=== PATIENT | female | born 1935 | race Caucasian/White ===

== ENCOUNTER 2018-08-10 09:35 | Emergency (ER) | payer MEDICARE, OTHER ==
[~2018-08-10] VITALS: Ht 167.6 cm; Wt 76.7 kg
--- NOTE | 2018-08-10 11:32 | PHYS DOC ---
Past Medical History Past Medical History: Other Additional Past Medical Histor: RAYNAUD'S, Past Surgical History: Appendectomy, Hysterectomy, Other Additional Past Surgical Histo: DBS & BATTERY REPLACEMENT Alcohol Use: None Drug Use: None Adult General Chief Complaint Chief Complaint: WRIST PAIN [facility] HPI Patient is an 82-year-old female who presents for splint placement for ulnar fracture to left wrist. Patient reportedly had been wiping her bottom when she felt a pop in her wrist and an x-ray had been ordered at her nursing facility and patient was found to have a distal ulna fracture. Patient was sent to the emergency room for splint placement. Review of Systems Review of Systems Constitutional: Denies fever or chills [] Respiratory: Denies cough or shortness of breath [] Cardiovascular: No additional information not addressed in HPI [] Musculoskeletal: Positive left wrist pain [] Integument: Denies rash or skin lesions [] Allergies Allergies Allergies Coded Allergies Type Severity Reaction Last Updated Verified tramadol Allergy Intermediate Rash 08/10/18 Yes Sulfa (Sulfonamide Antibiotics) Allergy Unknown 08/10/18 Yes Physical Exam Physical Exam Constitutional: Well developed, well nourished, no acute distress, non-toxic appearance. [] Cardiovascular: Regular rate and rhythm [] Lungs & Thorax: Bilateral breath sounds clear to auscultation [] Extremities: Left wrist demonstrates soft tissue swelling primarily in the dorsal aspect of the wrist. There is tenderness to palpation along the ulnar aspect of the wrist. [] Current Patient Data Vital Signs Vital Signs Date Time Temp Pulse Resp B/P (MAP) Pulse Ox O2 Delivery O2 Flow Rate FiO2 08/10/18 10:15 97.4 78 16 144/63 (90) 96 Room Air 97.4 EKG EKG [] Radiology/Procedures Radiology/Procedures [] Course & Med Decision Making Course & Med Decision Making Pertinent Labs and Imaging studies reviewed. (See chart for details) X-ray report that was sent with the patient was reviewed and patient noted to have a distal ulna fracture with no significant displacement. A volar OCL splint was placed by ER nurse. Examination post splint placement demonstrates good capillary refill. Dragon Disclaimer Dragon Disclaimer This electronic medical record was generated, in whole or in part, using a voice recognition dictation system. Departure Departure Impression: Primary Impression: Left ulnar fracture Disposition: 01 HOME, SELF-CARE Condition: STABLE Patient Instructions: Wrist Fracture Problem Qualifiers Primary Impression: Left ulnar fracture Encounter type: initial encounter Ulna location: distal Fracture type: closed Fracture morphology: unspecified fracture morphology Qualified Codes: S52.602A - Unspecified fracture of lower end of left ulna, initial encounter for closed fracture GRACIE FELIZ Jr., DO Aug 10, 2018 11:32
[2018-08-10] MEDS ORDERED: HYDROcodone/APAP 5/325MG 1 TAB TABLET ONE (12:27)
[2018-08-10] MEDS: HYDROcodone/APAP 5/325MG 1 TAB TABLET PO ONE ×2 (12:34→12:44)
[2018-08-10] MEDS ORDERED: ACETAMINOPHEN 500 MG TABLET PO ONE (12:45)
[2018-08-10 12:53] VITALS: BP 117/63
== END 2018-08-10 12:56 | disposition home or self-care (01) ==
LOC: ER 09:35 → EDBD 09:35 → ER 12:56
DX: S52.692A Other fracture of lower end of left ulna, initial encounter for closed fracture (principal); I73.00 Raynaud's syndrome without gangrene; Z90.710 Acquired absence of both cervix and uterus; Z90.89 Acquired absence of other organs; Z88.5 Allergy status to narcotic agent; Z88.2 Allergy status to sulfonamides
CPT/HCPCS: 29125; 99284

== ENCOUNTER 2018-10-06 16:02 | Inpatient (IN) | payer MEDICARE, OTHER ==
[~2018-10-06] VITALS: Ht 167.6 cm; Wt 86.3 kg
[2018-10-06 17:17] LABS: BASO % 0 % (0-3); EOS % 0 % (0-3); HEMATOCRIT 38.3 % (36.0-47.0); HEMOGLOBIN 12.4 g/dL (12.0-15.5); LYMPH # 0.7 x10^3/uL (1.0-4.8); LYMPH % 7 % (24-48); MEAN CORPUSCULAR HEMOGLOBIN 28 pg (25-35); MEAN CORPUSCULAR HGB CONC 33 g/dL (31-37); MEAN CORPUSCULAR VOLUME 87 fL (79-100); MONO # 0.9 x10^3/uL (0.0-1.1); MONO % 10 % (0-9); NEUT # 7.4 x10^3uL (1.8-7.7); NEUT % 82 % (31-73); PLATELET COUNT 211 x10^3/uL (140-400); RED BLOOD COUNT 4.39 x10^6/uL (3.50-5.40)
[2018-10-06 17:26] LABS: CALCIUM 8.7 mg/dL (8.5-10.1); CREATININE 0.9 mg/dL (0.6-1.0); GFR 59.9; POTASSIUM 4.2 mmol/L (3.5-5.1)
[2018-10-06 17:32] LABS: ALBUMIN 3.2 g/dL (3.4-5.0); ALBUMIN/GLOBULIN RATIO 0.9 (1.0-1.7); TOTAL BILIRUBIN 0.5 mg/dL (0.2-1.0); TOTAL PROTEIN 6.9 g/dL (6.4-8.2)
--- NOTE | 2018-10-06 18:05 | PHYS DOC ---
Past Medical History Past Medical History: A-Fib, CHF, Other Additional Past Medical Histor: RAYNAUD'S, scleraderma systemic, essential tremors, Past Surgical History: Appendectomy, Hysterectomy, Other Additional Past Surgical Histo: DBS & BATTERY REPLACEMENTx2 , lumpectomy on her back, left knee Alcohol Use: None Drug Use: None Adult General Chief Complaint Chief Complaint: COUGH HPI HPI Patient is a 82 year old female who presents with comes from assisted living with a fever, productive cough with yellow mucus, chest, shortness of air that all started today. Patient does have a right toe infection is being cared for by wound care and she is on doxycycline of which she will be done with doxycycline on the . Patient has a history of Raynaud , right toe wound, left chest deep brain stimulator for essential tremors, A. fib, CHF, scleroderma. Patient is rating her chest pressure at a 5 out of 10. Review of Systems Review of Systems Constitutional: Denies fever or chills [] Eyes: Denies change in visual acuity, redness, or eye pain [] HENT: Denies nasal congestion or sore throat [] Respiratory: cough or shortness of breath [] Cardiovascular: Chest pressure GI: Denies abdominal pain, nausea, vomiting, bloody stools or diarrhea [] : Denies dysuria or hematuria [] Musculoskeletal: Right 2nd toe infection. Denies back pain or joint pain [] Integument: Denies rash or skin lesions [] Neurologic: Denies headache, focal weakness or sensory changes [] All other systems were reviewed and found to be within normal limits, except as documented in this note. Allergies Allergies Allergies Coded Allergies Type Severity Reaction Last Updated Verified carbamazepine Allergy Intermediate itchy 10/06/18 Yes prochlorperazine Allergy Intermediate unknown 10/06/18 Yes tramadol Allergy Intermediate Rash 08/10/18 Yes Sulfa (Sulfonamide Antibiotics) Allergy Unknown 08/10/18 Yes Physical Exam Physical Exam Constitutional: Well developed, well nourished, no acute distress, non-toxic appearance. [] HENT: Normocephalic, atraumatic, bilateral external ears normal, oropharynx moist, no oral exudates, nose normal. [] Eyes: PERRLA, EOMI, conjunctiva normal, no discharge. [] Neck: Normal range of motion, no tenderness, supple, no stridor. [] Cardiovascular:Heart rate irregular rhythm, no murmur [] Lungs & Thorax: Bilateral breath sounds diminished to auscultation [] Abdomen: Bowel sounds normal, soft, no tenderness, no masses, no pulsatile masses. [] Skin: Warm, dry, no erythema, no rash. [] Back: No tenderness, no CVA tenderness. [] Extremities: No tenderness, no cyanosis, no clubbing, ROM intact, no edema. [] Neurologic: Alert and oriented X 3, normal motor function, normal sensory function, no focal deficits noted. [] Psychologic: Affect normal, judgement normal, mood normal. [] Current Patient Data Vital Signs Vital Signs Date Time Temp Pulse Resp B/P (MAP) Pulse Ox O2 Delivery O2 Flow Rate FiO2 10/06/18 16:10 99.2 92 20 141/68 (92) 98 Room Air 99.2 Lab Values Laboratory Tests Test 10/06/18 17:05 White Blood Count 9.0 x10^3/uL (4.0-11.0) Red Blood Count 4.39 x10^6/uL (3.50-5.40) Hemoglobin 12.4 g/dL (12.0-15.5) Hematocrit 38.3 % (36.0-47.0) Mean Corpuscular Volume 87 fL (79-100) Mean Corpuscular Hemoglobin 28 pg (25-35) Mean Corpuscular Hemoglobin Concent 33 g/dL (31-37) Red Cell Distribution Width 15.0 % (11.5-14.5) H Platelet Count 211 x10^3/uL (140-400) Neutrophils (%) (Auto) 82 % (31-73) H Lymphocytes (%) (Auto) 7 % (24-48) L Monocytes (%) (Auto) 10 % (0-9) H Eosinophils (%) (Auto) 0 % (0-3) Basophils (%) (Auto) 0 % (0-3) Neutrophils # (Auto) 7.4 x10^3uL (1.8-7.7) Lymphocytes # (Auto) 0.7 x10^3/uL (1.0-4.8) L Monocytes # (Auto) 0.9 x10^3/uL (0.0-1.1) Eosinophils # (Auto) 0.0 x10^3/uL (0.0-0.7) Basophils # (Auto) 0.0 x10^3/uL (0.0-0.2) Sodium Level 132 mmol/L (136-145) L Potassium Level 4.2 mmol/L (3.5-5.1) Chloride Level 94 mmol/L (98-107) L Carbon Dioxide Level 31 mmol/L (21-32) Anion Gap 7 (6-14) Blood Urea Nitrogen 17 mg/dL (7-20) Creatinine 0.9 mg/dL (0.6-1.0) Estimated GFR (Cockcroft-Gault) 59.9 BUN/Creatinine Ratio 19 (6-20) Glucose Level 145 mg/dL (70-99) H Lactic Acid Level 1.2 mmol/L (0.4-2.0) Calcium Level 8.7 mg/dL (8.5-10.1) Total Bilirubin 0.5 mg/dL (0.2-1.0) Aspartate Amino Transferase (AST) 34 U/L (15-37) Alanine Aminotransferase (ALT) 27 U/L (14-59) Alkaline Phosphatase 114 U/L (46-116) Troponin I Quantitative 0.044 ng/mL (0.000-0.055) Total Protein 6.9 g/dL (6.4-8.2) Albumin 3.2 g/dL (3.4-5.0) L Albumin/Globulin Ratio 0.9 (1.0-1.7) L Laboratory Tests 10/06/18 17:05 Laboratory Tests 10/06/18 17:05 EKG EKG Irregular rhythm and no STEMI Interpretation Time: [address] Vega Radiology/Procedures Radiology/Procedures [] Impressions: [facility] [address] [place], [place] [id number] IMAGING REPORT Signed PATIENT: MEAGAN COLÓN ACCOUNT: [id number] : 1935 LOCATION: ER AGE: 82 SEX: F EXAM STATUS: REG ER ORD. PHYSICIAN: MARVA GARVIN APRN REASON: cough, soa PROCEDURE: PORTABLE CHEST 1V PORTABLE CHEST 1V Clinical History: SOA, COUGH Technique: AP view of the chest was obtained at 10/06/2018 5:03 PM. Comparison: None. Findings: The heart is markedly enlarged. The pulmonary vessels appear normal. There is a left-sided neurostimulator. There is hazy opacity in the left costophrenic angle. Impression: Marked cardiomegaly. Possible tiny effusion on the left. Electronically signed by: Ian Dorsey III, MD (10/06/2018 6:42 PM) [facility] [place] DICTATED and SIGNED BY: IAN DORSEY III, MD DATE: 10/06/181841 Course & Med Decision Making Course & Med Decision Making Patient is a 82 year old female who presents with comes from assisted living with a fever, productive cough with yellow mucus, chest, shortness of air that all started today. Patient does have a right toe infection is being cared for by wound care and she is on doxycycline of which she will be done with doxycycline on the . Patient has a history of Raynaud , right toe wound, left chest deep brain stimulator for essential tremors, A. fib, CHF, scleroderma. Patient is rating her chest pressure at a 5 out of 10. Alert and oriented. Skin is pink warm and dry. Mucus Membranes are moist. Patient denies dysuria, headache, dizziness, visual changes, weaknesses, numbness or tingling. Lungs are diminished to auscultation in all lobes. While is in the room patient did cough up clear Mucus. Patient's temperature the ER is 99.2 and she is satting at 97% on room air. EKG shows an irregular rhythm with no STEMI. Rate of 92. Patient has a wound to the dorsal second toe on the right foot that is dressed by wound care. There is 1+ swelling compared to the left leg and the right leg that the patient and daughter states has been that way since she began having the wound. There is no calf tenderness and negative Homans sign. Abdomen is soft and nontender. Bilateral lateral pedal pulses are present. Cap refill is less than 3 seconds. Chest pain not reproducible with palpation. Heart score 5. Troponin .044. Rest of lab work stable. Chest xray shows Marked cardiomegaly. Possible tiny effusion on the left. Since patient is still on doxycycline for 2 more days I will put her on Zosyn. I did consult with pharmacy on what would be the best antibiotic for the patient. I have spoken to Dr Clark for admission of this patient as well as consulted pulmonary and cardiology. Dragon Disclaimer Dragon Disclaimer This electronic medical record was generated, in whole or in part, using a voice recognition dictation system. Departure Departure Impression: Primary Impression: Chest pain Additional Impression: Pneumonia Disposition: ADMITTED INPATIENT Admitting Physician: Lucian Ovalle Condition: STABLE Referrals: IVAN DIAZ MD (PCP) Problem Qualifiers Primary Impression: Chest pain Chest pain type: unspecified Qualified Codes: R07.9 - Chest pain, unspecified Additional Impression: Pneumonia Pneumonia type: due to unspecified organism Laterality: unspecified laterality Lung location: unspecified part of lung Qualified Codes: J18.9 - Pneumonia, unspecified organism MARVA GARVIN CLINICAL SUPPORT ASSOCIATE Oct 06, 2018 18:05
--- NOTE | 2018-10-06 18:45 | RAD ---
PORTABLE CHEST 1V Clinical History: SOA, COUGH Technique: AP view of the chest was obtained at 10/06/2018 5:03 PM. Comparison: None. Findings: The heart is markedly enlarged. The pulmonary vessels appear normal. There is a left-sided neurostimulator. There is hazy opacity in the left costophrenic angle. Impression: Marked cardiomegaly. Possible tiny effusion on the left. Electronically signed by: Jovan Gaona III, MD (10/06/2018 6:42 PM) [facility]
[2018-10-06] MEDS ORDERED: ACETAMINOPHEN 325 MG TABLET. PO PRN (19:00)
[2018-10-06] MEDS ORDERED: ONDANSETRON PF 4 MG/2 ML VIAL. IV PRN (19:00)
[2018-10-06] MEDS ORDERED: PIP/TAZO PER PHARMACY MC PRN (19:00)
[2018-10-06] MEDS ORDERED: PIPERACILLIN/TAZOBACTAM 3.375 GM in IV NORMAL SALINE 50ML 50 ML IV ONE (19:30)
[2018-10-06] MEDS: IPRATRPIUM/ALBUTEROL 0.5/2.5MG 3 ML NEBU. NEB SCH (19:36)
[2018-10-06] MEDS ORDERED: ONDANSETRON PF 4 MG/2 ML VIAL. IV ONE (20:30)
[2018-10-06 20:54] VITALS: BP 90/45
--- NOTE | 2018-10-06 22:00 | NUR ---
Pt was admitted to the unit from ER with c/o chest pain and SOB. Pt is a resident of [facility] and states she was having chest tightness and progressive weakness. Pt is A/Ox4, on RA, with no current c/o pain. Pt did experience nausea with emesis at time of emesis, educated pt and daughters at bedside about ice chips for PO intake and will be NPO at midnight for elevated troponin and possible workup. Pt is normally seen at where all her specialists are located. Pt suffers from severe tremors and has a left chest, deep brain stimulator, to help dampen her full upper body tremors. Daughter Shilpa (DPOA) states pt is total feed r/t to the tremors, and suffers from scleroderma and Raynaud's which makes it also difficult for pt to feed herself. Pt is AFIB telemetry, VSS, b/p of the lower end and daughter states thats normal. Pt does not take any HTN medications. Pt also has right second toe wound that is being treated with doxycycline at [facility]. Pt suffered left wrist fx 8 weeks ago from fall and has brace on it. H&P completed, med rec completed, bed in low locked position, call light within reach. Bed alarm activated and will continue to monitor for status changes.
[2018-10-06 23:30] VITALS: BP 95/46
[2018-10-07] MEDS: PIPERACILLIN/TAZOBACTAM 3.375 GM in IV NORMAL SALINE 50ML 50 ML IV SCH ×4 (00:42→18:10)
[2018-10-07] MEDS ORDERED: LEVO50TA5 PO (02:11)
[2018-10-07] MEDS ORDERED: CALC400T5 PO (02:11)
[2018-10-07] MEDS ORDERED: CYAN10005 PO (02:11)
[2018-10-07] MEDS ORDERED: BISA10SU55 RC (02:11)
[2018-10-07] MEDS ORDERED: DOCU100C28 PO (02:11)
[2018-10-07] MEDS ORDERED: FURO40TA4 PO (02:11)
[2018-10-07] MEDS ORDERED: ATOR10TA60 PO (02:11)
[2018-10-07] MEDS ORDERED: OMEG-161 PO (02:11)
[2018-10-07] MEDS ORDERED: ASPI-612 PO (02:11)
[2018-10-07] MEDS ORDERED: BACL10TA PO (02:11)
[2018-10-07] MEDS ORDERED: L. R1CAP6 PO (02:11)
[2018-10-07] MEDS ORDERED: SIME80TA14 PO (02:12)
[2018-10-07] MEDS ORDERED: SENN-80 PO (02:12)
[2018-10-07] MEDS ORDERED: ACET500T55 PO (02:12)
[2018-10-07] MEDS ORDERED: MULT-480 PO (02:12)
[2018-10-07] MEDS ORDERED: GUAI600T47 PO (02:12)
[2018-10-07] MEDS ORDERED: MAGN400T3 PO (02:12)
[2018-10-07] MEDS ORDERED: RANI150T2 PO (02:12)
[2018-10-07] MEDS ORDERED: POTA20TA82 PO (02:12)
[2018-10-07] MEDS ORDERED: NYST15PO9 TP (02:12)
[2018-10-07] MEDS ORDERED: PREG100C PO (02:12)
[2018-10-07] MEDS ORDERED: LOPE2CAP PO (02:12)
[2018-10-07 02:34] VITALS: BP 85/44
[2018-10-07 07:00] VITALS: BP 91/51
[2018-10-07 07:50] LABS: CHOLESTEROL/HDL RATIO 1.5
--- NOTE | 2018-10-07 08:04 | EKG ---
[facility] [address] [place] [address] Test Date: 2018-10-07 Test Time: 02:26:38 Pat Name: MEAGAN COLÓN Department: [facility] Gender: F Shipping/Receiving Clerk: RAJ : 1935 Requested By: MARVA GARVIN Order Number: [id number] Reading MD: Primitivo Womack MD Measurements Intervals [place] Rate: 71 P: [place]: QRS: -45 QRSD: 118 T: 6 QT: 412 QTc: 448 Interpretive Statements ATRIAL FIBRILLATION WITH CONTROLLED VENTRICULAR RESPONSE PROBABLE LVH LATERAL ST CHANGES Electronically Signed On 10-07-2018 11:10:49 CDT by Primitivo Womack MD
[2018-10-07] MEDS: IPRATRPIUM/ALBUTEROL 0.5/2.5MG 3 ML NEBU. NEB SCH ×4 (08:18→19:59)
--- NOTE | 2018-10-07 09:03 | EKG ---
[facility] [address] [place] [address] Test Date: 2018-10-06 Test Time: 16:21:40 Pat Name: MEAGAN COLÓN Department: Room: 244 1 Gender: F Impression Printer: : 1935 Requested By: MARVA GARVIN Order Number: [id number] Reading MD: Primitivo Womack MD Measurements Intervals [place] Rate: 92 P: [place]: QRS: -46 QRSD: 116 T: 54 QT: 344 QTc: 430 Interpretive Statements ATRIAL FIBRILLATION WITH CONTROLLED VENTRICULAR RESPONSE NON-SPECIFIC ST/T CHANGES LAD Electronically Signed On 10-07-2018 10:57:16 CDT by Primitivo Womack MD
--- NOTE | 2018-10-07 09:16 | PDOC2 ---
ALEXCINDY HENAO BLANCA 10/07/18 0916: CARDIAC CONSULT DATE OF CONSULT Date of Consult DATE: 10/07/18 TIME: 09:07 REASON FOR CONSULT Reason for Consult: Chest pain REFERRING PHYSICIAN Referring Physician: Emmy Lubin APRN SOURCE Source: Chart review, Patient HISTORY OF PRESENT ILLNESS HISTORY OF PRESENT ILLNESS This is an 82 yo female who presented from nursing facility secondary to fevers congestion, cough, and shortness of breath for the last couple of days. Developed some chest pain yesterday evening. Located in her central chest. Describes as aching. Worsened with deep breathing. No associated dizziness, diaphoresis, palpitations, or nausea/vomiting. No recent MARTINEZ, orthopnea, or PND. Has a history of chronic afib. Follows with Dr. Wright with [facility]. Had stress test in May of last year that daughter reports as normal. Has had right foot, second toe for over a month. Is followed by wound care without any significant improvement. Now has swelling and reddness of the right lower extremity. Has been on doxycycline and will finish course 10/08/18. Has had no significant improvement in symptoms. PAST MEDICAL HISTORY Cardiovascular: AFIB, CHF, Other (Raynauds) Pulmonary: No pertinent hx CENTRAL NERVOUS SYSTEM: Other (essential tremors) GI: No pertinent hx Heme/Onc: No pertinent hx Hepatobiliary: No pertinent hx Psych: No pertinent hx Musculoskeletal: Osteoarthritis Rheumatologic: No pertinent hx, Other (scleroderma, Raynauds) Infectious disease: No pertinent hx ENT: No pertinent hx Renal/: No pertinent hx Endocrine: Hypothyroidism Dermatology: No pertinent hx PAST SURGICAL HISTORY Past Surgical History: Appendectomy, Hysterectomy FAMILY HISTORY Family History: Hypertension SOCIAL HISTORY Smoke: No ALCOHOL: none Drugs: None Lives: Care Home (Assisted Living) CURRENT MEDICATIONS CURRENT MEDICATIONS Current Medications Medications (Trade) Dose Ordered Sig/Rowan Route PRN Reason Start Time Stop Time Status Last Admin Dose Admin Piperacillin Sod/ Tazobactam Sod 3.375 gm/Sodium Chloride 50 ml @ 100 mls/hr 1X ONCE IV 10/06/18 19:30 10/06/18 19:59 DC 10/06/18 19:09 Acetaminophen (Tylenol) 650 mg PRN Q4HRS PRN PO FEVER 10/06/18 19:00 10/07/18 18:59 10/06/18 20:29 Albuterol/ Ipratropium (Duoneb) 3 ml RTQID NEB 10/06/18 20:00 10/07/18 19:59 10/07/18 08:18 Ondansetron HCl (Zofran) 4 mg 1X ONCE IV 10/06/18 20:30 10/06/18 20:34 DC 10/06/18 20:25 Piperacillin Sod/ Tazobactam Sod 3.375 gm/Sodium Chloride 50 ml @ 100 mls/hr Q6HRS IV 10/07/18 00:00 10/07/18 06:00 ALLERGIES ALLERGIES: Coded Allergies: carbamazepine (Verified Allergy, Intermediate, itchy, 10/06/18) prochlorperazine (Verified Allergy, Intermediate, unknown, 10/06/18) tramadol (Verified Allergy, Intermediate, Rash, 08/10/18) Sulfa (Sulfonamide Antibiotics) (Verified Allergy, Unknown, 08/10/18) 'I WAS JUST TOLD NOT TO TAKE IT' ROS Review of System 14 point ROS conducted with pertinent positives noted above in HPI. PHYSICAL EXAM General: Alert, Oriented X3, Cooperative, No acute distress HEENT: Atraumatic, Mucous membr. moist/pink Lungs: Clear to auscultation Heart: Normal S1, Normal S2, Other (IRR; AFIB, 2/6 systolic murmur ) Abdomen: Soft, No tenderness Extremities: Other (2+ RLE pitting edema ) Skin: Other (right foot second toe wound. RLE erythema) Neuro: Normal speech, Sensation intact, Other (tremor) Psych/Mental Status: Mental status NL, Mood NL MUSCULOSKELETAL: Osteoarthritic changes both hands VITALS VITALS Vital Signs Date Time Temp Pulse Resp B/P (MAP) Pulse Ox O2 Delivery O2 Flow Rate FiO2 10/07/18 08:18 98 Room Air 10/07/18 07:00 98.0 70 19 91/51 (64) 98.0 LABS Lab: Laboratory Tests Test 10/06/18 17:05 10/06/18 21:40 10/07/18 06:44 White Blood Count 9.0 x10^3/uL (4.0-11.0) Red Blood Count 4.39 x10^6/uL (3.50-5.40) Hemoglobin 12.4 g/dL (12.0-15.5) Hematocrit 38.3 % (36.0-47.0) Mean Corpuscular Volume 87 fL (79-100) Mean Corpuscular Hemoglobin 28 pg (25-35) Mean Corpuscular Hemoglobin Concent 33 g/dL (31-37) Red Cell Distribution Width 15.0 % (11.5-14.5) Platelet Count 211 x10^3/uL (140-400) Neutrophils (%) (Auto) 82 % (31-73) Lymphocytes (%) (Auto) 7 % (24-48) Monocytes (%) (Auto) 10 % (0-9) Eosinophils (%) (Auto) 0 % (0-3) Basophils (%) (Auto) 0 % (0-3) Neutrophils # (Auto) 7.4 x10^3uL (1.8-7.7) Lymphocytes # (Auto) 0.7 x10^3/uL (1.0-4.8) Monocytes # (Auto) 0.9 x10^3/uL (0.0-1.1) Eosinophils # (Auto) 0.0 x10^3/uL (0.0-0.7) Basophils # (Auto) 0.0 x10^3/uL (0.0-0.2) Sodium Level 132 mmol/L (136-145) Potassium Level 4.2 mmol/L (3.5-5.1) Chloride Level 94 mmol/L (98-107) Carbon Dioxide Level 31 mmol/L (21-32) Anion Gap 7 (6-14) Blood Urea Nitrogen 17 mg/dL (7-20) Creatinine 0.9 mg/dL (0.6-1.0) Estimated GFR (Cockcroft-Gault) 59.9 BUN/Creatinine Ratio 19 (6-20) Glucose Level 145 mg/dL (70-99) Lactic Acid Level 1.2 mmol/L (0.4-2.0) Calcium Level 8.7 mg/dL (8.5-10.1) Total Bilirubin 0.5 mg/dL (0.2-1.0) Aspartate Amino Transf (AST/SGOT) 34 U/L (15-37) Alanine Aminotransferase (ALT/SGPT) 27 U/L (14-59) Alkaline Phosphatase 114 U/L (46-116) Troponin I Quantitative 0.044 ng/mL (0.000-0.055) 0.048 ng/mL (0.000-0.055) < 0.017 ng/mL (0.000-0.055) Total Protein 6.9 g/dL (6.4-8.2) Albumin 3.2 g/dL (3.4-5.0) Albumin/Globulin Ratio 0.9 (1.0-1.7) Magnesium Level 2.1 mg/dL (1.8-2.4) JG-Aaq-Z-Type Natriuretic Peptide 4153 pg/mL (0-449) Triglycerides Level 27 mg/dL (0-150) Cholesterol Level 90 mg/dL (0-200) LDL Cholesterol, Calculated 25 mg/dL (0-100) VLDL Cholesterol, Calculated 5 mg/dL (0-40) Non-HDL Cholesterol Calculated 30 mg/dL (0-129) HDL Cholesterol 60 mg/dL (40-60) Cholesterol/HDL Ratio 1.5 Thyroid Stimulating Hormone (TSH) 0.771 uIU/mL (0.358-3.74) ASSESSMENT/PLAN ASSESSMENT/PLAN 1. Chest pain, atypical. AMI ruled out. Most probably pleuritic in nature. 2. Dyspnea, likely URI. Low-grade fevers prior to arrival 3. Chronic diastolic HF 4. Chronic AFIB; rate controlled. On ASA for stroke prophylaxis. Follows with Dr. Wright at 5. Scleroderma 6. Raynaud's 7. RLE cellulitis, wound Recommendations Echo to assess LV systolic function RLE arterial duplex to r/o obstructive PAD Obtain cardiac records from . Supportive care Treatment of cellulitis as per PCP Further recommendations pending review of records. JORJE MONTENEGRO MD 10/07/182120: CARDIAC CONSULT ASSESSMENT/PLAN ASSESSMENT/PLAN Pt. seen and examined. Agree with above. RLE arterial duplex is unremarkable. OSH records reviewed. Continue low dose diuretics. Echo reviewed. Low normal EF. No significant pulm HTN. Supportivev care. Thanks. CINDY JOHNSON APRN Oct 07, 2018 09:16 JORJE MONTENEGRO MD Oct 07, 2018 21:21
[2018-10-07 11:00] VITALS: BP 97/50
[2018-10-07] MEDS ORDERED: SIMETHICONE 80 MG TAB.CHEW PO PRN (11:45)
[2018-10-07] MEDS ORDERED: BISACODYL 10 MG SUPP.RECT. PR PRN (11:45)
[2018-10-07] MEDS ORDERED: ACETAMINOPHEN 500 MG TABLET PO PRN (11:45)
[2018-10-07] MEDS ORDERED: CALCIUM CARBONATE 500 MG TAB.CHEW PO PRN (11:45)
[2018-10-07] MEDS ORDERED: LEVOTHYROXINE PO PRN (11:45)
--- NOTE | 2018-10-07 11:50 | NUR ---
SS following for discharge planning. SS reviewed pt chart and met with pt and daughter in room. Pt's daughter reported that pt was from [facility] and they would like to discharge her back to [facility] at discharge. Pt address in system is current incorrect. SS notified case management. Pt is currently on room air. PT/OT recommended custodial unit. Pt's daughter reported that she wanted pt to return to [facility]. SS will continue to follow for discharge planning.
[2018-10-07] MEDS ORDERED: LOPERAMIDE 2 MG CAPSULE PO PRN (12:00)
[2018-10-07] MEDS: LACTOBACILLUS RHAMNOSUS GG 1 CAPSULE. PO SCH ×2 (12:18→22:13)
[2018-10-07] MEDS: MULTIVITAMIN with MINERAL TABLET. PO SCH (12:18)
[2018-10-07] MEDS: LEVOTHYROXINE 25 MCG TABLET. PO SCH (12:18)
[2018-10-07] MEDS: SENNOSIDES 8.6 MG TABLET PO SCH (12:18)
[2018-10-07] MEDS: MAGNESIUM OXIDE 400 MG TABLET PO SCH ×2 (12:18→22:13)
[2018-10-07] MEDS: OMEGA-3 FATTY ACIDS/FISH OIL 1,000 MG CAPSULE. PO SCH (12:18)
[2018-10-07] MEDS: DOCUSATE SODIUM 100 MG CAPSULE. PO SCH ×2 (12:18→22:13)
[2018-10-07] MEDS: ASPIRIN ENTERIC COATED 81 MG TABLET.DR. PO SCH (12:18)
[2018-10-07] MEDS: CYANOCOBALAMIN (VITAMIN B-12) 1,000 MCG TABLET. PO SCH (12:18)
--- NOTE | 2018-10-07 12:26 | EKG ---
[facility] [address] [place] [address] Test Date: 2018-10-07 Test Time: 12:09:48 Pat Name: MEAGAN COLÓN Department: Room: [facility] Gender: F Transition Mgr Rn: MEHDI : 1935 Requested By: MARVA GARVIN Order Number: [id number] Reading MD: Primitivo Womack MD Measurements Intervals [place] Rate: 66 P: [place]: QRS: -42 QRSD: 120 T: 9 QT: 406 QTc: 427 Interpretive Statements ATRIAL FIBRILLATION WITH CONTROLLED VENTRICULAR RESPONSE NON-SPECIFIC ST/T CHANGES PRIOR ANTEROSEPTAL INFARCT Electronically Signed On 10-08-2018 9:09:00 CDT by Primitivo Womack MD
[2018-10-07] MEDS: PREGABALIN 50 MG CAPSULE PO SCH ×2 (13:56→22:13)
[2018-10-07] MEDS: FUROSEMIDE 40 MG TABLET. PO SCH (13:56)
[2018-10-07] MEDS: POTASSIUM CHLORIDE 20 MEQ TABLET.ER. PO SCH (13:57)
[2018-10-07] MEDS: NYSTATIN TOPICAL POWDER 15GM BOTTLE. TP SCH ×2 (13:57→22:15)
--- NOTE | 2018-10-07 14:04 | PDOC1 ---
History and Physical Date of Admission Date of Admission DATE: 10/07/18 TIME: 14:04 Identification/Chief Complaint Chief Complaint SEEN IN ER ,productive cough with yellow mucus, chest, shortness of air that all started today. Patient does have a right toe infection is being cared for by wound care and she is on doxycycline of which she will be done with doxycycline on the . Patient has a history of Raynaud , right toe wound, left chest deep brain stimulator for essential tremors, A. fib, CHF, scleroderma. She states she smoked yrs ago, none recently, also smoked Past Medical History Past Medical History Past Medical History Past Medical History: A-Fib, CHF, Other Additional Past Medical Histor: RAYNAUD'S, scleraderma systemic, essential tremors, Past Surgical History: Appendectomy, Hysterectomy, Other Additional Past Surgical Histo: DBS & BATTERY REPLACEMENTx2 , lumpectomy on her back, left knee Alcohol Use: None Drug Use: None FAMILY HX ASHD Cardiovascular: AFIB, CHF, Other (Raynauds) Pulmonary: Bronchitis, COPD GI: No pertinent hx Musculoskeletal: Osteoarthritis Rheumatologic: Other (scleroderma, Raynauds) Endocrine: Hypothyroidism Past Surgical History Past Surgical History: Appendectomy, Hysterectomy Family History Family History: Coronary Artery Disease, Hypertension Social History Smoke: Quit ALCOHOL: none Drugs: None Current Problem List Problem List Problems Medical Problems: (1) Chest pain Status: Acute (2) Pneumonia Status: Acute Current Medications Current Medications Current Medications Piperacillin Sod/ Tazobactam Sod (Zosyn Per Pharmacy) 1 each PRN DAILY PRN MC SEE COMMENTS; Start 10/06/18 at 19:00 Piperacillin Sod/ Tazobactam Sod 3.375 gm/Sodium Chloride 50 ml @ 100 mls/hr 1X ONCE IV Last administered on 10/06/18at 19:09; Start 10/06/18 at 19:30; Stop 10/06/18 at 19:59; Status DC Ondansetron HCl (Zofran) 4 mg PRN Q8HRS PRN IV NAUSEA/VOMITING; Start 10/06/18 at 19:00; Stop 10/07/18 at 18:59 Acetaminophen (Tylenol) 650 mg PRN Q4HRS PRN PO FEVER Last administered on 10/06at 20:29; Start 10/06/18 at 19:00; Stop 10/07/18 at 11:43; Status DC Albuterol/ Ipratropium (Duoneb) 3 ml RTQID NEB Last administered on 10/07/18at 12:19; Start 10/06/18 at 20:00; Stop 10/07/18 at 19:59 Ondansetron HCl (Zofran) 4 mg 1X ONCE IV Last administered on 10/06/18 20:25 ; Start 10/06/18 at 20:30; Stop 10/06/18 at 20:34; Status DC Piperacillin Sod/ Tazobactam Sod 3.375 gm/Sodium Chloride 50 ml @ 100 mls/hr Q6HRS IV Last administered on 10/07/18 12:19; Start 10/07/18 at 00:00 Aspirin (Ecotrin) 81 mg DAILY PO Last administered on 10/07/18 12:18; Start at 12:00 Atorvastatin Calcium (Lipitor) 10 mg HS PO ; Start 10/07/18 at 21:00 Baclofen (Lioresal) 10 mg HS PO ; Start 10/07/18 at 21:00 Cyanocobalamin (Vitamin B-12) 1,000 mcg DAILY PO Last administered on at 12:18; Start 10/07/18 at 12:00 Docusate Sodium (Colace) 100 mg BID PO Last administered on 10/07/18 12:18; Start 10/07/18 at 12:00 Furosemide (Lasix) 40 mg DAILY PO Last administered on 10/07/18at 13:56; Start 10/07/18 at 12:00 Guaifenesin (Mucinex) 600 mg BID PO Last administered on 10/07/18 12:18; Start 10/07/18 at 12:00 Nystatin (Nystop) 1 gabriela TID TP Last administered on 10/07/18at 13:57; Start at 14:00 Simethicone (Gas-X) 80 mg PRN Q6HRS PRN PO flatulence ; Start 10/07/18 at 11:45 Acetaminophen (Tylenol) 1,000 mg PRN BID PRN PO MILD PAIN; Start 10/07/18 at 11 :45 Bisacodyl (Dulcolax Supp) 10 mg PRN DAILY PRN GA CONSTIPATION; Start 10/07/18 at 11:45 Calcium Carbonate/ Glycine (Tums) 500 mg PRN Q12HR PRN PO INDIGESTION; Start at 11:45 Lactobacillus Rhamnosus (Culturelle) 1 cap BID PO Last administered on 12:18; Start 10/07/18 at 12:00 Non-Formulary Medication (Levothyroxine Sodium ) 40 mcg DAILYAC PRN PO hypothyroid ; Start 10/07/18 at 11:45; Stop 10/07/18 at 12:11; Status DC Loperamide HCl (Imodium) 2 mg PRN Q1HR PRN PO DIARRHEA; Start 10/07/18 at 12:00 Magnesium Oxide (Magnesium Oxide) 400 mg BID PO Last administered on 10/07/18 12:18; Start 10/07/18 at 12:00 Multivitamins (Thera M Plus) 1 tab DAILY PO Last administered on 10/07/18 12: 18; Start 10/07/18 at 12:00 Fish Oil (Fish Oil) 1,000 mg DAILY PO Last administered on 10/07/18 12:18; Start 10/07/18 at 12:00 Potassium Chloride (Klor-Con) 20 meq DAILYWBKFT PO Last administered on 13:57; Start 10/07/18 at 12:00 Pregabalin (Lyrica) 100 mg TID PO Last administered on 10/07/18 13:56; Start 10/07/18 at 14:00 Famotidine (Pepcid) 20 mg QHS PO ; Start 10/07/18 at 21:00 Sennosides (Senna) 8.6 mg DAILY PO Last administered on 10/07/18 12:18; Start 10/07/18 at 12:00 Levothyroxine Sodium (Synthroid) 25 mcg DAILY06 PO Last administered on 12:18; Start 10/07/18 at 12:30 Active Scripts Active Reported Thera-Tabs M Caplet (Multivits,Ca,Minerals/Iron/Fa) 1 Each Tablet 1 Each PO DAILY Senna (Sennosides) 8.6 Mg Tablet 8.6 Mg PO DAILY Ranitidine Hcl 150 Mg Tablet 150 Mg PO HS Lyrica (Pregabalin) 100 Mg Capsule 1 Cap PO TID Potassium Chloride 20 Meq Tablet.er 20 Meq PO DAILY Nystatin 15 Gm Powder 1 Gabriela TP TID Simethicone 80 Mg Tab.chew 80 Mg PO PRN Q6HRS PRN Mucinex (Guaifenesin) 600 Mg Tablet.er 1 Tab PO BID Mapap (Acetaminophen) 500 Mg Tablet 1,000 Mg PO PRN BID PRN Magnesium Oxide 400 Mg Tablet 400 Mg PO BID Loperamide (Loperamide Hcl) 2 Mg Capsule 2 Mg PO PRN Q1HR PRN Levothyroxine Sodium 50 Mcg Tablet 40 Mcg PO DAILYAC PRN Furosemide 40 Mg Tablet 1 Tab PO DAILY Fish Oil-Vit D3 Softgel (Omega3/Dha/Epa/Fish Oil/Vit D3) 1 Each Capsule 1 Each PO DAILY Docusate Sodium 100 Mg Capsule 100 Mg PO BID Vitamin B-12 (Cyanocobalamin (Vitamin B-12)) 1,000 Mcg Tablet 1 Tab PO DAILY Culturelle Probiotics Capsule (L. Rhamnosus GG/Inulin) 1 Each Capsule 1 Each PO BID Tums Ultra (Calcium Carbonate) 400 Mg Tab.chew 400 Mg PO PRN Q12HR PRN Dulcolax (Bisacodyl) 10 Mg Supp.rect 10 Mg RC PRN DAILY PRN Baclofen 10 Mg Tablet 10 Mg PO HS Atorvastatin Calcium 10 Mg Tablet 10 Mg PO HS Aspirin Ec (Aspirin) 81 Mg Tablet. 1 Tab PO DAILY Allergies Allergies: Coded Allergies: carbamazepine (Verified Allergy, Intermediate, itchy, 10/06/18) prochlorperazine (Verified Allergy, Intermediate, unknown, 10/06/18) tramadol (Verified Allergy, Intermediate, Rash, 08/10/18) Sulfa (Sulfonamide Antibiotics) (Verified Allergy, Unknown, 08/10/18) 'I WAS JUST TOLD NOT TO TAKE IT' ROS Review of System Review of Systems Review of Systems Constitutional: pos chills POA[] Eyes: Denies change in visual acuity, redness, or eye pain [] HENT: Denies nasal congestion or sore throat [] Respiratory: POS cough //shortness of breath [] Cardiovascular: Chest pressure GI: Denies abdominal pain, nausea, vomiting, bloody stools or diarrhea [] : Denies dysuria or hematuria [] Musculoskeletal: Right 2nd toe infection. Denies back pain or joint pain [] Integument: Denies rash or skin lesions [] Neurologic: Denies headache, focal weakness or sensory changes [] 14 pt systems were reviewed and found to be within normal limits, except as documented General: YES: Chills ALLERGY AND IMMUNOLOGY: No: Hives, Insect Bite Sensitivity, Itchy/Watery Eyes, Nasal Congestion, Post Nasal Drip, Seasonal Allergies, Other Respiratory: YES: Cough, Shortness of breath, Sputum Changes Musculoskeletal: Yes Joint Stiffness Skin: Yes Dry Skin Physical Exam Physical Exam Physical Exam Physical Exam Constitutional: Well developed, well nourished, no acute distress, non-toxic appearance. [] HENT: Normocephalic, atraumatic, bilateral external ears normal, oropharynx moist, no oral exudates, nose normal. [] Eyes: PERRLA, EOMI, conjunctiva normal, no discharge. [] Neck: Normal range of motion, no tenderness, supple, no stridor. [] Cardiovascular:Heart rate irregular rhythm, no murmur [] Lungs & Thorax: Bilateral breath sounds diminished to auscultation [] Abdomen: Bowel sounds normal, soft, no tenderness, no masses, no pulsatile masses. [] Skin: Warm, dry, no erythema, no rash. [] Back: No tenderness, no CVA tenderness. [] Extremities: No tenderness, no cyanosis, no clubbing, ROM intact, no edema. [] Neurologic: Alert and oriented X 3, normal motor function, normal sensory function, no focal deficits noted. [] Psychologic: Affect normal, judgement normal, mood normal. [] General: Alert, Oriented X3, Cooperative HEENT: Atraumatic Heart: no gallops Breasts: Not examined Abdomen: Normal bowel sounds, Soft PELVIC: Examination not indicated Extremities: No cyanosis Neuro: Normal speech, Cranial nerves 3-12 NL Vitals Vitals Vital Signs Date Time Temp Pulse Resp B/P (MAP) Pulse Ox O2 Delivery O2 Flow Rate FiO2 10/07/18 12:19 92 Room Air 10/07/18 11:00 97.3 88 18 97/50 (66) 97.3 Labs Labs Laboratory Tests Test 10/06/18 17:05 10/06/18 21:40 10/07/18 05:30 10/07/18 06:44 White Blood Count 9.0 x10^3/uL (4.0-11.0) Red Blood Count 4.39 x10^6/uL (3.50-5.40) Hemoglobin 12.4 g/dL (12.0-15.5) Hematocrit 38.3 % (36.0-47.0) Mean Corpuscular Volume 87 fL (79-100) Mean Corpuscular Hemoglobin 28 pg (25-35) Mean Corpuscular Hemoglobin Concent 33 g/dL (31-37) Red Cell Distribution Width 15.0 % (11.5-14.5) Platelet Count 211 x10^3/uL (140-400) Neutrophils (%) (Auto) 82 % (31-73) Lymphocytes (%) (Auto) 7 % (24-48) Monocytes (%) (Auto) 10 % (0-9) Eosinophils (%) (Auto) 0 % (0-3) Basophils (%) (Auto) 0 % (0-3) Neutrophils # (Auto) 7.4 x10^3uL (1.8-7.7) Lymphocytes # (Auto) 0.7 x10^3/uL (1.0-4.8) Monocytes # (Auto) 0.9 x10^3/uL (0.0-1.1) Eosinophils # (Auto) 0.0 x10^3/uL (0.0-0.7) Basophils # (Auto) 0.0 x10^3/uL (0.0-0.2) Sodium Level 132 mmol/L (136-145) Potassium Level 4.2 mmol/L (3.5-5.1) Chloride Level 94 mmol/L (98-107) Carbon Dioxide Level 31 mmol/L (21-32) Anion Gap 7 (6-14) Blood Urea Nitrogen 17 mg/dL (7-20) Creatinine 0.9 mg/dL (0.6-1.0) Estimated GFR (Cockcroft-Gault) 59.9 BUN/Creatinine Ratio 19 (6-20) Glucose Level 145 mg/dL (70-99) Lactic Acid Level 1.2 mmol/L (0.4-2.0) Calcium Level 8.7 mg/dL (8.5-10.1) Total Bilirubin 0.5 mg/dL (0.2-1.0) Aspartate Amino Transf (AST/SGOT) 34 U/L (15-37) Alanine Aminotransferase (ALT/SGPT) 27 U/L (14-59) Alkaline Phosphatase 114 U/L (46-116) Troponin I Quantitative 0.044 ng/mL (0.000-0.055) 0.048 ng/mL (0.000-0.055) < 0.017 ng/mL (0.000-0.055) Total Protein 6.9 g/dL (6.4-8.2) Albumin 3.2 g/dL (3.4-5.0) Albumin/Globulin Ratio 0.9 (1.0-1.7) Nasal Screen MRSA (PCR) Negative (Negative) Magnesium Level 2.1 mg/dL (1.8-2.4) GG-Hln-R-Type Natriuretic Peptide 4153 pg/mL (0-449) Triglycerides Level 27 mg/dL (0-150) Cholesterol Level 90 mg/dL (0-200) LDL Cholesterol, Calculated 25 mg/dL (0-100) VLDL Cholesterol, Calculated 5 mg/dL (0-40) Non-HDL Cholesterol Calculated 30 mg/dL (0-129) HDL Cholesterol 60 mg/dL (40-60) Cholesterol/HDL Ratio 1.5 Thyroid Stimulating Hormone (TSH) 0.771 uIU/mL (0.358-3.74) Laboratory Tests Test 10/06/18 17:05 10/06/18 21:40 10/07/18 05:30 10/07/18 06:44 White Blood Count 9.0 x10^3/uL (4.0-11.0) Red Blood Count 4.39 x10^6/uL (3.50-5.40) Hemoglobin 12.4 g/dL (12.0-15.5) Hematocrit 38.3 % (36.0-47.0) Mean Corpuscular Volume 87 fL (79-100) Mean Corpuscular Hemoglobin 28 pg (25-35) Mean Corpuscular Hemoglobin Concent 33 g/dL (31-37) Red Cell Distribution Width 15.0 % (11.5-14.5) Platelet Count 211 x10^3/uL (140-400) Neutrophils (%) (Auto) 82 % (31-73) Lymphocytes (%) (Auto) 7 % (24-48) Monocytes (%) (Auto) 10 % (0-9) Eosinophils (%) (Auto) 0 % (0-3) Basophils (%) (Auto) 0 % (0-3) Neutrophils # (Auto) 7.4 x10^3uL (1.8-7.7) Lymphocytes # (Auto) 0.7 x10^3/uL (1.0-4.8) Monocytes # (Auto) 0.9 x10^3/uL (0.0-1.1) Eosinophils # (Auto) 0.0 x10^3/uL (0.0-0.7) Basophils # (Auto) 0.0 x10^3/uL (0.0-0.2) Sodium Level 132 mmol/L (136-145) Potassium Level 4.2 mmol/L (3.5-5.1) Chloride Level 94 mmol/L (98-107) Carbon Dioxide Level 31 mmol/L (21-32) Anion Gap 7 (6-14) Blood Urea Nitrogen 17 mg/dL (7-20) Creatinine 0.9 mg/dL (0.6-1.0) Estimated GFR (Cockcroft-Gault) 59.9 BUN/Creatinine Ratio 19 (6-20) Glucose Level 145 mg/dL (70-99) Lactic Acid Level 1.2 mmol/L (0.4-2.0) Calcium Level 8.7 mg/dL (8.5-10.1) Total Bilirubin 0.5 mg/dL (0.2-1.0) Aspartate Amino Transf (AST/SGOT) 34 U/L (15-37) Alanine Aminotransferase (ALT/SGPT) 27 U/L (14-59) Alkaline Phosphatase 114 U/L (46-116) Troponin I Quantitative 0.044 ng/mL (0.000-0.055) 0.048 ng/mL (0.000-0.055) < 0.017 ng/mL (0.000-0.055) Total Protein 6.9 g/dL (6.4-8.2) Albumin 3.2 g/dL (3.4-5.0) Albumin/Globulin Ratio 0.9 (1.0-1.7) Nasal Screen MRSA (PCR) Negative (Negative) Magnesium Level 2.1 mg/dL (1.8-2.4) LQ-Sto-C-Type Natriuretic Peptide 4153 pg/mL (0-449) Triglycerides Level 27 mg/dL (0-150) Cholesterol Level 90 mg/dL (0-200) LDL Cholesterol, Calculated 25 mg/dL (0-100) VLDL Cholesterol, Calculated 5 mg/dL (0-40) Non-HDL Cholesterol Calculated 30 mg/dL (0-129) HDL Cholesterol 60 mg/dL (40-60) Cholesterol/HDL Ratio 1.5 Thyroid Stimulating Hormone (TSH) 0.771 uIU/mL (0.358-3.74) Images Images Pulmonary Vein S1 Velocity 30.0cm/s S2 Velocity 40.47cm/s D2 Velocity 40.5cm/s LEFT VENTRICLE The left ventricle is normal size. There is mild concentric left ventricular hypertrophy. The Ejection Fraction is 50%. Abnormal septal motion consistent with conduction abnormality. RIGHT VENTRICLE The right ventricle is normal size. The right ventricular systolic function is normal. ATRIA The left atrium size is normal. The right atrium size is normal. The interatrial septum is intact with no evidence for an atrial septal defect or patent foramen ovale as noted on 2-D or Doppler imaging. AORTIC VALVE The aortic valve is calcified but opens well. Doppler and Color Flow revealed trace aortic regurgitation. There is no significant aortic valvular stenosis. MITRAL VALVE The mitral valve is calcified but opens well. Posterior mitral annular calcification is mild. There is no evidence of mitral valve prolapse. There is no mitral valve stenosis. Doppler and Color-flow revealed trace to mild mitral regurgitation. TRICUSPID VALVE The tricuspid valve is normal in structure and function. Doppler and Color Flow revealed mild tricuspid regurgitation. The PA pressure was estimated at 33 mmHg. There is no tricuspid valve stenosis. PULMONIC VALVE The pulmonic valve is not well visualized. Doppler and Color Flow revealed mild pulmonic valvular regurgitation. There is no pulmonic valvular stenosis. GREAT VESSELS The aortic root is normal in size. The ascending aorta is mildly dilated at 3.3 cm. The IVC is normal in size and collapses >50% with inspiration. PERICARDIAL EFFUSION There is no evidence of significant pericardial effusion. Critical Notification Critical Value: No <Conclusion> Abnormal septal motion consistent with conduction abnormality. The Ejection Fraction is 50%. Trace aortic regurgitation. Trace to mild mitral regurgitation. Mild tricuspid regurgitation. The PA pressure was estimated at 33 mmHg. There is no evidence of significant pericardial effusion. Signed by : Robin Jimenez, Electronically Approved : 10/07/2018 14:30:13 PORTABLE CHEST 1V Clinical History: SOA, COUGH Technique: AP view of the chest was obtained at 10/06/2018 5:03 PM. Comparison: None. Findings: The heart is markedly enlarged. The pulmonary vessels appear normal. There is a left-sided neurostimulator. There is hazy opacity in the left costophrenic angle. Impression: Marked cardiomegaly. Possible tiny effusion on the left. Electronically signed by: Ian Gaona III, MD (10/06/2018 6:42 PM) [facility] DICTATED and SIGNED BY: IAN GAONA III, MD DATE: 10/06/181841 VTE Prophylaxis Ordered VTE Prophylaxis Devices: Yes VTE Pharmacological Prophylaxi: Yes Assessment/Plan Assessment/Plan IMPRESSION 1. ACUTE COPD EXAC 2. Chest pain, atypical. 2. Dyspnea, //URI. 3. Chronic diastolic CHF Abnormal septal motion consistent with conduction abnormality. The Ejection Fraction is 50%. ECHO 10/07 4. Chronic AFIB; 5. Scleroderma 6. Raynaud's 7. RLE cellulitis, wound 8. left chest deep brain stimulator for essential tremors 9. GERD 10. Hypothyroid state on replacement 11. Right 2nd toe infection. PLAN PULM CONSULT Cardiology consult Echo RLE arterial duplex US Obtain med records from [facility] dvt prophylaxis iv zosyn 57 min pt exam, record review, > 50% of time with exam, chart review, pt care coordination. ARIANNA JOLLY MD Oct 07, 2018 14:04
--- NOTE | 2018-10-07 14:18 | PDOC ---
PULMONARY PROGRESS NOTES Vitals Vital Signs Date Time Temp Pulse Resp B/P (MAP) Pulse Ox O2 Delivery O2 Flow Rate FiO2 10/07/18 12:19 92 Room Air 10/07/18 11:00 97.3 88 18 97/50 (66) 97.3 Labs Laboratory Tests Test 10/06/18 17:05 10/06/18 21:40 10/07/18 05:30 10/07/18 06:44 White Blood Count 9.0 x10^3/uL (4.0-11.0) Red Blood Count 4.39 x10^6/uL (3.50-5.40) Hemoglobin 12.4 g/dL (12.0-15.5) Hematocrit 38.3 % (36.0-47.0) Mean Corpuscular Volume 87 fL (79-100) Mean Corpuscular Hemoglobin 28 pg (25-35) Mean Corpuscular Hemoglobin Concent 33 g/dL (31-37) Red Cell Distribution Width 15.0 % (11.5-14.5) Platelet Count 211 x10^3/uL (140-400) Neutrophils (%) (Auto) 82 % (31-73) Lymphocytes (%) (Auto) 7 % (24-48) Monocytes (%) (Auto) 10 % (0-9) Eosinophils (%) (Auto) 0 % (0-3) Basophils (%) (Auto) 0 % (0-3) Neutrophils # (Auto) 7.4 x10^3uL (1.8-7.7) Lymphocytes # (Auto) 0.7 x10^3/uL (1.0-4.8) Monocytes # (Auto) 0.9 x10^3/uL (0.0-1.1) Eosinophils # (Auto) 0.0 x10^3/uL (0.0-0.7) Basophils # (Auto) 0.0 x10^3/uL (0.0-0.2) Sodium Level 132 mmol/L (136-145) Potassium Level 4.2 mmol/L (3.5-5.1) Chloride Level 94 mmol/L (98-107) Carbon Dioxide Level 31 mmol/L (21-32) Anion Gap 7 (6-14) Blood Urea Nitrogen 17 mg/dL (7-20) Creatinine 0.9 mg/dL (0.6-1.0) Estimated GFR (Cockcroft-Gault) 59.9 BUN/Creatinine Ratio 19 (6-20) Glucose Level 145 mg/dL (70-99) Lactic Acid Level 1.2 mmol/L (0.4-2.0) Calcium Level 8.7 mg/dL (8.5-10.1) Total Bilirubin 0.5 mg/dL (0.2-1.0) Aspartate Amino Transf (AST/SGOT) 34 U/L (15-37) Alanine Aminotransferase (ALT/SGPT) 27 U/L (14-59) Alkaline Phosphatase 114 U/L (46-116) Troponin I Quantitative 0.044 ng/mL (0.000-0.055) 0.048 ng/mL (0.000-0.055) < 0.017 ng/mL (0.000-0.055) Total Protein 6.9 g/dL (6.4-8.2) Albumin 3.2 g/dL (3.4-5.0) Albumin/Globulin Ratio 0.9 (1.0-1.7) Nasal Screen MRSA (PCR) Negative (Negative) Magnesium Level 2.1 mg/dL (1.8-2.4) ZR-Iyj-J-Type Natriuretic Peptide 4153 pg/mL (0-449) Triglycerides Level 27 mg/dL (0-150) Cholesterol Level 90 mg/dL (0-200) LDL Cholesterol, Calculated 25 mg/dL (0-100) VLDL Cholesterol, Calculated 5 mg/dL (0-40) Non-HDL Cholesterol Calculated 30 mg/dL (0-129) HDL Cholesterol 60 mg/dL (40-60) Cholesterol/HDL Ratio 1.5 Thyroid Stimulating Hormone (TSH) 0.771 uIU/mL (0.358-3.74) Laboratory Tests Test 10/06/18 17:05 10/06/18 21:40 10/07/18 05:30 10/07/18 06:44 White Blood Count 9.0 x10^3/uL (4.0-11.0) Red Blood Count 4.39 x10^6/uL (3.50-5.40) Hemoglobin 12.4 g/dL (12.0-15.5) Hematocrit 38.3 % (36.0-47.0) Mean Corpuscular Volume 87 fL (79-100) Mean Corpuscular Hemoglobin 28 pg (25-35) Mean Corpuscular Hemoglobin Concent 33 g/dL (31-37) Red Cell Distribution Width 15.0 % (11.5-14.5) Platelet Count 211 x10^3/uL (140-400) Neutrophils (%) (Auto) 82 % (31-73) Lymphocytes (%) (Auto) 7 % (24-48) Monocytes (%) (Auto) 10 % (0-9) Eosinophils (%) (Auto) 0 % (0-3) Basophils (%) (Auto) 0 % (0-3) Neutrophils # (Auto) 7.4 x10^3uL (1.8-7.7) Lymphocytes # (Auto) 0.7 x10^3/uL (1.0-4.8) Monocytes # (Auto) 0.9 x10^3/uL (0.0-1.1) Eosinophils # (Auto) 0.0 x10^3/uL (0.0-0.7) Basophils # (Auto) 0.0 x10^3/uL (0.0-0.2) Sodium Level 132 mmol/L (136-145) Potassium Level 4.2 mmol/L (3.5-5.1) Chloride Level 94 mmol/L (98-107) Carbon Dioxide Level 31 mmol/L (21-32) Anion Gap 7 (6-14) Blood Urea Nitrogen 17 mg/dL (7-20) Creatinine 0.9 mg/dL (0.6-1.0) Estimated GFR (Cockcroft-Gault) 59.9 BUN/Creatinine Ratio 19 (6-20) Glucose Level 145 mg/dL (70-99) Lactic Acid Level 1.2 mmol/L (0.4-2.0) Calcium Level 8.7 mg/dL (8.5-10.1) Total Bilirubin 0.5 mg/dL (0.2-1.0) Aspartate Amino Transf (AST/SGOT) 34 U/L (15-37) Alanine Aminotransferase (ALT/SGPT) 27 U/L (14-59) Alkaline Phosphatase 114 U/L (46-116) Troponin I Quantitative 0.044 ng/mL (0.000-0.055) 0.048 ng/mL (0.000-0.055) < 0.017 ng/mL (0.000-0.055) Total Protein 6.9 g/dL (6.4-8.2) Albumin 3.2 g/dL (3.4-5.0) Albumin/Globulin Ratio 0.9 (1.0-1.7) Nasal Screen MRSA (PCR) Negative (Negative) Magnesium Level 2.1 mg/dL (1.8-2.4) QA-Zao-I-Type Natriuretic Peptide 4153 pg/mL (0-449) Triglycerides Level 27 mg/dL (0-150) Cholesterol Level 90 mg/dL (0-200) LDL Cholesterol, Calculated 25 mg/dL (0-100) VLDL Cholesterol, Calculated 5 mg/dL (0-40) Non-HDL Cholesterol Calculated 30 mg/dL (0-129) HDL Cholesterol 60 mg/dL (40-60) Cholesterol/HDL Ratio 1.5 Thyroid Stimulating Hormone (TSH) 0.771 uIU/mL (0.358-3.74) Medications Active Scripts Medications Dose Route/Sig Max Daily Dose Days Date Category Thera-Tabs M Caplet (Multivits,Ca,Minerals/Iron/Fa) 1 Each Tablet 1 Each PO DAILY 10/07/18 Reported Senna (Sennosides) 8.6 Mg Tablet 8.6 Mg PO DAILY 10/07/18 Reported Ranitidine Hcl 150 Mg Tablet 150 Mg PO HS 10/07/18 Reported Lyrica (Pregabalin) 100 Mg Capsule 1 Cap PO TID 10/07/18 Reported Potassium Chloride 20 Meq Tablet.er 20 Meq PO DAILY 10/07/18 Reported Nystatin 15 Gm Powder 1 Gabriela TP TID 10/07/18 Reported Simethicone 80 Mg Tab.chew 80 Mg PO PRN Q6HRS PRN 10/07/18 Reported Mucinex (Guaifenesin) 600 Mg Tablet.er 1 Tab PO BID 10/07/18 Reported Mapap (Acetaminophen) 500 Mg Tablet 1,000 Mg PO PRN BID PRN 10/07/18 Reported Magnesium Oxide 400 Mg Tablet 400 Mg PO BID 10/07/18 Reported Loperamide (Loperamide Hcl) 2 Mg Capsule 2 Mg PO PRN Q1HR PRN 10/07/18 Reported Levothyroxine Sodium 50 Mcg Tablet 40 Mcg PO DAILYAC PRN 10/07/18 Reported Furosemide 40 Mg Tablet 1 Tab PO DAILY 10/07/18 Reported Fish Oil-Vit D3 Softgel (Omega3/Dha/Epa/Fish Oil/Vit D3) 1 Each Capsule 1 Each PO DAILY 10/07/18 Reported Docusate Sodium 100 Mg Capsule 100 Mg PO BID 10/07/18 Reported Vitamin B-12 (Cyanocobalamin (Vitamin B-12)) 1,000 Mcg Tablet 1 Tab PO DAILY 10/07/18 Reported Culturelle Probiotics Capsule (L. Rhamnosus GG/Inulin) 1 Each Capsule 1 Each PO BID 10/07/18 Reported Tums Ultra (Calcium Carbonate) 400 Mg Tab.chew 400 Mg PO PRN Q12HR PRN 10/07/18 Reported Dulcolax (Bisacodyl) 10 Mg Supp.rect 10 Mg RC PRN DAILY PRN 10/07/18 Reported Baclofen 10 Mg Tablet 10 Mg PO HS 10/07/18 Reported Atorvastatin Calcium 10 Mg Tablet 10 Mg PO HS 10/07/18 Reported Aspirin Ec (Aspirin) 81 Mg Tablet.dr 1 Tab PO DAILY 10/07/18 Reported Impression . NOTE DICTATED AECOPD SEC PULM HTN PT FOLLOW [facility] DOCTOR CONTINUE THE SAME HOME SOON THANKS NATALIE ALCANTARA MD Oct 07, 2018 14:18
--- NOTE | 2018-10-07 14:30 | CARD ---
MR#: [id number] Date of Study: 10/07/2018 Ordering Physician: CINDY JOHNSON, Referring Physician: ARIANNA JOLLY Tech: Mary Garvin RDCS APPROVED REPORT EXAM: Two-dimensional and M-mode echocardiogram with Doppler and color Doppler. Other Information Quality : Good INDICATION Congestive Heart Failure 2D DIMENSIONS RVDd2.4 (2.9-3.5cm)Left Atrium(2D)3.2 (1.6-4.0cm) IVSd1.0 (0.7-1.1cm)Aortic Root(2D)2.9 (2.0-3.7cm) LVDd4.3 (3.9-5.9cm)LVOT Diameter2.0 (1.8-2.4cm) PWd1.2 (0.7-1.1cm)LVDs3.3 (2.5-4.0cm) FS (%) 22.6 %SV37.9 ml LVEF(%)45.8 (>50%) Aortic Valve AoV Peak Ruel.148.3cm/sAoV VTI20.7cm AO Peak GR.8.8mmHgLVOT VTI 11.55cm AO Mean GR.5mmHg TDI Medial E' P. V4.76cm/s Tricuspid Valve TR P. [id number]/sRAP [id number] TR Peak Gr.81fjWnKSPZ24woXh Pulmonary Vein S1 Egvbzuts92.0cm/sS2 Olzffsnz02.47cm/s D2 Mwstrjjd42.5cm/s LEFT VENTRICLE The left ventricle is normal size. There is mild concentric left ventricular hypertrophy. The Ejectio n Fraction is 50%. Abnormal septal motion consistent with conduction abnormality. RIGHT VENTRICLE The right ventricle is normal size. The right ventricular systolic function is normal. ATRIA The left atrium size is normal. The right atrium size is normal. The interatrial septum is intact wit h no evidence for an atrial septal defect or patent foramen ovale as noted on 2-D or Doppler imaging. AORTIC VALVE The aortic valve is calcified but opens well. Doppler and Color Flow revealed trace aortic regurgitat ion. There is no significant aortic valvular stenosis. MITRAL VALVE The mitral valve is calcified but opens well. Posterior mitral annular calcification is mild. There i s no evidence of mitral valve prolapse. There is no mitral valve stenosis. Doppler and Color-flow rev ealed trace to mild mitral regurgitation. TRICUSPID VALVE The tricuspid valve is normal in structure and function. Doppler and Color Flow revealed mild tricusp id regurgitation. The PA pressure was estimated at 33 mmHg. There is no tricuspid valve stenosis. PULMONIC VALVE The pulmonic valve is not well visualized. Doppler and Color Flow revealed mild pulmonic valvular reg urgitation. There is no pulmonic valvular stenosis. GREAT VESSELS The aortic root is normal in size. The ascending aorta is mildly dilated at 3.3 cm. The IVC is normal in size and collapses >50% with inspiration. PERICARDIAL EFFUSION There is no evidence of significant pericardial effusion. Critical Notification Critical Value: No <Conclusion> Abnormal septal motion consistent with conduction abnormality. The Ejection Fraction is 50%. Trace aortic regurgitation. Trace to mild mitral regurgitation. Mild tricuspid regurgitation. The PA pressure was estimated at 33 mmHg. There is no evidence of significant pericardial effusion. Signed by : Robin Jimenez, Electronically Approved : 10/07/2018 14:30:13
[2018-10-07 14:55] VITALS: BP 104/38
--- NOTE | 2018-10-07 18:19 | NUR ---
Wound Care Pt seen for wound care screening. Upon assessment, noticed a R dorsal 2nd toe wound, dusky red and desicated. Per report, WAYNE SINGH RN has been treating the wound at the pt's facility for the last 2 weeks, pt has not been seen by [facility] wound care. Toe is swollen and red, no drainage noted, pt stated that her facility took an xray 2 weeks ago, but no imaging has been completed since, palpable dorsalis pedis pulse 2+, foot warm. R foot xray ordered by Dr. Mckenzie, who will see patient tomorrow to evaluate wound. Area painted with betadine, and pt requested that a padded dressing be applied, as the area is tender when the sheets lay on it. Foot wrapped with dry gauze and kerlix. No other wounds noted on full skin inspection, pt and her daughter were educated on Q2 hour turns to prevent skin breakdown, but pt declined L or R turn at this time, heels floated. Will f/u with pt tomorrow with Dr. Mckenzie for further evaluation.
[2018-10-07 19:00] VITALS: BP 108/62
[2018-10-07] MEDS ORDERED: ENOXAPARIN 40 MG/0.4 ML SYRINGE. SQ SCH (19:00)
--- NOTE | 2018-10-07 20:22 | CONS ---
DATE OF CONSULTATION: 10/07/2018 ATTENDING PHYSICIAN: Lucian Clark MD. CONSULTING PHYSICIAN: Natalie Alcantara MD. REASON FOR CONSULTATION: The patient seen in pulmonary consultation at the request of Dr. Clark for dyspnea, history of scleroderma. HISTORY OF PRESENT ILLNESS: The patient is an 82-year-old that presented with increasing shortness of breath. She resides at a senior living. She was congested, coughing up some white sputum. No fever, chills or night sweats. The patient has a prior history of scleroderma and pulmonary hypertension. She was recently seen at [facility] for her pulmonary hypertension. She was given some Lasix. This was felt to be secondary to possibility of diastolic dysfunction versus her underlying systemic scleroderma. PAST MEDICAL HISTORY: Pulmonary hypertension, scleroderma, essential tremors, muscle spasm, parkinsonism, vitamin D deficiency, previous urinary tract infection. She has had lipoma in the past, hypothyroidism, bronchitis, tobacco dependence, in remission. She smoked for a short period of time. She has Raynaud's disease without gangrene, NEVA positive serology in the past. She has also had some recent lower extremity cellulitis, receiving doxycycline. PAST SURGICAL HISTORY: As above. ALLERGIES: TO SULFA, CARBAMAZEPINE, PROCHLORPERAZINE AND TRAMADOL. CURRENT MEDICATIONS: List was reviewed. REVIEW OF SYSTEMS: As indicated above, otherwise, a 10-point system was reviewed and negative. SOCIAL HISTORY: She resides at an assisted living facility. Denies any current tobacco or alcohol intake. PHYSICAL EXAMINATION: GENERAL: The patient was in no respiratory distress. VITAL SIGNS: Stable. O2 saturation was greater than 92%, currently on room air. HEENT: Eyes, the sclerae were nonicteric. NECK: Jugular venous distention was not elevated. No lymphadenopathy. CHEST: Full expansion. LUNGS: Adequate airway flow, no wheezes. CARDIOVASCULAR: Regular rate and rhythm with S1, S2, no S3. ABDOMEN: Soft, nontender, nondistended. EXTREMITIES: No clubbing, cyanosis, some edema. NEUROLOGIC: The patient was awake, alert, following commands. A detailed neuro exam was not performed. LABORATORY DATA: Reviewed. White count was normal. Hemoglobin and hematocrit were noted. Electrolytes were noted. Troponin was not elevated. BNP was elevated. IMPRESSION: 1. Progressive dyspnea secondary to secondary pulmonary hypertension, acute exacerbation of chronic obstructive pulmonary disease. 2. Acute exacerbation of chronic obstructive pulmonary disease. 3. Pulmonary hypertension. The patient recently evaluated at [facility], declined right heart catheterization. 4. Chest pain per Cardiology. 5. Chronic atrial fibrillation. 6. Scleroderma. 7. Right lower extremity cellulitis. PLAN: 1. Pulmonary status appears to be compensated. We will treat acute exacerbation of COPD. 2. Possible discharge home in the next day or two. 3. Lasix. 4. Follow Cardiology input. 5. Follow up with Clinic for her pulmonary hypertension. I do appreciate the privilege in sharing in the patient's care. NATALIE ALCANTARA MD DR: DANYEL/camilo JOB#: [id number] / [id number]
[2018-10-07] MEDS ORDERED: FAMOTIDINE 20 MG TABLET. PO SCH (21:00)
[2018-10-07] MEDS: ENOXAPARIN 40 MG/0.4 ML SYRINGE. SQ SCH (22:11)
[2018-10-07] MEDS: BACLOFEN 10 MG TABLET. PO SCH (22:12)
[2018-10-07] MEDS: ATORVASTATIN CALCIUM 10 MG TABLET. PO SCH (22:13)
[2018-10-07 23:00] VITALS: BP 121/72
[2018-10-08] VITALS (12 sets, daily range): BP systolic 98–138; BP diastolic 56–78
[2018-10-08] MEDS: PIPERACILLIN/TAZOBACTAM 3.375 GM in IV NORMAL SALINE 50ML 50 ML IV SCH ×4 (01:02→17:24)
[2018-10-08] MEDS ORDERED: BENZONATATE 100 MG CAPSULE. PO ONE (03:15)
[2018-10-08] MEDS ORDERED: CODEINE SULFATE 30 MG TABLET. PO PRN (03:15)
--- NOTE | 2018-10-08 04:12 | NUR ---
PT HAS BEEN COUGHNG SINCE SHIFT CHANGE CLEAN THIN PHLEGM, AROUNG 0001 IT BECAME RED TINGED. BY O1OO IT WAS MORE RED TINGED PHLEGM. CALLED DR ALCANTARA REPORTED BLOOD IN PHLEGM. SEE ORDERS. LCRN
[2018-10-08] MEDS: LEVOTHYROXINE 25 MCG TABLET. PO SCH ×2 (05:17→19:58)
--- NOTE | 2018-10-08 07:25 | NUR ---
Wound Care Pt seen for wound care follow up with Dr. Mckenzie re: her R second toe wound. HLIDA obtained through [employer] with a normal HILDA value of 1.08 and strong pedal pulse. Wound bed appears more moist, with red granulation tissue present. Wound redressed with Medihoney alginate and a Telfa dressing, change every 3 days. Will await XRay results for further workup.
[2018-10-08] MEDS ORDERED: PANTOPRAZOLE 40 MG TABLET.DR. PO SCH (07:30)
[2018-10-08] MEDS ORDERED: ONDANSETRON PF 4 MG/2 ML VIAL. IV PRN (07:30)
--- NOTE | 2018-10-08 07:41 | PDOC2 ---
CONSULT Date of Consult Date of Consult DATE: 10/08/18 TIME: 07:19 Reason for Consult Reason for Consult: Right toe wound Referring Physician Referring Physician: Dr. Clark Identification/Chief Complaint Chief Complaint This is an 82 yo female recently admitted from a nurse sitting facility for congestion, cough and shortness of breath. In the course of the respiratory workup, awareness of her right second toe wound became evident. Patient reports several week duration and recent treatment with collagen dressings. Patient does not report any significant worsening recently. She is aware of hammertoe deformity to the toe preceding the wound. Patient reports recent doxycycline therapy. Source Source: Chart review, Patient History of Present Illness Reason for Visit: As above. Past Medical History Cardiovascular: AFIB, CHF, Other (Raynauds) Pulmonary: Bronchitis, COPD CENTRAL NERVOUS SYSTEM: Other (essential tremors) GI: No pertinent hx Heme/Onc: No pertinent hx Hepatobiliary: No pertinent hx Psych: No pertinent hx Musculoskeletal: Osteoarthritis Rheumatologic: No pertinent hx, Other (scleroderma, Raynauds) Infectious disease: No pertinent hx ENT: No pertinent hx Renal/: No pertinent hx Endocrine: Hypothyroidism Dermatology: No pertinent hx Past Surgical History Past Surgical History: Appendectomy, Hysterectomy Family History Family History: Coronary Artery Disease, Hypertension Social History Quit ALCOHOL: none Drugs: None Lives: [facility] (Assisted Living) Current Problem List Problem List Problems Medical Problems: (1) Chest pain Status: Acute (2) Pneumonia Status: Acute Current Medications Current Medications Current Medications Piperacillin Sod/ Tazobactam Sod (Zosyn Per Pharmacy) 1 each PRN DAILY PRN MC SEE COMMENTS; Start 10/06/18 at 19:00 Piperacillin Sod/ Tazobactam Sod 3.375 gm/Sodium Chloride 50 ml @ 100 mls/hr 1X ONCE IV Last administered on 10/06/18at 19:09; Start 10/06/18 at 19:30; Stop 10/06/18 at 19:59; Status DC Ondansetron HCl (Zofran) 4 mg PRN Q8HRS PRN IV NAUSEA/VOMITING; Start 10/06/18 at 19:00; Stop 10/07/18 at 18:59; Status DC Acetaminophen (Tylenol) 650 mg PRN Q4HRS PRN PO FEVER Last administered on 10/06at 20:29; Start 10/06/18 at 19:00; Stop 10/07/18 at 11:43; Status DC Albuterol/ Ipratropium (Duoneb) 3 ml RTQID NEB Last administered on 10/07/18 19:59; Start 10/06/18 at 20:00; Stop 10/07/18 at 19:59; Status DC Ondansetron HCl (Zofran) 4 mg 1X ONCE IV Last administered on 10/06/18 20:25 ; Start 10/06/18 at 20:30; Stop 10/06/18 at 20:34; Status DC Piperacillin Sod/ Tazobactam Sod 3.375 gm/Sodium Chloride 50 ml @ 100 mls/hr Q6HRS IV Last administered on 10/08/18 05:35; Start 10/07/18 at 00:00 Aspirin (Ecotrin) 81 mg DAILY PO Last administered on 10/07/18 12:18; Start at 12:00 Atorvastatin Calcium (Lipitor) 10 mg HS PO Last administered on 10/07/18 22:13 ; Start 10/07/18 at 21:00 Baclofen (Lioresal) 10 mg HS PO Last administered on 10/07/18 22:12; Start at 21:00 Cyanocobalamin (Vitamin B-12) 1,000 mcg DAILY PO Last administered on 12:18; Start 10/07/18 at 12:00 Docusate Sodium (Colace) 100 mg BID PO Last administered on 10/07/18 22:13; Start 10/07/18 at 12:00 Furosemide (Lasix) 40 mg DAILY PO Last administered on 10/07/18at 13:56; Start 10/07/18 at 12:00 Guaifenesin (Mucinex) 600 mg BID PO Last administered on 10/07/18 22:12; Start 10/07/18 at 12:00 Nystatin (Nystop) 1 gabriela TID TP Last administered on 10/07/18 22:15; Start at 14:00 Simethicone (Gas-X) 80 mg PRN Q6HRS PRN PO flatulence ; Start 10/07/18 at 11:45 Acetaminophen (Tylenol) 1,000 mg PRN BID PRN PO MILD PAIN Last administered on 10/07/18 16:47; Start 10/07/18 at 11:45 Bisacodyl (Dulcolax Supp) 10 mg PRN DAILY PRN MA CONSTIPATION; Start 10/07/18 at 11:45 Calcium Carbonate/ Glycine (Tums) 500 mg PRN Q12HR PRN PO INDIGESTION Last administered on 10/08/18 02:32; Start 10/07/18 at 11:45 Lactobacillus Rhamnosus (Culturelle) 1 cap BID PO Last administered on 22:13; Start 10/07/18 at 12:00 Non-Formulary Medication (Levothyroxine Sodium ) 40 mcg DAILYAC PRN PO hypothyroid ; Start 10/07/18 at 11:45; Stop 10/07/18 at 12:11; Status DC Loperamide HCl (Imodium) 2 mg PRN Q1HR PRN PO DIARRHEA; Start 10/07/18 at 12:00 Magnesium Oxide (Magnesium Oxide) 400 mg BID PO Last administered on 10/07/18 22:13; Start 10/07/18 at 12:00 Multivitamins (Thera M Plus) 1 tab DAILY PO Last administered on 10/07/18 12: 18; Start 10/07/18 at 12:00 Fish Oil (Fish Oil) 1,000 mg DAILY PO Last administered on 10/07/18 12:18; Start 10/07/18 at 12:00 Potassium Chloride (Klor-Con) 20 meq DAILYWBKFT PO Last administered on 13:57; Start 10/07/18 at 12:00 Pregabalin (Lyrica) 100 mg TID PO Last administered on 10/07/18 22:13; Start 10/07/18 at 14:00 Famotidine (Pepcid) 20 mg QHS PO Last administered on 10/07/18 22:12; Start at 21:00 Sennosides (Senna) 8.6 mg DAILY PO Last administered on 10/07/18 12:18; Start 10/07/18 at 12:00 Levothyroxine Sodium (Synthroid) 25 mcg DAILY06 PO Last administered on 12:18; Start 10/07/18 at 12:30 Enoxaparin Sodium (Lovenox 40mg Syringe) 40 mg Q24H SQ Last administered on at 22:11; Start 10/07/18 at 21:00 Enoxaparin Sodium (Lovenox 40mg Syringe) 40 mg Q24H SQ ; Start 10/07/18 at 19:00 Pantoprazole Sodium (Protonix) 40 mg DAILYAC PO ; Start 10/08/18 at 07:30 Codeine Sulfate (Codeine) 30 mg PRN Q6HRS PRN PO cough Last administered on at 03:26; Start 10/08/18 at 03:15 Benzonatate (Tessalon Perle) 100 mg [id number] PO ; Start 10/08/18 at 09:00 Benzonatate (Tessalon Perle) 100 mg 1X ONCE PO Last administered on 10/08/18at 03:26; Start 10/08/18 at 03:15; Stop 10/08/18 at 03:16; Status DC Active Scripts Active Reported Thera-Tabs M Caplet (Multivits,Ca,Minerals/Iron/Fa) 1 Each Tablet 1 Each PO DAILY Senna (Sennosides) 8.6 Mg Tablet 8.6 Mg PO DAILY Ranitidine Hcl 150 Mg Tablet 150 Mg PO HS Lyrica (Pregabalin) 100 Mg Capsule 1 Cap PO TID Potassium Chloride 20 Meq Tablet.er 20 Meq PO DAILY Nystatin 15 Gm Powder 1 Gabriela TP TID Simethicone 80 Mg Tab.chew 80 Mg PO PRN Q6HRS PRN Mucinex (Guaifenesin) 600 Mg Tablet.er 1 Tab PO BID Mapap (Acetaminophen) 500 Mg Tablet 1,000 Mg PO PRN BID PRN Magnesium Oxide 400 Mg Tablet 400 Mg PO BID Loperamide (Loperamide Hcl) 2 Mg Capsule 2 Mg PO PRN Q1HR PRN Levothyroxine Sodium 50 Mcg Tablet 40 Mcg PO DAILYAC PRN Furosemide 40 Mg Tablet 1 Tab PO DAILY Fish Oil-Vit D3 Softgel (Omega3/Dha/Epa/Fish Oil/Vit D3) 1 Each Capsule 1 Each PO DAILY Docusate Sodium 100 Mg Capsule 100 Mg PO BID Vitamin B-12 (Cyanocobalamin (Vitamin B-12)) 1,000 Mcg Tablet 1 Tab PO DAILY Culturelle Probiotics Capsule (L. Rhamnosus GG/Inulin) 1 Each Capsule 1 Each PO BID Tums Ultra (Calcium Carbonate) 400 Mg Tab.chew 400 Mg PO PRN Q12HR PRN Dulcolax (Bisacodyl) 10 Mg Supp.rect 10 Mg RC PRN DAILY PRN Baclofen 10 Mg Tablet 10 Mg PO HS Atorvastatin Calcium 10 Mg Tablet 10 Mg PO HS Aspirin Ec (Aspirin) 81 Mg Tablet. 1 Tab PO DAILY Allergies Allergies: Coded Allergies: carbamazepine (Verified Allergy, Intermediate, itchy, 10/06/18) prochlorperazine (Verified Allergy, Intermediate, unknown, 10/06/18) tramadol (Verified Allergy, Intermediate, Rash, 08/10/18) Sulfa (Sulfonamide Antibiotics) (Verified Allergy, Unknown, 08/10/18) 'I WAS JUST TOLD NOT TO TAKE IT' ROS Review of System Review of systems negative except as reported below. General: YES: Fatigue Respiratory: YES: Cough, Hemoptysis, Sputum Changes Cardiovascular: yes Chest Pain Gastrointestinal: Yes Nausea Musculoskeletal: Yes Gait Disturbance, Yes Joint Stiffness, Yes Muscular Weakness Neurological: Yes Tremors, Yes Weakness Skin: Yes Dry Skin (past medical history reported of sclera derma) Physical Exam General: Alert, Oriented X3, Cooperative HEENT: Atraumatic, PERRLA, EOMI Lungs: Clear to auscultation (anteriorly) Heart: Other (irregular rhythm with 2/6 systolic murmur) Abdomen: Soft, No tenderness Extremities: No clubbing, No cyanosis, No edema, Other (strong dorsalis pedis pulse on the right with a Quant of flow of 1.08) Skin: Other (1.3 cm ulceration to the dorsal aspect right second toe with no evidence of exposed tendon or bone at this time. The toe itself is modestly edematous with mild erythema) Neuro: Other (speech hesitant but appropriate. Patient does not appear ambulatory at this time.) Psych/Mental Status: Mental status NL, Mood NL MUSCULOSKELETAL: Osteoarthritic changes both hands, Abnormal exam of both ( lower extremities) Vitals VITALS Vital Signs Date Time Temp Pulse Resp B/P (MAP) Pulse Ox O2 Delivery O2 Flow Rate FiO2 10/08/18 03:00 97.6 133 20 118/66 (83) 90 Room Air 97.6 Labs Labs Laboratory Tests Test 10/06/18 17:05 10/06/18 21:40 10/07/18 05:30 10/07/18 06:44 White Blood Count 9.0 x10^3/uL (4.0-11.0) Red Blood Count 4.39 x10^6/uL (3.50-5.40) Hemoglobin 12.4 g/dL (12.0-15.5) Hematocrit 38.3 % (36.0-47.0) Mean Corpuscular Volume 87 fL (79-100) Mean Corpuscular Hemoglobin 28 pg (25-35) Mean Corpuscular Hemoglobin Concent 33 g/dL (31-37) Red Cell Distribution Width 15.0 % (11.5-14.5) Platelet Count 211 x10^3/uL (140-400) Neutrophils (%) (Auto) 82 % (31-73) Lymphocytes (%) (Auto) 7 % (24-48) Monocytes (%) (Auto) 10 % (0-9) Eosinophils (%) (Auto) 0 % (0-3) Basophils (%) (Auto) 0 % (0-3) Neutrophils # (Auto) 7.4 x10^3uL (1.8-7.7) Lymphocytes # (Auto) 0.7 x10^3/uL (1.0-4.8) Monocytes # (Auto) 0.9 x10^3/uL (0.0-1.1) Eosinophils # (Auto) 0.0 x10^3/uL (0.0-0.7) Basophils # (Auto) 0.0 x10^3/uL (0.0-0.2) Sodium Level 132 mmol/L (136-145) Potassium Level 4.2 mmol/L (3.5-5.1) Chloride Level 94 mmol/L (98-107) Carbon Dioxide Level 31 mmol/L (21-32) Anion Gap 7 (6-14) Blood Urea Nitrogen 17 mg/dL (7-20) Creatinine 0.9 mg/dL (0.6-1.0) Estimated GFR (Cockcroft-Gault) 59.9 BUN/Creatinine Ratio 19 (6-20) Glucose Level 145 mg/dL (70-99) Lactic Acid Level 1.2 mmol/L (0.4-2.0) Calcium Level 8.7 mg/dL (8.5-10.1) Total Bilirubin 0.5 mg/dL (0.2-1.0) Aspartate Amino Transf (AST/SGOT) 34 U/L (15-37) Alanine Aminotransferase (ALT/SGPT) 27 U/L (14-59) Alkaline Phosphatase 114 U/L (46-116) Troponin I Quantitative 0.044 ng/mL (0.000-0.055) 0.048 ng/mL (0.000-0.055) < 0.017 ng/mL (0.000-0.055) Total Protein 6.9 g/dL (6.4-8.2) Albumin 3.2 g/dL (3.4-5.0) Albumin/Globulin Ratio 0.9 (1.0-1.7) Nasal Screen MRSA (PCR) Negative (Negative) Magnesium Level 2.1 mg/dL (1.8-2.4) XR-Xxq-P-Type Natriuretic Peptide 4153 pg/mL (0-449) Triglycerides Level 27 mg/dL (0-150) Cholesterol Level 90 mg/dL (0-200) LDL Cholesterol, Calculated 25 mg/dL (0-100) VLDL Cholesterol, Calculated 5 mg/dL (0-40) Non-HDL Cholesterol Calculated 30 mg/dL (0-129) HDL Cholesterol 60 mg/dL (40-60) Cholesterol/HDL Ratio 1.5 Thyroid Stimulating Hormone (TSH) 0.771 uIU/mL (0.358-3.74) Test 10/07/18 22:39 Glucose (Fingerstick) 92 mg/dL (70-99) Laboratory Tests Test 10/07/18 22:39 Glucose (Fingerstick) 92 mg/dL (70-99) Images Images X-ray of the toe and arterial Doppler pending at this time Assessment/Plan Assessment/Plan Pressure ulcer right second toe. Offloading and dressing orders provided. Await findings of x-ray. We will pursue vascular status with TCOM We'll follow along with you. MOISES GEORGE DO Oct 08, 2018 07:41
--- NOTE | 2018-10-08 07:53 | RAD ---
Right foot, 3 views, 10/07/2018: HISTORY: Second toe wound There is severe bony demineralization. The toes are all held in plantar flexion and therefore suboptimally delineated on the AP and oblique projections. There is a mild hallux valgus deformity. There are mild scattered degenerative changes. No acute fracture or destructive bony lesion is seen. There is diffuse soft tissue swelling. IMPRESSION: 1. Demineralization. 2. Degenerative change. 3. No acute bony abnormality is detected. Electronically signed by: Selvin Bo MD (10/08/2018 7:50 AM) [facility]
[2018-10-08] MEDS: POTASSIUM CHLORIDE 20 MEQ TABLET.ER. PO SCH (08:00)
[2018-10-08] MEDS: IPRATRPIUM/ALBUTEROL 0.5/2.5MG 3 ML NEBU. NEB SCH ×4 (09:00→19:50)
[2018-10-08] MEDS: MULTIVITAMIN with MINERAL TABLET. PO SCH (09:00)
[2018-10-08] MEDS: PREGABALIN 50 MG CAPSULE PO SCH ×3 (09:00→19:56)
[2018-10-08] MEDS: MAGNESIUM OXIDE 400 MG TABLET PO SCH ×2 (09:00→19:56)
[2018-10-08] MEDS: CYANOCOBALAMIN (VITAMIN B-12) 1,000 MCG TABLET. PO SCH (09:00)
[2018-10-08] MEDS: ASPIRIN ENTERIC COATED 81 MG TABLET.DR. PO SCH (09:00)
[2018-10-08] MEDS: SENNOSIDES 8.6 MG TABLET PO SCH (09:00)
[2018-10-08] MEDS: OMEGA-3 FATTY ACIDS/FISH OIL 1,000 MG CAPSULE. PO SCH (09:00)
[2018-10-08] MEDS: LACTOBACILLUS RHAMNOSUS GG 1 CAPSULE. PO SCH ×2 (09:00→19:55)
[2018-10-08] MEDS: FUROSEMIDE 40 MG TABLET. PO SCH (09:00)
[2018-10-08] MEDS: BENZONATATE 100 MG CAPSULE. PO SCH ×3 (09:00→19:56)
[2018-10-08] MEDS: DOCUSATE SODIUM 100 MG CAPSULE. PO SCH ×2 (09:00→19:55)
--- NOTE | 2018-10-08 09:00 | RAD ---
MR#: [id number] Date of Study: 10/07/2018 Ordering Physician: CINDY JOHNSON, Referring Physician: ARIANNA JOLLY, Tech: Lily Gillette RDMS, RVT, RTR APPROVED REPORT Patient Location: IN-PATIENT Indications Non-healing Ulcer: Right Right Anterior 2nd toe non healing ulcer VELOCITY AND DOPPLER WAVEFORM ANALYSIS RIGHT cm/secWaveformSeverity LEFT cm/secWaveform Severity pCFA 86.0TriphasicNormalpCFA Prof Fem Art. 59.4TriphasicNormalProf Fem Art. Fem Art Prox. 107.3TriphasicNormalFem Art Prox. Fem Art Mid. 116.7TriphasicNormalFem Art Mid. Fem Art Dist. 95.9TriphasicNormalFem Art Dist. Pop Art(Fossa) 114.9TriphasicNormalPop Art(AK) QUILL STRIPPER Dist. 124.9TriphasicNormalPTA Dist. Per Art Prox. 109.1TriphasicNormalPer Art Prox. IRMA Prox. 71.0TriphasicNormalATA Prox. DPA 87.8TriphasicNormalDPA Findings Vences scale images of the RLE arterial vessels reveal mild diffuse non-obstructive plaque. Spectral waveforms and color doppler is wnl. Velocities as noted above and no significant obstruction noted. Critical Notification Critical Value: No <Conclusion> 1. No significant RLE disease with three vessel robust run-off below the knee. Signed by : Primitivo Womack, Electronically Approved : 10/08/2018 08:59:28
--- NOTE | 2018-10-08 09:22 | PDOC ---
PULMONARY PROGRESS NOTES Subjective PT WITH SOME HEMOPTYSIS LAST JACE AND THIS AM Vitals Vital Signs Date Time Temp Pulse Resp B/P (MAP) Pulse Ox O2 Delivery O2 Flow Rate FiO2 10/08/18 07:00 97.7 98 20 138/64 (88) 92 Room Air 97.7 ROS: No Nausea, No Chest Pain, No Abdominal Pain, No Increase Cough General: Alert Lungs: Crackles Cardiovascular: S1, S2 Abdomen: Soft Neuro Exam: Alert Extremities: No Edema Skin: Warm Labs Laboratory Tests Test 10/06/18 17:05 10/06/18 21:40 10/07/18 05:30 10/07/18 06:44 White Blood Count 9.0 x10^3/uL (4.0-11.0) Red Blood Count 4.39 x10^6/uL (3.50-5.40) Hemoglobin 12.4 g/dL (12.0-15.5) Hematocrit 38.3 % (36.0-47.0) Mean Corpuscular Volume 87 fL (79-100) Mean Corpuscular Hemoglobin 28 pg (25-35) Mean Corpuscular Hemoglobin Concent 33 g/dL (31-37) Red Cell Distribution Width 15.0 % (11.5-14.5) Platelet Count 211 x10^3/uL (140-400) Neutrophils (%) (Auto) 82 % (31-73) Lymphocytes (%) (Auto) 7 % (24-48) Monocytes (%) (Auto) 10 % (0-9) Eosinophils (%) (Auto) 0 % (0-3) Basophils (%) (Auto) 0 % (0-3) Neutrophils # (Auto) 7.4 x10^3uL (1.8-7.7) Lymphocytes # (Auto) 0.7 x10^3/uL (1.0-4.8) Monocytes # (Auto) 0.9 x10^3/uL (0.0-1.1) Eosinophils # (Auto) 0.0 x10^3/uL (0.0-0.7) Basophils # (Auto) 0.0 x10^3/uL (0.0-0.2) Sodium Level 132 mmol/L (136-145) Potassium Level 4.2 mmol/L (3.5-5.1) Chloride Level 94 mmol/L (98-107) Carbon Dioxide Level 31 mmol/L (21-32) Anion Gap 7 (6-14) Blood Urea Nitrogen 17 mg/dL (7-20) Creatinine 0.9 mg/dL (0.6-1.0) Estimated GFR (Cockcroft-Gault) 59.9 BUN/Creatinine Ratio 19 (6-20) Glucose Level 145 mg/dL (70-99) Lactic Acid Level 1.2 mmol/L (0.4-2.0) Calcium Level 8.7 mg/dL (8.5-10.1) Total Bilirubin 0.5 mg/dL (0.2-1.0) Aspartate Amino Transf (AST/SGOT) 34 U/L (15-37) Alanine Aminotransferase (ALT/SGPT) 27 U/L (14-59) Alkaline Phosphatase 114 U/L (46-116) Troponin I Quantitative 0.044 ng/mL (0.000-0.055) 0.048 ng/mL (0.000-0.055) < 0.017 ng/mL (0.000-0.055) Total Protein 6.9 g/dL (6.4-8.2) Albumin 3.2 g/dL (3.4-5.0) Albumin/Globulin Ratio 0.9 (1.0-1.7) Nasal Screen MRSA (PCR) Negative (Negative) Magnesium Level 2.1 mg/dL (1.8-2.4) [id number]-Type Natriuretic Peptide 4153 pg/mL (0-449) Triglycerides Level 27 mg/dL (0-150) Cholesterol Level 90 mg/dL (0-200) LDL Cholesterol, Calculated 25 mg/dL (0-100) VLDL Cholesterol, Calculated 5 mg/dL (0-40) Non-HDL Cholesterol Calculated 30 mg/dL (0-129) HDL Cholesterol 60 mg/dL (40-60) Cholesterol/HDL Ratio 1.5 Thyroid Stimulating Hormone (TSH) 0.771 uIU/mL (0.358-3.74) Test 10/07/18 22:39 Glucose (Fingerstick) 92 mg/dL (70-99) Laboratory Tests Test 10/07/18 22:39 Glucose (Fingerstick) 92 mg/dL (70-99) Medications Active Scripts Medications Dose Route/Sig Max Daily Dose Days Date Category Thera-Tabs M Caplet (Multivits,Ca,Minerals/Iron/Fa) 1 Each Tablet 1 Each PO DAILY 10/07/18 Reported Senna (Sennosides) 8.6 Mg Tablet 8.6 Mg PO DAILY 10/07/18 Reported Ranitidine Hcl 150 Mg Tablet 150 Mg PO HS 10/07/18 Reported Lyrica (Pregabalin) 100 Mg Capsule 1 Cap PO TID 10/07/18 Reported Potassium Chloride 20 Meq Tablet.er 20 Meq PO DAILY 10/07/18 Reported Nystatin 15 Gm Powder 1 Gabriela TP TID 10/07/18 Reported Simethicone 80 Mg Tab.chew 80 Mg PO PRN Q6HRS PRN 10/07/18 Reported Mucinex (Guaifenesin) 600 Mg Tablet.er 1 Tab PO BID 10/07/18 Reported Mapap (Acetaminophen) 500 Mg Tablet 1,000 Mg PO PRN BID PRN 10/07/18 Reported Magnesium Oxide 400 Mg Tablet 400 Mg PO BID 10/07/18 Reported Loperamide (Loperamide Hcl) 2 Mg Capsule 2 Mg PO PRN Q1HR PRN 10/07/18 Reported Levothyroxine Sodium 50 Mcg Tablet 40 Mcg PO DAILYAC PRN 10/07/18 Reported Furosemide 40 Mg Tablet 1 Tab PO DAILY 10/07/18 Reported Fish Oil-Vit D3 Softgel (Omega3/Dha/Epa/Fish Oil/Vit D3) 1 Each Capsule 1 Each PO DAILY 10/07/18 Reported Docusate Sodium 100 Mg Capsule 100 Mg PO BID 10/07/18 Reported Vitamin B-12 (Cyanocobalamin (Vitamin B-12)) 1,000 Mcg Tablet 1 Tab PO DAILY 10/07/18 Reported Culturelle Probiotics Capsule (L. Rhamnosus GG/Inulin) 1 Each Capsule 1 Each PO BID 10/07/18 Reported Tums Ultra (Calcium Carbonate) 400 Mg Tab.chew 400 Mg PO PRN Q12HR PRN 10/07/18 Reported Dulcolax (Bisacodyl) 10 Mg Supp.rect 10 Mg RC PRN DAILY PRN 10/07/18 Reported Baclofen 10 Mg Tablet 10 Mg PO HS 10/07/18 Reported Atorvastatin Calcium 10 Mg Tablet 10 Mg PO HS 10/07/18 Reported Aspirin Ec (Aspirin) 81 Mg Tablet.dr 1 Tab PO DAILY 10/07/18 Reported Impression . IMPRESSION: 1. Progressive dyspnea secondary to secondary pulmonary hypertension, acute exacerbation of chronic obstructive pulmonary disease. 2. Acute exacerbation of chronic obstructive pulmonary disease. 3. Pulmonary hypertension. The patient recently evaluated at [facility], declined right heart catheterization. 4. Chest pain per Cardiology. 5. Chronic atrial fibrillation. 6. Scleroderma. 7. Right lower extremity cellulitis. 8. HEMOPTYSIS VS HEMATEMESIS ECHO <Conclusion> Abnormal septal motion consistent with conduction abnormality. The Ejection Fraction is 50%. Trace aortic regurgitation. Trace to mild mitral regurgitation. Mild tricuspid regurgitation. The PA pressure was estimated at 33 mmHg. There is no evidence of significant pericardial effusion. Plan . WILL PROCEED WITH BRONCH IF NEGATIVE GI CONSULTED REVIEW R/B/A TO PROCEDURE PT ACCEPTED WILL CONTINUE THE SAME FOR NOW NATALIE ALCANTARA MD Oct 08, 2018 09:22
[2018-10-08] MEDS: NYSTATIN TOPICAL POWDER 15GM BOTTLE. TP SCH ×3 (09:37→21:00)
--- NOTE | 2018-10-08 09:47 | NUR ---
Held pt. meds this AM. Pt coughing up enma blood. Provider paged; awaiting ordering.
[2018-10-08] MEDS: IV NORMAL SALINE 1000ML BAG 1,000 ML IV SCH (10:35)
--- NOTE | 2018-10-08 11:01 | PDOC ---
TCOM NOTE TCOm Note Transcutaneous oximetry was carried out to assess level of tissue oxygenation and capability of healing a right forefoot ulceration. Vital signs demonstrated pulse oximetry of 90%, blood pressure 118/83, respiratory rate of 20, the patient was afebrile and heart rate 98. Lozano electrodes were placed at a TMA location dorsally and supramalleolar locations. On room air the readings in leads 1 through 5 were as follows: 44 mmHg, 46 mmHg , 56 mmHg, 69 mmHg and 51 mmHg. Breathing 100% oxygen the following readings were obtained in leads 1 through 5: 201 mmHg, 220-1 mmHg, 250 mmHg, 279 mmHg and 254 mmHg. Impression: There appears to be adequate tissue oxygenation for collagen formation and wound healing with all levels in excess of 40 mmHg on room air. MOISES GEORGE DO Oct 08, 2018 11:01
--- NOTE | 2018-10-08 11:03 | PDOC ---
PROGRESS NOTES History of Present Illness History of Present Illness Assessment/Plan Assessment/Plan IMPRESSION 1. ACUTE COPD EXAC 2. Chest pain, atypical. 2. Dyspnea, //URI. 3. Chronic diastolic CHF Abnormal septal motion consistent with conduction abnormality. The Ejection Fraction is 50%. ECHO 10/07 4. Chronic AFIB; 5. Scleroderma 6. Raynaud's 7. RLE cellulitis, wound 8. left chest deep brain stimulator for essential tremors 9. GERD 10. Hypothyroid state on replacement 11. Right 2nd toe infection. 12. MARKED Hemoptysis 100cc this AM 10/[address] CHEST INR GI CONSULT PULM CONSULT Cardiology consult Echo RLE arterial duplex US Obtain med records from [facility] dvt prophylaxis iv zosyn 43 min pt exam, record review, > 50% of time with exam, chart review, pt care coordination. Vitals Vitals Vital Signs Date Time Temp Pulse Resp B/P (MAP) Pulse Ox O2 Delivery O2 Flow Rate FiO2 10/08/18 08:00 Room Air 10/08/18 07:00 97.7 98 20 138/64 (88) 92 97.7 Physical Exam General: Alert, Oriented X3, Cooperative, mild distress Heart: Regular rate, Normal S1, Other (irregular rhythm with 2/6 systolic murmur) Lungs: Clear Abdomen: Normal bowel sounds, Soft, No tenderness Extremities: No clubbing, No cyanosis, No edema, Normal pulses, Other (strong dorsalis pedis pulse on the right with a Quant of flow of 1.08) Skin: No significant lesion, Other (1.3 cm ulceration to the dorsal aspect right second toe with no evidence of exposed tendon or bone at this time. The toe itself is modestly edematous with mild erythema) Labs LABS Patient Location: IN-PATIENT Indications Non-healing Ulcer: Right Right Anterior 2nd toe non healing ulcer VELOCITY AND DOPPLER WAVEFORM ANALYSIS RIGHT cm/sec Waveform Severity LEFT cm/sec Waveform Severity pCFA 86.0 Triphasic Normal pCFA Prof Fem Art. 59.4 Triphasic Normal Prof Fem Art. Fem Art Prox. 107.3 Triphasic Normal Fem Art Prox. Fem Art Mid. 116.7 Triphasic Normal Fem Art Mid. Fem Art Dist. 95.9 Triphasic Normal Fem Art Dist. Pop Art(Fossa) 114.9 Triphasic Normal Pop Art(AK) PEDIATRIC REGISTERED NURSE Dist. 124.9 Triphasic Normal PEDIATRIC REGISTERED NURSE Dist. Per Art Prox. 109.1 Triphasic Normal Per Art Prox. IRMA Prox. 71.0 Triphasic Normal IRMA Prox. DPA 87.8 Triphasic Normal DPA Findings Vences scale images of the RLE arterial vessels reveal mild diffuse non- obstructive plaque. Spectral waveforms and color doppler is wnl. Velocities as noted above and no significant obstruction noted. Critical Notification Critical Value: No <Conclusion> 1. No significant RLE disease with three vessel robust run-off below the knee. Signed by : Primitivo Womack, Electronically Approved : 10/08/2018 08:59:28 REASON: right dorsal second toe wound of 2+ weeks duration, redness and swelling PROCEDURE: FOOT RIGHT 3V Right foot, 3 views, 10/07/2018: HISTORY: Second toe wound There is severe bony demineralization. The toes are all held in plantar flexion and therefore suboptimally delineated on the AP and oblique projections. There is a mild hallux valgus deformity. There are mild scattered degenerative changes. No acute fracture or destructive bony lesion is seen. There is diffuse soft tissue swelling. IMPRESSION: 1. Demineralization. 2. Degenerative change. 3. No acute bony abnormality is detected. Electronically signed by: Selvin Bo MD (10/08/2018 7:50 AM) [facility] Laboratory Tests Test 10/07/18 22:39 Glucose (Fingerstick) 92 mg/dL (70-99) Assessment and Plan Assessmemt and Plan Problems Medical Problems: (1) Chest pain Status: Acute (2) Pneumonia Status: Acute Comment Review of Relevant I have reviewed the following items tara (where applicable) has been applied. Labs Laboratory Tests Test 10/06/18 17:05 10/06/18 21:40 10/07/18 05:30 10/07/18 06:44 White Blood Count 9.0 x10^3/uL (4.0-11.0) Red Blood Count 4.39 x10^6/uL (3.50-5.40) Hemoglobin 12.4 g/dL (12.0-15.5) Hematocrit 38.3 % (36.0-47.0) Mean Corpuscular Volume 87 fL (79-100) Mean Corpuscular Hemoglobin 28 pg (25-35) Mean Corpuscular Hemoglobin Concent 33 g/dL (31-37) Red Cell Distribution Width 15.0 % (11.5-14.5) Platelet Count 211 x10^3/uL (140-400) Neutrophils (%) (Auto) 82 % (31-73) Lymphocytes (%) (Auto) 7 % (24-48) Monocytes (%) (Auto) 10 % (0-9) Eosinophils (%) (Auto) 0 % (0-3) Basophils (%) (Auto) 0 % (0-3) Neutrophils # (Auto) 7.4 x10^3uL (1.8-7.7) Lymphocytes # (Auto) 0.7 x10^3/uL (1.0-4.8) Monocytes # (Auto) 0.9 x10^3/uL (0.0-1.1) Eosinophils # (Auto) 0.0 x10^3/uL (0.0-0.7) Basophils # (Auto) 0.0 x10^3/uL (0.0-0.2) Sodium Level 132 mmol/L (136-145) Potassium Level 4.2 mmol/L (3.5-5.1) Chloride Level 94 mmol/L (98-107) Carbon Dioxide Level 31 mmol/L (21-32) Anion Gap 7 (6-14) Blood Urea Nitrogen 17 mg/dL (7-20) Creatinine 0.9 mg/dL (0.6-1.0) Estimated GFR (Cockcroft-Gault) 59.9 BUN/Creatinine Ratio 19 (6-20) Glucose Level 145 mg/dL (70-99) Lactic Acid Level 1.2 mmol/L (0.4-2.0) Calcium Level 8.7 mg/dL (8.5-10.1) Total Bilirubin 0.5 mg/dL (0.2-1.0) Aspartate Amino Transf (AST/SGOT) 34 U/L (15-37) Alanine Aminotransferase (ALT/SGPT) 27 U/L (14-59) Alkaline Phosphatase 114 U/L (46-116) Troponin I Quantitative 0.044 ng/mL (0.000-0.055) 0.048 ng/mL (0.000-0.055) < 0.017 ng/mL (0.000-0.055) Total Protein 6.9 g/dL (6.4-8.2) Albumin 3.2 g/dL (3.4-5.0) Albumin/Globulin Ratio 0.9 (1.0-1.7) Nasal Screen MRSA (PCR) Negative (Negative) Magnesium Level 2.1 mg/dL (1.8-2.4) [id number]-Type Natriuretic Peptide 4153 pg/mL (0-449) Triglycerides Level 27 mg/dL (0-150) Cholesterol Level 90 mg/dL (0-200) LDL Cholesterol, Calculated 25 mg/dL (0-100) VLDL Cholesterol, Calculated 5 mg/dL (0-40) Non-HDL Cholesterol Calculated 30 mg/dL (0-129) HDL Cholesterol 60 mg/dL (40-60) Cholesterol/HDL Ratio 1.5 Thyroid Stimulating Hormone (TSH) 0.771 uIU/mL (0.358-3.74) Test 10/07/18 22:39 Glucose (Fingerstick) 92 mg/dL (70-99) Laboratory Tests Test 10/07/18 22:39 Glucose (Fingerstick) 92 mg/dL (70-99) Microbiology 10/06/18 Blood Culture - Preliminary, Resulted NO GROWTH AFTER 1 DAY Medications Current Medications Piperacillin Sod/ Tazobactam Sod (Zosyn Per Pharmacy) 1 each PRN DAILY PRN MC SEE COMMENTS; Start 10/06/18 at 19:00 Piperacillin Sod/ Tazobactam Sod 3.375 gm/Sodium Chloride 50 ml @ 100 mls/hr 1X ONCE IV Last administered on 10/06/18at 19:09; Start 10/06/18 at 19:30; Stop 10/06/18 at 19:59; Status DC Ondansetron HCl (Zofran) 4 mg PRN Q8HRS PRN IV NAUSEA/VOMITING; Start 10/06/18 at 19:00; Stop 10/07/18 at 18:59; Status DC Acetaminophen (Tylenol) 650 mg PRN Q4HRS PRN PO FEVER Last administered on 10/06at 20:29; Start 10/06/18 at 19:00; Stop 10/07/18 at 11:43; Status DC Albuterol/ Ipratropium (Duoneb) 3 ml RTQID NEB Last administered on 10/07/18at 19:59; Start 10/06/18 at 20:00; Stop 10/07/18 at 19:59; Status DC Ondansetron HCl (Zofran) 4 mg 1X ONCE IV Last administered on 10/06/18 20:25 ; Start 10/06/18 at 20:30; Stop 10/06/18 at 20:34; Status DC Piperacillin Sod/ Tazobactam Sod 3.375 gm/Sodium Chloride 50 ml @ 100 mls/hr Q6HRS IV Last administered on 10/08/18 05:35; Start 10/07/18 at 00:00 Aspirin (Ecotrin) 81 mg DAILY PO Last administered on 10/07/18 12:18; Start at 12:00 Atorvastatin Calcium (Lipitor) 10 mg HS PO Last administered on 10/07/18 22:13 ; Start 10/07/18 at 21:00 Baclofen (Lioresal) 10 mg HS PO Last administered on 10/07/18 22:12; Start at 21:00 Cyanocobalamin (Vitamin B-12) 1,000 mcg DAILY PO Last administered on 12:18; Start 10/07/18 at 12:00 Docusate Sodium (Colace) 100 mg BID PO Last administered on 10/07/18 22:13; Start 10/07/18 at 12:00 Furosemide (Lasix) 40 mg DAILY PO Last administered on 10/07/18 13:56; Start 10/07/18 at 12:00 Guaifenesin (Mucinex) 600 mg BID PO Last administered on 10/07/18 22:12; Start 10/07/18 at 12:00 Nystatin (Nystop) 1 gabriela TID TP Last administered on 10/08/18at 09:37; Start at 14:00 Simethicone (Gas-X) 80 mg PRN Q6HRS PRN PO flatulence ; Start 10/07/18 at 11:45 Acetaminophen (Tylenol) 1,000 mg PRN BID PRN PO MILD PAIN Last administered on 10/07/18at 16:47; Start 10/07/18 at 11:45 Bisacodyl (Dulcolax Supp) 10 mg PRN DAILY PRN VT CONSTIPATION; Start 10/07/18 at 11:45 Calcium Carbonate/ Glycine (Tums) 500 mg PRN Q12HR PRN PO INDIGESTION Last administered on 10/08/18 02:32; Start 10/07/18 at 11:45 Lactobacillus Rhamnosus (Culturelle) 1 cap BID PO Last administered on 22:13; Start 10/07/18 at 12:00 Non-Formulary Medication (Levothyroxine Sodium ) 40 mcg DAILYAC PRN PO hypothyroid ; Start 10/07/18 at 11:45; Stop 10/07/18 at 12:11; Status DC Loperamide HCl (Imodium) 2 mg PRN Q1HR PRN PO DIARRHEA; Start 10/07/18 at 12:00 Magnesium Oxide (Magnesium Oxide) 400 mg BID PO Last administered on 10/07/18 22:13; Start 10/07/18 at 12:00 Multivitamins (Thera M Plus) 1 tab DAILY PO Last administered on 10/07/18 12: 18; Start 10/07/18 at 12:00 Fish Oil (Fish Oil) 1,000 mg DAILY PO Last administered on 10/07/18 12:18; Start 10/07/18 at 12:00 Potassium Chloride (Klor-Con) 20 meq [id number] PO Last administered on 13:57; Start 10/07/18 at 12:00 Pregabalin (Lyrica) 100 mg TID PO Last administered on 10/07/18 22:13; Start 10/07/18 at 14:00 Famotidine (Pepcid) 20 mg QHS PO Last administered on 10/07/18 22:12; Start at 21:00 Sennosides (Senna) 8.6 mg DAILY PO Last administered on 10/07/18 12:18; Start 10/07/18 at 12:00 Levothyroxine Sodium (Synthroid) 25 mcg DAILY06 PO Last administered on 12:18; Start 10/07/18 at 12:30 Enoxaparin Sodium (Lovenox 40mg Syringe) 40 mg Q24H SQ Last administered on 22:11; Start 10/07/18 at 21:00 Enoxaparin Sodium (Lovenox 40mg Syringe) 40 mg Q24H SQ ; Start 10/07/18 at 19:00 ; Stop 10/08/18 at 09:23; Status DC Pantoprazole Sodium (Protonix) 40 mg DAILYAC PO ; Start 10/08/18 at 07:30 Codeine Sulfate (Codeine) 30 mg PRN Q6HRS PRN PO cough Last administered on at 03:26; Start 10/08/18 at 03:15 Benzonatate (Tessalon Perle) 100 mg QTQ585 PO ; Start 10/08/18 at 09:00 Benzonatate (Tessalon Perle) 100 mg 1X ONCE PO Last administered on 10/08/18at 03:26; Start 10/08/18 at 03:15; Stop 10/08/18 at 03:16; Status DC Guaifenesin (Robitussin Dm) 10 ml PRN Q4HRS PRN PO COUGH; Start 10/08/18 at 07: 30 Ondansetron HCl (Zofran) 4 mg PRN Q4HRS PRN IV NAUSEA/VOMITING Last administered on 10/08/18at 09:32; Start 10/08/18 at 07:30 Albuterol/ Ipratropium (Duoneb) 3 ml RTQID NEB ; Start 10/08/18 at 08:00 Sodium Chloride 1,000 ml @ 75 mls/hr [id number] IV Last administered on at 10:35; Start 10/08/18 at 10:30 Active Scripts Active Reported Thera-Tabs M Caplet (Multivits,Ca,Minerals/Iron/Fa) 1 Each Tablet 1 Each PO DAILY Senna (Sennosides) 8.6 Mg Tablet 8.6 Mg PO DAILY Ranitidine Hcl 150 Mg Tablet 150 Mg PO HS Lyrica (Pregabalin) 100 Mg Capsule 1 Cap PO TID Potassium Chloride 20 Meq Tablet.er 20 Meq PO DAILY Nystatin 15 Gm Powder 1 Gabriela TP TID Simethicone 80 Mg Tab.chew 80 Mg PO PRN Q6HRS PRN Mucinex (Guaifenesin) 600 Mg Tablet.er 1 Tab PO BID Mapap (Acetaminophen) 500 Mg Tablet 1,000 Mg PO PRN BID PRN Magnesium Oxide 400 Mg Tablet 400 Mg PO BID Loperamide (Loperamide Hcl) 2 Mg Capsule 2 Mg PO PRN Q1HR PRN Levothyroxine Sodium 50 Mcg Tablet 40 Mcg PO DAILYAC PRN Furosemide 40 Mg Tablet 1 Tab PO DAILY Fish Oil-Vit D3 Softgel (Omega3/Dha/Epa/Fish Oil/Vit D3) 1 Each Capsule 1 Each PO DAILY Docusate Sodium 100 Mg Capsule 100 Mg PO BID Vitamin B-12 (Cyanocobalamin (Vitamin B-12)) 1,000 Mcg Tablet 1 Tab PO DAILY Culturelle Probiotics Capsule (L. Rhamnosus GG/Inulin) 1 Each Capsule 1 Each PO BID Tums Ultra (Calcium Carbonate) 400 Mg Tab.chew 400 Mg PO PRN Q12HR PRN Dulcolax (Bisacodyl) 10 Mg Supp.rect 10 Mg RC PRN DAILY PRN Baclofen 10 Mg Tablet 10 Mg PO HS Atorvastatin Calcium 10 Mg Tablet 10 Mg PO HS Aspirin Ec (Aspirin) 81 Mg Tablet. 1 Tab PO DAILY Vitals/I & O Vital Sign - Last 24 Hours 10/07/18 10/07/18 10/07/18 10/07/18 12:19 14:55 16:21 19:00 Temp 97.4 97.7 97.4 97.7 Pulse 94 91 Resp 18 20 B/P (MAP) 104/38 (60) 108/62 (77) Pulse Ox 92 93 98 O2 Delivery Room Air Room Air Room Air Room Air 10/07/18 10/07/18 10/07/18 10/08/18 19:59 20:00 23:00 01:00 Temp 97.4 97.4 Pulse 87 Resp 18 B/P (MAP) 121/72 (88) Pulse Ox 96 98 O2 Delivery Room Air Room Air Room Air Room Air 10/08/18 10/08/18 10/08/18 03:00 07:00 08:00 Temp 97.6 97.7 97.6 97.7 Pulse 133 98 Resp 20 20 B/P (MAP) 118/66 (83) 138/64 (88) Pulse Ox 90 92 O2 Delivery Room Air Room Air Room Air Intake and Output 10/07/18 10/07/18 10/08/18 15:00 23:00 07:00 Intake Total 100 ml 1600 ml 550 ml Output Total 200 ml 200 ml Balance 100 ml 1400 ml 350 ml ARIANNA JOLLY MD Oct 08, 2018 11:03
[2018-10-08] MEDS ORDERED: IOHEXOL 300 MG/ML 100ML VIAL. IV ONE (11:30)
[2018-10-08] MEDS ORDERED: CONTRAST GIVEN. MC PRN (11:30)
[2018-10-08 12:31] LABS: BASO % 0 % (0-3); EOS % 1 % (0-3); HEMATOCRIT 32.7 % (36.0-47.0); HEMOGLOBIN 11.1 g/dL (12.0-15.5); LYMPH # 0.9 x10^3/uL (1.0-4.8); LYMPH % 12 % (24-48); MEAN CORPUSCULAR HEMOGLOBIN 29 pg (25-35); MEAN CORPUSCULAR HGB CONC 34 g/dL (31-37); MEAN CORPUSCULAR VOLUME 87 fL (79-100); MONO # 0.7 x10^3/uL (0.0-1.1); MONO % 8 % (0-9); NEUT # 6.2 x10^3uL (1.8-7.7); NEUT % 79 % (31-73); PLATELET COUNT 185 x10^3/uL (140-400); RED BLOOD COUNT 3.78 x10^6/uL (3.50-5.40); RED CELL DISTRIBUTION WIDTH 15.2 % (11.5-14.5); WHITE BLOOD COUNT 7.9 x10^3/uL (4.0-11.0)
[2018-10-08 12:47] LABS: ALBUMIN 2.4 g/dL (3.4-5.0); ALBUMIN/GLOBULIN RATIO 0.6 (1.0-1.7); CALCIUM 8.5 mg/dL (8.5-10.1); CREATININE 0.9 mg/dL (0.6-1.0); GFR 59.9; POTASSIUM 4.2 mmol/L (3.5-5.1); TOTAL BILIRUBIN 0.6 mg/dL (0.2-1.0); TOTAL PROTEIN 6.2 g/dL (6.4-8.2)
[2018-10-08 12:53] LABS: PROTHROMBIN TIME PATIENT 15.3 SEC (11.7-14.0)
--- NOTE | 2018-10-08 12:55 | PDOC2 ---
GI CONSULT Reason For Consult: Coughing up enma blood HPI: HPI: Pleasant 82 y/o female who came to the ER from assisted living on 10/06 w/ cough , admitted w/ atypical chest pain (that has resolved) and COPD exacerbation. Reports of blood-tinged sputum overnight and then this morning coughed up bright red blood after a couple bites of applesauce. Reviewed w/ RNs - not vomiting/hematemesis, but hemoptysis. She reports the same. Denies n/v, abd pain, diarrhea, constipation, hematochezia, and melena. No dysphagia or weight loss. She has rare heartburn - she is on PPI and H2 summer here but she says she is only aware of taking Tums PRN at home. She does not recall previous EGD but reports having a normal colonoscopy at some point. Denies GB, liver, pancreas, and PUD history. Also on ASA and B12 here. Hgb 12.4 to 11.1, BUN 17 to 33 w/ stable Cr (0.9), INR 1.2. No previous for comparison. PMH: PMH: per chart - A Fib, CHF, Raynaud's scleroderma, tremors, COPD, pulm HTN, scleroderma hysterectomy, appendectomy FH: Family History: No pertinent hx Social History: Smoke: Quit ALCOHOL: none Drugs: None ROS: GEN: Denies fevers, chills, sweats HEENT: Denies blurred vision, sore throat CV: Denies chest pain RESP: +cough GI: Per HPI : Denies hematuria, dysuria ENDO: Denies weight changes NEURO: Denies confusion, dizziness MSK: Denies weakness, joint pain/swelling SKIN: Denies jaundice, pruritus Vitals: Vitals: Vital Signs Date Time Temp Pulse Resp B/P (MAP) Pulse Ox O2 Delivery O2 Flow Rate FiO2 10/08/18 12:28 Room Air 10/08/18 11:00 98.3 93 18 101/74 (83) 94 98.3 Labs: Labs: Laboratory Tests Test 10/07/18 22:39 10/08/18 12:10 Glucose (Fingerstick) 92 mg/dL (70-99) White Blood Count 7.9 x10^3/uL (4.0-11.0) Red Blood Count 3.78 x10^6/uL (3.50-5.40) Hemoglobin 11.1 g/dL (12.0-15.5) Hematocrit 32.7 % (36.0-47.0) Mean Corpuscular Volume 87 fL (79-100) Mean Corpuscular Hemoglobin 29 pg (25-35) Mean Corpuscular Hemoglobin Concent 34 g/dL (31-37) Red Cell Distribution Width 15.2 % (11.5-14.5) Platelet Count 185 x10^3/uL (140-400) Neutrophils (%) (Auto) 79 % (31-73) Lymphocytes (%) (Auto) 12 % (24-48) Monocytes (%) (Auto) 8 % (0-9) Eosinophils (%) (Auto) 1 % (0-3) Basophils (%) (Auto) 0 % (0-3) Neutrophils # (Auto) 6.2 x10^3uL (1.8-7.7) Lymphocytes # (Auto) 0.9 x10^3/uL (1.0-4.8) Monocytes # (Auto) 0.7 x10^3/uL (0.0-1.1) Eosinophils # (Auto) 0.0 x10^3/uL (0.0-0.7) Basophils # (Auto) 0.0 x10^3/uL (0.0-0.2) Sodium Level 134 mmol/L (136-145) Potassium Level 4.2 mmol/L (3.5-5.1) Chloride Level 98 mmol/L (98-107) Carbon Dioxide Level 29 mmol/L (21-32) Anion Gap 7 (6-14) Blood Urea Nitrogen 33 mg/dL (7-20) Creatinine 0.9 mg/dL (0.6-1.0) Estimated GFR (Cockcroft-Gault) 59.9 BUN/Creatinine Ratio 37 (6-20) Glucose Level 117 mg/dL (70-99) Calcium Level 8.5 mg/dL (8.5-10.1) Total Bilirubin 0.6 mg/dL (0.2-1.0) Aspartate Amino Transf (AST/SGOT) 33 U/L (15-37) Alanine Aminotransferase (ALT/SGPT) 44 U/L (14-59) Alkaline Phosphatase 106 U/L (46-116) Total Protein 6.2 g/dL (6.4-8.2) Albumin 2.4 g/dL (3.4-5.0) Albumin/Globulin Ratio 0.6 (1.0-1.7) Allergies: Coded Allergies: carbamazepine (Verified Allergy, Intermediate, itchy, 10/06/18) prochlorperazine (Verified Allergy, Intermediate, unknown, 10/06/18) tramadol (Verified Allergy, Intermediate, Rash, 08/10/18) Sulfa (Sulfonamide Antibiotics) (Verified Allergy, Unknown, 08/10/18) 'I WAS JUST TOLD NOT TO TAKE IT' Medications: Current Medications Medications (Trade) Dose Ordered Sig/Rowan Route PRN Reason Start Time Stop Time Status Last Admin Dose Admin Atorvastatin Calcium (Lipitor) 10 mg HS PO 10/07/18 21:00 10/07/18 22:13 Baclofen (Lioresal) 10 mg HS PO 10/07/18 21:00 10/07/18 22:12 Nystatin (Nystop) 1 stephanie TID TP 10/07/18 14:00 10/08/18 09:37 Pregabalin (Lyrica) 100 mg TID PO 10/07/18 14:00 10/07/18 22:13 Famotidine (Pepcid) 20 mg QHS PO 10/07/18 21:00 10/07/18 22:12 Enoxaparin Sodium (Lovenox 40mg Syringe) 40 mg Q24H SQ 10/07/18 21:00 10/07/18 22:11 Codeine Sulfate (Codeine) 30 mg PRN Q6HRS PRN PO cough 10/08/18 03:15 10/08/18 03:26 Benzonatate (Tessalon Perle) 100 mg 1X ONCE PO 10/08/18 03:15 10/08/18 03:16 DC 10/08/18 03:26 Ondansetron HCl (Zofran) 4 mg PRN Q4HRS PRN IV NAUSEA/VOMITING 10/08/18 07:30 10/08/18 09:32 Albuterol/ Ipratropium (Duoneb) 3 ml RTQID NEB 10/08/18 08:00 10/08/18 12:28 Sodium Chloride 1,000 ml @ 75 mls/hr [id number] IV 10/08/18 10:30 10/08/18 10:35 Iohexol (Omnipaque 300 Mg/ml) 75 ml 1X ONCE IV 10/08/18 11:30 10/08/18 11:31 DC 10/08/18 11:30 Imaging: Imaging: CXR Impression: Marked cardiomegaly. Possible tiny effusion on the left. LE Duplex <Conclusion> 1. No significant RLE disease with three vessel robust run-off below the knee. Right Foot X-Ray IMPRESSION: 1. Demineralization. 2. Degenerative change. 3. No acute bony abnormality is detected. Echocardiogram <Conclusion> Abnormal septal motion consistent with conduction abnormality. The Ejection Fraction is 50%. Trace aortic regurgitation. Trace to mild mitral regurgitation. Mild tricuspid regurgitation. The PA pressure was estimated at 33 mmHg. There is no evidence of significant pericardial effusion. Chest CT pending PE: GEN: NAD, up to chair HEENT: Atraumatic, PERRL LUNGS: CTAB HEART: irregularly irregular ABD: NABS, S/ND/NT EXTREMITY: BLE pitting edema NEURO/PSYCH: A & O 3, essential tremor A/P: A/P: Atypical chest pain (resolved), COPD exacerbation, right second toe pressure ulcer Hemoptysis vs hematemesis Anemia - Hgb drifted to 11.1 w/ BUN 33 H/o A Fib, CHF, scleroderma CRC screen - reports normal colonoscopy in the past -- D/w Dr. Blanco - plans for bronchoscopy today. Will review any need for EGD w / Dr. Jean. Agree w/ PPI. RNs indicate might need CIRCULATION TENDER eval? If so, can change to IV. Monitor Hgb, check anemia parameters. Update - BROCH NO ENDO LESION NO ACTIVE BLEEDING CT chest IMPRESSION: 1. Large hiatal hernia with retained fluid and debris in a distended thoracic esophagus. Postsurgical changes related to a previous esophageal resection could also give this appearance. Correlation with the patient's surgical history and possibly endoscopic findings is suggested. 2. Cardiomegaly with mild coronary artery calcifications. 3. Small bilateral pleural effusions. MARIANNE SANCHEZ Oct 08, 2018 12:55
--- NOTE | 2018-10-08 13:07 | PDOC ---
CARDIO Progress Notes Date and Time Date of Service 10/08/2018 Time of Evaluation 1200 Subjective Subjective: No Chest Pain, No shortness of breath, No Palpitations Vitals Vitals Vital Signs Date Time Temp Pulse Resp B/P (MAP) Pulse Ox O2 Delivery O2 Flow Rate FiO2 10/08/18 12:28 Room Air 10/08/18 11:00 98.3 93 18 101/74 (83) 94 98.3 Weight Weight [ ] Input and Output Intake and Output Intake and Output 10/08/18 07:00 Intake Total 2250 ml Output Total 400 ml Balance 1850 ml Intake Oral 2250 ml Output Urine Total 200 ml Emesis 200 ml # Voids 4 Laboratory Labs Laboratory Tests Test 10/07/18 22:39 10/08/18 12:10 Glucose (Fingerstick) 92 mg/dL (70-99) White Blood Count 7.9 x10^3/uL (4.0-11.0) Red Blood Count 3.78 x10^6/uL (3.50-5.40) Hemoglobin 11.1 g/dL (12.0-15.5) Hematocrit 32.7 % (36.0-47.0) Mean Corpuscular Volume 87 fL (79-100) Mean Corpuscular Hemoglobin 29 pg (25-35) Mean Corpuscular Hemoglobin Concent 34 g/dL (31-37) Red Cell Distribution Width 15.2 % (11.5-14.5) Platelet Count 185 x10^3/uL (140-400) Neutrophils (%) (Auto) 79 % (31-73) Lymphocytes (%) (Auto) 12 % (24-48) Monocytes (%) (Auto) 8 % (0-9) Eosinophils (%) (Auto) 1 % (0-3) Basophils (%) (Auto) 0 % (0-3) Neutrophils # (Auto) 6.2 x10^3uL (1.8-7.7) Lymphocytes # (Auto) 0.9 x10^3/uL (1.0-4.8) Monocytes # (Auto) 0.7 x10^3/uL (0.0-1.1) Eosinophils # (Auto) 0.0 x10^3/uL (0.0-0.7) Basophils # (Auto) 0.0 x10^3/uL (0.0-0.2) Sodium Level 134 mmol/L (136-145) Potassium Level 4.2 mmol/L (3.5-5.1) Chloride Level 98 mmol/L (98-107) Carbon Dioxide Level 29 mmol/L (21-32) Anion Gap 7 (6-14) Blood Urea Nitrogen 33 mg/dL (7-20) Creatinine 0.9 mg/dL (0.6-1.0) Estimated GFR (Cockcroft-Gault) 59.9 BUN/Creatinine Ratio 37 (6-20) Glucose Level 117 mg/dL (70-99) Calcium Level 8.5 mg/dL (8.5-10.1) Total Bilirubin 0.6 mg/dL (0.2-1.0) Aspartate Amino Transf (AST/SGOT) 33 U/L (15-37) Alanine Aminotransferase (ALT/SGPT) 44 U/L (14-59) Alkaline Phosphatase 106 U/L (46-116) Total Protein 6.2 g/dL (6.4-8.2) Albumin 2.4 g/dL (3.4-5.0) Albumin/Globulin Ratio 0.6 (1.0-1.7) Microbiology Micro Microbiology 10/06/18 Blood Culture - Preliminary, Resulted NO GROWTH AFTER 1 DAY Physical Exam HEENT: Neck Supple W Full Motion Chest: Symmetric LUNGS: Other (basilar crackles) Heart: no gallops, irregularly irregular (AFIB) Abdomen: Soft N/T Extremities: Other (2-3+ bilateral LE pitting edema) Neurology: alert, oriented, follow commands Assessment Assessment 1. Atypical CP: pleuritic 2. AECOPD/URI: Pulmonary following 3. Chronic diastolic CHF: appears compensated. EF 50% 4. Chronic AFIB; rate controlled 5. Scleroderma/Raynaud's 6. RLE cellulitis, wound. neg duplex for any significant PAD. wound care following Recommendations 1. Bronchoscopy due today 2. Continue with secondary prevention measures 3. ASA for stroke prevention, not an candidate for superintendent [employer] OAC/NOAC with deep brain stimulator in place and high risk for falls 4. Continue statin and lasix PO. No rate controlling agent per home med. Could consider BB if no signs of bradycardia or low BP otherwise consider dig for rate control. 5. Follow up with Dr. Wright in [place] after SHANITA DEL VALLE APRN Oct 08, 2018 13:07
[2018-10-08] MEDS ORDERED: IV RINGERS,LACTATED 1000ML 1,000 ML IV SCH ×2 (13:30→14:00)
[2018-10-08] MEDS ORDERED: PROPOFOL 20 ML IV ONE (13:48)
--- NOTE | 2018-10-08 13:55 | RAD ---
CT of the chest with contrast, 10/08/2018: HISTORY: Hemoptysis Multidetector CT imaging was performed following an IV bolus injection of iodinated contrast material. There is an electronic device in the left anterior chest wall with a lead extending into the left neck, incompletely visualized on this study. There is moderate calcific plaquing of the thoracic aorta without evidence of aneurysm or dissection. There are mild scattered coronary artery calcifications. The heart is mildly enlarged. There is a trace amount pericardial fluid. No mediastinal or hilar adenopathy is seen. The esophagus is distended throughout the chest. It contains retained gas, fluid and food debris. There is a moderate-sized hiatal hernia. It is possible that previous esophageal surgery with elevation of the stomach in the lower chest could be producing this appearance. There are small bilateral pleural effusions. There were mild underlying streaky basilar opacities compatible with atelectasis. No pulmonary mass is identified. There are mild scattered degenerative changes in the spine. There is mild deformity of the sternum compatible with an old healed fracture. IMPRESSION: 1. Large hiatal hernia with retained fluid and debris in a distended thoracic esophagus. Postsurgical changes related to a previous esophageal resection could also give this appearance. Correlation with the patient's surgical history and possibly endoscopic findings is suggested. 2. Cardiomegaly with mild coronary artery calcifications. 3. Small bilateral pleural effusions. PQRS Compliance Statement: One or more of the following individualized dose reduction techniques were utilized for this examination: 1. Automated exposure control 2. Adjustment of the mA and/or kV according to patient size 3. Use of iterative reconstruction technique Electronically signed by: Selvin Bo MD (10/08/2018 1:52 PM) [facility]
[2018-10-08] MEDS ORDERED: LIDOCAINE 2% VISCOUS 100 ML BOTTLE. ONE (14:13)
[2018-10-08] MEDS ORDERED: EPINEPHrine 1 MG/ML VIAL ONE (14:13)
[2018-10-08] MEDS ORDERED: LIDOCAINE 1% Multi-Dose 20 ML VIAL. ONE (14:13)
[2018-10-08] MEDS ORDERED: LIDOCAINE 4% TOPICAL 50 ML SOLUTION. ONE (14:14)
[2018-10-08] MEDS ORDERED: LIDOCAINE 4% TOPICAL 50 ML SOLUTION. MM PRN (14:15)
[2018-10-08] MEDS ORDERED: LIDOCAINE 2% VISCOUS 100 ML BOTTLE. MM PRN (14:15)
[2018-10-08] MEDS ORDERED: LIDOCAINE 1% Multi-Dose 20 ML VIAL. INJ PRN (14:15)
[2018-10-08] MEDS ORDERED: EPINEPHrine 1 MG/ML VIAL INJ PRN (14:15)
[2018-10-08] MEDS ORDERED: ALBUTEROL SULFATE 2.5 MG/3 ML NEBU. NEB PRN (14:15)
--- NOTE | 2018-10-08 15:14 | PDOC4 ---
PROCEDURE Procedure BROCH DICTATED NO ENDO LESION NO ACTIVE BLEEDING NATALIE ALCANTARA MD Oct 08, 2018 15:14
--- NOTE | 2018-10-08 16:01 | OP ---
DATE OF SURGERY: 10/08/2018 PROCEDURE: Bronchoscopy. INDICATIONS: The patient with hemoptysis versus hematemesis, undergoing diagnostic bronchoscopy. Risks, benefits, and alternatives reviewed with the patient and she consented. SEDATION: Please see anesthesia's notes. DESCRIPTION OF PROCEDURE: Timeout was performed prior to sedation. Vital signs and O2 saturation were maintained within normal limits throughout the procedure. The bronchoscope was passed orally. The vocal cords were identified moving bilaterally without any dysfunction. The bronchoscope was then passed through the vocal cords into the proximal trachea, which was normal. The distal trachea was likewise normal. The right and left segments and subsegments were visualized, there was no endobronchial lesion, there was no evidence of active bleeding and there was no evidence of old blood. FINDINGS: 1. Normal vocal cords. 2. No endobronchial lesion. 3. No active bleeding. PLAN: We will defer to GI for possible EGD, suspect the patient is having periods of hematemesis. NATALIE ALCANTARA MD DR: DANYEL/camilo JOB#: [id number] / [id number]
[2018-10-08] MEDS: PANTOPRAZOLE IV PUSH 40 MG VIAL. IVP SCH (17:24)
[2018-10-08] MEDS: ATORVASTATIN CALCIUM 10 MG TABLET. PO SCH (19:55)
[2018-10-08] MEDS: BACLOFEN 10 MG TABLET. PO SCH (19:55)
[2018-10-08] MEDS: ENOXAPARIN 40 MG/0.4 ML SYRINGE. SQ SCH (19:57)
[2018-10-09] MEDS: PIPERACILLIN/TAZOBACTAM 3.375 GM in IV NORMAL SALINE 50ML 50 ML IV SCH ×4 (00:38→17:17)
[2018-10-09 03:20] VITALS: BP 122/70
[2018-10-09 03:31] LABS: HEMATOCRIT 29.3 % (36.0-47.0); HEMOGLOBIN 9.6 g/dL (12.0-15.5); RED BLOOD COUNT 3.37 x10^6/uL (3.50-5.40); RED CELL DISTRIBUTION WIDTH 15.4 % (11.5-14.5); WHITE BLOOD COUNT 5.8 x10^3/uL (4.0-11.0)
[2018-10-09] MEDS: IV NORMAL SALINE 1000ML BAG 1,000 ML IV SCH ×2 (05:59→13:10)
[2018-10-09] MEDS: IPRATRPIUM/ALBUTEROL 0.5/2.5MG 3 ML NEBU. NEB SCH ×4 (06:00→19:38)
[2018-10-09 07:00] VITALS: BP 120/59
[2018-10-09] MEDS: POTASSIUM CHLORIDE 20 MEQ TABLET.ER. PO SCH (08:00)
[2018-10-09] MEDS: OMEGA-3 FATTY ACIDS/FISH OIL 1,000 MG CAPSULE. PO SCH (08:17)
[2018-10-09] MEDS: LACTOBACILLUS RHAMNOSUS GG 1 CAPSULE. PO SCH ×2 (08:17→21:00)
[2018-10-09] MEDS: DOCUSATE SODIUM 100 MG CAPSULE. PO SCH ×2 (08:17→21:00)
[2018-10-09] MEDS: ASPIRIN ENTERIC COATED 81 MG TABLET.DR. PO SCH (08:17)
[2018-10-09] MEDS: CYANOCOBALAMIN (VITAMIN B-12) 1,000 MCG TABLET. PO SCH (08:18)
[2018-10-09] MEDS: MULTIVITAMIN with MINERAL TABLET. PO SCH (08:18)
[2018-10-09] MEDS: FUROSEMIDE 40 MG TABLET. PO SCH (08:18)
[2018-10-09] MEDS: PREGABALIN 50 MG CAPSULE PO SCH ×3 (08:18→21:00)
[2018-10-09] MEDS: SENNOSIDES 8.6 MG TABLET PO SCH (08:18)
[2018-10-09] MEDS: BENZONATATE 100 MG CAPSULE. PO SCH ×3 (08:18→21:00)
[2018-10-09] MEDS: MAGNESIUM OXIDE 400 MG TABLET PO SCH ×2 (08:18→21:00)
[2018-10-09] MEDS: PANTOPRAZOLE IV PUSH 40 MG VIAL. IVP SCH ×2 (08:35→17:17)
[2018-10-09] MEDS: NYSTATIN TOPICAL POWDER 15GM BOTTLE. TP SCH ×3 (08:35→21:50)
--- NOTE | 2018-10-09 09:21 | PDOC ---
PULMONARY PROGRESS NOTES Subjective PT NOT SOA Vitals Vital Signs Date Time Temp Pulse Resp B/P (MAP) Pulse Ox O2 Delivery O2 Flow Rate FiO2 10/09/18 07:00 98.3 91 16 120/59 (79) 92 Room Air 98.3 10/09/18 06:00 1.5 ROS: No Nausea, No Chest Pain, No Abdominal Pain, No Increase Cough General: Alert Lungs: Crackles Cardiovascular: S1, S2 Abdomen: Soft Neuro Exam: Alert Extremities: No Edema Skin: Warm Labs Laboratory Tests Test 10/07/18 22:39 10/08/18 12:10 10/09/18 02:55 Glucose (Fingerstick) 92 mg/dL (70-99) White Blood Count 7.9 x10^3/uL (4.0-11.0) 5.8 x10^3/uL (4.0-11.0) Red Blood Count 3.78 x10^6/uL (3.50-5.40) 3.37 x10^6/uL (3.50-5.40) Hemoglobin 11.1 g/dL (12.0-15.5) 9.6 g/dL (12.0-15.5) Hematocrit 32.7 % (36.0-47.0) 29.3 % (36.0-47.0) Mean Corpuscular Volume 87 fL (79-100) 87 fL (79-100) Mean Corpuscular Hemoglobin 29 pg (25-35) 29 pg (25-35) Mean Corpuscular Hemoglobin Concent 34 g/dL (31-37) 33 g/dL (31-37) Red Cell Distribution Width 15.2 % (11.5-14.5) 15.4 % (11.5-14.5) Platelet Count 185 x10^3/uL (140-400) 177 x10^3/uL (140-400) Neutrophils (%) (Auto) 79 % (31-73) Lymphocytes (%) (Auto) 12 % (24-48) Monocytes (%) (Auto) 8 % (0-9) Eosinophils (%) (Auto) 1 % (0-3) Basophils (%) (Auto) 0 % (0-3) Neutrophils # (Auto) 6.2 x10^3uL (1.8-7.7) Lymphocytes # (Auto) 0.9 x10^3/uL (1.0-4.8) Monocytes # (Auto) 0.7 x10^3/uL (0.0-1.1) Eosinophils # (Auto) 0.0 x10^3/uL (0.0-0.7) Basophils # (Auto) 0.0 x10^3/uL (0.0-0.2) Prothrombin Time 15.3 SEC (11.7-14.0) Prothromb Time International Ratio 1.2 (0.8-1.1) Sodium Level 134 mmol/L (136-145) Potassium Level 4.2 mmol/L (3.5-5.1) Chloride Level 98 mmol/L (98-107) Carbon Dioxide Level 29 mmol/L (21-32) Anion Gap 7 (6-14) Blood Urea Nitrogen 33 mg/dL (7-20) Creatinine 0.9 mg/dL (0.6-1.0) Estimated GFR (Cockcroft-Gault) 59.9 BUN/Creatinine Ratio 37 (6-20) Glucose Level 117 mg/dL (70-99) Calcium Level 8.5 mg/dL (8.5-10.1) Iron Level 11 ug/dL (50-170) Total Iron Binding Capacity 196 ug/dL (250-450) Iron Saturation 6 % (15-34) Total Bilirubin 0.6 mg/dL (0.2-1.0) Aspartate Amino Transf (AST/SGOT) 33 U/L (15-37) Alanine Aminotransferase (ALT/SGPT) 44 U/L (14-59) Alkaline Phosphatase 106 U/L (46-116) Total Protein 6.2 g/dL (6.4-8.2) Albumin 2.4 g/dL (3.4-5.0) Albumin/Globulin Ratio 0.6 (1.0-1.7) Vitamin B12 Level 670 pg/mL (247-911) Laboratory Tests Test 10/08/18 12:10 10/09/18 02:55 White Blood Count 7.9 x10^3/uL (4.0-11.0) 5.8 x10^3/uL (4.0-11.0) Red Blood Count 3.78 x10^6/uL (3.50-5.40) 3.37 x10^6/uL (3.50-5.40) Hemoglobin 11.1 g/dL (12.0-15.5) 9.6 g/dL (12.0-15.5) Hematocrit 32.7 % (36.0-47.0) 29.3 % (36.0-47.0) Mean Corpuscular Volume 87 fL (79-100) 87 fL (79-100) Mean Corpuscular Hemoglobin 29 pg (25-35) 29 pg (25-35) Mean Corpuscular Hemoglobin Concent 34 g/dL (31-37) 33 g/dL (31-37) Red Cell Distribution Width 15.2 % (11.5-14.5) 15.4 % (11.5-14.5) Platelet Count 185 x10^3/uL (140-400) 177 x10^3/uL (140-400) Neutrophils (%) (Auto) 79 % (31-73) Lymphocytes (%) (Auto) 12 % (24-48) Monocytes (%) (Auto) 8 % (0-9) Eosinophils (%) (Auto) 1 % (0-3) Basophils (%) (Auto) 0 % (0-3) Neutrophils # (Auto) 6.2 x10^3uL (1.8-7.7) Lymphocytes # (Auto) 0.9 x10^3/uL (1.0-4.8) Monocytes # (Auto) 0.7 x10^3/uL (0.0-1.1) Eosinophils # (Auto) 0.0 x10^3/uL (0.0-0.7) Basophils # (Auto) 0.0 x10^3/uL (0.0-0.2) Prothrombin Time 15.3 SEC (11.7-14.0) Prothromb Time International Ratio 1.2 (0.8-1.1) Sodium Level 134 mmol/L (136-145) Potassium Level 4.2 mmol/L (3.5-5.1) Chloride Level 98 mmol/L (98-107) Carbon Dioxide Level 29 mmol/L (21-32) Anion Gap 7 (6-14) Blood Urea Nitrogen 33 mg/dL (7-20) Creatinine 0.9 mg/dL (0.6-1.0) Estimated GFR (Cockcroft-Gault) 59.9 BUN/Creatinine Ratio 37 (6-20) Glucose Level 117 mg/dL (70-99) Calcium Level 8.5 mg/dL (8.5-10.1) Iron Level 11 ug/dL (50-170) Total Iron Binding Capacity 196 ug/dL (250-450) Iron Saturation 6 % (15-34) Total Bilirubin 0.6 mg/dL (0.2-1.0) Aspartate Amino Transf (AST/SGOT) 33 U/L (15-37) Alanine Aminotransferase (ALT/SGPT) 44 U/L (14-59) Alkaline Phosphatase 106 U/L (46-116) Total Protein 6.2 g/dL (6.4-8.2) Albumin 2.4 g/dL (3.4-5.0) Albumin/Globulin Ratio 0.6 (1.0-1.7) Vitamin B12 Level 670 pg/mL (247-911) Medications Active Scripts Medications Dose Route/Sig Max Daily Dose Days Date Category Thera-Tabs M Caplet (Multivits,Ca,Minerals/Iron/Fa) 1 Each Tablet 1 Each PO DAILY 10/07/18 Reported Senna (Sennosides) 8.6 Mg Tablet 8.6 Mg PO DAILY 10/07/18 Reported Ranitidine Hcl 150 Mg Tablet 150 Mg PO HS 10/07/18 Reported Lyrica (Pregabalin) 100 Mg Capsule 1 Cap PO TID 10/07/18 Reported Potassium Chloride 20 Meq Tablet.er 20 Meq PO DAILY 10/07/18 Reported Nystatin 15 Gm Powder 1 Gabriela TP TID 10/07/18 Reported Simethicone 80 Mg Tab.chew 80 Mg PO PRN Q6HRS PRN 10/07/18 Reported Mucinex (Guaifenesin) 600 Mg Tablet.er 1 Tab PO BID 10/07/18 Reported Mapap (Acetaminophen) 500 Mg Tablet 1,000 Mg PO PRN BID PRN 10/07/18 Reported Magnesium Oxide 400 Mg Tablet 400 Mg PO BID 10/07/18 Reported Loperamide (Loperamide Hcl) 2 Mg Capsule 2 Mg PO PRN Q1HR PRN 10/07/18 Reported Levothyroxine Sodium 50 Mcg Tablet 40 Mcg PO DAILYAC PRN 10/07/18 Reported Furosemide 40 Mg Tablet 1 Tab PO DAILY 10/07/18 Reported Fish Oil-Vit D3 Softgel (Omega3/Dha/Epa/Fish Oil/Vit D3) 1 Each Capsule 1 Each PO DAILY 10/07/18 Reported Docusate Sodium 100 Mg Capsule 100 Mg PO BID 10/07/18 Reported Vitamin B-12 (Cyanocobalamin (Vitamin B-12)) 1,000 Mcg Tablet 1 Tab PO DAILY 10/07/18 Reported Culturelle Probiotics Capsule (L. Rhamnosus GG/Inulin) 1 Each Capsule 1 Each PO BID 10/07/18 Reported Tums Ultra (Calcium Carbonate) 400 Mg Tab.chew 400 Mg PO PRN Q12HR PRN 10/07/18 Reported Dulcolax (Bisacodyl) 10 Mg Supp.rect 10 Mg RC PRN DAILY PRN 10/07/18 Reported Baclofen 10 Mg Tablet 10 Mg PO HS 10/07/18 Reported Atorvastatin Calcium 10 Mg Tablet 10 Mg PO HS 10/07/18 Reported Aspirin Ec (Aspirin) 81 Mg Tablet.dr 1 Tab PO DAILY 10/07/18 Reported Impression . IMPRESSION: 1. Progressive dyspnea secondary to secondary pulmonary hypertension, acute exacerbation of chronic obstructive pulmonary disease. 2. Acute exacerbation of chronic obstructive pulmonary disease. 3. Pulmonary hypertension. The patient recently evaluated at [facility], declined right heart catheterization. 4. Chest pain per Cardiology. 5. Chronic atrial fibrillation. 6. Scleroderma. 7. Right lower extremity cellulitis. 8. HEMOPTYSIS VS HEMATEMESIS ECHO <Conclusion> Abnormal septal motion consistent with conduction abnormality. The Ejection Fraction is 50%. Trace aortic regurgitation. Trace to mild mitral regurgitation. Mild tricuspid regurgitation. The PA pressure was estimated at 33 mmHg. There is no evidence of significant pericardial effusion. Plan . BRONCH NO ENDO LESION NO BLEEDING EGD TODAY NATALIE ALCANTARA MD Oct 09, 2018 09:21
[2018-10-09 11:10] VITALS: BP 114/64
--- NOTE | 2018-10-09 11:14 | PDOC ---
PROGRESS NOTES History of Present Illness History of Present Illness Assessment/Plan Assessment/Plan IMPRESSION 1. ACUTE COPD EXAC 2. Chest pain, atypical. 2. Dyspnea, //URI. 3. Chronic diastolic CHF Abnormal septal motion consistent with conduction abnormality. The Ejection Fraction is 50%. ECHO 10/07 4. Chronic AFIB; 5. Scleroderma 6. Raynaud's 7. RLE cellulitis, wound 8. left chest deep brain stimulator for essential tremors 9. GERD 10. Hypothyroid state on replacement 11. Right 2nd toe infection. 12. MARKED Hemoptysis 100cc this AM 10/08 13 shortened with diffuse ulceration in distal 1/3, with active bleeding and adherent clot ? MW tear - carmen removed, treated with 3 cc of epinephrine 1:10, 000 and bipolar cautery- 14. Large hiatal hernia with retained fluid and debris in a distended thoracic esophagus. Postsurgical changes related to a previous esophageal resection could also give this appearance. 10/09 HEMOPTYSIS VS HEMATEMESIS REMAINS NPO/// BRONCH NO LESION SEEN, GI FOLLOWING PROCEDURE NOTE PROCEDURE 09/11 Procedure EGD with control of bleeding recent hematemesis, vomiting anesthesia with propofol Findings Esophagus- shortened with diffuse ulceration in distal 1/3, with active bleeding and adherent clot ? MW tear as well- carmen removed, treated with 3 cc of epinephrine 1:10,000 and bipolar cautery- with control- 6 cm HH, stomach with clots - no active bleeding seen but exam limited due to clots- duodenum appeared normal Plan- NPO then CLD PPI BID carafate slurry QID repeat EGD in 1 week if stable or earlier if bleeding continues PLAN STAT CT CHEST INR GI CONSULT PULM CONSULT Cardiology consult Echo RLE arterial duplex US Obtain med records from [facility] dvt prophylaxis iv zosyn 42 min pt exam, record review, > 50% of time with exam, chart review, pt care coordination. Vitals Vitals Vital Signs Date Time Temp Pulse Resp B/P (MAP) Pulse Ox O2 Delivery O2 Flow Rate FiO2 10/09/18 11:10 97.9 97 17 114/64 (81) 95 Room Air 97.9 10/09/18 06:00 1.5 Physical Exam General: Alert, Oriented X3, Cooperative, mild distress Heart: Regular rate, Normal S1, Other (irregular rhythm with 2/6 systolic murmur) Lungs: Crackles Abdomen: Normal bowel sounds, Soft, No tenderness Extremities: No clubbing, No cyanosis, No edema, Normal pulses, Other (strong dorsalis pedis pulse on the right with a Quant of flow of 1.08) Skin: No breakdown, No significant lesion, Other (1.3 cm ulceration to the dorsal aspect right second toe with no evidence of exposed tendon or bone at this time. The toe itself is modestly edematous with mild erythema) Labs LABS CT of the chest with contrast, 10/08/2018: HISTORY: Hemoptysis Multidetector CT imaging was performed following an IV bolus injection of iodinated contrast material. There is an electronic device in the left anterior chest wall with a lead extending into the left neck, incompletely visualized on this study. There is moderate calcific plaquing of the thoracic aorta without evidence of aneurysm or dissection. There are mild scattered coronary artery calcifications. The heart is mildly enlarged. There is a trace amount pericardial fluid. No mediastinal or hilar adenopathy is seen. The esophagus is distended throughout the chest. It contains retained gas, fluid and food debris. There is a moderate-sized hiatal hernia. It is possible that previous esophageal surgery with elevation of the stomach in the lower chest could be producing this appearance. There are small bilateral pleural effusions. There were mild underlying streaky basilar opacities compatible with atelectasis. No pulmonary mass is identified. There are mild scattered degenerative changes in the spine. There is mild deformity of the sternum compatible with an old healed fracture. IMPRESSION: 1. Large hiatal hernia with retained fluid and debris in a distended thoracic esophagus. Postsurgical changes related to a previous esophageal resection could also give this appearance. Correlation with the patient's surgical history and possibly endoscopic findings is suggested. 2. Cardiomegaly with mild coronary artery calcifications. 3. Small bilateral pleural effusions. Laboratory Tests Test 10/08/18 12:10 10/09/18 02:55 White Blood Count 7.9 x10^3/uL (4.0-11.0) 5.8 x10^3/uL (4.0-11.0) Red Blood Count 3.78 x10^6/uL (3.50-5.40) 3.37 x10^6/uL (3.50-5.40) Hemoglobin 11.1 g/dL (12.0-15.5) 9.6 g/dL (12.0-15.5) Hematocrit 32.7 % (36.0-47.0) 29.3 % (36.0-47.0) Mean Corpuscular Volume 87 fL (79-100) 87 fL (79-100) Mean Corpuscular Hemoglobin 29 pg (25-35) 29 pg (25-35) Mean Corpuscular Hemoglobin Concent 34 g/dL (31-37) 33 g/dL (31-37) Red Cell Distribution Width 15.2 % (11.5-14.5) 15.4 % (11.5-14.5) Platelet Count 185 x10^3/uL (140-400) 177 x10^3/uL (140-400) Neutrophils (%) (Auto) 79 % (31-73) Lymphocytes (%) (Auto) 12 % (24-48) Monocytes (%) (Auto) 8 % (0-9) Eosinophils (%) (Auto) 1 % (0-3) Basophils (%) (Auto) 0 % (0-3) Neutrophils # (Auto) 6.2 x10^3uL (1.8-7.7) Lymphocytes # (Auto) 0.9 x10^3/uL (1.0-4.8) Monocytes # (Auto) 0.7 x10^3/uL (0.0-1.1) Eosinophils # (Auto) 0.0 x10^3/uL (0.0-0.7) Basophils # (Auto) 0.0 x10^3/uL (0.0-0.2) Prothrombin Time 15.3 SEC (11.7-14.0) Prothromb Time International Ratio 1.2 (0.8-1.1) Sodium Level 134 mmol/L (136-145) Potassium Level 4.2 mmol/L (3.5-5.1) Chloride Level 98 mmol/L (98-107) Carbon Dioxide Level 29 mmol/L (21-32) Anion Gap 7 (6-14) Blood Urea Nitrogen 33 mg/dL (7-20) Creatinine 0.9 mg/dL (0.6-1.0) Estimated GFR (Cockcroft-Gault) 59.9 BUN/Creatinine Ratio 37 (6-20) Glucose Level 117 mg/dL (70-99) Calcium Level 8.5 mg/dL (8.5-10.1) Iron Level 11 ug/dL (50-170) Total Iron Binding Capacity 196 ug/dL (250-450) Iron Saturation 6 % (15-34) Total Bilirubin 0.6 mg/dL (0.2-1.0) Aspartate Amino Transf (AST/SGOT) 33 U/L (15-37) Alanine Aminotransferase (ALT/SGPT) 44 U/L (14-59) Alkaline Phosphatase 106 U/L (46-116) Total Protein 6.2 g/dL (6.4-8.2) Albumin 2.4 g/dL (3.4-5.0) Albumin/Globulin Ratio 0.6 (1.0-1.7) Vitamin B12 Level 670 pg/mL (247-911) Assessment and Plan Assessmemt and Plan Problems Medical Problems: (1) Chest pain Status: Acute (2) Pneumonia Status: Acute Comment Review of Relevant I have reviewed the following items tara (where applicable) has been applied. Labs Laboratory Tests Test 10/07/18 22:39 10/08/18 12:10 10/09/18 02:55 Glucose (Fingerstick) 92 mg/dL (70-99) White Blood Count 7.9 x10^3/uL (4.0-11.0) 5.8 x10^3/uL (4.0-11.0) Red Blood Count 3.78 x10^6/uL (3.50-5.40) 3.37 x10^6/uL (3.50-5.40) Hemoglobin 11.1 g/dL (12.0-15.5) 9.6 g/dL (12.0-15.5) Hematocrit 32.7 % (36.0-47.0) 29.3 % (36.0-47.0) Mean Corpuscular Volume 87 fL (79-100) 87 fL (79-100) Mean Corpuscular Hemoglobin 29 pg (25-35) 29 pg (25-35) Mean Corpuscular Hemoglobin Concent 34 g/dL (31-37) 33 g/dL (31-37) Red Cell Distribution Width 15.2 % (11.5-14.5) 15.4 % (11.5-14.5) Platelet Count 185 x10^3/uL (140-400) 177 x10^3/uL (140-400) Neutrophils (%) (Auto) 79 % (31-73) Lymphocytes (%) (Auto) 12 % (24-48) Monocytes (%) (Auto) 8 % (0-9) Eosinophils (%) (Auto) 1 % (0-3) Basophils (%) (Auto) 0 % (0-3) Neutrophils # (Auto) 6.2 x10^3uL (1.8-7.7) Lymphocytes # (Auto) 0.9 x10^3/uL (1.0-4.8) Monocytes # (Auto) 0.7 x10^3/uL (0.0-1.1) Eosinophils # (Auto) 0.0 x10^3/uL (0.0-0.7) Basophils # (Auto) 0.0 x10^3/uL (0.0-0.2) Prothrombin Time 15.3 SEC (11.7-14.0) Prothromb Time International Ratio 1.2 (0.8-1.1) Sodium Level 134 mmol/L (136-145) Potassium Level 4.2 mmol/L (3.5-5.1) Chloride Level 98 mmol/L (98-107) Carbon Dioxide Level 29 mmol/L (21-32) Anion Gap 7 (6-14) Blood Urea Nitrogen 33 mg/dL (7-20) Creatinine 0.9 mg/dL (0.6-1.0) Estimated GFR (Cockcroft-Gault) 59.9 BUN/Creatinine Ratio 37 (6-20) Glucose Level 117 mg/dL (70-99) Calcium Level 8.5 mg/dL (8.5-10.1) Iron Level 11 ug/dL (50-170) Total Iron Binding Capacity 196 ug/dL (250-450) Iron Saturation 6 % (15-34) Total Bilirubin 0.6 mg/dL (0.2-1.0) Aspartate Amino Transf (AST/SGOT) 33 U/L (15-37) Alanine Aminotransferase (ALT/SGPT) 44 U/L (14-59) Alkaline Phosphatase 106 U/L (46-116) Total Protein 6.2 g/dL (6.4-8.2) Albumin 2.4 g/dL (3.4-5.0) Albumin/Globulin Ratio 0.6 (1.0-1.7) Vitamin B12 Level 670 pg/mL (247-911) Laboratory Tests Test 10/08/18 12:10 10/09/18 02:55 White Blood Count 7.9 x10^3/uL (4.0-11.0) 5.8 x10^3/uL (4.0-11.0) Red Blood Count 3.78 x10^6/uL (3.50-5.40) 3.37 x10^6/uL (3.50-5.40) Hemoglobin 11.1 g/dL (12.0-15.5) 9.6 g/dL (12.0-15.5) Hematocrit 32.7 % (36.0-47.0) 29.3 % (36.0-47.0) Mean Corpuscular Volume 87 fL (79-100) 87 fL (79-100) Mean Corpuscular Hemoglobin 29 pg (25-35) 29 pg (25-35) Mean Corpuscular Hemoglobin Concent 34 g/dL (31-37) 33 g/dL (31-37) Red Cell Distribution Width 15.2 % (11.5-14.5) 15.4 % (11.5-14.5) Platelet Count 185 x10^3/uL (140-400) 177 x10^3/uL (140-400) Neutrophils (%) (Auto) 79 % (31-73) Lymphocytes (%) (Auto) 12 % (24-48) Monocytes (%) (Auto) 8 % (0-9) Eosinophils (%) (Auto) 1 % (0-3) Basophils (%) (Auto) 0 % (0-3) Neutrophils # (Auto) 6.2 x10^3uL (1.8-7.7) Lymphocytes # (Auto) 0.9 x10^3/uL (1.0-4.8) Monocytes # (Auto) 0.7 x10^3/uL (0.0-1.1) Eosinophils # (Auto) 0.0 x10^3/uL (0.0-0.7) Basophils # (Auto) 0.0 x10^3/uL (0.0-0.2) Prothrombin Time 15.3 SEC (11.7-14.0) Prothromb Time International Ratio 1.2 (0.8-1.1) Sodium Level 134 mmol/L (136-145) Potassium Level 4.2 mmol/L (3.5-5.1) Chloride Level 98 mmol/L (98-107) Carbon Dioxide Level 29 mmol/L (21-32) Anion Gap 7 (6-14) Blood Urea Nitrogen 33 mg/dL (7-20) Creatinine 0.9 mg/dL (0.6-1.0) Estimated GFR (Cockcroft-Gault) 59.9 BUN/Creatinine Ratio 37 (6-20) Glucose Level 117 mg/dL (70-99) Calcium Level 8.5 mg/dL (8.5-10.1) Iron Level 11 ug/dL (50-170) Total Iron Binding Capacity 196 ug/dL (250-450) Iron Saturation 6 % (15-34) Total Bilirubin 0.6 mg/dL (0.2-1.0) Aspartate Amino Transf (AST/SGOT) 33 U/L (15-37) Alanine Aminotransferase (ALT/SGPT) 44 U/L (14-59) Alkaline Phosphatase 106 U/L (46-116) Total Protein 6.2 g/dL (6.4-8.2) Albumin 2.4 g/dL (3.4-5.0) Albumin/Globulin Ratio 0.6 (1.0-1.7) Vitamin B12 Level 670 pg/mL (247-911) Microbiology 10/06/18 Blood Culture - Preliminary, Resulted NO GROWTH AFTER 2 DAYS Medications Current Medications Piperacillin Sod/ Tazobactam Sod (Zosyn Per Pharmacy) 1 each PRN DAILY PRN MC SEE COMMENTS; Start 10/06/18 at 19:00 Piperacillin Sod/ Tazobactam Sod 3.375 gm/Sodium Chloride 50 ml @ 100 mls/hr 1X ONCE IV Last administered on 10/06/18at 19:09; Start 10/06/18 at 19:30; Stop 10/06/18 at 19:59; Status DC Ondansetron HCl (Zofran) 4 mg PRN Q8HRS PRN IV NAUSEA/VOMITING; Start 10/06/18 at 19:00; Stop 10/07/18 at 18:59; Status DC Acetaminophen (Tylenol) 650 mg PRN Q4HRS PRN PO FEVER Last administered on 10/06 20:29; Start 10/06/18 at 19:00; Stop 10/07/18 at 11:43; Status DC Albuterol/ Ipratropium (Duoneb) 3 ml RTQID NEB Last administered on 10/07/18 19:59; Start 10/06/18 at 20:00; Stop 10/07/18 at 19:59; Status DC Ondansetron HCl (Zofran) 4 mg 1X ONCE IV Last administered on 10/06/18 20:25 ; Start 10/06/18 at 20:30; Stop 10/06/18 at 20:34; Status DC Piperacillin Sod/ Tazobactam Sod 3.375 gm/Sodium Chloride 50 ml @ 100 mls/hr Q6HRS IV Last administered on 10/09/18 05:59; Start 10/07/18 at 00:00 Aspirin (Ecotrin) 81 mg DAILY PO Last administered on 10/07/18 12:18; Start at 12:00 Atorvastatin Calcium (Lipitor) 10 mg HS PO Last administered on 10/07/18 22:13 ; Start 10/07/18 at 21:00 Baclofen (Lioresal) 10 mg HS PO Last administered on 10/07/18 22:12; Start at 21:00 Cyanocobalamin (Vitamin B-12) 1,000 mcg DAILY PO Last administered on 12:18; Start 10/07/18 at 12:00 Docusate Sodium (Colace) 100 mg BID PO Last administered on 10/07/18 22:13; Start 10/07/18 at 12:00 Furosemide (Lasix) 40 mg DAILY PO Last administered on 10/07/18 13:56; Start 10/07/18 at 12:00 Guaifenesin (Mucinex) 600 mg BID PO Last administered on 10/07/18 22:12; Start 10/07/18 at 12:00 Nystatin (Nystop) 1 gabriela TID TP Last administered on 10/09/18 08:35; Start at 14:00 Simethicone (Gas-X) 80 mg PRN Q6HRS PRN PO flatulence ; Start 10/07/18 at 11:45 Acetaminophen (Tylenol) 1,000 mg PRN BID PRN PO MILD PAIN Last administered on 10/07/18 16:47; Start 10/07/18 at 11:45 Bisacodyl (Dulcolax Supp) 10 mg PRN DAILY PRN RI CONSTIPATION; Start 10/07/18 at 11:45 Calcium Carbonate/ Glycine (Tums) 500 mg PRN Q12HR PRN PO INDIGESTION Last administered on 10/08/18 02:32; Start 10/07/18 at 11:45 Lactobacillus Rhamnosus (Culturelle) 1 cap BID PO Last administered on 22:13; Start 10/07/18 at 12:00 Non-Formulary Medication (Levothyroxine Sodium ) 40 mcg DAILYAC PRN PO hypothyroid ; Start 10/07/18 at 11:45; Stop 10/07/18 at 12:11; Status DC Loperamide HCl (Imodium) 2 mg PRN Q1HR PRN PO DIARRHEA; Start 10/07/18 at 12:00 Magnesium Oxide (Magnesium Oxide) 400 mg BID PO Last administered on 10/07/18 22:13; Start 10/07/18 at 12:00 Multivitamins (Thera M Plus) 1 tab DAILY PO Last administered on 10/07/18 12: 18; Start 10/07/18 at 12:00 Fish Oil (Fish Oil) 1,000 mg DAILY PO Last administered on 10/07/18 12:18; Start 10/07/18 at 12:00 Potassium Chloride (Klor-Con) 20 meq [id number] PO Last administered on 13:57; Start 10/07/18 at 12:00 Pregabalin (Lyrica) 100 mg TID PO Last administered on 10/07/18 22:13; Start 10/07/18 at 14:00 Famotidine (Pepcid) 20 mg QHS PO Last administered on 10/07/18 22:12; Start at 21:00; Stop 10/08/18 at 17:01; Status DC Sennosides (Senna) 8.6 mg DAILY PO Last administered on 3/25/19at 12:18; Start 10/07/18 at 12:00 Levothyroxine Sodium (Synthroid) 25 mcg DAILY06 PO Last administered on at 12:18; Start 10/07/18 at 12:30 Enoxaparin Sodium (Lovenox 40mg Syringe) 40 mg Q24H SQ Last administered on at 22:11; Start 10/07/18 at 21:00 Enoxaparin Sodium (Lovenox 40mg Syringe) 40 mg Q24H SQ ; Start 10/07/18 at 19:00 ; Stop 10/08/18 at 09:23; Status DC Pantoprazole Sodium (Protonix) 40 mg DAILYAC PO ; Start 10/08/18 at 07:30; Stop 10/08/18 at 16:07; Status DC Codeine Sulfate (Codeine) 30 mg PRN Q6HRS PRN PO COUGH, 2nd CHOICE Last administered on 10/08/18at 03:26; Start 10/08/18 at 03:15 Benzonatate (Tessalon Perle) 100 mg [id number] PO ; Start 10/08/18 at 09:00 Benzonatate (Tessalon Perle) 100 mg 1X ONCE PO Last administered on 10/08/18at 03:26; Start 10/08/18 at 03:15; Stop 10/08/18 at 03:16; Status DC Guaifenesin (Robitussin Dm) 10 ml PRN Q4HRS PRN PO COUGH, 1st CHOICE; Start at 07:30 Ondansetron HCl (Zofran) 4 mg PRN Q4HRS PRN IV NAUSEA/VOMITING Last administered on 10/08/18at 09:32; Start 10/08/18 at 07:30 Albuterol/ Ipratropium (Duoneb) 3 ml RTQID NEB Last administered on 10/09/18at 06:00; Start 10/08/18 at 08:00 Sodium Chloride 1,000 ml @ 75 mls/hr [id number] IV Last administered on at 05:59; Start 10/08/18 at 10:30 Iohexol (Omnipaque 300 Mg/ml) 75 ml 1X ONCE IV Last administered on 10/08/18at 11:30; Start 10/08/18 at 11:30; Stop 10/08/18 at 11:31; Status DC Info (CONTRAST GIVEN -- Rx MONITORING) 1 each PRN DAILY PRN MC SEE COMMENTS; Start 10/08/18 at 11:30; Stop 10/10/18 at 11:29 Ringer's Solution 1,000 ml @ 0 mls/hr Q0M IV Last administered on 10/08/18at 13 :31; Start 10/08/18 at 13:30; Stop 10/08/18 at 16:55; Status DC Ringer's Solution 1,000 ml @ 50 mls/hr Q20H IV ; Start 10/08/18 at 14:00; Stop 10/08/18 at 18:00; Status DC Propofol 20 ml @ As Directed STK-MED ONCE IV ; Start 10/08/18 at 13:48; Stop at 13:49; Status DC Albuterol Sulfate (Ventolin Neb Soln) 2.5 mg PRN 1X PRN NEB SHORTNESS OF BREATH Last administered on 10/08/18at 14:22; Start 10/08/18 at 14:15; Stop 10/08 at 18:00; Status DC Lidocaine HCl (Lidocaine 2% Viscous) 100 ml PRN 1X PRN MM MOUTH PAIN Last administered on 10/08/18at 14:21; Start 10/08/18 at 14:15; Stop 10/08/18 at 18:00 ; Status DC Lidocaine HCl (Lidocaine 1% 20ml Vial) 20 ml PRN 1X PRN INJ SEE COMMENTS Last administered on 10/08/18at 14:22; Start 10/08/18 at 14:15; Stop 10/08/18 at 18:00 ; Status DC Epinephrine HCl (Adrenalin) 1 mg PRN 1X PRN INJ SEE COMMENTS; Start 10/08/18 at 14:15; Stop 10/08/18 at 18:00; Status DC Lidocaine HCl 50 ml PRN 1X PRN MM SEE COMMENTS Last administered on 10/08/18at 14:21; Start 10/08/18 at 14:15; Stop 10/08/18 at 18:00; Status DC Epinephrine HCl (Adrenalin) 1 mg STK-MED ONCE .ROUTE ; Start 10/08/18 at 14:13; Stop 10/08/18 at 14:14; Status DC Lidocaine HCl (Lidocaine 1% 20ml Vial) 20 ml STK-MED ONCE .ROUTE ; Start at 14:13; Stop 10/08/18 at 14:14; Status DC Lidocaine HCl (Lidocaine 2% Viscous) 100 ml STK-MED ONCE .ROUTE ; Start at 14:13; Stop 10/08/18 at 14:14; Status DC Lidocaine HCl 50 ml STK-MED ONCE .ROUTE ; Start 10/08/18 at 14:14; Stop at 14:15; Status DC Pantoprazole Sodium (PROTONIX VIAL for IV PUSH) 40 mg BIDAC IVP Last administered on 10/09/18at 08:35; Start 10/08/18 at 16:30 Active Scripts Active Reported Thera-Tabs M Caplet (Multivits,Ca,Minerals/Iron/Fa) 1 Each Tablet 1 Each PO DAILY Senna (Sennosides) 8.6 Mg Tablet 8.6 Mg PO DAILY Ranitidine Hcl 150 Mg Tablet 150 Mg PO HS Lyrica (Pregabalin) 100 Mg Capsule 1 Cap PO TID Potassium Chloride 20 Meq Tablet.er 20 Meq PO DAILY Nystatin 15 Gm Powder 1 Gabriela TP TID Simethicone 80 Mg Tab.chew 80 Mg PO PRN Q6HRS PRN Mucinex (Guaifenesin) 600 Mg Tablet.er 1 Tab PO BID Mapap (Acetaminophen) 500 Mg Tablet 1,000 Mg PO PRN BID PRN Magnesium Oxide 400 Mg Tablet 400 Mg PO BID Loperamide (Loperamide Hcl) 2 Mg Capsule 2 Mg PO PRN Q1HR PRN Levothyroxine Sodium 50 Mcg Tablet 40 Mcg PO DAILYAC PRN Furosemide 40 Mg Tablet 1 Tab PO DAILY Fish Oil-Vit D3 Softgel (Omega3/Dha/Epa/Fish Oil/Vit D3) 1 Each Capsule 1 Each PO DAILY Docusate Sodium 100 Mg Capsule 100 Mg PO BID Vitamin B-12 (Cyanocobalamin (Vitamin B-12)) 1,000 Mcg Tablet 1 Tab PO DAILY Culturelle Probiotics Capsule (L. Rhamnosus GG/Inulin) 1 Each Capsule 1 Each PO BID Tums Ultra (Calcium Carbonate) 400 Mg Tab.chew 400 Mg PO PRN Q12HR PRN Dulcolax (Bisacodyl) 10 Mg Supp.rect 10 Mg RC PRN DAILY PRN Baclofen 10 Mg Tablet 10 Mg PO HS Atorvastatin Calcium 10 Mg Tablet 10 Mg PO HS Aspirin Ec (Aspirin) 81 Mg Tablet.dr 1 Tab PO DAILY Vitals/I & O Vital Sign - Last 24 Hours 10/08/18 10/08/18 10/08/18 10/08/18 12:28 13:18 13:18 15:01 Temp 97 97.4 97.0 97.4 Pulse 69 107 Resp 20 20 B/P (MAP) 131/59 Pulse Ox 94 96 O2 Delivery Room Air Nasal Cannula Nasal Cannula O2 Flow Rate 2 6 10/08/18 10/08/18 10/08/18 10/08/18 15:16 15:31 15:45 16:30 Pulse 98 96 111 94 Resp 20 20 B/P (MAP) 110/55 113/58 111/63 (79) 111/68 (82) Pulse Ox 98 98 O2 Delivery Nasal Cannula Nasal Cannula O2 Flow Rate 2 2 10/08/18 10/08/18 10/08/18 10/08/18 16:45 17:00 17:15 17:45 Pulse 94 90 96 88 B/P (MAP) 98/68 (78) 137/62 (87) 115/58 (77) 114/56 (75) 10/08/18 10/08/18 10/08/18 10/08/18 18:15 19:05 20:00 20:06 Temp 98.0 98.0 Pulse 94 95 Resp 20 B/P (MAP) 116/57 (76) 124/73 (90) Pulse Ox 93 90 O2 Delivery Nasal Cannula Nasal Cannula Nasal Cannula O2 Flow Rate 2.0 2.0 2.0 10/08/18 10/09/18 10/09/18 10/09/18 23:00 03:20 06:00 07:00 Temp 98.5 98.2 98.3 98.5 98.2 98.3 Pulse 95 94 91 Resp 21 20 16 B/P (MAP) 135/78 (97) 122/70 (87) 120/59 (79) Pulse Ox 97 96 96 92 O2 Delivery Nasal Cannula Nasal Cannula Nasal Cannula Room Air O2 Flow Rate 2.0 2.0 1.5 10/09/18 10/09/18 08:30 11:10 Temp 97.9 97.9 Pulse 97 Resp 17 B/P (MAP) 114/64 (81) Pulse Ox 95 O2 Delivery Room Air Room Air Intake and Output 10/08/18 10/08/18 10/09/18 15:00 23:00 07:00 Intake Total 450 ml 100 ml Output Total 1 ml 100 ml Balance 449 ml 0 ml ARIANNA JOLLY MD Oct 09, 2018 11:14
[2018-10-09] MEDS: IV RINGERS,LACTATED 1000ML 1,000 ML IV SCH ×2 (11:24→21:30)
[2018-10-09] MEDS ORDERED: PROPOFOL 20 ML IV ONE (12:02)
[2018-10-09] MEDS ORDERED: LIDOCAINE 2% PF 5 ML VIAL. ONE (12:02)
--- NOTE | 2018-10-09 12:48 | NUR ---
SS following up with discharge planning. Pt currently declining PT. SS received notification that pt was previously on services with [facility], ; fax [phone]. SS will continue to follow for discharge planning.
--- NOTE | 2018-10-09 13:07 | PDOC4 ---
PROCEDURE Procedure EGD with control of bleeding recent hematemesis, vomiting anesthesia with propofol Findings Esophagus- shortened with diffuse ulceration in distal 1/3, with active bleeding and adherent clot ? MW tear as well- carmen removed, treated with 3 cc of epinephrine 1:10,000 and bipolar cautery- with control- 6 cm HH, stomach with clots - no active bleeding seen but exam limited due to clots- duodenum appeared normal Plan- NPO then CLD PPI BID carafate slurry QID repeat EGD in 1 week if stable or earlier if bleeding continues OFELIA KELLEY MD Oct 09, 2018 13:07
[2018-10-09] MEDS ORDERED: EPINEPHrine SYRINGE 1 MG/10 ML SYRINGE ONE (13:18)
[2018-10-09 15:07] VITALS: BP 112/57
[2018-10-09 19:00] VITALS: BP 138/75
[2018-10-09] MEDS: BACLOFEN 10 MG TABLET. PO SCH (21:00)
[2018-10-09] MEDS: ATORVASTATIN CALCIUM 10 MG TABLET. PO SCH (21:00)
[2018-10-09] MEDS: ENOXAPARIN 40 MG/0.4 ML SYRINGE. SQ SCH (21:48)
[2018-10-09 23:00] VITALS: BP 134/69
[2018-10-10] MEDS: PIPERACILLIN/TAZOBACTAM 3.375 GM in IV NORMAL SALINE 50ML 50 ML IV SCH ×4 (00:46→17:47)
[2018-10-10] MEDS: IV NORMAL SALINE 1000ML BAG 1,000 ML IV SCH ×2 (00:46→15:33)
[2018-10-10 03:48] VITALS: BP 145/66
[2018-10-10 04:11] LABS: BASO % 1 % (0-3); EOS # 0.1 x10^3/uL (0.0-0.7); EOS % 3 % (0-3); HEMATOCRIT 30.3 % (36.0-47.0); HEMOGLOBIN 9.8 g/dL (12.0-15.5); LYMPH # 1.3 x10^3/uL (1.0-4.8); LYMPH % 32 % (24-48); MEAN CORPUSCULAR HEMOGLOBIN 28 pg (25-35); MEAN CORPUSCULAR HGB CONC 32 g/dL (31-37); MEAN CORPUSCULAR VOLUME 88 fL (79-100); MONO # 0.4 x10^3/uL (0.0-1.1); MONO % 10 % (0-9); NEUT # 2.2 x10^3uL (1.8-7.7); NEUT % 54 % (31-73); PLATELET COUNT 172 x10^3/uL (140-400); RED BLOOD COUNT 3.47 x10^6/uL (3.50-5.40); RED CELL DISTRIBUTION WIDTH 15.3 % (11.5-14.5); WHITE BLOOD COUNT 4.1 x10^3/uL (4.0-11.0)
[2018-10-10 04:31] LABS: CALCIUM 8.6 mg/dL (8.5-10.1); CREATININE 0.9 mg/dL (0.6-1.0); GFR 59.9; POTASSIUM 4.1 mmol/L (3.5-5.1)
[2018-10-10] MEDS: LEVOTHYROXINE 25 MCG TABLET. PO SCH ×2 (05:47→20:26)
[2018-10-10 07:00] VITALS: BP 168/80
[2018-10-10] MEDS: PANTOPRAZOLE IV PUSH 40 MG VIAL. IVP SCH (07:28)
[2018-10-10] MEDS: IV RINGERS,LACTATED 1000ML 1,000 ML IV SCH (07:30)
[2018-10-10] MEDS: POTASSIUM CHLORIDE 20 MEQ TABLET.ER. PO SCH (08:00)
[2018-10-10] MEDS: IPRATRPIUM/ALBUTEROL 0.5/2.5MG 3 ML NEBU. NEB SCH ×4 (08:51→20:29)
[2018-10-10] MEDS: BENZONATATE 100 MG CAPSULE. PO SCH ×3 (09:00→20:26)
[2018-10-10] MEDS: SENNOSIDES 8.6 MG TABLET PO SCH (09:00)
[2018-10-10] MEDS: MAGNESIUM OXIDE 400 MG TABLET PO SCH ×2 (09:00→20:25)
[2018-10-10] MEDS: OMEGA-3 FATTY ACIDS/FISH OIL 1,000 MG CAPSULE. PO SCH (09:00)
[2018-10-10] MEDS: ASPIRIN ENTERIC COATED 81 MG TABLET.DR. PO SCH (09:00)
[2018-10-10] MEDS: DOCUSATE SODIUM 100 MG CAPSULE. PO SCH ×2 (09:00→20:24)
[2018-10-10] MEDS: PREGABALIN 50 MG CAPSULE PO SCH ×3 (09:00→20:25)
[2018-10-10] MEDS: FUROSEMIDE 40 MG TABLET. PO SCH (09:00)
[2018-10-10] MEDS: MULTIVITAMIN with MINERAL TABLET. PO SCH (09:00)
[2018-10-10] MEDS: LACTOBACILLUS RHAMNOSUS GG 1 CAPSULE. PO SCH ×2 (09:00→20:25)
[2018-10-10] MEDS: CYANOCOBALAMIN (VITAMIN B-12) 1,000 MCG TABLET. PO SCH (09:00)
--- NOTE | 2018-10-10 09:24 | PDOC ---
PROGRESS NOTES History of Present Illness History of Present Illness Assessment/Plan Assessment/Plan IMPRESSION 1. ACUTE COPD EXAC 2. Chest pain, atypical. 2. Dyspnea, //URI. 3. Chronic diastolic CHF Abnormal septal motion consistent with conduction abnormality. The Ejection Fraction is 50%. ECHO 10/07 4. Chronic AFIB; 5. Scleroderma 6. Raynaud's 7. RLE cellulitis, wound 8. left chest deep brain stimulator for essential tremors 9. GERD 10. Hypothyroid state on replacement 11. Right 2nd toe infection. 12. MARKED Hemoptysis 100cc this AM 10/08 13 shortened with diffuse ulceration in distal 1/3, with active bleeding and adherent clot ? MW tear - carmen removed, treated with 3 cc of epinephrine 1:10, 000 and bipolar cautery- 14. Large hiatal hernia with retained fluid and debris in a distended thoracic esophagus. Postsurgical changes related to a previous esophageal resection could also give this appearance. 10/09 HEMOPTYSIS VS HEMATEMESIS REMAINS NPO/// BRONCH NO LESION SEEN, GI FOLLOWING 10/10 failed bedside swallow and is still NPO - PPN ordered PROCEDURE NOTE PROCEDURE 09/11 Procedure EGD with control of bleeding recent hematemesis, vomiting anesthesia with propofol Findings Esophagus- shortened with diffuse ulceration in distal 1/3, with active bleeding and adherent clot ? MW tear as well- carmen removed, treated with 3 cc of epinephrine 1:10,000 and bipolar cautery- with control- 6 cm HH, stomach with clots - no active bleeding seen but exam limited due to clots- duodenum appeared normal Plan- NPO then CLD PPI BID carafate slurry QID repeat EGD in 1 week if stable or earlier if bleeding continues PLAN CT CHEST reviewed INR ok GI CONSULT PULM following Cardiology consult Echo RLE arterial duplex US Obtain med records from [facility] dvt prophylaxis iv zosyn 46 min pt exam, record review, > 50% of time with exam, chart review, pt care coordination. Vitals Vitals Vital Signs Date Time Temp Pulse Resp B/P (MAP) Pulse Ox O2 Delivery O2 Flow Rate FiO2 10/10/18 08:51 96 Room Air 10/10/18 07:00 98.1 94 18 168/80 (109) 98.1 10/09/18 11:18 1.5 Physical Exam General: Alert, Oriented X3, Cooperative, mild distress Heart: Regular rate, Normal S1, Other (irregular rhythm with 2/6 systolic murmur) Lungs: Crackles Abdomen: Normal bowel sounds, Soft, No tenderness Extremities: No clubbing, No cyanosis, No edema, Normal pulses, Other (strong dorsalis pedis pulse on the right with a Quant of flow of 1.08) Skin: No breakdown, No significant lesion, Other (1.3 cm ulceration to the dorsal aspect right second toe with no evidence of exposed tendon or bone at this time. The toe itself is modestly edematous with mild erythema) Labs LABS Laboratory Tests Test 10/10/18 03:15 White Blood Count 4.1 x10^3/uL (4.0-11.0) Red Blood Count 3.47 x10^6/uL (3.50-5.40) Hemoglobin 9.8 g/dL (12.0-15.5) Hematocrit 30.3 % (36.0-47.0) Mean Corpuscular Volume 88 fL (79-100) Mean Corpuscular Hemoglobin 28 pg (25-35) Mean Corpuscular Hemoglobin Concent 32 g/dL (31-37) Red Cell Distribution Width 15.3 % (11.5-14.5) Platelet Count 172 x10^3/uL (140-400) Neutrophils (%) (Auto) 54 % (31-73) Lymphocytes (%) (Auto) 32 % (24-48) Monocytes (%) (Auto) 10 % (0-9) Eosinophils (%) (Auto) 3 % (0-3) Basophils (%) (Auto) 1 % (0-3) Neutrophils # (Auto) 2.2 x10^3uL (1.8-7.7) Lymphocytes # (Auto) 1.3 x10^3/uL (1.0-4.8) Monocytes # (Auto) 0.4 x10^3/uL (0.0-1.1) Eosinophils # (Auto) 0.1 x10^3/uL (0.0-0.7) Basophils # (Auto) 0.0 x10^3/uL (0.0-0.2) Sodium Level 147 mmol/L (136-145) Potassium Level 4.1 mmol/L (3.5-5.1) Chloride Level 109 mmol/L (98-107) Carbon Dioxide Level 29 mmol/L (21-32) Anion Gap 9 (6-14) Blood Urea Nitrogen 21 mg/dL (7-20) Creatinine 0.9 mg/dL (0.6-1.0) Estimated GFR (Cockcroft-Gault) 59.9 Glucose Level 72 mg/dL (70-99) Calcium Level 8.6 mg/dL (8.5-10.1) Assessment and Plan Assessmemt and Plan Problems Medical Problems: (1) Chest pain Status: Acute (2) Pneumonia Status: Acute Comment Review of Relevant I have reviewed the following items tara (where applicable) has been applied. Labs Laboratory Tests Test 10/08/18 12:10 10/09/18 02:55 10/10/18 03:15 White Blood Count 7.9 x10^3/uL (4.0-11.0) 5.8 x10^3/uL (4.0-11.0) 4.1 x10^3/uL (4.0-11.0) Red Blood Count 3.78 x10^6/uL (3.50-5.40) 3.37 x10^6/uL (3.50-5.40) 3.47 x10^6/uL (3.50-5.40) Hemoglobin 11.1 g/dL (12.0-15.5) 9.6 g/dL (12.0-15.5) 9.8 g/dL (12.0-15.5) Hematocrit 32.7 % (36.0-47.0) 29.3 % (36.0-47.0) 30.3 % (36.0-47.0) Mean Corpuscular Volume 87 fL (79-100) 87 fL (79-100) 88 fL (79-100) Mean Corpuscular Hemoglobin 29 pg (25-35) 29 pg (25-35) 28 pg (25-35) Mean Corpuscular Hemoglobin Concent 34 g/dL (31-37) 33 g/dL (31-37) 32 g/dL (31-37) Red Cell Distribution Width 15.2 % (11.5-14.5) 15.4 % (11.5-14.5) 15.3 % (11.5-14.5) Platelet Count 185 x10^3/uL (140-400) 177 x10^3/uL (140-400) 172 x10^3/uL (140-400) Neutrophils (%) (Auto) 79 % (31-73) 54 % (31-73) Lymphocytes (%) (Auto) 12 % (24-48) 32 % (24-48) Monocytes (%) (Auto) 8 % (0-9) 10 % (0-9) Eosinophils (%) (Auto) 1 % (0-3) 3 % (0-3) Basophils (%) (Auto) 0 % (0-3) 1 % (0-3) Neutrophils # (Auto) 6.2 x10^3uL (1.8-7.7) 2.2 x10^3uL (1.8-7.7) Lymphocytes # (Auto) 0.9 x10^3/uL (1.0-4.8) 1.3 x10^3/uL (1.0-4.8) Monocytes # (Auto) 0.7 x10^3/uL (0.0-1.1) 0.4 x10^3/uL (0.0-1.1) Eosinophils # (Auto) 0.0 x10^3/uL (0.0-0.7) 0.1 x10^3/uL (0.0-0.7) Basophils # (Auto) 0.0 x10^3/uL (0.0-0.2) 0.0 x10^3/uL (0.0-0.2) Prothrombin Time 15.3 SEC (11.7-14.0) Prothromb Time International Ratio 1.2 (0.8-1.1) Sodium Level 134 mmol/L (136-145) 147 mmol/L (136-145) Potassium Level 4.2 mmol/L (3.5-5.1) 4.1 mmol/L (3.5-5.1) Chloride Level 98 mmol/L (98-107) 109 mmol/L (98-107) Carbon Dioxide Level 29 mmol/L (21-32) 29 mmol/L (21-32) Anion Gap 7 (6-14) 9 (6-14) Blood Urea Nitrogen 33 mg/dL (7-20) 21 mg/dL (7-20) Creatinine 0.9 mg/dL (0.6-1.0) 0.9 mg/dL (0.6-1.0) Estimated GFR (Cockcroft-Gault) 59.9 59.9 BUN/Creatinine Ratio 37 (6-20) Glucose Level 117 mg/dL (70-99) 72 mg/dL (70-99) Calcium Level 8.5 mg/dL (8.5-10.1) 8.6 mg/dL (8.5-10.1) Iron Level 11 ug/dL (50-170) Total Iron Binding Capacity 196 ug/dL (250-450) Iron Saturation 6 % (15-34) Total Bilirubin 0.6 mg/dL (0.2-1.0) Aspartate Amino Transf (AST/SGOT) 33 U/L (15-37) Alanine Aminotransferase (ALT/SGPT) 44 U/L (14-59) Alkaline Phosphatase 106 U/L (46-116) Total Protein 6.2 g/dL (6.4-8.2) Albumin 2.4 g/dL (3.4-5.0) Albumin/Globulin Ratio 0.6 (1.0-1.7) Vitamin B12 Level 670 pg/mL (247-911) Laboratory Tests Test 10/10/18 03:15 White Blood Count 4.1 x10^3/uL (4.0-11.0) Red Blood Count 3.47 x10^6/uL (3.50-5.40) Hemoglobin 9.8 g/dL (12.0-15.5) Hematocrit 30.3 % (36.0-47.0) Mean Corpuscular Volume 88 fL (79-100) Mean Corpuscular Hemoglobin 28 pg (25-35) Mean Corpuscular Hemoglobin Concent 32 g/dL (31-37) Red Cell Distribution Width 15.3 % (11.5-14.5) Platelet Count 172 x10^3/uL (140-400) Neutrophils (%) (Auto) 54 % (31-73) Lymphocytes (%) (Auto) 32 % (24-48) Monocytes (%) (Auto) 10 % (0-9) Eosinophils (%) (Auto) 3 % (0-3) Basophils (%) (Auto) 1 % (0-3) Neutrophils # (Auto) 2.2 x10^3uL (1.8-7.7) Lymphocytes # (Auto) 1.3 x10^3/uL (1.0-4.8) Monocytes # (Auto) 0.4 x10^3/uL (0.0-1.1) Eosinophils # (Auto) 0.1 x10^3/uL (0.0-0.7) Basophils # (Auto) 0.0 x10^3/uL (0.0-0.2) Sodium Level 147 mmol/L (136-145) Potassium Level 4.1 mmol/L (3.5-5.1) Chloride Level 109 mmol/L (98-107) Carbon Dioxide Level 29 mmol/L (21-32) Anion Gap 9 (6-14) Blood Urea Nitrogen 21 mg/dL (7-20) Creatinine 0.9 mg/dL (0.6-1.0) Estimated GFR (Cockcroft-Gault) 59.9 Glucose Level 72 mg/dL (70-99) Calcium Level 8.6 mg/dL (8.5-10.1) Microbiology 10/06/18 Blood Culture - Preliminary, Resulted NO GROWTH AFTER 3 DAYS Medications Current Medications Piperacillin Sod/ Tazobactam Sod (Zosyn Per Pharmacy) 1 each PRN DAILY PRN MC SEE COMMENTS; Start 10/06/18 at 19:00 Piperacillin Sod/ Tazobactam Sod 3.375 gm/Sodium Chloride 50 ml @ 100 mls/hr 1X ONCE IV Last administered on 10/06/18at 19:09; Start 10/06/18 at 19:30; Stop 10/06/18 at 19:59; Status DC Ondansetron HCl (Zofran) 4 mg PRN Q8HRS PRN IV NAUSEA/VOMITING; Start 10/06/18 at 19:00; Stop 10/07/18 at 18:59; Status DC Acetaminophen (Tylenol) 650 mg PRN Q4HRS PRN PO FEVER Last administered on 10/06at 20:29; Start 10/06/18 at 19:00; Stop 10/07/18 at 11:43; Status DC Albuterol/ Ipratropium (Duoneb) 3 ml RTQID NEB Last administered on 10/07/18at 19:59; Start 10/06/18 at 20:00; Stop 10/07/18 at 19:59; Status DC Ondansetron HCl (Zofran) 4 mg 1X ONCE IV Last administered on 10/06/18 20:25 ; Start 10/06/18 at 20:30; Stop 10/06/18 at 20:34; Status DC Piperacillin Sod/ Tazobactam Sod 3.375 gm/Sodium Chloride 50 ml @ 100 mls/hr Q6HRS IV Last administered on 10/10/18 05:47; Start 10/07/18 at 00:00 Aspirin (Ecotrin) 81 mg DAILY PO Last administered on 10/07/18 12:18; Start at 12:00 Atorvastatin Calcium (Lipitor) 10 mg HS PO Last administered on 10/07/18 22:13 ; Start 10/07/18 at 21:00 Baclofen (Lioresal) 10 mg HS PO Last administered on 10/07/18 22:12; Start at 21:00 Cyanocobalamin (Vitamin B-12) 1,000 mcg DAILY PO Last administered on 12:18; Start 10/07/18 at 12:00 Docusate Sodium (Colace) 100 mg BID PO Last administered on 10/07/18 22:13; Start 10/07/18 at 12:00 Furosemide (Lasix) 40 mg DAILY PO Last administered on 10/07/18 13:56; Start 10/07/18 at 12:00 Guaifenesin (Mucinex) 600 mg BID PO Last administered on 10/07/18 22:12; Start 10/07/18 at 12:00 Nystatin (Nystop) 1 gabriela TID TP Last administered on 10/09/18 21:50; Start at 14:00 Simethicone (Gas-X) 80 mg PRN Q6HRS PRN PO flatulence ; Start 10/07/18 at 11:45 Acetaminophen (Tylenol) 1,000 mg PRN BID PRN PO MILD PAIN Last administered on 10/07/18 16:47; Start 10/07/18 at 11:45 Bisacodyl (Dulcolax Supp) 10 mg PRN DAILY PRN WI CONSTIPATION; Start 10/07/18 at 11:45 Calcium Carbonate/ Glycine (Tums) 500 mg PRN Q12HR PRN PO INDIGESTION Last administered on 10/08/18 02:32; Start 10/07/18 at 11:45 Lactobacillus Rhamnosus (Culturelle) 1 cap BID PO Last administered on 22:13; Start 10/07/18 at 12:00 Non-Formulary Medication (Levothyroxine Sodium ) 40 mcg DAILYAC PRN PO hypothyroid ; Start 10/07/18 at 11:45; Stop 10/07/18 at 12:11; Status DC Loperamide HCl (Imodium) 2 mg PRN Q1HR PRN PO DIARRHEA; Start 10/07/18 at 12:00 Magnesium Oxide (Magnesium Oxide) 400 mg BID PO Last administered on 10/07/18 22:13; Start 10/07/18 at 12:00 Multivitamins (Thera M Plus) 1 tab DAILY PO Last administered on 10/07/18 12: 18; Start 10/07/18 at 12:00 Fish Oil (Fish Oil) 1,000 mg DAILY PO Last administered on 10/07/18 12:18; Start 10/07/18 at 12:00 Potassium Chloride (Klor-Con) 20 meq [id number] PO Last administered on 13:57; Start 10/07/18 at 12:00 Pregabalin (Lyrica) 100 mg TID PO Last administered on 10/07/18 22:13; Start 10/07/18 at 14:00 Famotidine (Pepcid) 20 mg QHS PO Last administered on 10/07/18 22:12; Start at 21:00; Stop 10/08/18 at 17:01; Status DC Sennosides (Senna) 8.6 mg DAILY PO Last administered on 10/07/18 12:18; Start 10/07/18 at 12:00 Levothyroxine Sodium (Synthroid) 25 mcg DAILY06 PO Last administered on 12:18; Start 10/07/18 at 12:30 Enoxaparin Sodium (Lovenox 40mg Syringe) 40 mg Q24H SQ Last administered on at 21:48; Start 10/07/18 at 21:00 Enoxaparin Sodium (Lovenox 40mg Syringe) 40 mg Q24H SQ ; Start 10/07/18 at 19:00 ; Stop 10/08/18 at 09:23; Status DC Pantoprazole Sodium (Protonix) 40 mg DAILYAC PO ; Start 10/08/18 at 07:30; Stop 10/08/18 at 16:07; Status DC Codeine Sulfate (Codeine) 30 mg PRN Q6HRS PRN PO COUGH, 2nd CHOICE Last administered on 10/08/18at 03:26; Start 10/08/18 at 03:15 Benzonatate (Tessalon Perle) 100 mg [id number] PO ; Start 10/08/18 at 09:00 Benzonatate (Tessalon Perle) 100 mg 1X ONCE PO Last administered on 10/08/18at 03:26; Start 10/08/18 at 03:15; Stop 10/08/18 at 03:16; Status DC Guaifenesin (Robitussin Dm) 10 ml PRN Q4HRS PRN PO COUGH, 1st CHOICE; Start at 07:30 Ondansetron HCl (Zofran) 4 mg PRN Q4HRS PRN IV NAUSEA/VOMITING Last administered on 10/08/18at 09:32; Start 10/08/18 at 07:30 Albuterol/ Ipratropium (Duoneb) 3 ml RTQID NEB Last administered on 10/10/18at 08:51; Start 10/08/18 at 08:00 Sodium Chloride 1,000 ml @ 75 mls/hr [id number] IV Last administered on at 00:46; Start 10/08/18 at 10:30 Iohexol (Omnipaque 300 Mg/ml) 75 ml 1X ONCE IV Last administered on 10/08/18at 11:30; Start 10/08/18 at 11:30; Stop 10/08/18 at 11:31; Status DC Info (CONTRAST GIVEN -- Rx MONITORING) 1 each PRN DAILY PRN MC SEE COMMENTS; Start 10/08/18 at 11:30; Stop 10/10/18 at 11:29 Ringer's Solution 1,000 ml @ 0 mls/hr Q0M IV Last administered on 10/08/18at 13 :31; Start 10/08/18 at 13:30; Stop 10/08/18 at 16:55; Status DC Ringer's Solution 1,000 ml @ 50 mls/hr Q20H IV ; Start 10/08/18 at 14:00; Stop 10/08/18 at 18:00; Status DC Propofol 20 ml @ As Directed STK-MED ONCE IV ; Start 10/08/18 at 13:48; Stop at 13:49; Status DC Albuterol Sulfate (Ventolin Neb Soln) 2.5 mg PRN 1X PRN NEB SHORTNESS OF BREATH Last administered on 10/08/18at 14:22; Start 10/08/18 at 14:15; Stop 10/08 at 18:00; Status DC Lidocaine HCl (Lidocaine 2% Viscous) 100 ml PRN 1X PRN MM MOUTH PAIN Last administered on 10/08/18at 14:21; Start 10/08/18 at 14:15; Stop 10/08/18 at 18:00 ; Status DC Lidocaine HCl (Lidocaine 1% 20ml Vial) 20 ml PRN 1X PRN INJ SEE COMMENTS Last administered on 10/08/18at 14:22; Start 10/08/18 at 14:15; Stop 10/08/18 at 18:00 ; Status DC Epinephrine HCl (Adrenalin) 1 mg PRN 1X PRN INJ SEE COMMENTS; Start 10/08/18 at 14:15; Stop 10/08/18 at 18:00; Status DC Lidocaine HCl 50 ml PRN 1X PRN MM SEE COMMENTS Last administered on 10/08/18at 14:21; Start 10/08/18 at 14:15; Stop 10/08/18 at 18:00; Status DC Epinephrine HCl (Adrenalin) 1 mg STK-MED ONCE .ROUTE ; Start 10/08/18 at 14:13; Stop 10/08/18 at 14:14; Status DC Lidocaine HCl (Lidocaine 1% 20ml Vial) 20 ml STK-MED ONCE .ROUTE ; Start at 14:13; Stop 10/08/18 at 14:14; Status DC Lidocaine HCl (Lidocaine 2% Viscous) 100 ml STK-MED ONCE .ROUTE ; Start at 14:13; Stop 10/08/18 at 14:14; Status DC Lidocaine HCl 50 ml STK-MED ONCE .ROUTE ; Start 10/08/18 at 14:14; Stop at 14:15; Status DC Pantoprazole Sodium (PROTONIX VIAL for IV PUSH) 40 mg BIDAC IVP Last administered on 10/10/18at 07:28; Start 10/08/18 at 16:30 Ringer's Solution 1,000 ml @ 100 mls/hr Q10H IV Last administered on at 11:24; Start 10/09/18 at 11:30; Stop 10/10/18 at 07:46; Status DC Propofol 20 ml @ As Directed STK-MED ONCE IV ; Start 10/09/18 at 12:02; Stop at 12:03; Status DC Lidocaine HCl (Lidocaine Pf 2% Vial) 5 ml STK-MED ONCE .ROUTE ; Start 10/09/18 at 12:02; Stop 10/09/18 at 12:03; Status DC Epinephrine HCl (EPINEPHrine SYRINGE) 1 mg STK-MED ONCE .ROUTE ; Start 10/09/18 at 13:18; Stop 10/09/18 at 13:19; Status DC Fentanyl Citrate (Fentanyl 2ml Vial) 50 mcg PRN Q4HRS PRN IV PAIN; Start at 09:00 Fentanyl Citrate (Fentanyl 2ml Vial) 25 mcg PRN Q4HRS PRN IV PAIN; Start at 09:00 Lidocaine (Lidoderm) 1 patch DAILY TD ; Start 10/10/18 at 10:00 Miscellaneous (Lidoderm Patch Removal) 1 ea QHS MC ; Start 10/10/18 at 21:00 Active Scripts Active Reported Thera-Tabs M Caplet (Multivits,Ca,Minerals/Iron/Fa) 1 Each Tablet 1 Each PO DAILY Senna (Sennosides) 8.6 Mg Tablet 8.6 Mg PO DAILY Ranitidine Hcl 150 Mg Tablet 150 Mg PO HS Lyrica (Pregabalin) 100 Mg Capsule 1 Cap PO TID Potassium Chloride 20 Meq Tablet.er 20 Meq PO DAILY Nystatin 15 Gm Powder 1 Gabriela TP TID Simethicone 80 Mg Tab.chew 80 Mg PO PRN Q6HRS PRN Mucinex (Guaifenesin) 600 Mg Tablet.er 1 Tab PO BID Mapap (Acetaminophen) 500 Mg Tablet 1,000 Mg PO PRN BID PRN Magnesium Oxide 400 Mg Tablet 400 Mg PO BID Loperamide (Loperamide Hcl) 2 Mg Capsule 2 Mg PO PRN Q1HR PRN Levothyroxine Sodium 50 Mcg Tablet 40 Mcg PO DAILYAC PRN Furosemide 40 Mg Tablet 1 Tab PO DAILY Fish Oil-Vit D3 Softgel (Omega3/Dha/Epa/Fish Oil/Vit D3) 1 Each Capsule 1 Each PO DAILY Docusate Sodium 100 Mg Capsule 100 Mg PO BID Vitamin B-12 (Cyanocobalamin (Vitamin B-12)) 1,000 Mcg Tablet 1 Tab PO DAILY Culturelle Probiotics Capsule (L. Rhamnosus GG/Inulin) 1 Each Capsule 1 Each PO BID Tums Ultra (Calcium Carbonate) 400 Mg Tab.chew 400 Mg PO PRN Q12HR PRN Dulcolax (Bisacodyl) 10 Mg Supp.rect 10 Mg RC PRN DAILY PRN Baclofen 10 Mg Tablet 10 Mg PO HS Atorvastatin Calcium 10 Mg Tablet 10 Mg PO HS Aspirin Ec (Aspirin) 81 Mg Tablet. 1 Tab PO DAILY Vitals/I & O Vital Sign - Last 24 Hours 10/09/18 10/09/18 10/09/18 10/09/18 11:10 11:17 11:18 13:10 Temp 97.9 98.0 97.0 97.9 98.0 97.0 Pulse 97 86 123 Resp 17 20 18 B/P (MAP) 114/64 (81) 180/71 Pulse Ox 95 93 99 O2 Delivery Room Air Room Air Nasal Cannula O2 Flow Rate 1.5 10/09/18 10/09/18 10/09/18 10/09/18 13:25 13:40 15:07 15:28 Temp 98.5 98.5 Pulse 103 109 91 Resp 22 20 16 B/P (MAP) 104/53 110/52 112/57 (75) Pulse Ox 95 94 92 O2 Delivery Room Air Room Air Room Air Room Air 10/09/18 10/09/18 10/09/18 10/09/18 19:00 19:20 19:39 23:00 Temp 97.6 98.1 97.6 98.1 Pulse 79 101 Resp 18 18 B/P (MAP) 138/75 (96) 134/69 (90) Pulse Ox 92 94 O2 Delivery Room Air Room Air Room Air Room Air 3/28/10/10/18 10/10/18 10/10/18 03:48 07:00 07:55 08:51 Temp 97.9 98.1 97.9 98.1 Pulse 85 94 Resp 17 18 B/P (MAP) 145/66 (92) 168/80 (109) Pulse Ox 93 94 96 O2 Delivery Room Air Room Air Room Air Room Air Intake and Output 10/09/18 10/09/18 10/10/18 15:00 23:00 07:00 Intake Total 250 ml 150 ml 0 ml Output Total 225 ml Balance 250 ml -75 ml 0 ml Nutrition Consultation Dietary Evaluation: Recommendations by RD: Increase Calorie Intake, Protein supplementation Comments: REC diet advancement per [employer], goal diet cardiac REC dbl meat portions for increased protein needs REC Vit C (500 mg BID) and MVI q day - wound healing Expected Outcomes/Goals: diet advancement Malnutrition Findings: Body Fat Depletion (Non Severe: Mild Depletion Weight Status: Appropriate ARIANNA JOLLY MD Oct 10, 2018 09:24
[2018-10-10] MEDS: NYSTATIN TOPICAL POWDER 15GM BOTTLE. TP SCH ×3 (09:35→21:00)
[2018-10-10] MEDS: LIDOCAINE (700MG/PATCH) PATCH. TD SCH (09:35)
[2018-10-10] MEDS: fentaNYL PF VIAL 100 MCG/2 ML VIAL IV PRN (09:36)
[2018-10-10 11:00] VITALS: BP 140/76
--- NOTE | 2018-10-10 11:04 | PDOC ---
PULMONARY PROGRESS NOTES Subjective NO MORE BLEEDING Vitals Vital Signs Date Time Temp Pulse Resp B/P (MAP) Pulse Ox O2 Delivery O2 Flow Rate FiO2 10/10/18 09:36 Room Air 10/10/18 08:51 96 10/10/18 07:00 98.1 94 18 168/80 (109) 98.1 10/09/18 11:18 1.5 ROS: No Nausea, No Chest Pain, No Abdominal Pain, No Increase Cough General: Alert Lungs: Crackles Cardiovascular: S1, S2 Abdomen: Soft Neuro Exam: Alert Extremities: No Edema Skin: Warm Labs Laboratory Tests Test 10/08/18 12:10 10/09/18 02:55 10/10/18 03:15 White Blood Count 7.9 x10^3/uL (4.0-11.0) 5.8 x10^3/uL (4.0-11.0) 4.1 x10^3/uL (4.0-11.0) Red Blood Count 3.78 x10^6/uL (3.50-5.40) 3.37 x10^6/uL (3.50-5.40) 3.47 x10^6/uL (3.50-5.40) Hemoglobin 11.1 g/dL (12.0-15.5) 9.6 g/dL (12.0-15.5) 9.8 g/dL (12.0-15.5) Hematocrit 32.7 % (36.0-47.0) 29.3 % (36.0-47.0) 30.3 % (36.0-47.0) Mean Corpuscular Volume 87 fL (79-100) 87 fL (79-100) 88 fL (79-100) Mean Corpuscular Hemoglobin 29 pg (25-35) 29 pg (25-35) 28 pg (25-35) Mean Corpuscular Hemoglobin Concent 34 g/dL (31-37) 33 g/dL (31-37) 32 g/dL (31-37) Red Cell Distribution Width 15.2 % (11.5-14.5) 15.4 % (11.5-14.5) 15.3 % (11.5-14.5) Platelet Count 185 x10^3/uL (140-400) 177 x10^3/uL (140-400) 172 x10^3/uL (140-400) Neutrophils (%) (Auto) 79 % (31-73) 54 % (31-73) Lymphocytes (%) (Auto) 12 % (24-48) 32 % (24-48) Monocytes (%) (Auto) 8 % (0-9) 10 % (0-9) Eosinophils (%) (Auto) 1 % (0-3) 3 % (0-3) Basophils (%) (Auto) 0 % (0-3) 1 % (0-3) Neutrophils # (Auto) 6.2 x10^3uL (1.8-7.7) 2.2 x10^3uL (1.8-7.7) Lymphocytes # (Auto) 0.9 x10^3/uL (1.0-4.8) 1.3 x10^3/uL (1.0-4.8) Monocytes # (Auto) 0.7 x10^3/uL (0.0-1.1) 0.4 x10^3/uL (0.0-1.1) Eosinophils # (Auto) 0.0 x10^3/uL (0.0-0.7) 0.1 x10^3/uL (0.0-0.7) Basophils # (Auto) 0.0 x10^3/uL (0.0-0.2) 0.0 x10^3/uL (0.0-0.2) Prothrombin Time 15.3 SEC (11.7-14.0) Prothromb Time International Ratio 1.2 (0.8-1.1) Sodium Level 134 mmol/L (136-145) 147 mmol/L (136-145) Potassium Level 4.2 mmol/L (3.5-5.1) 4.1 mmol/L (3.5-5.1) Chloride Level 98 mmol/L (98-107) 109 mmol/L (98-107) Carbon Dioxide Level 29 mmol/L (21-32) 29 mmol/L (21-32) Anion Gap 7 (6-14) 9 (6-14) Blood Urea Nitrogen 33 mg/dL (7-20) 21 mg/dL (7-20) Creatinine 0.9 mg/dL (0.6-1.0) 0.9 mg/dL (0.6-1.0) Estimated GFR (Cockcroft-Gault) 59.9 59.9 BUN/Creatinine Ratio 37 (6-20) Glucose Level 117 mg/dL (70-99) 72 mg/dL (70-99) Calcium Level 8.5 mg/dL (8.5-10.1) 8.6 mg/dL (8.5-10.1) Iron Level 11 ug/dL (50-170) Total Iron Binding Capacity 196 ug/dL (250-450) Iron Saturation 6 % (15-34) Total Bilirubin 0.6 mg/dL (0.2-1.0) Aspartate Amino Transf (AST/SGOT) 33 U/L (15-37) Alanine Aminotransferase (ALT/SGPT) 44 U/L (14-59) Alkaline Phosphatase 106 U/L (46-116) Total Protein 6.2 g/dL (6.4-8.2) Albumin 2.4 g/dL (3.4-5.0) Albumin/Globulin Ratio 0.6 (1.0-1.7) Vitamin B12 Level 670 pg/mL (247-911) Laboratory Tests Test 10/10/18 03:15 White Blood Count 4.1 x10^3/uL (4.0-11.0) Red Blood Count 3.47 x10^6/uL (3.50-5.40) Hemoglobin 9.8 g/dL (12.0-15.5) Hematocrit 30.3 % (36.0-47.0) Mean Corpuscular Volume 88 fL (79-100) Mean Corpuscular Hemoglobin 28 pg (25-35) Mean Corpuscular Hemoglobin Concent 32 g/dL (31-37) Red Cell Distribution Width 15.3 % (11.5-14.5) Platelet Count 172 x10^3/uL (140-400) Neutrophils (%) (Auto) 54 % (31-73) Lymphocytes (%) (Auto) 32 % (24-48) Monocytes (%) (Auto) 10 % (0-9) Eosinophils (%) (Auto) 3 % (0-3) Basophils (%) (Auto) 1 % (0-3) Neutrophils # (Auto) 2.2 x10^3uL (1.8-7.7) Lymphocytes # (Auto) 1.3 x10^3/uL (1.0-4.8) Monocytes # (Auto) 0.4 x10^3/uL (0.0-1.1) Eosinophils # (Auto) 0.1 x10^3/uL (0.0-0.7) Basophils # (Auto) 0.0 x10^3/uL (0.0-0.2) Sodium Level 147 mmol/L (136-145) Potassium Level 4.1 mmol/L (3.5-5.1) Chloride Level 109 mmol/L (98-107) Carbon Dioxide Level 29 mmol/L (21-32) Anion Gap 9 (6-14) Blood Urea Nitrogen 21 mg/dL (7-20) Creatinine 0.9 mg/dL (0.6-1.0) Estimated GFR (Cockcroft-Gault) 59.9 Glucose Level 72 mg/dL (70-99) Calcium Level 8.6 mg/dL (8.5-10.1) Medications Active Scripts Medications Dose Route/Sig Max Daily Dose Days Date Category Thera-Tabs M Caplet (Multivits,Ca,Minerals/Iron/Fa) 1 Each Tablet 1 Each PO DAILY 10/07/18 Reported Senna (Sennosides) 8.6 Mg Tablet 8.6 Mg PO DAILY 10/07/18 Reported Ranitidine Hcl 150 Mg Tablet 150 Mg PO HS 10/07/18 Reported Lyrica (Pregabalin) 100 Mg Capsule 1 Cap PO TID 10/07/18 Reported Potassium Chloride 20 Meq Tablet.er 20 Meq PO DAILY 10/07/18 Reported Nystatin 15 Gm Powder 1 Gabriela TP TID 10/07/18 Reported Simethicone 80 Mg Tab.chew 80 Mg PO PRN Q6HRS PRN 10/07/18 Reported Mucinex (Guaifenesin) 600 Mg Tablet.er 1 Tab PO BID 10/07/18 Reported Mapap (Acetaminophen) 500 Mg Tablet 1,000 Mg PO PRN BID PRN 10/07/18 Reported Magnesium Oxide 400 Mg Tablet 400 Mg PO BID 10/07/18 Reported Loperamide (Loperamide Hcl) 2 Mg Capsule 2 Mg PO PRN Q1HR PRN 10/07/18 Reported Levothyroxine Sodium 50 Mcg Tablet 40 Mcg PO DAILYAC PRN 10/07/18 Reported Furosemide 40 Mg Tablet 1 Tab PO DAILY 10/07/18 Reported Fish Oil-Vit D3 Softgel (Omega3/Dha/Epa/Fish Oil/Vit D3) 1 Each Capsule 1 Each PO DAILY 10/07/18 Reported Docusate Sodium 100 Mg Capsule 100 Mg PO BID 10/07/18 Reported Vitamin B-12 (Cyanocobalamin (Vitamin B-12)) 1,000 Mcg Tablet 1 Tab PO DAILY 10/07/18 Reported Culturelle Probiotics Capsule (L. Rhamnosus GG/Inulin) 1 Each Capsule 1 Each PO BID 10/07/18 Reported Tums Ultra (Calcium Carbonate) 400 Mg Tab.chew 400 Mg PO PRN Q12HR PRN 10/07/18 Reported Dulcolax (Bisacodyl) 10 Mg Supp.rect 10 Mg RC PRN DAILY PRN 10/07/18 Reported Baclofen 10 Mg Tablet 10 Mg PO HS 10/07/18 Reported Atorvastatin Calcium 10 Mg Tablet 10 Mg PO HS 10/07/18 Reported Aspirin Ec (Aspirin) 81 Mg Tablet.dr 1 Tab PO DAILY 10/07/18 Reported Impression . IMPRESSION: 1. Progressive dyspnea secondary to secondary pulmonary hypertension, acute exacerbation of chronic obstructive pulmonary disease. 2. Acute exacerbation of chronic obstructive pulmonary disease. 3. Pulmonary hypertension. The patient recently evaluated at [facility], declined right heart catheterization. 4. Chest pain per Cardiology. 5. Chronic atrial fibrillation. 6. Scleroderma. 7. Right lower extremity cellulitis. 8. HEMOPTYSIS VS HEMATEMESIS ECHO <Conclusion> Abnormal septal motion consistent with conduction abnormality. The Ejection Fraction is 50%. Trace aortic regurgitation. Trace to mild mitral regurgitation. Mild tricuspid regurgitation. The PA pressure was estimated at 33 mmHg. There is no evidence of significant pericardial effusion. Plan . FOLLOW GI INPUT RESP STATUS IS COMPENSATED NATALIE ALCANTARA MD Oct 10, 2018 11:04
--- NOTE | 2018-10-10 11:18 | PDOC ---
Subjective: Subjective: No bleeding, denies abd or chest pain, no n/v, thinks ice chips sound good. Objective: Vital Signs: Vital Signs Date Time Temp Pulse Resp B/P (MAP) Pulse Ox O2 Delivery O2 Flow Rate FiO2 10/10/18 09:36 Room Air 10/10/18 08:51 96 10/10/18 07:00 98.1 94 18 168/80 (109) 98.1 10/09/18 11:18 1.5 Labs: Laboratory Tests Test 10/10/18 03:15 White Blood Count 4.1 x10^3/uL Red Blood Count 3.47 x10^6/uL Hemoglobin 9.8 g/dL Hematocrit 30.3 % Mean Corpuscular Volume 88 fL Mean Corpuscular Hemoglobin 28 pg Mean Corpuscular Hemoglobin Concent 32 g/dL Red Cell Distribution Width 15.3 % Platelet Count 172 x10^3/uL Neutrophils (%) (Auto) 54 % Lymphocytes (%) (Auto) 32 % Monocytes (%) (Auto) 10 % Eosinophils (%) (Auto) 3 % Basophils (%) (Auto) 1 % Neutrophils # (Auto) 2.2 x10^3uL Lymphocytes # (Auto) 1.3 x10^3/uL Monocytes # (Auto) 0.4 x10^3/uL Eosinophils # (Auto) 0.1 x10^3/uL Basophils # (Auto) 0.0 x10^3/uL Sodium Level 147 mmol/L Potassium Level 4.1 mmol/L Chloride Level 109 mmol/L Carbon Dioxide Level 29 mmol/L Anion Gap 9 Blood Urea Nitrogen 21 mg/dL Creatinine 0.9 mg/dL Estimated GFR (Cockcroft-Gault) 59.9 Glucose Level 72 mg/dL Calcium Level 8.6 mg/dL Imaging: EGD 10/09 Esophagus- shortened with diffuse ulceration in distal 1, with active bleeding and adherent clot ? MW tear as well- carmen removed, treated with 3 cc of epinephrine 1:10,000 and bipolar cautery- with control- 6 cm HH, stomach with clots - no active bleeding seen but exam limited due to clots- duodenum appeared normal PE: GEN: weak - struggles to transfer from bed to chair w/ therapy/gait belt LUNGS: room air HEART: RRR ABD: S/ND/NT NEURO/PSYCH: A & O 3, tremor A/P: Atypical chest pain and hematemesis - resolved -EGD as above w/ ulcerative esophagitis w/ active bleeding and clots, possible M -W tear s/p epi and cautery, hiatal hernia, and clot in stomach [place] - Hgb stable in 9s -- Reviewed w/ Dr. Jean - try clears, consider full liquids if tolerates. PPI BID + Carafate susp QID. MARIANNE SANCHEZ Oct 10, 2018 11:18
[2018-10-10] MEDS: SUCRALFATE 1 GM/10 ML ORAL.SUSP. PEG SCH ×3 (11:30→20:24)
[2018-10-10 15:00] VITALS: BP 149/78
--- NOTE | 2018-10-10 15:24 | NUR ---
SS following up with discharge planning. SS contacted pt's daughter and further discussed correction unit and discharge planning. Pt's daughter agreeable to correction unit and requested that referral be sent to [facility], ; fax [phone]. SS phoned and faxed referral to [facility]. SS will await acceptance decision and insurance determination and will proceed accordingly. Pt's RN notified.
[2018-10-10] MEDS: AMINO AC 3%/ELECTROLYTE/GLYCER 1,000 ML IV SCH (15:33)
[2018-10-10] MEDS: PANTOPRAZOLE 40 MG TABLET.DR. PO SCH (16:30)
[2018-10-10 19:19] VITALS: BP 148/70
[2018-10-10] MEDS: BACLOFEN 10 MG TABLET. PO SCH (20:25)
[2018-10-10] MEDS: ATORVASTATIN CALCIUM 10 MG TABLET. PO SCH (20:25)
[2018-10-10] MEDS: ENOXAPARIN 40 MG/0.4 ML SYRINGE. SQ SCH (20:55)
[2018-10-10] MEDS: PATCH REMOVAL. MC SCH (21:00)
[2018-10-10 22:58] VITALS: BP 119/74
[2018-10-11] MEDS: PIPERACILLIN/TAZOBACTAM 3.375 GM in IV NORMAL SALINE 50ML 50 ML IV SCH ×4 (00:30→17:51)
[2018-10-11 02:59] VITALS: BP 158/89
[2018-10-11] MEDS: AMINO AC 3%/ELECTROLYTE/GLYCER 1,000 ML IV SCH ×2 (04:44→20:51)
[2018-10-11] MEDS: IV NORMAL SALINE 1000ML BAG 1,000 ML IV SCH ×2 (05:10→18:30)
[2018-10-11 07:20] VITALS: BP 169/94
[2018-10-11] MEDS: SUCRALFATE 1 GM/10 ML ORAL.SUSP. PEG SCH ×4 (07:30→21:00)
[2018-10-11] MEDS: PANTOPRAZOLE 40 MG TABLET.DR. PO SCH (07:30)
[2018-10-11] MEDS: IPRATRPIUM/ALBUTEROL 0.5/2.5MG 3 ML NEBU. NEB SCH ×4 (07:54→20:22)
[2018-10-11] MEDS: POTASSIUM CHLORIDE 20 MEQ TABLET.ER. PO SCH (08:00)
--- NOTE | 2018-10-11 08:32 | NUR ---
SS following up with discharge planning. Pt clinically accepted at [facility] pending insurance authorization from [facility]. SS will await insurance determination and will proceed accordingly. Pt's RN notified.
[2018-10-11] MEDS: FUROSEMIDE 40 MG TABLET. PO SCH (09:00)
[2018-10-11] MEDS: SENNOSIDES 8.6 MG TABLET PO SCH (09:00)
[2018-10-11] MEDS: CYANOCOBALAMIN (VITAMIN B-12) 1,000 MCG TABLET. PO SCH (09:00)
[2018-10-11] MEDS: LACTOBACILLUS RHAMNOSUS GG 1 CAPSULE. PO SCH ×2 (09:00→21:00)
[2018-10-11] MEDS: BENZONATATE 100 MG CAPSULE. PO SCH ×3 (09:00→21:00)
[2018-10-11] MEDS: PREGABALIN 50 MG CAPSULE PO SCH ×3 (09:00→21:00)
[2018-10-11] MEDS: DOCUSATE SODIUM 100 MG CAPSULE. PO SCH ×2 (09:00→21:00)
[2018-10-11] MEDS: MULTIVITAMIN with MINERAL TABLET. PO SCH (09:00)
[2018-10-11] MEDS: LIDOCAINE (700MG/PATCH) PATCH. TD SCH ×2 (09:00→18:15)
[2018-10-11] MEDS: MAGNESIUM OXIDE 400 MG TABLET PO SCH ×2 (09:00→21:00)
[2018-10-11] MEDS: NYSTATIN TOPICAL POWDER 15GM BOTTLE. TP SCH ×3 (09:00→21:28)
[2018-10-11] MEDS: OMEGA-3 FATTY ACIDS/FISH OIL 1,000 MG CAPSULE. PO SCH (09:00)
[2018-10-11] MEDS: ASPIRIN ENTERIC COATED 81 MG TABLET.DR. PO SCH (09:00)
--- NOTE | 2018-10-11 09:31 | PDOC ---
PULMONARY PROGRESS NOTES Subjective NO MORE BLEEDING Vitals Vital Signs Date Time Temp Pulse Resp B/P (MAP) Pulse Ox O2 Delivery O2 Flow Rate FiO2 10/11/18 07:55 95 Room Air 10/11/18 07:20 97.0 97 16 169/94 (119) 97.0 ROS: No Nausea, No Chest Pain, No Abdominal Pain, No Increase Cough General: Alert Lungs: Crackles Cardiovascular: S1, S2 Abdomen: Soft Neuro Exam: Alert Extremities: No Edema Skin: Warm Labs Laboratory Tests Test 10/10/18 03:15 White Blood Count 4.1 x10^3/uL (4.0-11.0) Red Blood Count 3.47 x10^6/uL (3.50-5.40) Hemoglobin 9.8 g/dL (12.0-15.5) Hematocrit 30.3 % (36.0-47.0) Mean Corpuscular Volume 88 fL (79-100) Mean Corpuscular Hemoglobin 28 pg (25-35) Mean Corpuscular Hemoglobin Concent 32 g/dL (31-37) Red Cell Distribution Width 15.3 % (11.5-14.5) Platelet Count 172 x10^3/uL (140-400) Neutrophils (%) (Auto) 54 % (31-73) Lymphocytes (%) (Auto) 32 % (24-48) Monocytes (%) (Auto) 10 % (0-9) Eosinophils (%) (Auto) 3 % (0-3) Basophils (%) (Auto) 1 % (0-3) Neutrophils # (Auto) 2.2 x10^3uL (1.8-7.7) Lymphocytes # (Auto) 1.3 x10^3/uL (1.0-4.8) Monocytes # (Auto) 0.4 x10^3/uL (0.0-1.1) Eosinophils # (Auto) 0.1 x10^3/uL (0.0-0.7) Basophils # (Auto) 0.0 x10^3/uL (0.0-0.2) Sodium Level 147 mmol/L (136-145) Potassium Level 4.1 mmol/L (3.5-5.1) Chloride Level 109 mmol/L (98-107) Carbon Dioxide Level 29 mmol/L (21-32) Anion Gap 9 (6-14) Blood Urea Nitrogen 21 mg/dL (7-20) Creatinine 0.9 mg/dL (0.6-1.0) Estimated GFR (Cockcroft-Gault) 59.9 Glucose Level 72 mg/dL (70-99) Calcium Level 8.6 mg/dL (8.5-10.1) Medications Active Scripts Medications Dose Route/Sig Max Daily Dose Days Date Category Thera-Tabs M Caplet (Multivits,Ca,Minerals/Iron/Fa) 1 Each Tablet 1 Each PO DAILY 10/07/18 Reported Senna (Sennosides) 8.6 Mg Tablet 8.6 Mg PO DAILY 10/07/18 Reported Ranitidine Hcl 150 Mg Tablet 150 Mg PO HS 10/07/18 Reported Lyrica (Pregabalin) 100 Mg Capsule 1 Cap PO TID 10/07/18 Reported Potassium Chloride 20 Meq Tablet.er 20 Meq PO DAILY 10/07/18 Reported Nystatin 15 Gm Powder 1 Gabriela TP TID 10/07/18 Reported Simethicone 80 Mg Tab.chew 80 Mg PO PRN Q6HRS PRN 10/07/18 Reported Mucinex (Guaifenesin) 600 Mg Tablet.er 1 Tab PO BID 10/07/18 Reported Mapap (Acetaminophen) 500 Mg Tablet 1,000 Mg PO PRN BID PRN 10/07/18 Reported Magnesium Oxide 400 Mg Tablet 400 Mg PO BID 10/07/18 Reported Loperamide (Loperamide Hcl) 2 Mg Capsule 2 Mg PO PRN Q1HR PRN 10/07/18 Reported Levothyroxine Sodium 50 Mcg Tablet 40 Mcg PO DAILYAC PRN 10/07/18 Reported Furosemide 40 Mg Tablet 1 Tab PO DAILY 10/07/18 Reported Fish Oil-Vit D3 Softgel (Omega3/Dha/Epa/Fish Oil/Vit D3) 1 Each Capsule 1 Each PO DAILY 10/07/18 Reported Docusate Sodium 100 Mg Capsule 100 Mg PO BID 10/07/18 Reported Vitamin B-12 (Cyanocobalamin (Vitamin B-12)) 1,000 Mcg Tablet 1 Tab PO DAILY 10/07/18 Reported Culturelle Probiotics Capsule (L. Rhamnosus GG/Inulin) 1 Each Capsule 1 Each PO BID 10/07/18 Reported Tums Ultra (Calcium Carbonate) 400 Mg Tab.chew 400 Mg PO PRN Q12HR PRN 10/07/18 Reported Dulcolax (Bisacodyl) 10 Mg Supp.rect 10 Mg RC PRN DAILY PRN 10/07/18 Reported Baclofen 10 Mg Tablet 10 Mg PO HS 10/07/18 Reported Atorvastatin Calcium 10 Mg Tablet 10 Mg PO HS 10/07/18 Reported Aspirin Ec (Aspirin) 81 Mg Tablet.dr 1 Tab PO DAILY 10/07/18 Reported Impression . IMPRESSION: 1. Progressive dyspnea secondary to secondary pulmonary hypertension, acute exacerbation of chronic obstructive pulmonary disease. 2. Acute exacerbation of chronic obstructive pulmonary disease. 3. Pulmonary hypertension. The patient recently evaluated at [facility], declined right heart catheterization. 4. Chest pain per Cardiology. 5. Chronic atrial fibrillation. 6. Scleroderma. 7. Right lower extremity cellulitis. 8. HEMOPTYSIS VS HEMATEMESIS ECHO <Conclusion> Abnormal septal motion consistent with conduction abnormality. The Ejection Fraction is 50%. Trace aortic regurgitation. Trace to mild mitral regurgitation. Mild tricuspid regurgitation. The PA pressure was estimated at 33 mmHg. There is no evidence of significant pericardial effusion. Plan . RESP STATUS IS COMPENSATED NPO FOLLOW GI INPUT NATALIE ALCANTARA MD Oct 11, 2018 09:31
[2018-10-11] MEDS ORDERED: BARIUM SULFATE 40% (APPLE) 148 GM PWD. PO ONE (10:15)
--- NOTE | 2018-10-11 10:54 | PDOC ---
PROGRESS NOTES History of Present Illness History of Present Illness Assessment/Plan Assessment/Plan IMPRESSION 1. ACUTE COPD EXAC 2. Chest pain, atypical. 2. Dyspnea, //URI. 3. Chronic diastolic CHF Abnormal septal motion consistent with conduction abnormality. The Ejection Fraction is 50%. ECHO 10/07 4. Chronic AFIB; 5. Scleroderma 6. Raynaud's 7. RLE cellulitis, wound 8. left chest deep brain stimulator for essential tremors 9. GERD 10. Hypothyroid state on replacement 11. Right 2nd toe infection. 12. MARKED Hemoptysis 100cc this AM 10/08 13 shortened with diffuse ulceration in distal 1/3, with active bleeding and adherent clot ? MW tear - carmen removed, treated with 3 cc of epinephrine 1:10, 000 and bipolar cautery- 14. Large hiatal hernia with retained fluid and debris in a distended thoracic esophagus. Postsurgical changes related to a previous esophageal resection could also give this appearance. 10/09 HEMOPTYSIS VS HEMATEMESIS REMAINS NPO/// BRONCH NO LESION SEEN, GI FOLLOWING 10/10 failed bedside swallow and is still NPO - PPN ordered 10/11 FAILED SWALLOW STUDY, WILL D/W GI Disordered swallowing mechanism with moderate residue and mild intermittent laryngeal penetration with minimal aspiration PROCEDURE NOTE PROCEDURE 09/11 Procedure EGD with control of bleeding recent hematemesis, vomiting anesthesia with propofol Findings Esophagus- shortened with diffuse ulceration in distal 1/3, with active bleeding and adherent clot ? MW tear as well- carmen removed, treated with 3 cc of epinephrine 1:10,000 and bipolar cautery- with control- 6 cm HH, stomach with clots - no active bleeding seen but exam limited due to clots- duodenum appeared normal Plan- NPO then CLD PPI BID carafate slurry QID repeat EGD in 1 week if stable or earlier if bleeding continues PLAN PPN CT CHEST reviewed INR ok GI CONSULT PULM following Cardiology consult Echo RLE arterial duplex US Obtain med records from [facility] dvt prophylaxis iv zosyn ? PEG 47 min pt exam, record review, > 50% of time with exam, chart review, pt care coordination. Vitals Vitals Vital Signs Date Time Temp Pulse Resp B/P (MAP) Pulse Ox O2 Delivery O2 Flow Rate FiO2 10/11/18 08:00 Room Air 10/11/18 07:55 95 10/11/18 07:20 97.0 97 16 169/94 (119) 97.0 Physical Exam General: Alert, Oriented X3, Cooperative, mild distress Heart: Regular rate, Normal S1, Other (irregular rhythm with 2/6 systolic murmur) Lungs: Crackles Abdomen: Normal bowel sounds, Soft, No tenderness Extremities: No clubbing, No cyanosis, No edema, Normal pulses, Other (strong dorsalis pedis pulse on the right with a Quant of flow of 1.08) Skin: No breakdown, No significant lesion, Other (1.3 cm ulceration to the dorsal aspect right second toe with no evidence of exposed tendon or bone at this time. The toe itself is modestly edematous with mild erythema) Labs LABS Video dysphasia study, 10/11/2018: History: Failed bedside swallowing exam, dysphasia The swallowing mechanism was examined fluoroscopically in the lateral projection while the patient ingested a variety of food materials mixed with barium. 4.1 minutes of fluoroscopy time was utilized. One video fluoroscopic loop was recorded by a member of the speech Department. Visualization of the larynx and vocal cords was compromised by difficulties in patient positioning. Moderate vallecular and piriform sinus residue was evident when ingesting the thin and to a greater degree the thicker materials. There was mild intermittent laryngeal penetration related to the residue and occasionally evident during swallowing. This material eventually dribbled down to the level of the vocal cords with minimal enma aspiration into the trachea. IMPRESSION: Disordered swallowing mechanism with moderate residue and mild intermittent laryngeal penetration with minimal aspiration Assessment and Plan Assessmemt and Plan Problems Medical Problems: (1) Chest pain Status: Acute (2) Pneumonia Status: Acute Comment Review of Relevant I have reviewed the following items tara (where applicable) has been applied. Labs Laboratory Tests Test 10/10/18 03:15 White Blood Count 4.1 x10^3/uL (4.0-11.0) Red Blood Count 3.47 x10^6/uL (3.50-5.40) Hemoglobin 9.8 g/dL (12.0-15.5) Hematocrit 30.3 % (36.0-47.0) Mean Corpuscular Volume 88 fL (79-100) Mean Corpuscular Hemoglobin 28 pg (25-35) Mean Corpuscular Hemoglobin Concent 32 g/dL (31-37) Red Cell Distribution Width 15.3 % (11.5-14.5) Platelet Count 172 x10^3/uL (140-400) Neutrophils (%) (Auto) 54 % (31-73) Lymphocytes (%) (Auto) 32 % (24-48) Monocytes (%) (Auto) 10 % (0-9) Eosinophils (%) (Auto) 3 % (0-3) Basophils (%) (Auto) 1 % (0-3) Neutrophils # (Auto) 2.2 x10^3uL (1.8-7.7) Lymphocytes # (Auto) 1.3 x10^3/uL (1.0-4.8) Monocytes # (Auto) 0.4 x10^3/uL (0.0-1.1) Eosinophils # (Auto) 0.1 x10^3/uL (0.0-0.7) Basophils # (Auto) 0.0 x10^3/uL (0.0-0.2) Sodium Level 147 mmol/L (136-145) Potassium Level 4.1 mmol/L (3.5-5.1) Chloride Level 109 mmol/L (98-107) Carbon Dioxide Level 29 mmol/L (21-32) Anion Gap 9 (6-14) Blood Urea Nitrogen 21 mg/dL (7-20) Creatinine 0.9 mg/dL (0.6-1.0) Estimated GFR (Cockcroft-Gault) 59.9 Glucose Level 72 mg/dL (70-99) Calcium Level 8.6 mg/dL (8.5-10.1) Microbiology 10/06/18 Blood Culture - Preliminary, Resulted NO GROWTH AFTER 4 DAYS Medications Current Medications Piperacillin Sod/ Tazobactam Sod (Zosyn Per Pharmacy) 1 each PRN DAILY PRN MC SEE COMMENTS; Start 10/06/18 at 19:00 Piperacillin Sod/ Tazobactam Sod 3.375 gm/Sodium Chloride 50 ml @ 100 mls/hr 1X ONCE IV Last administered on 10/06/18at 19:09; Start 10/06/18 at 19:30; Stop 10/06/18 at 19:59; Status DC Ondansetron HCl (Zofran) 4 mg PRN Q8HRS PRN IV NAUSEA/VOMITING; Start 10/06/18 at 19:00; Stop 10/07/18 at 18:59; Status DC Acetaminophen (Tylenol) 650 mg PRN Q4HRS PRN PO FEVER Last administered on 10/06 20:29; Start 10/06/18 at 19:00; Stop 10/07/18 at 11:43; Status DC Albuterol/ Ipratropium (Duoneb) 3 ml RTQID NEB Last administered on 10/07/18 19:59; Start 10/06/18 at 20:00; Stop 10/07/18 at 19:59; Status DC Ondansetron HCl (Zofran) 4 mg 1X ONCE IV Last administered on 10/06/18 20:25 ; Start 10/06/18 at 20:30; Stop 10/06/18 at 20:34; Status DC Piperacillin Sod/ Tazobactam Sod 3.375 gm/Sodium Chloride 50 ml @ 100 mls/hr Q6HRS IV Last administered on 10/11/18 04:45; Start 10/07/18 at 00:00 Aspirin (Ecotrin) 81 mg DAILY PO Last administered on 10/07/18 12:18; Start at 12:00 Atorvastatin Calcium (Lipitor) 10 mg HS PO Last administered on 10/07/18 22:13 ; Start 10/07/18 at 21:00 Baclofen (Lioresal) 10 mg HS PO Last administered on 10/07/18 22:12; Start at 21:00 Cyanocobalamin (Vitamin B-12) 1,000 mcg DAILY PO Last administered on 12:18; Start 10/07/18 at 12:00 Docusate Sodium (Colace) 100 mg BID PO Last administered on 10/07/18 22:13; Start 10/07/18 at 12:00 Furosemide (Lasix) 40 mg DAILY PO Last administered on 10/07/18 13:56; Start 10/07/18 at 12:00 Guaifenesin (Mucinex) 600 mg BID PO Last administered on 10/07/18 22:12; Start 10/07/18 at 12:00 Nystatin (Nystop) 1 gabriela TID TP Last administered on 10/11/18 09:00; Start at 14:00 Simethicone (Gas-X) 80 mg PRN Q6HRS PRN PO flatulence ; Start 10/07/18 at 11:45 Acetaminophen (Tylenol) 1,000 mg PRN BID PRN PO MILD PAIN Last administered on 10/07/18 16:47; Start 10/07/18 at 11:45 Bisacodyl (Dulcolax Supp) 10 mg PRN DAILY PRN NV CONSTIPATION; Start 10/07/18 at 11:45 Calcium Carbonate/ Glycine (Tums) 500 mg PRN Q12HR PRN PO INDIGESTION Last administered on 10/08/18 02:32; Start 10/07/18 at 11:45 Lactobacillus Rhamnosus (Culturelle) 1 cap BID PO Last administered on 22:13; Start 10/07/18 at 12:00 Non-Formulary Medication (Levothyroxine Sodium ) 40 mcg DAILYAC PRN PO hypothyroid ; Start 10/07/18 at 11:45; Stop 10/07/18 at 12:11; Status DC Loperamide HCl (Imodium) 2 mg PRN Q1HR PRN PO DIARRHEA; Start 10/07/18 at 12:00 Magnesium Oxide (Magnesium Oxide) 400 mg BID PO Last administered on 10/07/18 22:13; Start 10/07/18 at 12:00 Multivitamins (Thera M Plus) 1 tab DAILY PO Last administered on 10/07/18 12: 18; Start 10/07/18 at 12:00 Fish Oil (Fish Oil) 1,000 mg DAILY PO Last administered on 10/07/18 12:18; Start 10/07/18 at 12:00 Potassium Chloride (Klor-Con) 20 meq [id number] PO Last administered on 13:57; Start 10/07/18 at 12:00 Pregabalin (Lyrica) 100 mg TID PO Last administered on 10/07/18 22:13; Start 10/07/18 at 14:00 Famotidine (Pepcid) 20 mg QHS PO Last administered on 10/07/18 22:12; Start at 21:00; Stop 10/08/18 at 17:01; Status DC Sennosides (Senna) 8.6 mg DAILY PO Last administered on 10/07/18 12:18; Start 10/07/18 at 12:00 Levothyroxine Sodium (Synthroid) 25 mcg [id number] PO Last administered on at 12:18; Start 10/07/18 at 12:30 Enoxaparin Sodium (Lovenox 40mg Syringe) 40 mg Q24H SQ Last administered on at 20:55; Start 10/07/18 at 21:00 Enoxaparin Sodium (Lovenox 40mg Syringe) 40 mg Q24H SQ ; Start 10/07/18 at 19:00 ; Stop 10/08/18 at 09:23; Status DC Pantoprazole Sodium (Protonix) 40 mg DAILYAC PO ; Start 10/08/18 at 07:30; Stop 10/08/18 at 16:07; Status DC Codeine Sulfate (Codeine) 30 mg PRN Q6HRS PRN PO COUGH, 2nd CHOICE Last administered on 10/08/18at 03:26; Start 10/08/18 at 03:15 Benzonatate (Tessalon Perle) 100 mg [id number] PO ; Start 10/08/18 at 09:00 Benzonatate (Tessalon Perle) 100 mg 1X ONCE PO Last administered on 10/08/18at 03:26; Start 10/08/18 at 03:15; Stop 10/08/18 at 03:16; Status DC Guaifenesin (Robitussin Dm) 10 ml PRN Q4HRS PRN PO COUGH, 1st CHOICE; Start at 07:30 Ondansetron HCl (Zofran) 4 mg PRN Q4HRS PRN IV NAUSEA/VOMITING Last administered on 10/08/18at 09:32; Start 10/08/18 at 07:30 Albuterol/ Ipratropium (Duoneb) 3 ml RTQID NEB Last administered on 10/11/18at 07:54; Start 10/08/18 at 08:00 Sodium Chloride 1,000 ml @ 75 mls/hr [id number] IV Last administered on at 00:46; Start 10/08/18 at 10:30 Iohexol (Omnipaque 300 Mg/ml) 75 ml 1X ONCE IV Last administered on 10/08/18at 11:30; Start 10/08/18 at 11:30; Stop 10/08/18 at 11:31; Status DC Info (CONTRAST GIVEN -- Rx MONITORING) 1 each PRN DAILY PRN MC SEE COMMENTS; Start 10/08/18 at 11:30; Stop 10/10/18 at 11:29; Status DC Ringer's Solution 1,000 ml @ 0 mls/hr Q0M IV Last administered on 10/08/18at 13 :31; Start 10/08/18 at 13:30; Stop 10/08/18 at 16:55; Status DC Ringer's Solution 1,000 ml @ 50 mls/hr Q20H IV ; Start 10/08/18 at 14:00; Stop 10/08/18 at 18:00; Status DC Propofol 20 ml @ As Directed STK-MED ONCE IV ; Start 10/08/18 at 13:48; Stop at 13:49; Status DC Albuterol Sulfate (Ventolin Neb Soln) 2.5 mg PRN 1X PRN NEB SHORTNESS OF BREATH Last administered on 10/08/18at 14:22; Start 10/08/18 at 14:15; Stop 10/08 at 18:00; Status DC Lidocaine HCl (Lidocaine 2% Viscous) 100 ml PRN 1X PRN MM MOUTH PAIN Last administered on 10/08/18at 14:21; Start 10/08/18 at 14:15; Stop 10/08/18 at 18:00 ; Status DC Lidocaine HCl (Lidocaine 1% 20ml Vial) 20 ml PRN 1X PRN INJ SEE COMMENTS Last administered on 10/08/18at 14:22; Start 10/08/18 at 14:15; Stop 10/08/18 at 18:00 ; Status DC Epinephrine HCl (Adrenalin) 1 mg PRN 1X PRN INJ SEE COMMENTS; Start 10/08/18 at 14:15; Stop 10/08/18 at 18:00; Status DC Lidocaine HCl 50 ml PRN 1X PRN MM SEE COMMENTS Last administered on 10/08/18at 14:21; Start 10/08/18 at 14:15; Stop 10/08/18 at 18:00; Status DC Epinephrine HCl (Adrenalin) 1 mg STK-MED ONCE .ROUTE ; Start 10/08/18 at 14:13; Stop 10/08/18 at 14:14; Status DC Lidocaine HCl (Lidocaine 1% 20ml Vial) 20 ml STK-MED ONCE .ROUTE ; Start at 14:13; Stop 10/08/18 at 14:14; Status DC Lidocaine HCl (Lidocaine 2% Viscous) 100 ml STK-MED ONCE .ROUTE ; Start at 14:13; Stop 10/08/18 at 14:14; Status DC Lidocaine HCl 50 ml STK-MED ONCE .ROUTE ; Start 10/08/18 at 14:14; Stop at 14:15; Status DC Pantoprazole Sodium (PROTONIX VIAL for IV PUSH) 40 mg BIDAC IVP Last administered on 10/10/18at 07:28; Start 10/08/18 at 16:30; Stop 10/10/18 at 11:15 ; Status DC Ringer's Solution 1,000 ml @ 100 mls/hr Q10H IV Last administered on at 11:24; Start 10/09/18 at 11:30; Stop 10/10/18 at 07:46; Status DC Propofol 20 ml @ As Directed STK-MED ONCE IV ; Start 10/09/18 at 12:02; Stop at 12:03; Status DC Lidocaine HCl (Lidocaine Pf 2% Vial) 5 ml STK-MED ONCE .ROUTE ; Start 10/09/18 at 12:02; Stop 10/09/18 at 12:03; Status DC Epinephrine HCl (EPINEPHrine SYRINGE) 1 mg STK-MED ONCE .ROUTE ; Start 10/09/18 at 13:18; Stop 10/09/18 at 13:19; Status DC Fentanyl Citrate (Fentanyl 2ml Vial) 50 mcg PRN Q4HRS PRN IV PAIN SEVERE; Start 10/10/18 at 09:00 Fentanyl Citrate (Fentanyl 2ml Vial) 25 mcg PRN Q4HRS PRN IV PAIN MODERATE Last administered on 10/10/18at 09:36; Start 10/10/18 at 09:00 Lidocaine (Lidoderm) 1 patch DAILY TD Last administered on 10/11/18at 09:00; Start 10/10/18 at 10:00 Miscellaneous (Lidoderm Patch Removal) 1 ea QHS MC Last administered on at 21:00; Start 10/10/18 at 21:00 Sucralfate (Carafate) 1 gm QIDACHS PEG ; Start 10/10/18 at 11:30 Pantoprazole Sodium (Protonix) 40 mg BIDAC PO ; Start 10/10/18 at 16:30 Amino Acids/ Glycerin/ Electrolytes 1,000 ml @ 80 mls/hr [id number] IV Last administered on 10/11/18at 04:44; Start 10/10/18 at 14:45 Barium Sulfate (Varibar Thin Liquid Apple) 148 gm 1X ONCE PO ; Start 10/11/18 at 10:15; Stop 10/11/18 at 10:16; Status DC Active Scripts Active Reported Thera-Tabs M Caplet (Multivits,Ca,Minerals/Iron/Fa) 1 Each Tablet 1 Each PO DAILY Senna (Sennosides) 8.6 Mg Tablet 8.6 Mg PO DAILY Ranitidine Hcl 150 Mg Tablet 150 Mg PO HS Lyrica (Pregabalin) 100 Mg Capsule 1 Cap PO TID Potassium Chloride 20 Meq Tablet.er 20 Meq PO DAILY Nystatin 15 Gm Powder 1 Gabriela TP TID Simethicone 80 Mg Tab.chew 80 Mg PO PRN Q6HRS PRN Mucinex (Guaifenesin) 600 Mg Tablet.er 1 Tab PO BID Mapap (Acetaminophen) 500 Mg Tablet 1,000 Mg PO PRN BID PRN Magnesium Oxide 400 Mg Tablet 400 Mg PO BID Loperamide (Loperamide Hcl) 2 Mg Capsule 2 Mg PO PRN Q1HR PRN Levothyroxine Sodium 50 Mcg Tablet 40 Mcg PO DAILYAC PRN Furosemide 40 Mg Tablet 1 Tab PO DAILY Fish Oil-Vit D3 Softgel (Omega3/Dha/Epa/Fish Oil/Vit D3) 1 Each Capsule 1 Each PO DAILY Docusate Sodium 100 Mg Capsule 100 Mg PO BID Vitamin B-12 (Cyanocobalamin (Vitamin B-12)) 1,000 Mcg Tablet 1 Tab PO DAILY Culturelle Probiotics Capsule (L. Rhamnosus GG/Inulin) 1 Each Capsule 1 Each PO BID Tums Ultra (Calcium Carbonate) 400 Mg Tab.chew 400 Mg PO PRN Q12HR PRN Dulcolax (Bisacodyl) 10 Mg Supp.rect 10 Mg RC PRN DAILY PRN Baclofen 10 Mg Tablet 10 Mg PO HS Atorvastatin Calcium 10 Mg Tablet 10 Mg PO HS Aspirin Ec (Aspirin) 81 Mg Tablet.dr 1 Tab PO DAILY Vitals/I & O Vital Sign - Last 24 Hours 10/10/18 10/10/18 10/10/18 10/10/18 11:00 12:26 15:00 17:09 Temp 98.0 98.5 98.0 98.5 Pulse 81 81 Resp 18 18 B/P (MAP) 140/76 (97) 149/78 (101) Pulse Ox 91 96 93 96 O2 Delivery Room Air Room Air Room Air Room Air 10/10/18 10/10/18 10/10/18 10/10/18 19:19 20:00 20:00 20:30 Temp 98.3 98.3 Pulse 100 Resp 16 B/P (MAP) 148/70 (96) Pulse Ox 93 94 O2 Delivery Room Air Room Air Room Air Room Air 10/10/18 10/11/18 10/11/18 10/11/18 22:58 02:59 07:20 07:55 Temp 97.9 97.9 97.0 97.9 97.9 97.0 Pulse 87 98 97 Resp 18 16 16 B/P (MAP) 119/74 (89) 158/89 (112) 169/94 (119) Pulse Ox 92 94 96 95 O2 Delivery Room Air Room Air Room Air Room Air 10/11/18 08:00 O2 Delivery Room Air Intake and Output 10/10/18 10/10/18 10/11/18 15:00 23:00 07:00 Intake Total 50 ml 1050 ml 0 ml Balance 50 ml 1050 ml 0 ml Nutrition Consultation Dietary Evaluation: Recommendations by RD: Increase Calorie Intake, Protein supplementation Comments: REC diet advancement per [employer], goal diet cardiac REC dbl meat portions for increased protein needs REC Vit C (500 mg BID) and MVI q day - wound healing Expected Outcomes/Goals: diet advancement Malnutrition Findings: Body Fat Depletion (Non Severe: Mild Depletion Weight Status: Appropriate RAIANNA JOLLY MD Oct 11, 2018 10:54
[2018-10-11 10:58] VITALS: BP 157/87
--- NOTE | 2018-10-11 11:16 | PDOC ---
Subjective: Subjective: Had some bleeding w// her IV - denies abd pain, n/v, and hematemesis. Objective: Objective: Plans for videoswallow today - d/w Gema. Vital Signs: Vital Signs Date Time Temp Pulse Resp B/P (MAP) Pulse Ox O2 Delivery O2 Flow Rate FiO2 10/11/18 10:58 97.7 99 17 157/87 (110) 93 Room Air 97.7 PE: GEN: NAD LUNGS: room air HEART: RRR ABD: S/ND/NT NEURO/PSYCH: A & O 3, tremors A/P: ACP, hematemesis - resolved -EGD: ulcerative esophagitis w/ active bleeding and clots, possible M-W tear s/ p epi and cautery, hiatal hernia, clot in stomach [place], hypernatremia -- Await videoswallow. PPN and IV PPI for now. No labs today - check. Update - Videoswallow 10/11 IMPRESSION: Disordered swallowing mechanism with moderate residue and mild intermittent laryngeal penetration with minimal aspiration. Initial Videoswallow Study Report Pt demo'd frequent deep penetration of thin and nectar thick liquids during swallow; honey thick liquids had associated deep penetration to the level of the vocal folds p.swallow d/t residue drifting toward the airway p.swallow. Similar residue pattern noted w/puree. Penetration at vocal folds did not elicit spontaneous effort to clear and was not completely cleared w/volitional cough when pt was instructed to do so. Solids NT d/t GI restriction r/t findings in recent 10/09 EGD. IMPRESSIONS: HIGH risk of aspiration across liquids and puree consistencies. Anticipate similar results w/solids given pharyngeal residue issue p.swallow w/ thicker consistencies. Reduced hyolaryngeal excursion and oropharyngeal delay appear to be contributing factors to current dysphagia. Unclear if this is an acute decline in swallow function r/t AECOPD or possibly a chronic issue aggravating the COPD. Will need non-oral nutrition for immediate future; will f/ u for improvement to advance back to po. Prognosis guarded for return to safe po intake. RECOMMENDATIONS: NPO meds and nutrition. Oral care to reduce risk of aspiration pneumonia. MARIANNE SANCHEZ Oct 11, 2018 11:16
--- NOTE | 2018-10-11 11:36 | RAD ---
Video dysphasia study, 10/11/2018: History: Failed bedside swallowing exam, dysphasia The swallowing mechanism was examined fluoroscopically in the lateral projection while the patient ingested a variety of food materials mixed with barium. 4.1 minutes of fluoroscopy time was utilized. One video fluoroscopic loop was recorded by a member of the speech Department. Visualization of the larynx and vocal cords was compromised by difficulties in patient positioning. Moderate vallecular and piriform sinus residue was evident when ingesting the thin and to a greater degree the thicker materials. There was mild intermittent laryngeal penetration related to the residue and occasionally evident during swallowing. This material eventually dribbled down to the level of the vocal cords with minimal enma aspiration into the trachea. IMPRESSION: Disordered swallowing mechanism with moderate residue and mild intermittent laryngeal penetration with minimal aspiration
[2018-10-11 14:08] LABS: HEMATOCRIT 32.1 % (36.0-47.0); HEMOGLOBIN 10.3 g/dL (12.0-15.5); RED BLOOD COUNT 3.65 x10^6/uL (3.50-5.40); RED CELL DISTRIBUTION WIDTH 15.5 % (11.5-14.5)
[2018-10-11 14:26] LABS: CALCIUM 8.7 mg/dL (8.5-10.1); CREATININE 0.8 mg/dL (0.6-1.0); GFR 68.7; POTASSIUM 4.3 mmol/L (3.5-5.1)
[2018-10-11 14:47] VITALS: BP 163/88
[2018-10-11] MEDS: PANTOPRAZOLE IV PUSH 40 MG VIAL. IVP SCH (16:39)
--- NOTE | 2018-10-11 17:31 | RAD ---
EXAM: AP View of the chest DATE: 10/11/2018 3:39 PM INDICATION: ASPIRATION PNEUMONIA. , Dyspnea, evaluate change COMPARISON: 10/06/2018 FINDINGS/ IMPRESSION: Moderate cardiomegaly. Generator pack obscures a portion of the left chest with lead extending cephalad into the neck. Radiopaque density likely contrast projecting in the right lung base, possibly within a tortuous distal esophagus or within the medial right lung base Small left pleural effusion. Patchy opacities left lung base likely atelectasis/scarring. Emphysematous changes are seen. Electronically signed by: Konrad Peraza MD (10/11/2018 5:29 PM) [facility]
[2018-10-11 19:33] VITALS: BP 145/86
[2018-10-11] MEDS: PATCH REMOVAL. MC SCH (21:00)
[2018-10-11] MEDS: BACLOFEN 10 MG TABLET. PO SCH (21:00)
[2018-10-11] MEDS: ATORVASTATIN CALCIUM 10 MG TABLET. PO SCH (21:00)
[2018-10-11] MEDS: ENOXAPARIN 40 MG/0.4 ML SYRINGE. SQ SCH (21:31)
[2018-10-11 23:30] VITALS: BP 177/96
[2018-10-12] MEDS: PIPERACILLIN/TAZOBACTAM 3.375 GM in IV NORMAL SALINE 50ML 50 ML IV SCH ×3 (00:13→12:37)
[2018-10-12] MEDS ORDERED: IPRATRPIUM/ALBUTEROL 0.5/2.5MG 3 ML NEBU. NEB ONE ×2 (01:00→06:00)
[2018-10-12] MEDS: fentaNYL PF VIAL 100 MCG/2 ML VIAL IV PRN (02:37)
[2018-10-12 03:15] VITALS: BP 182/98
[2018-10-12] MEDS: LABETALOL 20 MG/4 ML DISP.SYRIN. IVP PRN (03:51)
[2018-10-12] MEDS: hydrALAZINE 20 MG/ML VIAL. IVP PRN ×2 (04:49→19:01)
[2018-10-12 05:54] LABS: BASO % 1 % (0-3); EOS # 0.1 x10^3/uL (0.0-0.7); EOS % 1 % (0-3); HEMATOCRIT 33.4 % (36.0-47.0); HEMOGLOBIN 10.7 g/dL (12.0-15.5); LYMPH # 0.9 x10^3/uL (1.0-4.8); LYMPH % 12 % (24-48); MEAN CORPUSCULAR HEMOGLOBIN 28 pg (25-35); MEAN CORPUSCULAR HGB CONC 32 g/dL (31-37); MEAN CORPUSCULAR VOLUME 88 fL (79-100); MONO # 0.8 x10^3/uL (0.0-1.1); MONO % 10 % (0-9); NEUT # 6.3 x10^3uL (1.8-7.7); NEUT % 77 % (31-73); PLATELET COUNT 201 x10^3/uL (140-400); RED BLOOD COUNT 3.79 x10^6/uL (3.50-5.40); RED CELL DISTRIBUTION WIDTH 15.4 % (11.5-14.5); WHITE BLOOD COUNT 8.1 x10^3/uL (4.0-11.0)
[2018-10-12] MEDS: LEVOTHYROXINE 25 MCG TABLET. PO SCH (06:00)
[2018-10-12 06:16] LABS: ALBUMIN 2.6 g/dL (3.4-5.0); ALBUMIN/GLOBULIN RATIO 0.6 (1.0-1.7); CALCIUM 8.9 mg/dL (8.5-10.1); CREATININE 0.9 mg/dL (0.6-1.0); GFR 59.9; POTASSIUM 4.4 mmol/L (3.5-5.1); TOTAL BILIRUBIN 0.5 mg/dL (0.2-1.0); TOTAL PROTEIN 6.7 g/dL (6.4-8.2)
[2018-10-12 07:00] VITALS: BP 159/83
[2018-10-12] MEDS: SUCRALFATE 1 GM/10 ML ORAL.SUSP. PEG SCH ×4 (07:30→20:51)
[2018-10-12] MEDS: POTASSIUM CHLORIDE 20 MEQ TABLET.ER. PO SCH (07:35)
[2018-10-12] MEDS: LACTOBACILLUS RHAMNOSUS GG 1 CAPSULE. PO SCH ×2 (07:36→20:52)
[2018-10-12] MEDS: ASPIRIN ENTERIC COATED 81 MG TABLET.DR. PO SCH (07:36)
[2018-10-12] MEDS: DOCUSATE SODIUM 100 MG CAPSULE. PO SCH ×2 (07:36→20:51)
[2018-10-12] MEDS: OMEGA-3 FATTY ACIDS/FISH OIL 1,000 MG CAPSULE. PO SCH (07:37)
[2018-10-12] MEDS: SENNOSIDES 8.6 MG TABLET PO SCH (07:38)
[2018-10-12] MEDS: MAGNESIUM OXIDE 400 MG TABLET PO SCH ×2 (07:39→20:52)
[2018-10-12] MEDS: FUROSEMIDE 40 MG TABLET. PO SCH (07:39)
[2018-10-12] MEDS: PREGABALIN 50 MG CAPSULE PO SCH ×3 (07:39→20:52)
[2018-10-12] MEDS: BENZONATATE 100 MG CAPSULE. PO SCH ×3 (07:40→20:52)
[2018-10-12] MEDS: MULTIVITAMIN with MINERAL TABLET. PO SCH (07:40)
[2018-10-12] MEDS: CYANOCOBALAMIN (VITAMIN B-12) 1,000 MCG TABLET. PO SCH (07:40)
[2018-10-12] MEDS: IV NORMAL SALINE 1000ML BAG 1,000 ML IV SCH ×2 (07:50→21:10)
[2018-10-12] MEDS: IPRATRPIUM/ALBUTEROL 0.5/2.5MG 3 ML NEBU. NEB SCH ×4 (08:16→19:43)
--- NOTE | 2018-10-12 10:14 | PDOC ---
Infectious Disease Note Vital Sign Vital Signs Vital Signs Date Time Temp Pulse Resp B/P (MAP) Pulse Ox O2 Delivery O2 Flow Rate FiO2 10/12/18 08:25 Nasal Cannula 2.0 10/12/18 08:21 96 10/12/18 07:00 97.9 101 18 159/83 (108) 97.9 Labs Lab Laboratory Tests Test 10/11/18 13:35 10/12/18 04:20 White Blood Count 5.0 x10^3/uL (4.0-11.0) 8.1 x10^3/uL (4.0-11.0) Red Blood Count 3.65 x10^6/uL (3.50-5.40) 3.79 x10^6/uL (3.50-5.40) Hemoglobin 10.3 g/dL (12.0-15.5) 10.7 g/dL (12.0-15.5) Hematocrit 32.1 % (36.0-47.0) 33.4 % (36.0-47.0) Mean Corpuscular Volume 88 fL (79-100) 88 fL (79-100) Mean Corpuscular Hemoglobin 28 pg (25-35) 28 pg (25-35) Mean Corpuscular Hemoglobin Concent 32 g/dL (31-37) 32 g/dL (31-37) Red Cell Distribution Width 15.5 % (11.5-14.5) 15.4 % (11.5-14.5) Platelet Count 177 x10^3/uL (140-400) 201 x10^3/uL (140-400) Sodium Level 144 mmol/L (136-145) 146 mmol/L (136-145) Potassium Level 4.3 mmol/L (3.5-5.1) 4.4 mmol/L (3.5-5.1) Chloride Level 106 mmol/L (98-107) 108 mmol/L (98-107) Carbon Dioxide Level 28 mmol/L (21-32) 26 mmol/L (21-32) Anion Gap 10 (6-14) 12 (6-14) Blood Urea Nitrogen 18 mg/dL (7-20) 20 mg/dL (7-20) Creatinine 0.8 mg/dL (0.6-1.0) 0.9 mg/dL (0.6-1.0) Estimated GFR (Cockcroft-Gault) 68.7 59.9 Glucose Level 149 mg/dL (70-99) 142 mg/dL (70-99) Calcium Level 8.7 mg/dL (8.5-10.1) 8.9 mg/dL (8.5-10.1) Neutrophils (%) (Auto) 77 % (31-73) Lymphocytes (%) (Auto) 12 % (24-48) Monocytes (%) (Auto) 10 % (0-9) Eosinophils (%) (Auto) 1 % (0-3) Basophils (%) (Auto) 1 % (0-3) Neutrophils # (Auto) 6.3 x10^3uL (1.8-7.7) Lymphocytes # (Auto) 0.9 x10^3/uL (1.0-4.8) Monocytes # (Auto) 0.8 x10^3/uL (0.0-1.1) Eosinophils # (Auto) 0.1 x10^3/uL (0.0-0.7) Basophils # (Auto) 0.0 x10^3/uL (0.0-0.2) BUN/Creatinine Ratio 22 (6-20) Total Bilirubin 0.5 mg/dL (0.2-1.0) Aspartate Amino Transf (AST/SGOT) 17 U/L (15-37) Alanine Aminotransferase (ALT/SGPT) 23 U/L (14-59) Alkaline Phosphatase 104 U/L (46-116) Total Protein 6.7 g/dL (6.4-8.2) Albumin 2.6 g/dL (3.4-5.0) Albumin/Globulin Ratio 0.6 (1.0-1.7) CXR, 10/11 Moderate cardiomegaly. Generator pack obscures a portion of the left chest with lead extending cephalad into the neck. Radiopaque density likely contrast projecting in the right lung base, possibly within a tortuous distal esophagus or within the medial right lung base Small left pleural effusion. Patchy opacities left lung base likely atelectasis/scarring. Emphysematous changes are seen. Micro Microbiology 10/06/18 Blood Culture - Final, Complete NO GROWTH AFTER 5 DAYS Objective Assessment Aspiration Dysphagia, failed video swallow study, NPO Hematemesis s/p EGD, 3/27. Ulcerative esophagitis w/ active bleeding and clots, possible M-W tear s/p epi and cautery Hammer toe with ulcer right 2nd toe -Followed by podiatry, weekly Acute exacerbation of chronic obstructive pulmonary disease. Scleroderma. Pulmonary hypertension. Chronic atrial fibrillation. Pathological fracture LUE, per daughter Plan Plan of Care Jewel since 10/06 will d/c - appears to have a little trouble with the one ice chip - will d/c - swabs only BC no growth Wound care team following GI following Pulmonary following Supportive care D/w daughter Thank you Please call with questions ID to sign off Attending Co-Sign Attending Co-Sign The patient was seen and interviewed as well as examined at the bedside. The chart was reviewed. The case was discussed. Agree with the plan of care. JENSEN RAYGOZA APRN Oct 12, 2018 10:14 ROSY GAYTAN MD Oct 12, 2018 14:15
[2018-10-12] MEDS: AMINO AC 3%/ELECTROLYTE/GLYCER 1,000 ML IV SCH ×2 (10:34→20:48)
[2018-10-12] MEDS: PANTOPRAZOLE IV PUSH 40 MG VIAL. IVP SCH ×2 (10:38→18:18)
[2018-10-12] MEDS: NYSTATIN TOPICAL POWDER 15GM BOTTLE. TP SCH ×3 (10:39→20:49)
--- NOTE | 2018-10-12 10:46 | PDOC ---
PROGRESS NOTES History of Present Illness History of Present Illness Assessment/Plan Assessment/Plan IMPRESSION 1. ACUTE COPD EXAC 2. Chest pain, atypical. 2. Dyspnea, //URI. 3. Chronic diastolic CHF Abnormal septal motion consistent with conduction abnormality. The Ejection Fraction is 50%. ECHO 10/07 4. Chronic AFIB; 5. Scleroderma 6. Raynaud's 7. RLE cellulitis, wound 8. left chest deep brain stimulator for essential tremors 9. GERD 10. Hypothyroid state on replacement 11. Right 2nd toe infection. 12. MARKED Hemoptysis 100cc this AM 10/08 13 shortened with diffuse ulceration in distal 1/3, with active bleeding and adherent clot ? MW tear - carmen removed, treated with 3 cc of epinephrine 1:10, 000 and bipolar cautery- 14. Large hiatal hernia with retained fluid and debris in a distended thoracic esophagus. Postsurgical changes related to a previous esophageal resection could also give this appearance. 10/09 HEMOPTYSIS VS HEMATEMESIS REMAINS NPO/// BRONCH NO LESION SEEN, GI FOLLOWING 10/10 failed bedside swallow and is still NPO - PPN ordered 10/11 FAILED SWALLOW STUDY, WILL D/W GI planning dobhoff Disordered swallowing mechanism with moderate residue and mild intermittent laryngeal penetration with minimal aspiration PROCEDURE NOTE PROCEDURE 09/11 Procedure EGD with control of bleeding recent hematemesis, vomiting anesthesia with propofol Findings Esophagus- shortened with diffuse ulceration in distal 1/3, with active bleeding and adherent clot ? MW tear as well- carmen removed, treated with 3 cc of epinephrine 1:10,000 and bipolar cautery- with control- 6 cm HH, stomach with clots - no active bleeding seen but exam limited due to clots- duodenum appeared normal Plan- NPO then CLD PPI BID carafate slurry QID repeat EGD in 1 week if stable or earlier if bleeding continues PLAN PPN CT CHEST reviewed INR ok GI CONSULT PULM following Cardiology consult Echo RLE arterial duplex US Obtain med records from [facility] dvt prophylaxis iv zosyn dobhoff if egd ok Sunday 34 min pt exam, record review, > 50% of time with exam, chart review, pt care coordination. Vitals Vitals Vital Signs Date Time Temp Pulse Resp B/P (MAP) Pulse Ox O2 Delivery O2 Flow Rate FiO2 10/12/18 08:25 Nasal Cannula 2.0 10/12/18 08:21 96 10/12/18 07:00 97.9 101 18 159/83 (108) 97.9 Physical Exam General: Alert, Oriented X3, Cooperative, mild distress Heart: Regular rate, Normal S1, Other (irregular rhythm with 2/6 systolic murmur) Lungs: Crackles Abdomen: Normal bowel sounds, Soft, No tenderness Extremities: No clubbing, No cyanosis, No edema, Normal pulses, Other (strong dorsalis pedis pulse on the right with a Quant of flow of 1.08) Skin: No breakdown, No significant lesion, Other (1.3 cm ulceration to the dorsal aspect right second toe with no evidence of exposed tendon or bone at this time. The toe itself is modestly edematous with mild erythema) Labs LABS EXAM: AP View of the chest DATE: 10/11/2018 3:39 PM INDICATION: ASPIRATION PNEUMONIA. , Dyspnea, evaluate change COMPARISON: 10/06/2018 FINDINGS/ IMPRESSION: Moderate cardiomegaly. Generator pack obscures a portion of the left chest with lead extending cephalad into the neck. Radiopaque density likely contrast projecting in the right lung base, possibly within a tortuous distal esophagus or within the medial right lung base Small left pleural effusion. Patchy opacities left lung base likely atelectasis/scarring. Emphysematous changes are seen. Electronically signed by: Konrad Peraza MD (10/11/2018 5:29 PM) [facility] DICTATED and SIGNED BY: KONRAD PERAZA MD DATE: 10/11/18 1729 Laboratory Tests Test 10/11/18 13:35 10/12/18 04:20 White Blood Count 5.0 x10^3/uL (4.0-11.0) 8.1 x10^3/uL (4.0-11.0) Red Blood Count 3.65 x10^6/uL (3.50-5.40) 3.79 x10^6/uL (3.50-5.40) Hemoglobin 10.3 g/dL (12.0-15.5) 10.7 g/dL (12.0-15.5) Hematocrit 32.1 % (36.0-47.0) 33.4 % (36.0-47.0) Mean Corpuscular Volume 88 fL (79-100) 88 fL (79-100) Mean Corpuscular Hemoglobin 28 pg (25-35) 28 pg (25-35) Mean Corpuscular Hemoglobin Concent 32 g/dL (31-37) 32 g/dL (31-37) Red Cell Distribution Width 15.5 % (11.5-14.5) 15.4 % (11.5-14.5) Platelet Count 177 x10^3/uL (140-400) 201 x10^3/uL (140-400) Sodium Level 144 mmol/L (136-145) 146 mmol/L (136-145) Potassium Level 4.3 mmol/L (3.5-5.1) 4.4 mmol/L (3.5-5.1) Chloride Level 106 mmol/L (98-107) 108 mmol/L (98-107) Carbon Dioxide Level 28 mmol/L (21-32) 26 mmol/L (21-32) Anion Gap 10 (6-14) 12 (6-14) Blood Urea Nitrogen 18 mg/dL (7-20) 20 mg/dL (7-20) Creatinine 0.8 mg/dL (0.6-1.0) 0.9 mg/dL (0.6-1.0) Estimated GFR (Cockcroft-Gault) 68.7 59.9 Glucose Level 149 mg/dL (70-99) 142 mg/dL (70-99) Calcium Level 8.7 mg/dL (8.5-10.1) 8.9 mg/dL (8.5-10.1) Neutrophils (%) (Auto) 77 % (31-73) Lymphocytes (%) (Auto) 12 % (24-48) Monocytes (%) (Auto) 10 % (0-9) Eosinophils (%) (Auto) 1 % (0-3) Basophils (%) (Auto) 1 % (0-3) Neutrophils # (Auto) 6.3 x10^3uL (1.8-7.7) Lymphocytes # (Auto) 0.9 x10^3/uL (1.0-4.8) Monocytes # (Auto) 0.8 x10^3/uL (0.0-1.1) Eosinophils # (Auto) 0.1 x10^3/uL (0.0-0.7) Basophils # (Auto) 0.0 x10^3/uL (0.0-0.2) BUN/Creatinine Ratio 22 (6-20) Total Bilirubin 0.5 mg/dL (0.2-1.0) Aspartate Amino Transf (AST/SGOT) 17 U/L (15-37) Alanine Aminotransferase (ALT/SGPT) 23 U/L (14-59) Alkaline Phosphatase 104 U/L (46-116) Total Protein 6.7 g/dL (6.4-8.2) Albumin 2.6 g/dL (3.4-5.0) Albumin/Globulin Ratio 0.6 (1.0-1.7) Assessment and Plan Assessmemt and Plan Problems Medical Problems: (1) Chest pain Status: Acute (2) Pneumonia Status: Acute Comment Review of Relevant I have reviewed the following items tara (where applicable) has been applied. Labs Laboratory Tests Test 10/11/18 13:35 10/12/18 04:20 White Blood Count 5.0 x10^3/uL (4.0-11.0) 8.1 x10^3/uL (4.0-11.0) Red Blood Count 3.65 x10^6/uL (3.50-5.40) 3.79 x10^6/uL (3.50-5.40) Hemoglobin 10.3 g/dL (12.0-15.5) 10.7 g/dL (12.0-15.5) Hematocrit 32.1 % (36.0-47.0) 33.4 % (36.0-47.0) Mean Corpuscular Volume 88 fL (79-100) 88 fL (79-100) Mean Corpuscular Hemoglobin 28 pg (25-35) 28 pg (25-35) Mean Corpuscular Hemoglobin Concent 32 g/dL (31-37) 32 g/dL (31-37) Red Cell Distribution Width 15.5 % (11.5-14.5) 15.4 % (11.5-14.5) Platelet Count 177 x10^3/uL (140-400) 201 x10^3/uL (140-400) Sodium Level 144 mmol/L (136-145) 146 mmol/L (136-145) Potassium Level 4.3 mmol/L (3.5-5.1) 4.4 mmol/L (3.5-5.1) Chloride Level 106 mmol/L (98-107) 108 mmol/L (98-107) Carbon Dioxide Level 28 mmol/L (21-32) 26 mmol/L (21-32) Anion Gap 10 (6-14) 12 (6-14) Blood Urea Nitrogen 18 mg/dL (7-20) 20 mg/dL (7-20) Creatinine 0.8 mg/dL (0.6-1.0) 0.9 mg/dL (0.6-1.0) Estimated GFR (Cockcroft-Gault) 68.7 59.9 Glucose Level 149 mg/dL (70-99) 142 mg/dL (70-99) Calcium Level 8.7 mg/dL (8.5-10.1) 8.9 mg/dL (8.5-10.1) Neutrophils (%) (Auto) 77 % (31-73) Lymphocytes (%) (Auto) 12 % (24-48) Monocytes (%) (Auto) 10 % (0-9) Eosinophils (%) (Auto) 1 % (0-3) Basophils (%) (Auto) 1 % (0-3) Neutrophils # (Auto) 6.3 x10^3uL (1.8-7.7) Lymphocytes # (Auto) 0.9 x10^3/uL (1.0-4.8) Monocytes # (Auto) 0.8 x10^3/uL (0.0-1.1) Eosinophils # (Auto) 0.1 x10^3/uL (0.0-0.7) Basophils # (Auto) 0.0 x10^3/uL (0.0-0.2) BUN/Creatinine Ratio 22 (6-20) Total Bilirubin 0.5 mg/dL (0.2-1.0) Aspartate Amino Transf (AST/SGOT) 17 U/L (15-37) Alanine Aminotransferase (ALT/SGPT) 23 U/L (14-59) Alkaline Phosphatase 104 U/L (46-116) Total Protein 6.7 g/dL (6.4-8.2) Albumin 2.6 g/dL (3.4-5.0) Albumin/Globulin Ratio 0.6 (1.0-1.7) Laboratory Tests Test 10/11/18 13:35 10/12/18 04:20 White Blood Count 5.0 x10^3/uL (4.0-11.0) 8.1 x10^3/uL (4.0-11.0) Red Blood Count 3.65 x10^6/uL (3.50-5.40) 3.79 x10^6/uL (3.50-5.40) Hemoglobin 10.3 g/dL (12.0-15.5) 10.7 g/dL (12.0-15.5) Hematocrit 32.1 % (36.0-47.0) 33.4 % (36.0-47.0) Mean Corpuscular Volume 88 fL (79-100) 88 fL (79-100) Mean Corpuscular Hemoglobin 28 pg (25-35) 28 pg (25-35) Mean Corpuscular Hemoglobin Concent 32 g/dL (31-37) 32 g/dL (31-37) Red Cell Distribution Width 15.5 % (11.5-14.5) 15.4 % (11.5-14.5) Platelet Count 177 x10^3/uL (140-400) 201 x10^3/uL (140-400) Sodium Level 144 mmol/L (136-145) 146 mmol/L (136-145) Potassium Level 4.3 mmol/L (3.5-5.1) 4.4 mmol/L (3.5-5.1) Chloride Level 106 mmol/L (98-107) 108 mmol/L (98-107) Carbon Dioxide Level 28 mmol/L (21-32) 26 mmol/L (21-32) Anion Gap 10 (6-14) 12 (6-14) Blood Urea Nitrogen 18 mg/dL (7-20) 20 mg/dL (7-20) Creatinine 0.8 mg/dL (0.6-1.0) 0.9 mg/dL (0.6-1.0) Estimated GFR (Cockcroft-Gault) 68.7 59.9 Glucose Level 149 mg/dL (70-99) 142 mg/dL (70-99) Calcium Level 8.7 mg/dL (8.5-10.1) 8.9 mg/dL (8.5-10.1) Neutrophils (%) (Auto) 77 % (31-73) Lymphocytes (%) (Auto) 12 % (24-48) Monocytes (%) (Auto) 10 % (0-9) Eosinophils (%) (Auto) 1 % (0-3) Basophils (%) (Auto) 1 % (0-3) Neutrophils # (Auto) 6.3 x10^3uL (1.8-7.7) Lymphocytes # (Auto) 0.9 x10^3/uL (1.0-4.8) Monocytes # (Auto) 0.8 x10^3/uL (0.0-1.1) Eosinophils # (Auto) 0.1 x10^3/uL (0.0-0.7) Basophils # (Auto) 0.0 x10^3/uL (0.0-0.2) BUN/Creatinine Ratio 22 (6-20) Total Bilirubin 0.5 mg/dL (0.2-1.0) Aspartate Amino Transf (AST/SGOT) 17 U/L (15-37) Alanine Aminotransferase (ALT/SGPT) 23 U/L (14-59) Alkaline Phosphatase 104 U/L (46-116) Total Protein 6.7 g/dL (6.4-8.2) Albumin 2.6 g/dL (3.4-5.0) Albumin/Globulin Ratio 0.6 (1.0-1.7) Microbiology 10/06/18 Blood Culture - Final, Complete NO GROWTH AFTER 5 DAYS Medications Current Medications Piperacillin Sod/ Tazobactam Sod (Zosyn Per Pharmacy) 1 each PRN DAILY PRN MC SEE COMMENTS; Start 10/06/18 at 19:00 Piperacillin Sod/ Tazobactam Sod 3.375 gm/Sodium Chloride 50 ml @ 100 mls/hr 1X ONCE IV Last administered on 10/06/18at 19:09; Start 10/06/18 at 19:30; Stop 10/06/18 at 19:59; Status DC Ondansetron HCl (Zofran) 4 mg PRN Q8HRS PRN IV NAUSEA/VOMITING; Start 10/06/18 at 19:00; Stop 10/07/18 at 18:59; Status DC Acetaminophen (Tylenol) 650 mg PRN Q4HRS PRN PO FEVER Last administered on 10/06at 20:29; Start 10/06/18 at 19:00; Stop 10/07/18 at 11:43; Status DC Albuterol/ Ipratropium (Duoneb) 3 ml RTQID NEB Last administered on 10/07/18 19:59; Start 10/06/18 at 20:00; Stop 10/07/18 at 19:59; Status DC Ondansetron HCl (Zofran) 4 mg 1X ONCE IV Last administered on 10/06/18 20:25 ; Start 10/06/18 at 20:30; Stop 10/06/18 at 20:34; Status DC Piperacillin Sod/ Tazobactam Sod 3.375 gm/Sodium Chloride 50 ml @ 100 mls/hr Q6HRS IV Last administered on 10/12/18 05:44; Start 10/07/18 at 00:00 Aspirin (Ecotrin) 81 mg DAILY PO Last administered on 10/07/18 12:18; Start at 12:00 Atorvastatin Calcium (Lipitor) 10 mg HS PO Last administered on 10/07/18 22:13 ; Start 10/07/18 at 21:00 Baclofen (Lioresal) 10 mg HS PO Last administered on 10/07/18 22:12; Start at 21:00 Cyanocobalamin (Vitamin B-12) 1,000 mcg DAILY PO Last administered on 12:18; Start 10/07/18 at 12:00 Docusate Sodium (Colace) 100 mg BID PO Last administered on 10/07/18 22:13; Start 10/07/18 at 12:00 Furosemide (Lasix) 40 mg DAILY PO Last administered on 10/07/18 13:56; Start 10/07/18 at 12:00 Guaifenesin (Mucinex) 600 mg BID PO Last administered on 10/07/18 22:12; Start 10/07/18 at 12:00 Nystatin (Nystop) 1 gabriela TID TP Last administered on 10/12/18at 10:39; Start at 14:00 Simethicone (Gas-X) 80 mg PRN Q6HRS PRN PO flatulence ; Start 10/07/18 at 11:45 Acetaminophen (Tylenol) 1,000 mg PRN BID PRN PO MILD PAIN Last administered on 10/07/18 16:47; Start 10/07/18 at 11:45 Bisacodyl (Dulcolax Supp) 10 mg PRN DAILY PRN [place] CONSTIPATION; Start 10/07/18 at 11:45 Calcium Carbonate/ Glycine (Tums) 500 mg PRN Q12HR PRN PO INDIGESTION Last administered on 10/08/18 02:32; Start 10/07/18 at 11:45 Lactobacillus Rhamnosus (Culturelle) 1 cap BID PO Last administered on 22:13; Start 10/07/18 at 12:00 Non-Formulary Medication (Levothyroxine Sodium ) 40 mcg DAILYAC PRN PO hypothyroid ; Start 10/07/18 at 11:45; Stop 10/07/18 at 12:11; Status DC Loperamide HCl (Imodium) 2 mg PRN Q1HR PRN PO DIARRHEA; Start 10/07/18 at 12:00 Magnesium Oxide (Magnesium Oxide) 400 mg BID PO Last administered on 10/07/18 22:13; Start 10/07/18 at 12:00 Multivitamins (Thera M Plus) 1 tab DAILY PO Last administered on 10/07/18 12: 18; Start 10/07/18 at 12:00 Fish Oil (Fish Oil) 1,000 mg DAILY PO Last administered on 10/07/18 12:18; Start 10/07/18 at 12:00 Potassium Chloride (Klor-Con) 20 meq [id number] PO Last administered on 13:57; Start 10/07/18 at 12:00 Pregabalin (Lyrica) 100 mg TID PO Last administered on 10/07/18 22:13; Start 10/07/18 at 14:00 Famotidine (Pepcid) 20 mg QHS PO Last administered on 10/07/18 22:12; Start at 21:00; Stop 10/08/18 at 17:01; Status DC Sennosides (Senna) 8.6 mg DAILY PO Last administered on 10/07/18 12:18; Start 10/07/18 at 12:00 Levothyroxine Sodium (Synthroid) 25 mcg [id number] PO Last administered on 3/25/ 19at 12:18; Start 10/07/18 at 12:30 Enoxaparin Sodium (Lovenox 40mg Syringe) 40 mg Q24H SQ Last administered on at 21:31; Start 10/07/18 at 21:00 Enoxaparin Sodium (Lovenox 40mg Syringe) 40 mg Q24H SQ ; Start 10/07/18 at 19:00 ; Stop 10/08/18 at 09:23; Status DC Pantoprazole Sodium (Protonix) 40 mg DAILYAC PO ; Start 10/08/18 at 07:30; Stop 10/08/18 at 16:07; Status DC Codeine Sulfate (Codeine) 30 mg PRN Q6HRS PRN PO COUGH, 2nd CHOICE Last administered on 10/08/18 03:26; Start 10/08/18 at 03:15 Benzonatate (Tessalon Perle) 100 mg [id number] PO ; Start 10/08/18 at 09:00 Benzonatate (Tessalon Perle) 100 mg 1X ONCE PO Last administered on 10/08/18at 03:26; Start 10/08/18 at 03:15; Stop 10/08/18 at 03:16; Status DC Guaifenesin (Robitussin Dm) 10 ml PRN Q4HRS PRN PO COUGH, 1st CHOICE; Start at 07:30 Ondansetron HCl (Zofran) 4 mg PRN Q4HRS PRN IV NAUSEA/VOMITING Last administered on 10/08/18 09:32; Start 10/08/18 at 07:30 Albuterol/ Ipratropium (Duoneb) 3 ml RTQID NEB Last administered on 10/12/18 08:16; Start 10/08/18 at 08:00 Sodium Chloride 1,000 ml @ 75 mls/hr [id number] IV Last administered on 00:46; Start 10/08/18 at 10:30 Iohexol (Omnipaque 300 Mg/ml) 75 ml 1X ONCE IV Last administered on 10/08/18at 11:30; Start 10/08/18 at 11:30; Stop 10/08/18 at 11:31; Status DC Info (CONTRAST GIVEN -- Rx MONITORING) 1 each PRN DAILY PRN MC SEE COMMENTS; Start 10/08/18 at 11:30; Stop 10/10/18 at 11:29; Status DC Ringer's Solution 1,000 ml @ 0 mls/hr Q0M IV Last administered on 10/08/18at 13 :31; Start 10/08/18 at 13:30; Stop 10/08/18 at 16:55; Status DC Ringer's Solution 1,000 ml @ 50 mls/hr Q20H IV ; Start 10/08/18 at 14:00; Stop 10/08/18 at 18:00; Status DC Propofol 20 ml @ As Directed STK-MED ONCE IV ; Start 10/08/18 at 13:48; Stop at 13:49; Status DC Albuterol Sulfate (Ventolin Neb Soln) 2.5 mg PRN 1X PRN NEB SHORTNESS OF BREATH Last administered on 10/08/18at 14:22; Start 10/08/18 at 14:15; Stop 10/08 at 18:00; Status DC Lidocaine HCl (Lidocaine 2% Viscous) 100 ml PRN 1X PRN MM MOUTH PAIN Last administered on 10/08/18at 14:21; Start 10/08/18 at 14:15; Stop 10/08/18 at 18:00 ; Status DC Lidocaine HCl (Lidocaine 1% 20ml Vial) 20 ml PRN 1X PRN INJ SEE COMMENTS Last administered on 10/08/18at 14:22; Start 10/08/18 at 14:15; Stop 10/08/18 at 18:00 ; Status DC Epinephrine HCl (Adrenalin) 1 mg PRN 1X PRN INJ SEE COMMENTS; Start 10/08/18 at 14:15; Stop 10/08/18 at 18:00; Status DC Lidocaine HCl 50 ml PRN 1X PRN MM SEE COMMENTS Last administered on 10/08/18at 14:21; Start 10/08/18 at 14:15; Stop 10/08/18 at 18:00; Status DC Epinephrine HCl (Adrenalin) 1 mg STK-MED ONCE .ROUTE ; Start 10/08/18 at 14:13; Stop 10/08/18 at 14:14; Status DC Lidocaine HCl (Lidocaine 1% 20ml Vial) 20 ml STK-MED ONCE .ROUTE ; Start at 14:13; Stop 10/08/18 at 14:14; Status DC Lidocaine HCl (Lidocaine 2% Viscous) 100 ml STK-MED ONCE .ROUTE ; Start at 14:13; Stop 10/08/18 at 14:14; Status DC Lidocaine HCl 50 ml STK-MED ONCE .ROUTE ; Start 10/08/18 at 14:14; Stop at 14:15; Status DC Pantoprazole Sodium (PROTONIX VIAL for IV PUSH) 40 mg BIDAC IVP Last administered on 10/10/18at 07:28; Start 10/08/18 at 16:30; Stop 10/10/18 at 11:15 ; Status DC Ringer's Solution 1,000 ml @ 100 mls/hr Q10H IV Last administered on at 11:24; Start 10/09/18 at 11:30; Stop 10/10/18 at 07:46; Status DC Propofol 20 ml @ As Directed STK-MED ONCE IV ; Start 10/09/18 at 12:02; Stop at 12:03; Status DC Lidocaine HCl (Lidocaine Pf 2% Vial) 5 ml STK-MED ONCE .ROUTE ; Start 10/09/18 at 12:02; Stop 10/09/18 at 12:03; Status DC Epinephrine HCl (EPINEPHrine SYRINGE) 1 mg STK-MED ONCE .ROUTE ; Start 10/09/18 at 13:18; Stop 10/09/18 at 13:19; Status DC Fentanyl Citrate (Fentanyl 2ml Vial) 50 mcg PRN Q4HRS PRN IV PAIN SEVERE Last administered on 10/12/18at 02:37; Start 10/10/18 at 09:00 Fentanyl Citrate (Fentanyl 2ml Vial) 25 mcg PRN Q4HRS PRN IV PAIN MODERATE Last administered on 10/10/18at 09:36; Start 10/10/18 at 09:00 Lidocaine (Lidoderm) 1 patch DAILY TD Last administered on 10/11/18at 18:15; Start 10/10/18 at 10:00 Miscellaneous (Lidoderm Patch Removal) 1 ea QHS MC Last administered on at 21:00; Start 10/10/18 at 21:00 Sucralfate (Carafate) 1 gm QIDACHS PEG ; Start 10/10/18 at 11:30 Pantoprazole Sodium (Protonix) 40 mg BIDAC PO ; Start 10/10/18 at 16:30; Stop at 11:14; Status DC Amino Acids/ Glycerin/ Electrolytes 1,000 ml @ 80 mls/hr [id number] IV Last administered on 10/12/18at 10:34; Start 10/10/18 at 14:45 Barium Sulfate (Varibar Thin Liquid Apple) 148 gm 1X ONCE PO Last administered on 10/11/18at 11:10; Start 10/11/18 at 10:15; Stop 10/11/18 at 10:16 ; Status DC Pantoprazole Sodium (PROTONIX VIAL for IV PUSH) 40 mg BIDAC IVP Last administered on 10/12/18at 10:38; Start 10/11/18 at 16:30 Albuterol/ Ipratropium (Duoneb) 3 ml 1X ONCE NEB Last administered on at 01:00; Start 10/12/18 at 01:00; Stop 10/12/18 at 01:01; Status DC Labetalol HCl (Normodyne Iv Push) 20 mg PRN Q2HR PRN IVP SBP>160, 2ND CHOICE Last administered on 10/12/18at 03:51; Start 10/12/18 at 03:45 Hydralazine HCl (Apresoline Inj) 10 mg PRN Q4HRS PRN IVP SBP>160, 1ST CHOICE Last administered on 10/12/18at 04:49; Start 10/12/18 at 04:45 Albuterol/ Ipratropium (Duoneb) 3 ml 1X ONCE NEB Last administered on at 05:52; Start 10/12/18 at 06:00; Stop 10/12/18 at 06:01; Status DC Active Scripts Active Reported Thera-Tabs M Caplet (Multivits,Ca,Minerals/Iron/Fa) 1 Each Tablet 1 Each PO DAILY Senna (Sennosides) 8.6 Mg Tablet 8.6 Mg PO DAILY Ranitidine Hcl 150 Mg Tablet 150 Mg PO HS Lyrica (Pregabalin) 100 Mg Capsule 1 Cap PO TID Potassium Chloride 20 Meq Tablet.er 20 Meq PO DAILY Nystatin 15 Gm Powder 1 Gabriela TP TID Simethicone 80 Mg Tab.chew 80 Mg PO PRN Q6HRS PRN Mucinex (Guaifenesin) 600 Mg Tablet.er 1 Tab PO BID Mapap (Acetaminophen) 500 Mg Tablet 1,000 Mg PO PRN BID PRN Magnesium Oxide 400 Mg Tablet 400 Mg PO BID Loperamide (Loperamide Hcl) 2 Mg Capsule 2 Mg PO PRN Q1HR PRN Levothyroxine Sodium 50 Mcg Tablet 40 Mcg PO DAILYAC PRN Furosemide 40 Mg Tablet 1 Tab PO DAILY Fish Oil-Vit D3 Softgel (Omega3/Dha/Epa/Fish Oil/Vit D3) 1 Each Capsule 1 Each PO DAILY Docusate Sodium 100 Mg Capsule 100 Mg PO BID Vitamin B-12 (Cyanocobalamin (Vitamin B-12)) 1,000 Mcg Tablet 1 Tab PO DAILY Culturelle Probiotics Capsule (L. Rhamnosus GG/Inulin) 1 Each Capsule 1 Each PO BID Tums Ultra (Calcium Carbonate) 400 Mg Tab.chew 400 Mg PO PRN Q12HR PRN Dulcolax (Bisacodyl) 10 Mg Supp.rect 10 Mg RC PRN DAILY PRN Baclofen 10 Mg Tablet 10 Mg PO HS Atorvastatin Calcium 10 Mg Tablet 10 Mg PO HS Aspirin Ec (Aspirin) 81 Mg Tablet. 1 Tab PO DAILY Vitals/I & O Vital Sign - Last 24 Hours 10/11/18 10/11/18 10/11/18 10/11/18 10:58 11:20 14:47 15:06 Temp 97.7 97.8 97.7 97.8 Pulse 99 98 Resp 20 B/P (MAP) 157/87 (110) 163/88 (113) Pulse Ox 93 95 O2 Delivery Room Air Room Air Room Air Room Air 10/11/18 10/11/18 10/11/18 10/11/18 19:18 19:33 20:21 23:30 Temp 97.4 97.6 97.4 97.6 Pulse 101 120 Resp 22 B/P (MAP) 145/86 (105) 177/96 (123) Pulse Ox 93 96 91 O2 Delivery Room Air Room Air Room Air Room Air 10/12/18 10/12/18 10/12/18 10/12/18 01:06 02:37 03:15 03:15 Temp 97.9 97.9 Pulse 126 Resp 20 18 30 B/P (MAP) 182/98 (126) Pulse Ox 96 95 O2 Delivery Room Air Room Air Room Air Room Air 10/12/18 10/12/18 10/12/18 10/12/18 03:51 04:49 05:52 07:00 Temp 97.9 97.9 Pulse 126 104 101 Resp 18 B/P (MAP) 182/98 190/109 159/83 (108) Pulse Ox 96 95 O2 Delivery Room Air Nasal Cannula O2 Flow Rate 1.5 10/12/18 10/12/18 08:21 08:25 Pulse Ox 96 O2 Delivery Nasal Cannula Nasal Cannula O2 Flow Rate 2.0 2.0 Intake and Output 10/11/18 10/11/18 10/12/18 15:00 23:00 07:00 Intake Total 0 ml Output Total 0 ml Balance 0 ml 0 ml Nutrition Consultation Dietary Evaluation: Recommendations by RD: Increase Calorie Intake, Protein supplementation Comments: REC diet advancement per [employer], goal diet cardiac REC dbl meat portions for increased protein needs REC Vit C (500 mg BID) and MVI q day - wound healing Expected Outcomes/Goals: diet advancement Malnutrition Findings: Body Fat Depletion (Non Severe: Mild Depletion Weight Status: Appropriate ARIANNA JOLLY MD Oct 12, 2018 10:46
[2018-10-12 11:00] VITALS: BP 166/87
--- NOTE | 2018-10-12 11:32 | PDOC ---
PULMONARY PROGRESS NOTES Subjective NO MORE BLEEDING Vitals Vital Signs Date Time Temp Pulse Resp B/P (MAP) Pulse Ox O2 Delivery O2 Flow Rate FiO2 10/12/18 11:00 98.0 102 18 166/87 (113) 95 Room Air 2.0 98.0 ROS: No Nausea, No Chest Pain, No Abdominal Pain, No Increase Cough General: Alert Lungs: Crackles Cardiovascular: S1, S2 Abdomen: Soft Neuro Exam: Alert Extremities: No Edema Skin: Warm Labs Laboratory Tests Test 10/11/18 13:35 10/12/18 04:20 White Blood Count 5.0 x10^3/uL (4.0-11.0) 8.1 x10^3/uL (4.0-11.0) Red Blood Count 3.65 x10^6/uL (3.50-5.40) 3.79 x10^6/uL (3.50-5.40) Hemoglobin 10.3 g/dL (12.0-15.5) 10.7 g/dL (12.0-15.5) Hematocrit 32.1 % (36.0-47.0) 33.4 % (36.0-47.0) Mean Corpuscular Volume 88 fL (79-100) 88 fL (79-100) Mean Corpuscular Hemoglobin 28 pg (25-35) 28 pg (25-35) Mean Corpuscular Hemoglobin Concent 32 g/dL (31-37) 32 g/dL (31-37) Red Cell Distribution Width 15.5 % (11.5-14.5) 15.4 % (11.5-14.5) Platelet Count 177 x10^3/uL (140-400) 201 x10^3/uL (140-400) Sodium Level 144 mmol/L (136-145) 146 mmol/L (136-145) Potassium Level 4.3 mmol/L (3.5-5.1) 4.4 mmol/L (3.5-5.1) Chloride Level 106 mmol/L (98-107) 108 mmol/L (98-107) Carbon Dioxide Level 28 mmol/L (21-32) 26 mmol/L (21-32) Anion Gap 10 (6-14) 12 (6-14) Blood Urea Nitrogen 18 mg/dL (7-20) 20 mg/dL (7-20) Creatinine 0.8 mg/dL (0.6-1.0) 0.9 mg/dL (0.6-1.0) Estimated GFR (Cockcroft-Gault) 68.7 59.9 Glucose Level 149 mg/dL (70-99) 142 mg/dL (70-99) Calcium Level 8.7 mg/dL (8.5-10.1) 8.9 mg/dL (8.5-10.1) Neutrophils (%) (Auto) 77 % (31-73) Lymphocytes (%) (Auto) 12 % (24-48) Monocytes (%) (Auto) 10 % (0-9) Eosinophils (%) (Auto) 1 % (0-3) Basophils (%) (Auto) 1 % (0-3) Neutrophils # (Auto) 6.3 x10^3uL (1.8-7.7) Lymphocytes # (Auto) 0.9 x10^3/uL (1.0-4.8) Monocytes # (Auto) 0.8 x10^3/uL (0.0-1.1) Eosinophils # (Auto) 0.1 x10^3/uL (0.0-0.7) Basophils # (Auto) 0.0 x10^3/uL (0.0-0.2) BUN/Creatinine Ratio 22 (6-20) Total Bilirubin 0.5 mg/dL (0.2-1.0) Aspartate Amino Transf (AST/SGOT) 17 U/L (15-37) Alanine Aminotransferase (ALT/SGPT) 23 U/L (14-59) Alkaline Phosphatase 104 U/L (46-116) Total Protein 6.7 g/dL (6.4-8.2) Albumin 2.6 g/dL (3.4-5.0) Albumin/Globulin Ratio 0.6 (1.0-1.7) Laboratory Tests Test 10/11/18 13:35 10/12/18 04:20 White Blood Count 5.0 x10^3/uL (4.0-11.0) 8.1 x10^3/uL (4.0-11.0) Red Blood Count 3.65 x10^6/uL (3.50-5.40) 3.79 x10^6/uL (3.50-5.40) Hemoglobin 10.3 g/dL (12.0-15.5) 10.7 g/dL (12.0-15.5) Hematocrit 32.1 % (36.0-47.0) 33.4 % (36.0-47.0) Mean Corpuscular Volume 88 fL (79-100) 88 fL (79-100) Mean Corpuscular Hemoglobin 28 pg (25-35) 28 pg (25-35) Mean Corpuscular Hemoglobin Concent 32 g/dL (31-37) 32 g/dL (31-37) Red Cell Distribution Width 15.5 % (11.5-14.5) 15.4 % (11.5-14.5) Platelet Count 177 x10^3/uL (140-400) 201 x10^3/uL (140-400) Sodium Level 144 mmol/L (136-145) 146 mmol/L (136-145) Potassium Level 4.3 mmol/L (3.5-5.1) 4.4 mmol/L (3.5-5.1) Chloride Level 106 mmol/L (98-107) 108 mmol/L (98-107) Carbon Dioxide Level 28 mmol/L (21-32) 26 mmol/L (21-32) Anion Gap 10 (6-14) 12 (6-14) Blood Urea Nitrogen 18 mg/dL (7-20) 20 mg/dL (7-20) Creatinine 0.8 mg/dL (0.6-1.0) 0.9 mg/dL (0.6-1.0) Estimated GFR (Cockcroft-Gault) 68.7 59.9 Glucose Level 149 mg/dL (70-99) 142 mg/dL (70-99) Calcium Level 8.7 mg/dL (8.5-10.1) 8.9 mg/dL (8.5-10.1) Neutrophils (%) (Auto) 77 % (31-73) Lymphocytes (%) (Auto) 12 % (24-48) Monocytes (%) (Auto) 10 % (0-9) Eosinophils (%) (Auto) 1 % (0-3) Basophils (%) (Auto) 1 % (0-3) Neutrophils # (Auto) 6.3 x10^3uL (1.8-7.7) Lymphocytes # (Auto) 0.9 x10^3/uL (1.0-4.8) Monocytes # (Auto) 0.8 x10^3/uL (0.0-1.1) Eosinophils # (Auto) 0.1 x10^3/uL (0.0-0.7) Basophils # (Auto) 0.0 x10^3/uL (0.0-0.2) BUN/Creatinine Ratio 22 (6-20) Total Bilirubin 0.5 mg/dL (0.2-1.0) Aspartate Amino Transf (AST/SGOT) 17 U/L (15-37) Alanine Aminotransferase (ALT/SGPT) 23 U/L (14-59) Alkaline Phosphatase 104 U/L (46-116) Total Protein 6.7 g/dL (6.4-8.2) Albumin 2.6 g/dL (3.4-5.0) Albumin/Globulin Ratio 0.6 (1.0-1.7) Medications Active Scripts Medications Dose Route/Sig Max Daily Dose Days Date Category Thera-Tabs M Caplet (Multivits,Ca,Minerals/Iron/Fa) 1 Each Tablet 1 Each PO DAILY 10/07/18 Reported Senna (Sennosides) 8.6 Mg Tablet 8.6 Mg PO DAILY 10/07/18 Reported Ranitidine Hcl 150 Mg Tablet 150 Mg PO HS 10/07/18 Reported Lyrica (Pregabalin) 100 Mg Capsule 1 Cap PO TID 10/07/18 Reported Potassium Chloride 20 Meq Tablet.er 20 Meq PO DAILY 10/07/18 Reported Nystatin 15 Gm Powder 1 Gabriela TP TID 10/07/18 Reported Simethicone 80 Mg Tab.chew 80 Mg PO PRN Q6HRS PRN 10/07/18 Reported Mucinex (Guaifenesin) 600 Mg Tablet.er 1 Tab PO BID 10/07/18 Reported Mapap (Acetaminophen) 500 Mg Tablet 1,000 Mg PO PRN BID PRN 10/07/18 Reported Magnesium Oxide 400 Mg Tablet 400 Mg PO BID 10/07/18 Reported Loperamide (Loperamide Hcl) 2 Mg Capsule 2 Mg PO PRN Q1HR PRN 10/07/18 Reported Levothyroxine Sodium 50 Mcg Tablet 40 Mcg PO DAILYAC PRN 10/07/18 Reported Furosemide 40 Mg Tablet 1 Tab PO DAILY 10/07/18 Reported Fish Oil-Vit D3 Softgel (Omega3/Dha/Epa/Fish Oil/Vit D3) 1 Each Capsule 1 Each PO DAILY 10/07/18 Reported Docusate Sodium 100 Mg Capsule 100 Mg PO BID 10/07/18 Reported Vitamin B-12 (Cyanocobalamin (Vitamin B-12)) 1,000 Mcg Tablet 1 Tab PO DAILY 10/07/18 Reported Culturelle Probiotics Capsule (L. Rhamnosus GG/Inulin) 1 Each Capsule 1 Each PO BID 10/07/18 Reported Tums Ultra (Calcium Carbonate) 400 Mg Tab.chew 400 Mg PO PRN Q12HR PRN 10/07/18 Reported Dulcolax (Bisacodyl) 10 Mg Supp.rect 10 Mg RC PRN DAILY PRN 10/07/18 Reported Baclofen 10 Mg Tablet 10 Mg PO HS 10/07/18 Reported Atorvastatin Calcium 10 Mg Tablet 10 Mg PO HS 10/07/18 Reported Aspirin Ec (Aspirin) 81 Mg Tablet.dr 1 Tab PO DAILY 10/07/18 Reported Impression . IMPRESSION: 1. Progressive dyspnea secondary to secondary pulmonary hypertension, acute exacerbation of chronic obstructive pulmonary disease. 2. Acute exacerbation of chronic obstructive pulmonary disease. 3. Pulmonary hypertension. The patient recently evaluated at [facility], declined right heart catheterization. 4. Chest pain per Cardiology. 5. Chronic atrial fibrillation. 6. Scleroderma. 7. Right lower extremity cellulitis. 8. HEMOPTYSIS VS HEMATEMESIS ECHO <Conclusion> Abnormal septal motion consistent with conduction abnormality. The Ejection Fraction is 50%. Trace aortic regurgitation. Trace to mild mitral regurgitation. Mild tricuspid regurgitation. The PA pressure was estimated at 33 mmHg. There is no evidence of significant pericardial effusion. Plan . RESP STATUS IS COMPENSATED NPO FOLLOW GI INPUT NATALIE ALCANTARA MD Oct 12, 2018 11:32
[2018-10-12 15:00] VITALS: BP 166/113
[2018-10-12] MEDS ORDERED: hydrALAZINE 20 MG/ML VIAL. IVP PRN (15:30)
[2018-10-12] MEDS ORDERED: ALBUTEROL SULFATE 2.5 MG/3 ML NEBU. NEB PRN (18:45)
[2018-10-12 19:50] VITALS: BP 151/95
[2018-10-12] MEDS: ENOXAPARIN 40 MG/0.4 ML SYRINGE. SQ SCH (20:48)
[2018-10-12] MEDS: PATCH REMOVAL. MC SCH (20:51)
[2018-10-12] MEDS: ATORVASTATIN CALCIUM 10 MG TABLET. PO SCH (20:52)
[2018-10-12] MEDS: BACLOFEN 10 MG TABLET. PO SCH (20:52)
[2018-10-12 23:29] VITALS: BP 164/72
[2018-10-13 03:00] VITALS: BP 136/68
--- NOTE | 2018-10-13 04:38 | CONS ---
DATE OF CONSULTATION: 10/12/2018 REQUESTING PHYSICIAN: Lucian Clark MD REASON FOR CONSULTATION: Chronic aspiration pneumonia. HISTORY OF PRESENT ILLNESS: This patient is an 82-year-old female with a past medical history of scleroderma, Raynaud's, chronic atrial fibrillation, congestive heart failure and pulmonary hypertension. She presented on 10/06 to the ER with complaints of productive cough, shortness of air and chest discomfort. She had a temperature of 99.2 and a normal white blood cell count. A chest x-ray showed a possible tiny left effusion. She was dosed with Zosyn in the ER. She developed vomiting with hemoptysis versus hematemesis. A CT chest revealed a large hiatal hernia with retained fluid and debris in a distended thoracic esophagus; and small bilateral pleural effusions. A bronchoscopy showed no endobronchial lesions or act out active bleeding. On 10/09, she had an EGD and was found to have ulcerative esophagus with active bleeding and clots, status post epinephrine and cautery. She failed a video swallow study and is currently n.p.o. ID has been asked to consult for aspiration. The patient says she is feeling alright, but tired. She denies further vomiting. She denies worsening cough or shortness of air and her chest discomfort is gone. Denies fevers, chills or body aches. She says she is followed by podiatry for an ulcer on her right second toe due to a hammertoe. She is seen weekly and often has the ulcer "cleaned out." She was taking doxycycline outpatient and having daily dressing changes. She lives in an assisted living facility and uses a wheelchair for mobility. She has a history of a pathological fracture, left upper extremity and currently has a splint in place. PAST MEDICAL HISTORY: Chronic atrial fibrillation, congestive heart failure, scleroderma, Raynaud's, pulmonary hypertension; ulcer, right second toe; hypothyroidism, COPD and osteoarthritis. PAST SURGICAL HISTORY: Neurostimulator for essential tremors, appendectomy, hysterectomy, left patella removal, left wrist fracture. SOCIAL HISTORY: The patient lives in an assisted living facility. Former smoker. FAMILY HISTORY: Positive for coronary artery disease and hypertension. ALLERGIES: SULFA, CARBAMAZEPINE, PROCHLORPERAZINE and TRAMADOL. MEDICATIONS: Zosyn since 10/06. Doxycycline outpatient. Probiotics. Other medications are available and have been reviewed on the SEP. REVIEW OF SYSTEMS: Per HPI, otherwise all other review of systems are negative. PHYSICAL EXAMINATION: VITAL SIGNS: Temperature 97.9, blood pressure 159/83, heart rate 101, respiratory rate 18, pulse oximetry is 96% on 2 L oxygen. BMI 30. GENERAL: The patient is propped up in bed, alert, relaxed appearance. HEENT: Pupils equally round, normal conjunctivae. Oral cavity, pharynx: Dry, no lesions seen. Edentulous. NECK: Supple. LUNGS: Diminished aeration in the bases. Nonlabored. HEART: S1 and S2. ABDOMEN: Soft, nontender with bowel sounds present. EXTREMITIES: No gross edema or cyanosis. She has a splint to left wrist. No cyanosis. SKIN: Warm without rash. She has a right second hammertoe with a small ill-defined ulcer without signs on the dorsal aspect without signs of infection. NEUROLOGIC: Alert. Responds appropriately. LINES: Peripheral IV looks okay. LABORATORY DATA: Today's WBC 8.1, hemoglobin 10.7, platelets 201,000. Creatinine 0.9, BUN 20, sodium 146, potassium 4.4, total bilirubin 0.5, AST 17, ALT 23, albumin 2.6, MRSA screen negative. Blood cultures from the 24th negative. IMAGING DATA: Per HPI. Recent chest x-ray showed small left pleural effusion. Patchy opacities, left lung base, likely atelectasis/scarring. Emphysematous changes seen. IMPRESSION: 1. Aspiration. 2. Dysphagia, failed video swallow study. 3. Hematemesis, status post esophagogastroduodenoscopy with findings of ulcerative esophagitis and active bleeding, status post epinephrine and cautery. 4. Hammertoe with ulcer, right second toe. She is followed by outpatient podiatry weekly. 5. Acute exacerbation of chronic obstructive pulmonary disease. 6. Scleroderma. 7. Pulmonary hypertension. 8. Chronic atrial fibrillation. 9. Fracture, left upper extremity. PLAN: 1. No need for further antibiotics. We will discontinue. Wound care team following. Discussed with daughter. 2. Please call with questions. 3. ID to sign off. Thank you, Dr. Clark, for asking us to participate in this patient's care. Should you have further questions or concerns, please call. The patient seen, examined and plan of care implemented by Dr. Dorian Aggarwal. MD MARCO LANDERS/camilo JOB#: [id number] / [id number]
[2018-10-13] MEDS: LEVOTHYROXINE 25 MCG TABLET. PO SCH (06:00)
[2018-10-13] MEDS: IPRATRPIUM/ALBUTEROL 0.5/2.5MG 3 ML NEBU. NEB SCH ×4 (06:08→20:40)
[2018-10-13] MEDS: SUCRALFATE 1 GM/10 ML ORAL.SUSP. PEG SCH ×4 (07:30→20:13)
[2018-10-13 07:53] VITALS: BP 149/78
[2018-10-13] MEDS: POTASSIUM CHLORIDE 20 MEQ TABLET.ER. PO SCH (08:00)
[2018-10-13 08:56] LABS: BASO % 1 % (0-3); EOS # 0.1 x10^3/uL (0.0-0.7); EOS % 3 % (0-3); HEMATOCRIT 30.6 % (36.0-47.0); HEMOGLOBIN 9.9 g/dL (12.0-15.5); LYMPH % 17 % (24-48); MEAN CORPUSCULAR HEMOGLOBIN 28 pg (25-35); MEAN CORPUSCULAR HGB CONC 32 g/dL (31-37); MEAN CORPUSCULAR VOLUME 87 fL (79-100); MONO # 0.6 x10^3/uL (0.0-1.1); MONO % 10 % (0-9); NEUT # 3.9 x10^3uL (1.8-7.7); NEUT % 69 % (31-73); PLATELET COUNT 183 x10^3/uL (140-400); RED CELL DISTRIBUTION WIDTH 15.8 % (11.5-14.5); WHITE BLOOD COUNT 5.6 x10^3/uL (4.0-11.0)
[2018-10-13] MEDS: DOCUSATE SODIUM 100 MG CAPSULE. PO SCH ×2 (08:59→20:14)
[2018-10-13] MEDS: LACTOBACILLUS RHAMNOSUS GG 1 CAPSULE. PO SCH ×2 (08:59→20:15)
[2018-10-13] MEDS: CYANOCOBALAMIN (VITAMIN B-12) 1,000 MCG TABLET. PO SCH (09:00)
[2018-10-13] MEDS: SENNOSIDES 8.6 MG TABLET PO SCH (09:00)
[2018-10-13] MEDS: OMEGA-3 FATTY ACIDS/FISH OIL 1,000 MG CAPSULE. PO SCH (09:00)
[2018-10-13] MEDS: MULTIVITAMIN with MINERAL TABLET. PO SCH (09:00)
[2018-10-13] MEDS: MAGNESIUM OXIDE 400 MG TABLET PO SCH ×2 (09:00→20:15)
[2018-10-13] MEDS: ASPIRIN ENTERIC COATED 81 MG TABLET.DR. PO SCH (09:00)
[2018-10-13] MEDS: FUROSEMIDE 40 MG TABLET. PO SCH (09:00)
[2018-10-13] MEDS: BENZONATATE 100 MG CAPSULE. PO SCH ×3 (09:00→20:17)
[2018-10-13] MEDS: PREGABALIN 50 MG CAPSULE PO SCH ×3 (09:00→20:15)
[2018-10-13] MEDS: PANTOPRAZOLE IV PUSH 40 MG VIAL. IVP SCH ×2 (09:01→16:23)
[2018-10-13] MEDS: LIDOCAINE (700MG/PATCH) PATCH. TD SCH (09:02)
[2018-10-13 09:12] LABS: CALCIUM 8.8 mg/dL (8.5-10.1); CREATININE 0.7 mg/dL (0.6-1.0); GFR 80.1; POTASSIUM 3.8 mmol/L (3.5-5.1)
[2018-10-13] MEDS: IV NORMAL SALINE 1000ML BAG 1,000 ML IV SCH (10:30)
[2018-10-13 11:00] VITALS: BP 181/88
[2018-10-13] MEDS: AMINO AC 3%/ELECTROLYTE/GLYCER 1,000 ML IV SCH ×2 (11:25→20:22)
[2018-10-13] MEDS: NYSTATIN TOPICAL POWDER 15GM BOTTLE. TP SCH ×3 (11:26→20:18)
[2018-10-13] MEDS: hydrALAZINE 20 MG/ML VIAL. IVP PRN (11:26)
--- NOTE | 2018-10-13 12:23 | PDOC ---
PULMONARY PROGRESS NOTES Subjective NO MORE BLEEDING Vitals Vital Signs Date Time Temp Pulse Resp B/P (MAP) Pulse Ox O2 Delivery O2 Flow Rate FiO2 10/13/18 12:00 97 Nasal Cannula 2.0 10/13/18 11:26 75 181/85 10/13/18 07:53 98.0 23 98.0 ROS: No Nausea, No Chest Pain, No Abdominal Pain, No Increase Cough General: Alert Lungs: Crackles Cardiovascular: S1, S2 Abdomen: Soft Neuro Exam: Alert Extremities: No Edema Skin: Warm Labs Laboratory Tests Test 10/11/18 13:35 10/12/18 04:20 10/13/18 08:30 White Blood Count 5.0 x10^3/uL (4.0-11.0) 8.1 x10^3/uL (4.0-11.0) 5.6 x10^3/uL (4.0-11.0) Red Blood Count 3.65 x10^6/uL (3.50-5.40) 3.79 x10^6/uL (3.50-5.40) 3.50 x10^6/uL (3.50-5.40) Hemoglobin 10.3 g/dL (12.0-15.5) 10.7 g/dL (12.0-15.5) 9.9 g/dL (12.0-15.5) Hematocrit 32.1 % (36.0-47.0) 33.4 % (36.0-47.0) 30.6 % (36.0-47.0) Mean Corpuscular Volume 88 fL (79-100) 88 fL (79-100) 87 fL (79-100) Mean Corpuscular Hemoglobin 28 pg (25-35) 28 pg (25-35) 28 pg (25-35) Mean Corpuscular Hemoglobin Concent 32 g/dL (31-37) 32 g/dL (31-37) 32 g/dL (31-37) Red Cell Distribution Width 15.5 % (11.5-14.5) 15.4 % (11.5-14.5) 15.8 % (11.5-14.5) Platelet Count 177 x10^3/uL (140-400) 201 x10^3/uL (140-400) 183 x10^3/uL (140-400) Sodium Level 144 mmol/L (136-145) 146 mmol/L (136-145) 147 mmol/L (136-145) Potassium Level 4.3 mmol/L (3.5-5.1) 4.4 mmol/L (3.5-5.1) 3.8 mmol/L (3.5-5.1) Chloride Level 106 mmol/L (98-107) 108 mmol/L (98-107) 110 mmol/L (98-107) Carbon Dioxide Level 28 mmol/L (21-32) 26 mmol/L (21-32) 26 mmol/L (21-32) Anion Gap 10 (6-14) 12 (6-14) 11 (6-14) Blood Urea Nitrogen 18 mg/dL (7-20) 20 mg/dL (7-20) 28 mg/dL (7-20) Creatinine 0.8 mg/dL (0.6-1.0) 0.9 mg/dL (0.6-1.0) 0.7 mg/dL (0.6-1.0) Estimated GFR (Cockcroft-Gault) 68.7 59.9 80.1 Glucose Level 149 mg/dL (70-99) 142 mg/dL (70-99) 120 mg/dL (70-99) Calcium Level 8.7 mg/dL (8.5-10.1) 8.9 mg/dL (8.5-10.1) 8.8 mg/dL (8.5-10.1) Neutrophils (%) (Auto) 77 % (31-73) 69 % (31-73) Lymphocytes (%) (Auto) 12 % (24-48) 17 % (24-48) Monocytes (%) (Auto) 10 % (0-9) 10 % (0-9) Eosinophils (%) (Auto) 1 % (0-3) 3 % (0-3) Basophils (%) (Auto) 1 % (0-3) 1 % (0-3) Neutrophils # (Auto) 6.3 x10^3uL (1.8-7.7) 3.9 x10^3uL (1.8-7.7) Lymphocytes # (Auto) 0.9 x10^3/uL (1.0-4.8) 1.0 x10^3/uL (1.0-4.8) Monocytes # (Auto) 0.8 x10^3/uL (0.0-1.1) 0.6 x10^3/uL (0.0-1.1) Eosinophils # (Auto) 0.1 x10^3/uL (0.0-0.7) 0.1 x10^3/uL (0.0-0.7) Basophils # (Auto) 0.0 x10^3/uL (0.0-0.2) 0.0 x10^3/uL (0.0-0.2) BUN/Creatinine Ratio 22 (6-20) Total Bilirubin 0.5 mg/dL (0.2-1.0) Aspartate Amino Transf (AST/SGOT) 17 U/L (15-37) Alanine Aminotransferase (ALT/SGPT) 23 U/L (14-59) Alkaline Phosphatase 104 U/L (46-116) Total Protein 6.7 g/dL (6.4-8.2) Albumin 2.6 g/dL (3.4-5.0) Albumin/Globulin Ratio 0.6 (1.0-1.7) Laboratory Tests Test 10/13/18 08:30 White Blood Count 5.6 x10^3/uL (4.0-11.0) Red Blood Count 3.50 x10^6/uL (3.50-5.40) Hemoglobin 9.9 g/dL (12.0-15.5) Hematocrit 30.6 % (36.0-47.0) Mean Corpuscular Volume 87 fL (79-100) Mean Corpuscular Hemoglobin 28 pg (25-35) Mean Corpuscular Hemoglobin Concent 32 g/dL (31-37) Red Cell Distribution Width 15.8 % (11.5-14.5) Platelet Count 183 x10^3/uL (140-400) Neutrophils (%) (Auto) 69 % (31-73) Lymphocytes (%) (Auto) 17 % (24-48) Monocytes (%) (Auto) 10 % (0-9) Eosinophils (%) (Auto) 3 % (0-3) Basophils (%) (Auto) 1 % (0-3) Neutrophils # (Auto) 3.9 x10^3uL (1.8-7.7) Lymphocytes # (Auto) 1.0 x10^3/uL (1.0-4.8) Monocytes # (Auto) 0.6 x10^3/uL (0.0-1.1) Eosinophils # (Auto) 0.1 x10^3/uL (0.0-0.7) Basophils # (Auto) 0.0 x10^3/uL (0.0-0.2) Sodium Level 147 mmol/L (136-145) Potassium Level 3.8 mmol/L (3.5-5.1) Chloride Level 110 mmol/L (98-107) Carbon Dioxide Level 26 mmol/L (21-32) Anion Gap 11 (6-14) Blood Urea Nitrogen 28 mg/dL (7-20) Creatinine 0.7 mg/dL (0.6-1.0) Estimated GFR (Cockcroft-Gault) 80.1 Glucose Level 120 mg/dL (70-99) Calcium Level 8.8 mg/dL (8.5-10.1) Medications Active Scripts Medications Dose Route/Sig Max Daily Dose Days Date Category Thera-Tabs M Caplet (Multivits,Ca,Minerals/Iron/Fa) 1 Each Tablet 1 Each PO DAILY 10/07/18 Reported Senna (Sennosides) 8.6 Mg Tablet 8.6 Mg PO DAILY 10/07/18 Reported Ranitidine Hcl 150 Mg Tablet 150 Mg PO HS 10/07/18 Reported Lyrica (Pregabalin) 100 Mg Capsule 1 Cap PO TID 10/07/18 Reported Potassium Chloride 20 Meq Tablet.er 20 Meq PO DAILY 10/07/18 Reported Nystatin 15 Gm Powder 1 Gabriela TP TID 10/07/18 Reported Simethicone 80 Mg Tab.chew 80 Mg PO PRN Q6HRS PRN 10/07/18 Reported Mucinex (Guaifenesin) 600 Mg Tablet.er 1 Tab PO BID 10/07/18 Reported Mapap (Acetaminophen) 500 Mg Tablet 1,000 Mg PO PRN BID PRN 10/07/18 Reported Magnesium Oxide 400 Mg Tablet 400 Mg PO BID 10/07/18 Reported Loperamide (Loperamide Hcl) 2 Mg Capsule 2 Mg PO PRN Q1HR PRN 10/07/18 Reported Levothyroxine Sodium 50 Mcg Tablet 40 Mcg PO DAILYAC PRN 10/07/18 Reported Furosemide 40 Mg Tablet 1 Tab PO DAILY 10/07/18 Reported Fish Oil-Vit D3 Softgel (Omega3/Dha/Epa/Fish Oil/Vit D3) 1 Each Capsule 1 Each PO DAILY 10/07/18 Reported Docusate Sodium 100 Mg Capsule 100 Mg PO BID 10/07/18 Reported Vitamin B-12 (Cyanocobalamin (Vitamin B-12)) 1,000 Mcg Tablet 1 Tab PO DAILY 10/07/18 Reported Culturelle Probiotics Capsule (L. Rhamnosus GG/Inulin) 1 Each Capsule 1 Each PO BID 10/07/18 Reported Tums Ultra (Calcium Carbonate) 400 Mg Tab.chew 400 Mg PO PRN Q12HR PRN 10/07/18 Reported Dulcolax (Bisacodyl) 10 Mg Supp.rect 10 Mg RC PRN DAILY PRN 10/07/18 Reported Baclofen 10 Mg Tablet 10 Mg PO HS 10/07/18 Reported Atorvastatin Calcium 10 Mg Tablet 10 Mg PO HS 10/07/18 Reported Aspirin Ec (Aspirin) 81 Mg Tablet.dr 1 Tab PO DAILY 10/07/18 Reported Impression . IMPRESSION: 1. Progressive dyspnea secondary to secondary pulmonary hypertension, acute exacerbation of chronic obstructive pulmonary disease. 2. Acute exacerbation of chronic obstructive pulmonary disease. 3. Pulmonary hypertension. The patient recently evaluated at [facility], declined right heart catheterization. 4. Chest pain per Cardiology. 5. Chronic atrial fibrillation. 6. Scleroderma. 7. Right lower extremity cellulitis. 8. HEMATEMESIS BROCNH FINDINGS: 1. Normal vocal cords. 2. No endobronchial lesion. 3. No active bleeding. EGD Esophagus- shortened with diffuse ulceration in distal 1/3, with active bleeding and adherent clot ? MW tear as well- carmen removed, treated with 3 cc of epinephrine 1:10,000 and bipolar cautery- with control- 6 cm HH, stomach with clots - no active bleeding seen but exam limited due to clots- duodenum appeared normal Plan- NPO then CLD PPI BID carafate slurry QID repeat EGD in 1 week if stable or earlier if bleeding continues ECHO <Conclusion> Abnormal septal motion consistent with conduction abnormality. The Ejection Fraction is 50%. Trace aortic regurgitation. Trace to mild mitral regurgitation. Mild tricuspid regurgitation. The PA pressure was estimated at 33 mmHg. There is no evidence of significant pericardial effusion. Plan . RESP STATUS IS COMPENSATED WILL HUMIDIFY 02 SPOKE WITH DAUGHTER NPO FOLLOW GI INPUT D/W NATALIE DIAZ MD Oct 13, 2018 12:23
[2018-10-13 14:25] VITALS: BP 161/100
--- NOTE | 2018-10-13 14:55 | PDOC ---
PROGRESS NOTES History of Present Illness History of Present Illness Assessment/Plan Assessment/Plan IMPRESSION 1. ACUTE COPD EXAC 2. Chest pain, atypical. 2. Dyspnea, //URI. 3. Chronic diastolic CHF Abnormal septal motion consistent with conduction abnormality. The Ejection Fraction is 50%. ECHO 10/07 4. Chronic AFIB; 5. Scleroderma 6. Raynaud's 7. RLE cellulitis, wound 8. left chest deep brain stimulator for essential tremors 9. GERD 10. Hypothyroid state on replacement 11. Right 2nd toe infection. 12. MARKED Hemoptysis 100cc this AM 10/08 13 shortened with diffuse ulceration in distal 1/3, with active bleeding and adherent clot ? MW tear - carmen removed, treated with 3 cc of epinephrine 1:10, 000 and bipolar cautery- 14. Large hiatal hernia with retained fluid and debris in a distended thoracic esophagus. Postsurgical changes related to a previous esophageal resection could also give this appearance. 15. mild hypernatremia, monitor 10/09 HEMOPTYSIS VS HEMATEMESIS REMAINS NPO/// BRONCH NO LESION SEEN, GI FOLLOWING 10/10 failed bedside swallow and is still NPO - PPN ordered 10/11 FAILED SWALLOW STUDY, WILL D/W GI planning dobhoff 10/14 Disordered swallowing mechanism with moderate residue and mild intermittent laryngeal penetration with minimal aspiration PROCEDURE NOTE PROCEDURE 09/11 Procedure EGD with control of bleeding Esophagus- shortened with diffuse ulceration in distal 1/3, with active bleeding and adherent clot ? MW tear as well- carmen removed, treated with 3 cc of epinephrine 1:10,000 and bipolar cautery- with control- 6 cm HH, stomach with clots - no active bleeding seen but exam limited due to clots- duodenum appeared normal Plan- NPO t PPI repeat EGD 10/14 PLAN PPN inc 100cc/hr CT CHEST reviewed INR ok GI following PULM following Cardiology consult Echo RLE arterial duplex US Obtain med records from [facility] dvt prophylaxis iv zosyn dobhoff if egd ok Sunday 34 min pt exam, record review, > 50% of time with exam, chart review, pt care coordination. Vitals Vitals Vital Signs Date Time Temp Pulse Resp B/P (MAP) Pulse Ox O2 Delivery O2 Flow Rate FiO2 10/13/18 14:25 97.9 99 24 161/100 (120) 98 Nasal Cannula 2.0 97.9 Physical Exam General: Alert, Oriented X3, Cooperative, mild distress Heart: Regular rate, Normal S1, Other (irregular rhythm with 2/6 systolic murmur) Lungs: Crackles Abdomen: Normal bowel sounds, Soft, No tenderness Extremities: No clubbing, No cyanosis, No edema, Normal pulses, Other (strong dorsalis pedis pulse on the right with a Quant of flow of 1.08) Skin: No breakdown, No significant lesion, Other (1.3 cm ulceration to the dorsal aspect right second toe with no evidence of exposed tendon or bone at this time. The toe itself is modestly edematous with mild erythema) Labs LABS Laboratory Tests Test 10/13/18 08:30 White Blood Count 5.6 x10^3/uL (4.0-11.0) Red Blood Count 3.50 x10^6/uL (3.50-5.40) Hemoglobin 9.9 g/dL (12.0-15.5) Hematocrit 30.6 % (36.0-47.0) Mean Corpuscular Volume 87 fL (79-100) Mean Corpuscular Hemoglobin 28 pg (25-35) Mean Corpuscular Hemoglobin Concent 32 g/dL (31-37) Red Cell Distribution Width 15.8 % (11.5-14.5) Platelet Count 183 x10^3/uL (140-400) Neutrophils (%) (Auto) 69 % (31-73) Lymphocytes (%) (Auto) 17 % (24-48) Monocytes (%) (Auto) 10 % (0-9) Eosinophils (%) (Auto) 3 % (0-3) Basophils (%) (Auto) 1 % (0-3) Neutrophils # (Auto) 3.9 x10^3uL (1.8-7.7) Lymphocytes # (Auto) 1.0 x10^3/uL (1.0-4.8) Monocytes # (Auto) 0.6 x10^3/uL (0.0-1.1) Eosinophils # (Auto) 0.1 x10^3/uL (0.0-0.7) Basophils # (Auto) 0.0 x10^3/uL (0.0-0.2) Sodium Level 147 mmol/L (136-145) Potassium Level 3.8 mmol/L (3.5-5.1) Chloride Level 110 mmol/L (98-107) Carbon Dioxide Level 26 mmol/L (21-32) Anion Gap 11 (6-14) Blood Urea Nitrogen 28 mg/dL (7-20) Creatinine 0.7 mg/dL (0.6-1.0) Estimated GFR (Cockcroft-Gault) 80.1 Glucose Level 120 mg/dL (70-99) Calcium Level 8.8 mg/dL (8.5-10.1) Assessment and Plan Assessmemt and Plan Problems Medical Problems: (1) Chest pain Status: Acute (2) Pneumonia Status: Acute Comment Review of Relevant I have reviewed the following items tara (where applicable) has been applied. Labs Laboratory Tests Test 10/12/18 04:20 10/13/18 08:30 White Blood Count 8.1 x10^3/uL (4.0-11.0) 5.6 x10^3/uL (4.0-11.0) Red Blood Count 3.79 x10^6/uL (3.50-5.40) 3.50 x10^6/uL (3.50-5.40) Hemoglobin 10.7 g/dL (12.0-15.5) 9.9 g/dL (12.0-15.5) Hematocrit 33.4 % (36.0-47.0) 30.6 % (36.0-47.0) Mean Corpuscular Volume 88 fL (79-100) 87 fL (79-100) Mean Corpuscular Hemoglobin 28 pg (25-35) 28 pg (25-35) Mean Corpuscular Hemoglobin Concent 32 g/dL (31-37) 32 g/dL (31-37) Red Cell Distribution Width 15.4 % (11.5-14.5) 15.8 % (11.5-14.5) Platelet Count 201 x10^3/uL (140-400) 183 x10^3/uL (140-400) Neutrophils (%) (Auto) 77 % (31-73) 69 % (31-73) Lymphocytes (%) (Auto) 12 % (24-48) 17 % (24-48) Monocytes (%) (Auto) 10 % (0-9) 10 % (0-9) Eosinophils (%) (Auto) 1 % (0-3) 3 % (0-3) Basophils (%) (Auto) 1 % (0-3) 1 % (0-3) Neutrophils # (Auto) 6.3 x10^3uL (1.8-7.7) 3.9 x10^3uL (1.8-7.7) Lymphocytes # (Auto) 0.9 x10^3/uL (1.0-4.8) 1.0 x10^3/uL (1.0-4.8) Monocytes # (Auto) 0.8 x10^3/uL (0.0-1.1) 0.6 x10^3/uL (0.0-1.1) Eosinophils # (Auto) 0.1 x10^3/uL (0.0-0.7) 0.1 x10^3/uL (0.0-0.7) Basophils # (Auto) 0.0 x10^3/uL (0.0-0.2) 0.0 x10^3/uL (0.0-0.2) Sodium Level 146 mmol/L (136-145) 147 mmol/L (136-145) Potassium Level 4.4 mmol/L (3.5-5.1) 3.8 mmol/L (3.5-5.1) Chloride Level 108 mmol/L (98-107) 110 mmol/L (98-107) Carbon Dioxide Level 26 mmol/L (21-32) 26 mmol/L (21-32) Anion Gap 12 (6-14) 11 (6-14) Blood Urea Nitrogen 20 mg/dL (7-20) 28 mg/dL (7-20) Creatinine 0.9 mg/dL (0.6-1.0) 0.7 mg/dL (0.6-1.0) Estimated GFR (Cockcroft-Gault) 59.9 80.1 BUN/Creatinine Ratio 22 (6-20) Glucose Level 142 mg/dL (70-99) 120 mg/dL (70-99) Calcium Level 8.9 mg/dL (8.5-10.1) 8.8 mg/dL (8.5-10.1) Total Bilirubin 0.5 mg/dL (0.2-1.0) Aspartate Amino Transf (AST/SGOT) 17 U/L (15-37) Alanine Aminotransferase (ALT/SGPT) 23 U/L (14-59) Alkaline Phosphatase 104 U/L (46-116) Total Protein 6.7 g/dL (6.4-8.2) Albumin 2.6 g/dL (3.4-5.0) Albumin/Globulin Ratio 0.6 (1.0-1.7) Laboratory Tests Test 10/13/18 08:30 White Blood Count 5.6 x10^3/uL (4.0-11.0) Red Blood Count 3.50 x10^6/uL (3.50-5.40) Hemoglobin 9.9 g/dL (12.0-15.5) Hematocrit 30.6 % (36.0-47.0) Mean Corpuscular Volume 87 fL (79-100) Mean Corpuscular Hemoglobin 28 pg (25-35) Mean Corpuscular Hemoglobin Concent 32 g/dL (31-37) Red Cell Distribution Width 15.8 % (11.5-14.5) Platelet Count 183 x10^3/uL (140-400) Neutrophils (%) (Auto) 69 % (31-73) Lymphocytes (%) (Auto) 17 % (24-48) Monocytes (%) (Auto) 10 % (0-9) Eosinophils (%) (Auto) 3 % (0-3) Basophils (%) (Auto) 1 % (0-3) Neutrophils # (Auto) 3.9 x10^3uL (1.8-7.7) Lymphocytes # (Auto) 1.0 x10^3/uL (1.0-4.8) Monocytes # (Auto) 0.6 x10^3/uL (0.0-1.1) Eosinophils # (Auto) 0.1 x10^3/uL (0.0-0.7) Basophils # (Auto) 0.0 x10^3/uL (0.0-0.2) Sodium Level 147 mmol/L (136-145) Potassium Level 3.8 mmol/L (3.5-5.1) Chloride Level 110 mmol/L (98-107) Carbon Dioxide Level 26 mmol/L (21-32) Anion Gap 11 (6-14) Blood Urea Nitrogen 28 mg/dL (7-20) Creatinine 0.7 mg/dL (0.6-1.0) Estimated GFR (Cockcroft-Gault) 80.1 Glucose Level 120 mg/dL (70-99) Calcium Level 8.8 mg/dL (8.5-10.1) Microbiology 10/06/18 Blood Culture - Final, Complete NO GROWTH AFTER 5 DAYS Medications Current Medications Piperacillin Sod/ Tazobactam Sod (Zosyn Per Pharmacy) 1 each PRN DAILY PRN MC SEE COMMENTS; Start 10/06/18 at 19:00; Stop 10/12/18 at 14:15; Status DC Piperacillin Sod/ Tazobactam Sod 3.375 gm/Sodium Chloride 50 ml @ 100 mls/hr 1X ONCE IV Last administered on 10/06/18at 19:09; Start 10/06/18 at 19:30; Stop 10/06/18 at 19:59; Status DC Ondansetron HCl (Zofran) 4 mg PRN Q8HRS PRN IV NAUSEA/VOMITING; Start 10/06/18 at 19:00; Stop 10/07/18 at 18:59; Status DC Acetaminophen (Tylenol) 650 mg PRN Q4HRS PRN PO FEVER Last administered on 10/06at 20:29; Start 10/06/18 at 19:00; Stop 10/07/18 at 11:43; Status DC Albuterol/ Ipratropium (Duoneb) 3 ml RTQID NEB Last administered on 10/07/18at 19:59; Start 10/06/18 at 20:00; Stop 10/07/18 at 19:59; Status DC Ondansetron HCl (Zofran) 4 mg 1X ONCE IV Last administered on 10/06/18at 20:25 ; Start 10/06/18 at 20:30; Stop 10/06/18 at 20:34; Status DC Piperacillin Sod/ Tazobactam Sod 3.375 gm/Sodium Chloride 50 ml @ 100 mls/hr Q6HRS IV Last administered on 10/12/18at 12:37; Start 10/07/18 at 00:00; Stop at 14:15; Status DC Aspirin (Ecotrin) 81 mg DAILY PO Last administered on 10/07/18at 12:18; Start at 12:00 Atorvastatin Calcium (Lipitor) 10 mg HS PO Last administered on 10/07/18 22:13 ; Start 10/07/18 at 21:00 Baclofen (Lioresal) 10 mg HS PO Last administered on 10/07/18 22:12; Start at 21:00 Cyanocobalamin (Vitamin B-12) 1,000 mcg DAILY PO Last administered on 12:18; Start 10/07/18 at 12:00 Docusate Sodium (Colace) 100 mg BID PO Last administered on 10/07/18 22:13; Start 10/07/18 at 12:00 Furosemide (Lasix) 40 mg DAILY PO Last administered on 10/07/18 13:56; Start 10/07/18 at 12:00 Guaifenesin (Mucinex) 600 mg BID PO Last administered on 10/07/18 22:12; Start 10/07/18 at 12:00 Nystatin (Nystop) 1 gabriela TID TP Last administered on 10/13/18 11:26; Start at 14:00 Simethicone (Gas-X) 80 mg PRN Q6HRS PRN PO flatulence ; Start 10/07/18 at 11:45 Acetaminophen (Tylenol) 1,000 mg PRN BID PRN PO MILD PAIN Last administered on 10/07/18 16:47; Start 10/07/18 at 11:45 Bisacodyl (Dulcolax Supp) 10 mg PRN DAILY PRN AL CONSTIPATION; Start 10/07/18 at 11:45 Calcium Carbonate/ Glycine (Tums) 500 mg PRN Q12HR PRN PO INDIGESTION Last administered on 10/08/18 02:32; Start 10/07/18 at 11:45 Lactobacillus Rhamnosus (Culturelle) 1 cap BID PO Last administered on 22:13; Start 10/07/18 at 12:00 Non-Formulary Medication (Levothyroxine Sodium ) 40 mcg DAILYAC PRN PO hypothyroid ; Start 10/07/18 at 11:45; Stop 10/07/18 at 12:11; Status DC Loperamide HCl (Imodium) 2 mg PRN Q1HR PRN PO DIARRHEA; Start 10/07/18 at 12:00 Magnesium Oxide (Magnesium Oxide) 400 mg BID PO Last administered on 10/07/18 22:13; Start 10/07/18 at 12:00 Multivitamins (Thera M Plus) 1 tab DAILY PO Last administered on 10/07/18 12: 18; Start 10/07/18 at 12:00 Fish Oil (Fish Oil) 1,000 mg DAILY PO Last administered on 10/07/18 12:18; Start 10/07/18 at 12:00 Potassium Chloride (Klor-Con) 20 meq [id number] PO Last administered on 13:57; Start 10/07/18 at 12:00 Pregabalin (Lyrica) 100 mg TID PO Last administered on 10/07/18 22:13; Start 10/07/18 at 14:00 Famotidine (Pepcid) 20 mg QHS PO Last administered on 10/07/18 22:12; Start at 21:00; Stop 10/08/18 at 17:01; Status DC Sennosides (Senna) 8.6 mg DAILY PO Last administered on 10/07/18 12:18; Start 10/07/18 at 12:00 Levothyroxine Sodium (Synthroid) 25 mcg [id number] PO Last administered on 12:18; Start 10/07/18 at 12:30 Enoxaparin Sodium (Lovenox 40mg Syringe) 40 mg Q24H SQ Last administered on 20:48; Start 10/07/18 at 21:00 Enoxaparin Sodium (Lovenox 40mg Syringe) 40 mg Q24H SQ ; Start 10/07/18 at 19:00 ; Stop 10/08/18 at 09:23; Status DC Pantoprazole Sodium (Protonix) 40 mg DAILYAC PO ; Start 10/08/18 at 07:30; Stop 10/08/18 at 16:07; Status DC Codeine Sulfate (Codeine) 30 mg PRN Q6HRS PRN PO COUGH, 2nd CHOICE Last administered on 10/08/18 03:26; Start 10/08/18 at 03:15 Benzonatate (Tessalon Perle) 100 mg [id number] PO ; Start 10/08/18 at 09:00 Benzonatate (Tessalon Perle) 100 mg 1X ONCE PO Last administered on 10/08/18at 03:26; Start 10/08/18 at 03:15; Stop 10/08/18 at 03:16; Status DC Guaifenesin (Robitussin Dm) 10 ml PRN Q4HRS PRN PO COUGH, 1st CHOICE; Start at 07:30 Ondansetron HCl (Zofran) 4 mg PRN Q4HRS PRN IV NAUSEA/VOMITING Last administered on 10/08/18at 09:32; Start 10/08/18 at 07:30 Albuterol/ Ipratropium (Duoneb) 3 ml RTQID NEB Last administered on 10/13/18at 11:59; Start 10/08/18 at 08:00 Sodium Chloride 1,000 ml @ 75 mls/hr [id number] IV Last administered on at 00:46; Start 10/08/18 at 10:30 Iohexol (Omnipaque 300 Mg/ml) 75 ml 1X ONCE IV Last administered on 10/08/18at 11:30; Start 10/08/18 at 11:30; Stop 10/08/18 at 11:31; Status DC Info (CONTRAST GIVEN -- Rx MONITORING) 1 each PRN DAILY PRN MC SEE COMMENTS; Start 10/08/18 at 11:30; Stop 10/10/18 at 11:29; Status DC Ringer's Solution 1,000 ml @ 0 mls/hr Q0M IV Last administered on 10/08/18at 13 :31; Start 10/08/18 at 13:30; Stop 10/08/18 at 16:55; Status DC Ringer's Solution 1,000 ml @ 50 mls/hr Q20H IV ; Start 10/08/18 at 14:00; Stop 10/08/18 at 18:00; Status DC Propofol 20 ml @ As Directed STK-MED ONCE IV ; Start 10/08/18 at 13:48; Stop at 13:49; Status DC Albuterol Sulfate (Ventolin Neb Soln) 2.5 mg PRN 1X PRN NEB SHORTNESS OF BREATH Last administered on 10/08/18at 14:22; Start 10/08/18 at 14:15; Stop 10/08 at 18:00; Status DC Lidocaine HCl (Lidocaine 2% Viscous) 100 ml PRN 1X PRN MM MOUTH PAIN Last administered on 10/08/18at 14:21; Start 10/08/18 at 14:15; Stop 10/08/18 at 18:00 ; Status DC Lidocaine HCl (Lidocaine 1% 20ml Vial) 20 ml PRN 1X PRN INJ SEE COMMENTS Last administered on 10/08/18at 14:22; Start 10/08/18 at 14:15; Stop 10/08/18 at 18:00 ; Status DC Epinephrine HCl (Adrenalin) 1 mg PRN 1X PRN INJ SEE COMMENTS; Start 10/08/18 at 14:15; Stop 10/08/18 at 18:00; Status DC Lidocaine HCl 50 ml PRN 1X PRN MM SEE COMMENTS Last administered on 10/08/18at 14:21; Start 10/08/18 at 14:15; Stop 10/08/18 at 18:00; Status DC Epinephrine HCl (Adrenalin) 1 mg STK-MED ONCE .ROUTE ; Start 10/08/18 at 14:13; Stop 10/08/18 at 14:14; Status DC Lidocaine HCl (Lidocaine 1% 20ml Vial) 20 ml STK-MED ONCE .ROUTE ; Start at 14:13; Stop 10/08/18 at 14:14; Status DC Lidocaine HCl (Lidocaine 2% Viscous) 100 ml STK-MED ONCE .ROUTE ; Start at 14:13; Stop 10/08/18 at 14:14; Status DC Lidocaine HCl 50 ml STK-MED ONCE .ROUTE ; Start 10/08/18 at 14:14; Stop at 14:15; Status DC Pantoprazole Sodium (PROTONIX VIAL for IV PUSH) 40 mg BIDAC IVP Last administered on 10/10/18at 07:28; Start 10/08/18 at 16:30; Stop 10/10/18 at 11:15 ; Status DC Ringer's Solution 1,000 ml @ 100 mls/hr Q10H IV Last administered on at 11:24; Start 10/09/18 at 11:30; Stop 10/10/18 at 07:46; Status DC Propofol 20 ml @ As Directed STK-MED ONCE IV ; Start 10/09/18 at 12:02; Stop at 12:03; Status DC Lidocaine HCl (Lidocaine Pf 2% Vial) 5 ml STK-MED ONCE .ROUTE ; Start 10/09/18 at 12:02; Stop 10/09/18 at 12:03; Status DC Epinephrine HCl (EPINEPHrine SYRINGE) 1 mg STK-MED ONCE .ROUTE ; Start 10/09/18 at 13:18; Stop 10/09/18 at 13:19; Status DC Fentanyl Citrate (Fentanyl 2ml Vial) 50 mcg PRN Q4HRS PRN IV PAIN SEVERE Last administered on 10/12/18 02:37; Start 10/10/18 at 09:00 Fentanyl Citrate (Fentanyl 2ml Vial) 25 mcg PRN Q4HRS PRN IV PAIN MODERATE Last administered on 10/10/18at 09:36; Start 10/10/18 at 09:00 Lidocaine (Lidoderm) 1 patch DAILY TD Last administered on 10/13/18 09:02; Start 10/10/18 at 10:00 Miscellaneous (Lidoderm Patch Removal) 1 ea QHS MC Last administered on at 20:51; Start 10/10/18 at 21:00 Sucralfate (Carafate) 1 gm QIDACHS PEG ; Start 10/10/18 at 11:30 Pantoprazole Sodium (Protonix) 40 mg BIDAC PO ; Start 10/10/18 at 16:30; Stop at 11:14; Status DC Amino Acids/ Glycerin/ Electrolytes 1,000 ml @ 80 mls/hr [id number] IV Last administered on 10/13/18at 11:25; Start 10/10/18 at 14:45 Barium Sulfate (Varibar Thin Liquid Apple) 148 gm 1X ONCE PO Last administered on 10/11/18at 11:10; Start 10/11/18 at 10:15; Stop 10/11/18 at 10:16 ; Status DC Pantoprazole Sodium (PROTONIX VIAL for IV PUSH) 40 mg BIDAC IVP Last administered on 10/13/18at 09:01; Start 10/11/18 at 16:30 Albuterol/ Ipratropium (Duoneb) 3 ml 1X ONCE NEB Last administered on at 01:00; Start 10/12/18 at 01:00; Stop 10/12/18 at 01:01; Status DC Labetalol HCl (Normodyne Iv Push) 20 mg PRN Q2HR PRN IVP SBP>160, 2ND CHOICE Last administered on 10/12/18at 03:51; Start 10/12/18 at 03:45 Hydralazine HCl (Apresoline Inj) 10 mg PRN Q4HRS PRN IVP SBP>160, 1ST CHOICE Last administered on 10/13/18at 11:26; Start 10/12/18 at 04:45 Albuterol/ Ipratropium (Duoneb) 3 ml 1X ONCE NEB Last administered on at 05:52; Start 10/12/18 at 06:00; Stop 10/12/18 at 06:01; Status DC Hydralazine HCl (Apresoline Inj) 10 mg PRN Q4HRS PRN IVP ELEVATED BP, SEE COMMENTS; Start 10/12/18 at 15:30; Status Cancel Albuterol Sulfate (Ventolin Neb Soln) 2.5 mg PRN Q2HR PRN NEB SHORTNESS OF BREATH; Start 10/12/18 at 18:45 Active Scripts Active Reported Thera-Tabs M Caplet (Multivits,Ca,Minerals/Iron/Fa) 1 Each Tablet 1 Each PO DAILY Senna (Sennosides) 8.6 Mg Tablet 8.6 Mg PO DAILY Ranitidine Hcl 150 Mg Tablet 150 Mg PO HS Lyrica (Pregabalin) 100 Mg Capsule 1 Cap PO TID Potassium Chloride 20 Meq Tablet.er 20 Meq PO DAILY Nystatin 15 Gm Powder 1 Gabriela TP TID Simethicone 80 Mg Tab.chew 80 Mg PO PRN Q6HRS PRN Mucinex (Guaifenesin) 600 Mg Tablet.er 1 Tab PO BID Mapap (Acetaminophen) 500 Mg Tablet 1,000 Mg PO PRN BID PRN Magnesium Oxide 400 Mg Tablet 400 Mg PO BID Loperamide (Loperamide Hcl) 2 Mg Capsule 2 Mg PO PRN Q1HR PRN Levothyroxine Sodium 50 Mcg Tablet 40 Mcg PO DAILYAC PRN Furosemide 40 Mg Tablet 1 Tab PO DAILY Fish Oil-Vit D3 Softgel (Omega3/Dha/Epa/Fish Oil/Vit D3) 1 Each Capsule 1 Each PO DAILY Docusate Sodium 100 Mg Capsule 100 Mg PO BID Vitamin B-12 (Cyanocobalamin (Vitamin B-12)) 1,000 Mcg Tablet 1 Tab PO DAILY Culturelle Probiotics Capsule (L. Rhamnosus GG/Inulin) 1 Each Capsule 1 Each PO BID Tums Ultra (Calcium Carbonate) 400 Mg Tab.chew 400 Mg PO PRN Q12HR PRN Dulcolax (Bisacodyl) 10 Mg Supp.rect 10 Mg RC PRN DAILY PRN Baclofen 10 Mg Tablet 10 Mg PO HS Atorvastatin Calcium 10 Mg Tablet 10 Mg PO HS Aspirin Ec (Aspirin) 81 Mg Tablet.dr 1 Tab PO DAILY Vitals/I & O Vital Sign - Last 24 Hours 10/12/18 10/12/18 10/12/18 10/12/18 15:00 16:39 19:01 19:16 Temp 98.0 98.0 Pulse 91 91 Resp 18 B/P (MAP) 166/113 (130) 166/113 Pulse Ox 98 O2 Delivery Room Air Nasal Cannula Room Air O2 Flow Rate 2.0 2.0 10/12/18 10/12/18 10/12/18 10/13/18 19:32 19:50 23:29 03:00 Temp 98.1 98.4 97.9 98.1 98.4 97.9 Pulse 115 89 93 Resp 24 24 23 B/P (MAP) 151/95 (113) 164/72 (102) 136/68 (90) Pulse Ox 95 96 97 99 O2 Delivery Nasal Cannula Nasal Cannula Nasal Cannula Nasal Cannula O2 Flow Rate 2.0 2.0 2.0 2.0 10/13/18 10/13/18 10/13/18 10/13/18 06:08 07:53 09:00 11:00 Temp 98.0 98.3 98.0 98.3 Pulse 92 90 Resp 23 B/P (MAP) 149/78 (101) 181/88 (119) Pulse Ox 99 99 O2 Delivery Nasal Cannula Nasal Cannula Room Air Nasal Cannula O2 Flow Rate 2.0 2.0 2.0 2.0 10/13/18 10/13/18 10/13/18 11:26 12:00 14:25 Temp 97.9 97.9 Pulse 75 99 Resp 24 B/P (MAP) 181/85 161/100 (120) Pulse Ox 97 98 O2 Delivery Nasal Cannula Nasal Cannula O2 Flow Rate 2.0 2.0 Intake and Output 10/12/18 10/12/18 10/13/18 15:00 23:00 07:00 Intake Total 50 ml 800 ml 0 ml Balance 50 ml 800 ml 0 ml Nutrition Consultation Dietary Evaluation: Recommendations by RD: Increase Calorie Intake, Protein supplementation Comments: REC diet advancement per IMAGING SPECIALIST, goal diet cardiac REC dbl meat portions for increased protein needs REC Vit C (500 mg BID) and MVI q day - wound healing Expected Outcomes/Goals: diet advancement Malnutrition Findings: Body Fat Depletion (Non Severe: Mild Depletion Weight Status: Appropriate ARIANNA JOLLY MD Oct 13, 2018 14:55
[2018-10-13 19:48] VITALS: BP 171/88
[2018-10-13] MEDS: BACLOFEN 10 MG TABLET. PO SCH (20:15)
[2018-10-13] MEDS: ATORVASTATIN CALCIUM 10 MG TABLET. PO SCH (20:15)
[2018-10-13] MEDS: PATCH REMOVAL. MC SCH (20:19)
[2018-10-13] MEDS: ENOXAPARIN 40 MG/0.4 ML SYRINGE. SQ SCH (20:22)
[2018-10-13 23:21] VITALS: BP 156/80
[2018-10-14] VITALS (7 sets, daily range): BP systolic 150–161; BP diastolic 70–100
[2018-10-14] MEDS: fentaNYL PF VIAL 100 MCG/2 ML VIAL IV PRN ×2 (00:51→09:26)
[2018-10-14] MEDS: AMINO AC 3%/ELECTROLYTE/GLYCER 1,000 ML IV SCH (05:20)
[2018-10-14] MEDS: LEVOTHYROXINE 25 MCG TABLET. PO SCH (05:20)
[2018-10-14 05:37] LABS: BASO % 1 % (0-3); EOS # 0.1 x10^3/uL (0.0-0.7); EOS % 2 % (0-3); LYMPH # 0.9 x10^3/uL (1.0-4.8); LYMPH % 17 % (24-48); MEAN CORPUSCULAR HEMOGLOBIN 28 pg (25-35); MEAN CORPUSCULAR HGB CONC 32 g/dL (31-37); MEAN CORPUSCULAR VOLUME 88 fL (79-100); MONO # 0.6 x10^3/uL (0.0-1.1); MONO % 10 % (0-9); NEUT % 71 % (31-73); PLATELET COUNT 201 x10^3/uL (140-400); RED BLOOD COUNT 3.54 x10^6/uL (3.50-5.40); RED CELL DISTRIBUTION WIDTH 15.7 % (11.5-14.5); WHITE BLOOD COUNT 5.7 x10^3/uL (4.0-11.0)
[2018-10-14 05:40] LABS: ALBUMIN 2.5 g/dL (3.4-5.0); CALCIUM 8.7 mg/dL (8.5-10.1); CREATININE 0.7 mg/dL (0.6-1.0); GFR 80.1; PHOSPHORUS 2.8 mg/dL (2.6-4.7); POTASSIUM 3.9 mmol/L (3.5-5.1)
[2018-10-14] MEDS: SUCRALFATE 1 GM/10 ML ORAL.SUSP. PEG SCH ×5 (07:30→20:59)
[2018-10-14] MEDS: POTASSIUM CHLORIDE 20 MEQ TABLET.ER. PO SCH (08:00)
[2018-10-14] MEDS: PANTOPRAZOLE IV PUSH 40 MG VIAL. IVP SCH ×2 (08:09→17:14)
[2018-10-14] MEDS: NYSTATIN TOPICAL POWDER 15GM BOTTLE. TP SCH ×3 (08:10→20:58)
[2018-10-14] MEDS: LIDOCAINE (700MG/PATCH) PATCH. TD SCH (08:10)
[2018-10-14] MEDS: IPRATRPIUM/ALBUTEROL 0.5/2.5MG 3 ML NEBU. NEB SCH ×4 (08:16→19:26)
--- NOTE | 2018-10-14 08:30 | PDOC ---
GI PROGRESS NOTES Date Date/Time DATE: 10/14/18 TIME: 08:26 Subjective Subjective in bed- with breathing treatment in place- still NPO Objective Vitals Vital Signs Date Time Temp Pulse Resp B/P (MAP) Pulse Ox O2 Delivery O2 Flow Rate FiO2 10/14/18 08:18 95 Nasal Cannula 2.0 10/14/18 07:21 97.7 94 20 156/96 (116) 96 Nasal Cannula 2.0 97.7 10/14/18 03:32 109 161/96 (117) 10/14/18 03:23 97.4 119 23 154/100 (118) 97 Nasal Cannula 2.0 97.4 10/14/18 01:21 20 97 Nasal Cannula 2.0 10/14/18 00:51 20 97 Nasal Cannula 2.0 10/13/18 23:21 97.4 116 20 156/80 (105) 97 Nasal Cannula 2.0 97.4 10/13/18 20:41 95 Nasal Cannula 2.0 10/13/18 20:27 Non-Rebreather 2.0 10/13/18 19:48 97.9 105 20 171/88 (115) 96 Nasal Cannula 2.0 97.9 10/13/18 16:50 Nasal Cannula 2.0 10/13/18 14:25 97.9 99 24 161/100 (120) 98 Nasal Cannula 2.0 97.9 10/13/18 12:00 97 Nasal Cannula 2.0 10/13/18 11:26 75 181/85 10/13/18 11:00 98.3 90 23 181/88 (119) 99 Nasal Cannula 2.0 98.3 10/13/18 09:00 Room Air 2.0 Labs Labs Laboratory Tests Test 10/13/18 08:30 10/14/18 05:00 White Blood Count 5.6 x10^3/uL (4.0-11.0) 5.7 x10^3/uL (4.0-11.0) Red Blood Count 3.50 x10^6/uL (3.50-5.40) 3.54 x10^6/uL (3.50-5.40) Hemoglobin 9.9 g/dL (12.0-15.5) 10.0 g/dL (12.0-15.5) Hematocrit 30.6 % (36.0-47.0) 31.0 % (36.0-47.0) Mean Corpuscular Volume 87 fL (79-100) 88 fL (79-100) Mean Corpuscular Hemoglobin 28 pg (25-35) 28 pg (25-35) Mean Corpuscular Hemoglobin Concent 32 g/dL (31-37) 32 g/dL (31-37) Red Cell Distribution Width 15.8 % (11.5-14.5) 15.7 % (11.5-14.5) Platelet Count 183 x10^3/uL (140-400) 201 x10^3/uL (140-400) Neutrophils (%) (Auto) 69 % (31-73) 71 % (31-73) Lymphocytes (%) (Auto) 17 % (24-48) 17 % (24-48) Monocytes (%) (Auto) 10 % (0-9) 10 % (0-9) Eosinophils (%) (Auto) 3 % (0-3) 2 % (0-3) Basophils (%) (Auto) 1 % (0-3) 1 % (0-3) Neutrophils # (Auto) 3.9 x10^3uL (1.8-7.7) 4.0 x10^3uL (1.8-7.7) Lymphocytes # (Auto) 1.0 x10^3/uL (1.0-4.8) 0.9 x10^3/uL (1.0-4.8) Monocytes # (Auto) 0.6 x10^3/uL (0.0-1.1) 0.6 x10^3/uL (0.0-1.1) Eosinophils # (Auto) 0.1 x10^3/uL (0.0-0.7) 0.1 x10^3/uL (0.0-0.7) Basophils # (Auto) 0.0 x10^3/uL (0.0-0.2) 0.0 x10^3/uL (0.0-0.2) Sodium Level 147 mmol/L (136-145) 144 mmol/L (136-145) Potassium Level 3.8 mmol/L (3.5-5.1) 3.9 mmol/L (3.5-5.1) Chloride Level 110 mmol/L (98-107) 109 mmol/L (98-107) Carbon Dioxide Level 26 mmol/L (21-32) 26 mmol/L (21-32) Anion Gap 11 (6-14) 9 (6-14) Blood Urea Nitrogen 28 mg/dL (7-20) 30 mg/dL (7-20) Creatinine 0.7 mg/dL (0.6-1.0) 0.7 mg/dL (0.6-1.0) Estimated GFR (Cockcroft-Gault) 80.1 80.1 Glucose Level 120 mg/dL (70-99) 111 mg/dL (70-99) Calcium Level 8.8 mg/dL (8.5-10.1) 8.7 mg/dL (8.5-10.1) Phosphorus Level 2.8 mg/dL (2.6-4.7) Albumin 2.5 g/dL (3.4-5.0) Physical Exam Physical Exam chest - few rhonchi Cor- RRR Abd- soft non tender Assessment Assessment Failed video swallow with iman-pharyngeal dysphagia- NPO on PPN- await speech re-evaluation and then discussion about placement of DHT as interval step for enteric feeding and meds Ulcerative esophagitis and bleeding- appears stable- hopefully should be able to tolerate placement of DHT without exacerbation of bleeding Plan - continue present meds and treatment- await decision on DB tube repeat EGD later to confirm healing OFELIA KELLEY MD Oct 14, 2018 08:30
[2018-10-14] MEDS: LACTOBACILLUS RHAMNOSUS GG 1 CAPSULE. PO SCH ×2 (08:53→20:59)
[2018-10-14] MEDS: DOCUSATE SODIUM 100 MG CAPSULE. PO SCH ×2 (08:53→20:59)
[2018-10-14] MEDS: PREGABALIN 50 MG CAPSULE PO SCH ×3 (08:54→21:00)
[2018-10-14] MEDS: FUROSEMIDE 40 MG TABLET. PO SCH (08:54)
[2018-10-14] MEDS: OMEGA-3 FATTY ACIDS/FISH OIL 1,000 MG CAPSULE. PO SCH (08:54)
[2018-10-14] MEDS: ASPIRIN ENTERIC COATED 81 MG TABLET.DR. PO SCH (08:54)
[2018-10-14] MEDS: CYANOCOBALAMIN (VITAMIN B-12) 1,000 MCG TABLET. PO SCH (08:55)
[2018-10-14] MEDS: MAGNESIUM OXIDE 400 MG TABLET PO SCH ×2 (08:55→21:00)
[2018-10-14] MEDS: BENZONATATE 100 MG CAPSULE. PO SCH ×3 (08:55→21:00)
[2018-10-14] MEDS: MULTIVITAMIN with MINERAL TABLET. PO SCH (08:55)
[2018-10-14] MEDS: SENNOSIDES 8.6 MG TABLET PO SCH (08:55)
--- NOTE | 2018-10-14 09:01 | PDOC ---
PULMONARY PROGRESS NOTES Subjective NO MORE BLEEDING Vitals Vital Signs Date Time Temp Pulse Resp B/P (MAP) Pulse Ox O2 Delivery O2 Flow Rate FiO2 10/14/18 08:18 95 Nasal Cannula 2.0 10/14/18 07:21 97.7 94 20 156/96 (116) 97.7 ROS: No Nausea, No Chest Pain, No Abdominal Pain, No Increase Cough General: Alert Lungs: Crackles Cardiovascular: S1, S2 Abdomen: Soft Neuro Exam: Alert Extremities: No Edema Skin: Warm Labs Laboratory Tests Test 10/13/18 08:30 10/14/18 05:00 White Blood Count 5.6 x10^3/uL (4.0-11.0) 5.7 x10^3/uL (4.0-11.0) Red Blood Count 3.50 x10^6/uL (3.50-5.40) 3.54 x10^6/uL (3.50-5.40) Hemoglobin 9.9 g/dL (12.0-15.5) 10.0 g/dL (12.0-15.5) Hematocrit 30.6 % (36.0-47.0) 31.0 % (36.0-47.0) Mean Corpuscular Volume 87 fL (79-100) 88 fL (79-100) Mean Corpuscular Hemoglobin 28 pg (25-35) 28 pg (25-35) Mean Corpuscular Hemoglobin Concent 32 g/dL (31-37) 32 g/dL (31-37) Red Cell Distribution Width 15.8 % (11.5-14.5) 15.7 % (11.5-14.5) Platelet Count 183 x10^3/uL (140-400) 201 x10^3/uL (140-400) Neutrophils (%) (Auto) 69 % (31-73) 71 % (31-73) Lymphocytes (%) (Auto) 17 % (24-48) 17 % (24-48) Monocytes (%) (Auto) 10 % (0-9) 10 % (0-9) Eosinophils (%) (Auto) 3 % (0-3) 2 % (0-3) Basophils (%) (Auto) 1 % (0-3) 1 % (0-3) Neutrophils # (Auto) 3.9 x10^3uL (1.8-7.7) 4.0 x10^3uL (1.8-7.7) Lymphocytes # (Auto) 1.0 x10^3/uL (1.0-4.8) 0.9 x10^3/uL (1.0-4.8) Monocytes # (Auto) 0.6 x10^3/uL (0.0-1.1) 0.6 x10^3/uL (0.0-1.1) Eosinophils # (Auto) 0.1 x10^3/uL (0.0-0.7) 0.1 x10^3/uL (0.0-0.7) Basophils # (Auto) 0.0 x10^3/uL (0.0-0.2) 0.0 x10^3/uL (0.0-0.2) Sodium Level 147 mmol/L (136-145) 144 mmol/L (136-145) Potassium Level 3.8 mmol/L (3.5-5.1) 3.9 mmol/L (3.5-5.1) Chloride Level 110 mmol/L (98-107) 109 mmol/L (98-107) Carbon Dioxide Level 26 mmol/L (21-32) 26 mmol/L (21-32) Anion Gap 11 (6-14) 9 (6-14) Blood Urea Nitrogen 28 mg/dL (7-20) 30 mg/dL (7-20) Creatinine 0.7 mg/dL (0.6-1.0) 0.7 mg/dL (0.6-1.0) Estimated GFR (Cockcroft-Gault) 80.1 80.1 Glucose Level 120 mg/dL (70-99) 111 mg/dL (70-99) Calcium Level 8.8 mg/dL (8.5-10.1) 8.7 mg/dL (8.5-10.1) Phosphorus Level 2.8 mg/dL (2.6-4.7) Albumin 2.5 g/dL (3.4-5.0) Laboratory Tests Test 10/14/18 05:00 White Blood Count 5.7 x10^3/uL (4.0-11.0) Red Blood Count 3.54 x10^6/uL (3.50-5.40) Hemoglobin 10.0 g/dL (12.0-15.5) Hematocrit 31.0 % (36.0-47.0) Mean Corpuscular Volume 88 fL (79-100) Mean Corpuscular Hemoglobin 28 pg (25-35) Mean Corpuscular Hemoglobin Concent 32 g/dL (31-37) Red Cell Distribution Width 15.7 % (11.5-14.5) Platelet Count 201 x10^3/uL (140-400) Neutrophils (%) (Auto) 71 % (31-73) Lymphocytes (%) (Auto) 17 % (24-48) Monocytes (%) (Auto) 10 % (0-9) Eosinophils (%) (Auto) 2 % (0-3) Basophils (%) (Auto) 1 % (0-3) Neutrophils # (Auto) 4.0 x10^3uL (1.8-7.7) Lymphocytes # (Auto) 0.9 x10^3/uL (1.0-4.8) Monocytes # (Auto) 0.6 x10^3/uL (0.0-1.1) Eosinophils # (Auto) 0.1 x10^3/uL (0.0-0.7) Basophils # (Auto) 0.0 x10^3/uL (0.0-0.2) Sodium Level 144 mmol/L (136-145) Potassium Level 3.9 mmol/L (3.5-5.1) Chloride Level 109 mmol/L (98-107) Carbon Dioxide Level 26 mmol/L (21-32) Anion Gap 9 (6-14) Blood Urea Nitrogen 30 mg/dL (7-20) Creatinine 0.7 mg/dL (0.6-1.0) Estimated GFR (Cockcroft-Gault) 80.1 Glucose Level 111 mg/dL (70-99) Calcium Level 8.7 mg/dL (8.5-10.1) Phosphorus Level 2.8 mg/dL (2.6-4.7) Albumin 2.5 g/dL (3.4-5.0) Medications Active Scripts Medications Dose Route/Sig Max Daily Dose Days Date Category Thera-Tabs M Caplet (Multivits,Ca,Minerals/Iron/Fa) 1 Each Tablet 1 Each PO DAILY 10/07/18 Reported Senna (Sennosides) 8.6 Mg Tablet 8.6 Mg PO DAILY 10/07/18 Reported Ranitidine Hcl 150 Mg Tablet 150 Mg PO HS 10/07/18 Reported Lyrica (Pregabalin) 100 Mg Capsule 1 Cap PO TID 10/07/18 Reported Potassium Chloride 20 Meq Tablet.er 20 Meq PO DAILY 10/07/18 Reported Nystatin 15 Gm Powder 1 Gabriela TP TID 10/07/18 Reported Simethicone 80 Mg Tab.chew 80 Mg PO PRN Q6HRS PRN 10/07/18 Reported Mucinex (Guaifenesin) 600 Mg Tablet.er 1 Tab PO BID 10/07/18 Reported Mapap (Acetaminophen) 500 Mg Tablet 1,000 Mg PO PRN BID PRN 10/07/18 Reported Magnesium Oxide 400 Mg Tablet 400 Mg PO BID 10/07/18 Reported Loperamide (Loperamide Hcl) 2 Mg Capsule 2 Mg PO PRN Q1HR PRN 10/07/18 Reported Levothyroxine Sodium 50 Mcg Tablet 40 Mcg PO DAILYAC PRN 10/07/18 Reported Furosemide 40 Mg Tablet 1 Tab PO DAILY 10/07/18 Reported Fish Oil-Vit D3 Softgel (Omega3/Dha/Epa/Fish Oil/Vit D3) 1 Each Capsule 1 Each PO DAILY 10/07/18 Reported Docusate Sodium 100 Mg Capsule 100 Mg PO BID 10/07/18 Reported Vitamin B-12 (Cyanocobalamin (Vitamin B-12)) 1,000 Mcg Tablet 1 Tab PO DAILY 10/07/18 Reported Culturelle Probiotics Capsule (L. Rhamnosus GG/Inulin) 1 Each Capsule 1 Each PO BID 10/07/18 Reported Tums Ultra (Calcium Carbonate) 400 Mg Tab.chew 400 Mg PO PRN Q12HR PRN 10/07/18 Reported Dulcolax (Bisacodyl) 10 Mg Supp.rect 10 Mg RC PRN DAILY PRN 10/07/18 Reported Baclofen 10 Mg Tablet 10 Mg PO HS 10/07/18 Reported Atorvastatin Calcium 10 Mg Tablet 10 Mg PO HS 10/07/18 Reported Aspirin Ec (Aspirin) 81 Mg Tablet.dr 1 Tab PO DAILY 10/07/18 Reported Impression . IMPRESSION: 1. Progressive dyspnea secondary to secondary pulmonary hypertension, acute exacerbation of chronic obstructive pulmonary disease. 2. Acute exacerbation of chronic obstructive pulmonary disease. 3. Pulmonary hypertension. The patient recently evaluated at [facility], declined right heart catheterization. 4. Chest pain per Cardiology. 5. Chronic atrial fibrillation. 6. Scleroderma. 7. Right lower extremity cellulitis. 8. HEMATEMESIS BROCNH FINDINGS: 1. Normal vocal cords. 2. No endobronchial lesion. 3. No active bleeding. EGD Esophagus- shortened with diffuse ulceration in distal 1/3, with active bleeding and adherent clot ? MW tear as well- carmen removed, treated with 3 cc of epinephrine 1:10,000 and bipolar cautery- with control- 6 cm HH, stomach with clots - no active bleeding seen but exam limited due to clots- duodenum appeared normal Plan- NPO then CLD PPI BID carafate slurry QID repeat EGD in 1 week if stable or earlier if bleeding continues ECHO <Conclusion> Abnormal septal motion consistent with conduction abnormality. The Ejection Fraction is 50%. Trace aortic regurgitation. Trace to mild mitral regurgitation. Mild tricuspid regurgitation. The PA pressure was estimated at 33 mmHg. There is no evidence of significant pericardial effusion. Plan . OK TO TRANSFER IN AM RESP STATUS IS COMPENSATED WILL HUMIDIFY 02 NPO, BBHOFF FOR NUTRITION FOLLOW GI INPUT D/W NATALIE DIAZ MD Oct 14, 2018 09:01
[2018-10-14] MEDS: LABETALOL 20 MG/4 ML DISP.SYRIN. IVP PRN ×2 (09:37→18:07)
--- NOTE | 2018-10-14 13:03 | NUR ---
SS following up with discharge planning. SS phoned and faxed clinical updates to [facility], ; fax [phone]. Per RN pt not stable for discharge at this time. Palliative Care Consulted. SS will continue to follow for discharge planning.
--- NOTE | 2018-10-14 13:51 | PDOC ---
PROGRESS NOTES History of Present Illness History of Present Illness Assessment/Plan Assessment/Plan IMPRESSION 1. ACUTE COPD EXAC 2. Chest pain, atypical. 2. Dyspnea, //URI. 3. Chronic diastolic CHF Abnormal septal motion consistent with conduction abnormality. The Ejection Fraction is 50%. ECHO 10/07 4. Chronic AFIB; 5. Scleroderma 6. Raynaud's 7. RLE cellulitis, wound 8. left chest deep brain stimulator for essential tremors 9. GERD 10. Hypothyroid state on replacement 11. Right 2nd toe infection. 12. MARKED Hemoptysis 100cc this AM 10/08 RESOLVED 13 shortened with diffuse ulceration in distal 1/3, with active bleeding and adherent clot ? MW tear - carmen removed, treated with 3 cc of epinephrine 1:10, 000 and bipolar cautery- 14. Large hiatal hernia with retained fluid and debris in a distended thoracic esophagus. Postsurgical changes related to a previous esophageal resection could also give this appearance. 15. mild hypernatremia, monitor 10/09 HEMOPTYSIS VS HEMATEMESIS REMAINS NPO/// BRONCH NO LESION SEEN, GI FOLLOWING 10/10 failed bedside swallow and is still NPO - PPN ordered 10/11 FAILED SWALLOW STUDY, WILL D/W GI planning dobhoff 10/14 Disordered swallowing mechanism with moderate residue and mild intermittent laryngeal penetration with minimal aspiration 10/14 Daughter desires DNR designation dobhoff placed Enteric feeding catheter within the proximal stomach. on kub significant declines, severe prognosis very guarded, Family meeting . // PAT consulted PROCEDURE NOTE PROCEDURE 09/11 Procedure EGD with control of bleeding Esophagus- shortened with diffuse ulceration in distal 1/3, with active bleeding and adherent clot ? MW tear as well- carmen removed, treated with 3 cc of epinephrine 1:10,000 and bipolar cautery- with control- 6 cm HH, stomach with clots - no active bleeding seen but exam limited due to clots- duodenum appeared normal Plan- dobhoff PLAN PPN d/c CT CHEST reviewed INR ok GI following PULM following Cardiology consult Echo RLE arterial duplex US Obtain med records from dvt prophylaxis iv zosyn 35 min pt exam, record review, > 50% of time with exam, chart review, pt care coordination. Vitals Vitals Vital Signs Date Time Temp Pulse Resp B/P (MAP) Pulse Ox O2 Delivery O2 Flow Rate FiO2 10/14/18 11:59 95 Nasal Cannula 2.0 10/14/18 11:00 97.8 95 20 155/74 (101) 97.8 Physical Exam General: Alert, Oriented X3, Cooperative, mild distress, Other (frail appearing ) Heart: Regular rate, Normal S1, Other (irregular rhythm with 2/6 systolic murmur) Lungs: Crackles Abdomen: Normal bowel sounds, Soft, No tenderness Extremities: No clubbing, No cyanosis, No edema, Normal pulses, Other (strong dorsalis pedis pulse on the right with a Quant of flow of 1.08) Skin: No breakdown, No significant lesion, Other (1.3 cm ulceration to the dorsal aspect right second toe with no evidence of exposed tendon or bone at this time. The toe itself is modestly edematous with mild erythema) Labs LABS EXAM: Abdomen, single view. HISTORY: Dobbhoff placement. COMPARISON: None. FINDINGS: A frontal view of the abdomen is obtained. There is an enteric feeding catheter with the tip in the proximal stomach. There is contrast within the colon. There are prominent air-filled air-filled loops of bowel throughout the abdomen. There is a generator overlying the left thorax. There is cardiomegaly and a suspected small left pleural effusion and left lower lobe atelectasis or infiltrate. IMPRESSION: 1. Enteric feeding catheter within the proximal stomach. 2. Prominent air-filled bowel throughout the abdomen. No clear transition point is seen. There is contrast within the colon. 3. Suspected small left pleural effusion with lower lobe atelectasis or infiltrate. Correlate with a dedicated chest radiograph. Electronically signed by: Yesi Adkins MD (10/14/2018 3:04 PM) [id number] DICTATED and SIGNED BY: YESI ADKINS MD DATE: 10/14/18 1504 Laboratory Tests Test 10/14/18 05:00 White Blood Count 5.7 x10^3/uL (4.0-11.0) Red Blood Count 3.54 x10^6/uL (3.50-5.40) Hemoglobin 10.0 g/dL (12.0-15.5) Hematocrit 31.0 % (36.0-47.0) Mean Corpuscular Volume 88 fL (79-100) Mean Corpuscular Hemoglobin 28 pg (25-35) Mean Corpuscular Hemoglobin Concent 32 g/dL (31-37) Red Cell Distribution Width 15.7 % (11.5-14.5) Platelet Count 201 x10^3/uL (140-400) Neutrophils (%) (Auto) 71 % (31-73) Lymphocytes (%) (Auto) 17 % (24-48) Monocytes (%) (Auto) 10 % (0-9) Eosinophils (%) (Auto) 2 % (0-3) Basophils (%) (Auto) 1 % (0-3) Neutrophils # (Auto) 4.0 x10^3uL (1.8-7.7) Lymphocytes # (Auto) 0.9 x10^3/uL (1.0-4.8) Monocytes # (Auto) 0.6 x10^3/uL (0.0-1.1) Eosinophils # (Auto) 0.1 x10^3/uL (0.0-0.7) Basophils # (Auto) 0.0 x10^3/uL (0.0-0.2) Sodium Level 144 mmol/L (136-145) Potassium Level 3.9 mmol/L (3.5-5.1) Chloride Level 109 mmol/L (98-107) Carbon Dioxide Level 26 mmol/L (21-32) Anion Gap 9 (6-14) Blood Urea Nitrogen 30 mg/dL (7-20) Creatinine 0.7 mg/dL (0.6-1.0) Estimated GFR (Cockcroft-Gault) 80.1 Glucose Level 111 mg/dL (70-99) Calcium Level 8.7 mg/dL (8.5-10.1) Phosphorus Level 2.8 mg/dL (2.6-4.7) Albumin 2.5 g/dL (3.4-5.0) Assessment and Plan Assessmemt and Plan Problems Medical Problems: (1) Chest pain Status: Acute (2) Pneumonia Status: Acute Comment Review of Relevant I have reviewed the following items tara (where applicable) has been applied. Labs Laboratory Tests Test 10/13/18 08:30 10/14/18 05:00 White Blood Count 5.6 x10^3/uL (4.0-11.0) 5.7 x10^3/uL (4.0-11.0) Red Blood Count 3.50 x10^6/uL (3.50-5.40) 3.54 x10^6/uL (3.50-5.40) Hemoglobin 9.9 g/dL (12.0-15.5) 10.0 g/dL (12.0-15.5) Hematocrit 30.6 % (36.0-47.0) 31.0 % (36.0-47.0) Mean Corpuscular Volume 87 fL (79-100) 88 fL (79-100) Mean Corpuscular Hemoglobin 28 pg (25-35) 28 pg (25-35) Mean Corpuscular Hemoglobin Concent 32 g/dL (31-37) 32 g/dL (31-37) Red Cell Distribution Width 15.8 % (11.5-14.5) 15.7 % (11.5-14.5) Platelet Count 183 x10^3/uL (140-400) 201 x10^3/uL (140-400) Neutrophils (%) (Auto) 69 % (31-73) 71 % (31-73) Lymphocytes (%) (Auto) 17 % (24-48) 17 % (24-48) Monocytes (%) (Auto) 10 % (0-9) 10 % (0-9) Eosinophils (%) (Auto) 3 % (0-3) 2 % (0-3) Basophils (%) (Auto) 1 % (0-3) 1 % (0-3) Neutrophils # (Auto) 3.9 x10^3uL (1.8-7.7) 4.0 x10^3uL (1.8-7.7) Lymphocytes # (Auto) 1.0 x10^3/uL (1.0-4.8) 0.9 x10^3/uL (1.0-4.8) Monocytes # (Auto) 0.6 x10^3/uL (0.0-1.1) 0.6 x10^3/uL (0.0-1.1) Eosinophils # (Auto) 0.1 x10^3/uL (0.0-0.7) 0.1 x10^3/uL (0.0-0.7) Basophils # (Auto) 0.0 x10^3/uL (0.0-0.2) 0.0 x10^3/uL (0.0-0.2) Sodium Level 147 mmol/L (136-145) 144 mmol/L (136-145) Potassium Level 3.8 mmol/L (3.5-5.1) 3.9 mmol/L (3.5-5.1) Chloride Level 110 mmol/L (98-107) 109 mmol/L (98-107) Carbon Dioxide Level 26 mmol/L (21-32) 26 mmol/L (21-32) Anion Gap 11 (6-14) 9 (6-14) Blood Urea Nitrogen 28 mg/dL (7-20) 30 mg/dL (7-20) Creatinine 0.7 mg/dL (0.6-1.0) 0.7 mg/dL (0.6-1.0) Estimated GFR (Cockcroft-Gault) 80.1 80.1 Glucose Level 120 mg/dL (70-99) 111 mg/dL (70-99) Calcium Level 8.8 mg/dL (8.5-10.1) 8.7 mg/dL (8.5-10.1) Phosphorus Level 2.8 mg/dL (2.6-4.7) Albumin 2.5 g/dL (3.4-5.0) Laboratory Tests Test 10/14/18 05:00 White Blood Count 5.7 x10^3/uL (4.0-11.0) Red Blood Count 3.54 x10^6/uL (3.50-5.40) Hemoglobin 10.0 g/dL (12.0-15.5) Hematocrit 31.0 % (36.0-47.0) Mean Corpuscular Volume 88 fL (79-100) Mean Corpuscular Hemoglobin 28 pg (25-35) Mean Corpuscular Hemoglobin Concent 32 g/dL (31-37) Red Cell Distribution Width 15.7 % (11.5-14.5) Platelet Count 201 x10^3/uL (140-400) Neutrophils (%) (Auto) 71 % (31-73) Lymphocytes (%) (Auto) 17 % (24-48) Monocytes (%) (Auto) 10 % (0-9) Eosinophils (%) (Auto) 2 % (0-3) Basophils (%) (Auto) 1 % (0-3) Neutrophils # (Auto) 4.0 x10^3uL (1.8-7.7) Lymphocytes # (Auto) 0.9 x10^3/uL (1.0-4.8) Monocytes # (Auto) 0.6 x10^3/uL (0.0-1.1) Eosinophils # (Auto) 0.1 x10^3/uL (0.0-0.7) Basophils # (Auto) 0.0 x10^3/uL (0.0-0.2) Sodium Level 144 mmol/L (136-145) Potassium Level 3.9 mmol/L (3.5-5.1) Chloride Level 109 mmol/L (98-107) Carbon Dioxide Level 26 mmol/L (21-32) Anion Gap 9 (6-14) Blood Urea Nitrogen 30 mg/dL (7-20) Creatinine 0.7 mg/dL (0.6-1.0) Estimated GFR (Cockcroft-Gault) 80.1 Glucose Level 111 mg/dL (70-99) Calcium Level 8.7 mg/dL (8.5-10.1) Phosphorus Level 2.8 mg/dL (2.6-4.7) Albumin 2.5 g/dL (3.4-5.0) Microbiology 10/06/18 Blood Culture - Final, Complete NO GROWTH AFTER 5 DAYS Medications Current Medications Piperacillin Sod/ Tazobactam Sod (Zosyn Per Pharmacy) 1 each PRN DAILY PRN MC SEE COMMENTS; Start 10/06/18 at 19:00; Stop 10/12/18 at 14:15; Status DC Piperacillin Sod/ Tazobactam Sod 3.375 gm/Sodium Chloride 50 ml @ 100 mls/hr 1X ONCE IV Last administered on 10/06/18at 19:09; Start 10/06/18 at 19:30; Stop 10/06/18 at 19:59; Status DC Ondansetron HCl (Zofran) 4 mg PRN Q8HRS PRN IV NAUSEA/VOMITING; Start 10/06/18 at 19:00; Stop 10/07/18 at 18:59; Status DC Acetaminophen (Tylenol) 650 mg PRN Q4HRS PRN PO FEVER Last administered on 10/06at 20:29; Start 10/06/18 at 19:00; Stop 10/07/18 at 11:43; Status DC Albuterol/ Ipratropium (Duoneb) 3 ml RTQID NEB Last administered on 10/07/18 19:59; Start 10/06/18 at 20:00; Stop 10/07/18 at 19:59; Status DC Ondansetron HCl (Zofran) 4 mg 1X ONCE IV Last administered on 10/06/18 20:25 ; Start 10/06/18 at 20:30; Stop 10/06/18 at 20:34; Status DC Piperacillin Sod/ Tazobactam Sod 3.375 gm/Sodium Chloride 50 ml @ 100 mls/hr Q6HRS IV Last administered on 10/12/18 12:37; Start 10/07/18 at 00:00; Stop at 14:15; Status DC Aspirin (Ecotrin) 81 mg DAILY PO Last administered on 10/07/18 12:18; Start at 12:00 Atorvastatin Calcium (Lipitor) 10 mg HS PO Last administered on 10/07/18 22:13 ; Start 10/07/18 at 21:00 Baclofen (Lioresal) 10 mg HS PO Last administered on 10/07/18 22:12; Start at 21:00 Cyanocobalamin (Vitamin B-12) 1,000 mcg DAILY PO Last administered on 12:18; Start 10/07/18 at 12:00 Docusate Sodium (Colace) 100 mg BID PO Last administered on 10/07/18 22:13; Start 10/07/18 at 12:00 Furosemide (Lasix) 40 mg DAILY PO Last administered on 10/07/18 13:56; Start 10/07/18 at 12:00 Guaifenesin (Mucinex) 600 mg BID PO Last administered on 10/07/18 22:12; Start 10/07/18 at 12:00 Nystatin (Nystop) 1 stephanie TID TP Last administered on 10/14/18 08:10; Start 10/07 at 14:00 Simethicone (Gas-X) 80 mg PRN Q6HRS PRN PO flatulence ; Start 10/07/18 at 11:45 Acetaminophen (Tylenol) 1,000 mg PRN BID PRN PO MILD PAIN Last administered on 10/07/18 16:47; Start 10/07/18 at 11:45 Bisacodyl (Dulcolax Supp) 10 mg PRN DAILY PRN WI CONSTIPATION; Start 10/07/18 at 11:45 Calcium Carbonate/ Glycine (Tums) 500 mg PRN Q12HR PRN PO INDIGESTION Last administered on 10/08/18 02:32; Start 10/07/18 at 11:45 Lactobacillus Rhamnosus (Culturelle) 1 cap BID PO Last administered on 22:13; Start 10/07/18 at 12:00 Non-Formulary Medication (Levothyroxine Sodium ) 40 mcg DAILYAC PRN PO hypothyroid ; Start 10/07/18 at 11:45; Stop 10/07/18 at 12:11; Status DC Loperamide HCl (Imodium) 2 mg PRN Q1HR PRN PO DIARRHEA; Start 10/07/18 at 12:00 Magnesium Oxide (Magnesium Oxide) 400 mg BID PO Last administered on 10/07/18 22:13; Start 10/07/18 at 12:00 Multivitamins (Thera M Plus) 1 tab DAILY PO Last administered on 10/07/18 12: 18; Start 10/07/18 at 12:00 Fish Oil (Fish Oil) 1,000 mg DAILY PO Last administered on 10/07/18 12:18; Start 10/07/18 at 12:00 Potassium Chloride (Klor-Con) 20 meq [id number] PO Last administered on 13:57; Start 10/07/18 at 12:00 Pregabalin (Lyrica) 100 mg TID PO Last administered on 10/07/18 22:13; Start 10/07/18 at 14:00 Famotidine (Pepcid) 20 mg QHS PO Last administered on 10/07/18 22:12; Start at 21:00; Stop 10/08/18 at 17:01; Status DC Sennosides (Senna) 8.6 mg DAILY PO Last administered on 10/07/18 12:18; Start 10/07/18 at 12:00 Levothyroxine Sodium (Synthroid) 25 mcg [id number] PO Last administered on at 12:18; Start 10/07/18 at 12:30 Enoxaparin Sodium (Lovenox 40mg Syringe) 40 mg Q24H SQ Last administered on at 20:22; Start 10/07/18 at 21:00 Enoxaparin Sodium (Lovenox 40mg Syringe) 40 mg Q24H SQ ; Start 10/07/18 at 19:00 ; Stop 10/08/18 at 09:23; Status DC Pantoprazole Sodium (Protonix) 40 mg DAILYAC PO ; Start 10/08/18 at 07:30; Stop 10/08/18 at 16:07; Status DC Codeine Sulfate (Codeine) 30 mg PRN Q6HRS PRN PO COUGH, 2nd CHOICE Last administered on 10/08/18at 03:26; Start 10/08/18 at 03:15 Benzonatate (Tessalon Perle) 100 mg [id number] PO ; Start 10/08/18 at 09:00 Benzonatate (Tessalon Perle) 100 mg 1X ONCE PO Last administered on 10/08/18at 03:26; Start 10/08/18 at 03:15; Stop 10/08/18 at 03:16; Status DC Guaifenesin (Robitussin Dm) 10 ml PRN Q4HRS PRN PO COUGH, 1st CHOICE; Start at 07:30 Ondansetron HCl (Zofran) 4 mg PRN Q4HRS PRN IV NAUSEA/VOMITING Last administered on 10/08/18at 09:32; Start 10/08/18 at 07:30 Albuterol/ Ipratropium (Duoneb) 3 ml RTQID NEB Last administered on 10/14/18at 11 :58; Start 10/08/18 at 08:00 Sodium Chloride 1,000 ml @ 75 mls/hr [id number] IV Last administered on at 00:46; Start 10/08/18 at 10:30; Stop 10/13/18 at 16:06; Status DC Iohexol (Omnipaque 300 Mg/ml) 75 ml 1X ONCE IV Last administered on 10/08/18at 11:30; Start 10/08/18 at 11:30; Stop 10/08/18 at 11:31; Status DC Info (CONTRAST GIVEN -- Rx MONITORING) 1 each PRN DAILY PRN MC SEE COMMENTS; Start 10/08/18 at 11:30; Stop 10/10/18 at 11:29; Status DC Ringer's Solution 1,000 ml @ 0 mls/hr Q0M IV Last administered on 10/08/18at 13 :31; Start 10/08/18 at 13:30; Stop 10/08/18 at 16:55; Status DC Ringer's Solution 1,000 ml @ 50 mls/hr Q20H IV ; Start 10/08/18 at 14:00; Stop 10/08/18 at 18:00; Status DC Propofol 20 ml @ As Directed STK-MED ONCE IV ; Start 10/08/18 at 13:48; Stop at 13:49; Status DC Albuterol Sulfate (Ventolin Neb Soln) 2.5 mg PRN 1X PRN NEB SHORTNESS OF BREATH Last administered on 10/08/18at 14:22; Start 10/08/18 at 14:15; Stop 10/08 at 18:00; Status DC Lidocaine HCl (Lidocaine 2% Viscous) 100 ml PRN 1X PRN MM MOUTH PAIN Last administered on 10/08/18at 14:21; Start 10/08/18 at 14:15; Stop 10/08/18 at 18:00 ; Status DC Lidocaine HCl (Lidocaine 1% 20ml Vial) 20 ml PRN 1X PRN INJ SEE COMMENTS Last administered on 10/08/18at 14:22; Start 10/08/18 at 14:15; Stop 10/08/18 at 18:00 ; Status DC Epinephrine HCl (Adrenalin) 1 mg PRN 1X PRN INJ SEE COMMENTS; Start 10/08/18 at 14:15; Stop 10/08/18 at 18:00; Status DC Lidocaine HCl 50 ml PRN 1X PRN MM SEE COMMENTS Last administered on 10/08/18at 14:21; Start 10/08/18 at 14:15; Stop 10/08/18 at 18:00; Status DC Epinephrine HCl (Adrenalin) 1 mg STK-MED ONCE .ROUTE ; Start 10/08/18 at 14:13; Stop 10/08/18 at 14:14; Status DC Lidocaine HCl (Lidocaine 1% 20ml Vial) 20 ml STK-MED ONCE .ROUTE ; Start at 14:13; Stop 10/08/18 at 14:14; Status DC Lidocaine HCl (Lidocaine 2% Viscous) 100 ml STK-MED ONCE .ROUTE ; Start at 14:13; Stop 10/08/18 at 14:14; Status DC Lidocaine HCl 50 ml STK-MED ONCE .ROUTE ; Start 10/08/18 at 14:14; Stop at 14:15; Status DC Pantoprazole Sodium (PROTONIX VIAL for IV PUSH) 40 mg BIDAC IVP Last administered on 10/10/18at 07:28; Start 10/08/18 at 16:30; Stop 10/10/18 at 11:15 ; Status DC Ringer's Solution 1,000 ml @ 100 mls/hr Q10H IV Last administered on at 11:24; Start 10/09/18 at 11:30; Stop 10/10/18 at 07:46; Status DC Propofol 20 ml @ As Directed STK-MED ONCE IV ; Start 10/09/18 at 12:02; Stop at 12:03; Status DC Lidocaine HCl (Lidocaine Pf 2% Vial) 5 ml STK-MED ONCE .ROUTE ; Start 10/09/18 at 12:02; Stop 10/09/18 at 12:03; Status DC Epinephrine HCl (EPINEPHrine SYRINGE) 1 mg STK-MED ONCE .ROUTE ; Start 10/09/18 at 13:18; Stop 10/09/18 at 13:19; Status DC Fentanyl Citrate (Fentanyl 2ml Vial) 50 mcg PRN Q4HRS PRN IV PAIN SEVERE Last administered on 10/14/18at 09:26; Start 10/10/18 at 09:00 Fentanyl Citrate (Fentanyl 2ml Vial) 25 mcg PRN Q4HRS PRN IV PAIN MODERATE Last administered on 10/14/18at 00:51; Start 10/10/18 at 09:00 Lidocaine (Lidoderm) 1 patch DAILY TD Last administered on 10/14/18at 08:10; Start 10/10/18 at 10:00 Miscellaneous (Lidoderm Patch Removal) 1 ea QHS MC Last administered on at 20:19; Start 10/10/18 at 21:00 Sucralfate (Carafate) 1 gm QIDACHS PEG ; Start 10/10/18 at 11:30 Pantoprazole Sodium (Protonix) 40 mg BIDAC PO ; Start 10/10/18 at 16:30; Stop at 11:14; Status DC Amino Acids/ Glycerin/ Electrolytes 1,000 ml @ 100 mls/hr Q10H IV Last administered on 10/14/18at 05:20; Start 10/10/18 at 14:45 Barium Sulfate (Varibar Thin Liquid Apple) 148 gm 1X ONCE PO Last administered on 10/11/18at 11:10; Start 10/11/18 at 10:15; Stop 10/11/18 at 10:16 ; Status DC Pantoprazole Sodium (PROTONIX VIAL for IV PUSH) 40 mg BIDAC IVP Last administered on 10/14/18at 08:09; Start 10/11/18 at 16:30 Albuterol/ Ipratropium (Duoneb) 3 ml 1X ONCE NEB Last administered on at 01:00; Start 10/12/18 at 01:00; Stop 10/12/18 at 01:01; Status DC Labetalol HCl (Normodyne Iv Push) 20 mg PRN Q2HR PRN IVP SBP>160, 2ND CHOICE Last administered on 10/14/18at 09:37; Start 10/12/18 at 03:45 Hydralazine HCl (Apresoline Inj) 10 mg PRN Q4HRS PRN IVP SBP>160, 1ST CHOICE Last administered on 10/13/18at 11:26; Start 10/12/18 at 04:45 Albuterol/ Ipratropium (Duoneb) 3 ml 1X ONCE NEB Last administered on at 05:52; Start 10/12/18 at 06:00; Stop 10/12/18 at 06:01; Status DC Hydralazine HCl (Apresoline Inj) 10 mg PRN Q4HRS PRN IVP ELEVATED BP, SEE COMMENTS; Start 10/12/18 at 15:30; Status Cancel Albuterol Sulfate (Ventolin Neb Soln) 2.5 mg PRN Q2HR PRN NEB SHORTNESS OF BREATH; Start 3/30/19 at 18:45 Active Scripts Active Reported Thera-Tabs M Caplet (Multivits,Ca,Minerals/Iron/Fa) 1 Each Tablet 1 Each PO DAILY Senna (Sennosides) 8.6 Mg Tablet 8.6 Mg PO DAILY Ranitidine Hcl 150 Mg Tablet 150 Mg PO HS Lyrica (Pregabalin) 100 Mg Capsule 1 Cap PO TID Potassium Chloride 20 Meq Tablet.er 20 Meq PO DAILY Nystatin 15 Gm Powder 1 Stephanie TP TID Simethicone 80 Mg Tab.chew 80 Mg PO PRN Q6HRS PRN Mucinex (Guaifenesin) 600 Mg Tablet.er 1 Tab PO BID Mapap (Acetaminophen) 500 Mg Tablet 1,000 Mg PO PRN BID PRN Magnesium Oxide 400 Mg Tablet 400 Mg PO BID Loperamide (Loperamide Hcl) 2 Mg Capsule 2 Mg PO PRN Q1HR PRN Levothyroxine Sodium 50 Mcg Tablet 40 Mcg PO DAILYAC PRN Furosemide 40 Mg Tablet 1 Tab PO DAILY Fish Oil-Vit D3 Softgel (Omega3/Dha/Epa/Fish Oil/Vit D3) 1 Each Capsule 1 Each PO DAILY Docusate Sodium 100 Mg Capsule 100 Mg PO BID Vitamin B-12 (Cyanocobalamin (Vitamin B-12)) 1,000 Mcg Tablet 1 Tab PO DAILY Culturelle Probiotics Capsule (L. Rhamnosus GG/Inulin) 1 Each Capsule 1 Each PO BID Tums Ultra (Calcium Carbonate) 400 Mg Tab.chew 400 Mg PO PRN Q12HR PRN Dulcolax (Bisacodyl) 10 Mg Supp.rect 10 Mg RC PRN DAILY PRN Baclofen 10 Mg Tablet 10 Mg PO HS Atorvastatin Calcium 10 Mg Tablet 10 Mg PO HS Aspirin Ec (Aspirin) 81 Mg Tablet. 1 Tab PO DAILY Vitals/I & O Vital Sign - Last 24 Hours 10/13/18 10/13/18 10/13/18 10/13/18 14:25 16:50 19:48 20:27 Temp 97.9 97.9 97.9 97.9 Pulse 99 105 Resp 24 20 B/P (MAP) 161/100 (120) 171/88 (115) Pulse Ox 98 96 O2 Delivery Nasal Cannula Nasal Cannula Nasal Cannula Non-Rebreather O2 Flow Rate 2.0 2.0 2.0 2.0 10/13/18 10/13/18 10/14/18 10/14/18 20:41 23:21 00:51 01:21 Temp 97.4 97.4 Pulse 116 Resp 20 20 20 B/P (MAP) 156/80 (105) Pulse Ox 95 97 97 97 O2 Delivery Nasal Cannula Nasal Cannula Nasal Cannula Nasal Cannula O2 Flow Rate 2.0 2.0 2.0 2.0 10/14/18 10/14/18 10/14/18 10/14/18 03:23 03:32 07:21 08:00 Temp 97.4 97.7 97.4 97.7 Pulse 119 109 94 Resp 23 20 B/P (MAP) 154/100 (118) 161/96 (117) 156/96 (116) Pulse Ox 97 96 O2 Delivery Nasal Cannula Nasal Cannula Room Air O2 Flow Rate 2.0 2.0 2.0 10/14/18 10/14/18 10/14/18 10/14/18 08:18 09:26 09:37 09:56 Pulse 130 Resp 18 16 B/P (MAP) 175/65 Pulse Ox 95 O2 Delivery Nasal Cannula Nasal Cannula Room Air O2 Flow Rate 2.0 2.0 10/14/18 10/14/18 11:00 11:59 Temp 97.8 97.8 Pulse 95 Resp 20 B/P (MAP) 155/74 (101) Pulse Ox 97 95 O2 Delivery Nasal Cannula Nasal Cannula O2 Flow Rate 2.0 2.0 Intake and Output 10/13/18 10/13/18 10/14/18 15:00 23:00 07:00 Intake Total 300 ml 940 ml 0 ml Output Total 3 ml Balance 300 ml 937 ml 0 ml Nutrition Consultation Dietary Evaluation: Recommendations by RD: Increase Calorie Intake, Protein supplementation Comments: REC diet advancement per [employer] ELIGIBILITY INTERVIEWER, goal diet cardiac REC dbl meat portions for increased protein needs REC Vit C (500 mg BID) and MVI q day - wound healing Expected Outcomes/Goals: diet advancement Malnutrition Findings: Body Fat Depletion (Non Severe: Mild Depletion Weight Status: Appropriate ARIANNA JOLLY MD Oct 14, 2018 13:51
--- NOTE | 2018-10-14 15:07 | RAD ---
EXAM: Abdomen, single view. HISTORY: Dobbhoff placement. COMPARISON: None. FINDINGS: A frontal view of the abdomen is obtained. There is an enteric feeding catheter with the tip in the proximal stomach. There is contrast within the colon. There are prominent air-filled air-filled loops of bowel throughout the abdomen. There is a generator overlying the left thorax. There is cardiomegaly and a suspected small left pleural effusion and left lower lobe atelectasis or infiltrate. IMPRESSION: 1. Enteric feeding catheter within the proximal stomach. 2. Prominent air-filled bowel throughout the abdomen. No clear transition point is seen. There is contrast within the colon. 3. Suspected small left pleural effusion with lower lobe atelectasis or infiltrate. Correlate with a dedicated chest radiograph. Electronically signed by: Yesi Adkins MD (10/14/2018 3:04 PM) [id number]
[2018-10-14] MEDS: METOPROLOL TARTRATE 5 MG/5 ML VIAL. IVP PRN (15:28)
--- NOTE | 2018-10-14 15:29 | PDOC2 ---
PALLIATIVE CARE Palliative Care Note Palliative Care Consult requested by Dr. Clark to address goals of care. Medical assessment per medical record; 1. ACUTE COPD EXAC 2. Chest pain, atypical. 2. Dyspnea, //URI. 3. Chronic diastolic CHF Abnormal septal motion consistent with conduction abnormality. The Ejection Fraction is 50%. ECHO 10/07 4. Chronic AFIB; 5. Scleroderma 6. Raynaud's 7. RLE cellulitis, wound 8. left chest deep brain stimulator for essential tremors 9. GERD 10. Hypothyroid state on replacement 11. Right 2nd toe infection. 12. MARKED Hemoptysis 100cc this AM 10/08 13 shortened with diffuse ulceration in distal 07/18, with active bleeding and adherent clot ? MW tear - carmen removed, treated with 3 cc of epinephrine 1:10, 000 and bipolar cautery- 14. Large hiatal hernia with retained fluid and debris in a distended thoracic esophagus. Postsurgical changes related to a previous esophageal resection could also give this appearance. 15. mild hypernatremia, monitor 10/09 HEMOPTYSIS VS HEMATEMESIS REMAINS NPO/// BRONCH NO LESION SEEN, GI FOLLOWING 10/10 failed bedside swallow and is still NPO - PPN ordered 10/11 FAILED SWALLOW STUDY, WILL D/W GI planning dobhoff 10/14 Disordered swallowing mechanism with moderate residue and mild intermittent laryngeal penetration with minimal aspiration 10/14/[address] Patient lethargic but answers questions. Requested to talk with her daughter. Spoke with Katt Burnsrenata DPOA. Katt understands her mother has declined. Katt is OOT and unable to meet until 1030. Discussed Code Status; Katt requests DNR/DNI. Understands without this attempt she likely would . Plan : DNR/DNI per DPOA request. Family meeting . Katt does not return until Sunday night. ROSA TURCIOS Oct 14, 2018 15:29
--- NOTE | 2018-10-14 15:56 | NUR ---
Wound care Wound care consult for wound to L 3rd toe. Cleansed wound and redressed with medihoney alginate and foam bandage. Recommend to change every 3 days. No other wounds noted on full skin inspection. WC will continue to follow for possible changes.
--- NOTE | 2018-10-14 18:26 | NUR ---
Dr. Garg notified that patient's dobhoff does not have an adaptor to use syringe and therefore cannot give medications through it. Received orders to start tube feeding and hold on PO medications for now.
--- NOTE | 2018-10-14 18:28 | NUR ---
Tube feeding started at 20mls/hr. Will continue to monitor.
[2018-10-14] MEDS: ENOXAPARIN 40 MG/0.4 ML SYRINGE. SQ SCH (20:58)
[2018-10-14] MEDS: PATCH REMOVAL. MC SCH (20:58)
[2018-10-14] MEDS: BACLOFEN 10 MG TABLET. PO SCH (20:59)
[2018-10-14] MEDS: ATORVASTATIN CALCIUM 10 MG TABLET. PO SCH (21:00)
[2018-10-15] VITALS (8 sets, daily range): BP systolic 138–161; BP diastolic 72–119
[2018-10-15] MEDS: LABETALOL 20 MG/4 ML DISP.SYRIN. IVP PRN (03:18)
[2018-10-15 03:57] LABS: BASO % 0 % (0-3); EOS % 1 % (0-3); HEMATOCRIT 31.8 % (36.0-47.0); HEMOGLOBIN 10.4 g/dL (12.0-15.5); LYMPH # 1.1 x10^3/uL (1.0-4.8); LYMPH % 18 % (24-48); MEAN CORPUSCULAR HEMOGLOBIN 28 pg (25-35); MEAN CORPUSCULAR HGB CONC 33 g/dL (31-37); MEAN CORPUSCULAR VOLUME 87 fL (79-100); MONO # 0.7 x10^3/uL (0.0-1.1); MONO % 12 % (0-9); NEUT # 4.3 x10^3uL (1.8-7.7); NEUT % 70 % (31-73); PLATELET COUNT 207 x10^3/uL (140-400); RED BLOOD COUNT 3.65 x10^6/uL (3.50-5.40); RED CELL DISTRIBUTION WIDTH 15.6 % (11.5-14.5); WHITE BLOOD COUNT 6.1 x10^3/uL (4.0-11.0)
[2018-10-15 04:14] LABS: ALBUMIN 2.8 g/dL (3.4-5.0); ALBUMIN/GLOBULIN RATIO 0.8 (1.0-1.7); CREATININE 0.8 mg/dL (0.6-1.0); GFR 68.7; POTASSIUM 4.2 mmol/L (3.5-5.1); TOTAL BILIRUBIN 0.5 mg/dL (0.2-1.0); TOTAL PROTEIN 6.5 g/dL (6.4-8.2)
[2018-10-15] MEDS: LEVOTHYROXINE 25 MCG TABLET. PO SCH (06:00)
[2018-10-15] MEDS: IPRATRPIUM/ALBUTEROL 0.5/2.5MG 3 ML NEBU. NEB SCH ×4 (07:09→20:03)
[2018-10-15] MEDS: SUCRALFATE 1 GM/10 ML ORAL.SUSP. PEG SCH ×4 (07:30→20:07)
[2018-10-15] MEDS: POTASSIUM CHLORIDE 20 MEQ TABLET.ER. PO SCH (08:00)
[2018-10-15] MEDS: PANTOPRAZOLE IV PUSH 40 MG VIAL. IVP SCH ×2 (08:43→16:44)
[2018-10-15] MEDS: DOCUSATE SODIUM 100 MG CAPSULE. PO SCH ×2 (08:44→20:07)
[2018-10-15] MEDS: LIDOCAINE (700MG/PATCH) PATCH. TD SCH (08:44)
[2018-10-15] MEDS: LACTOBACILLUS RHAMNOSUS GG 1 CAPSULE. PO SCH ×2 (08:45→20:08)
[2018-10-15] MEDS: FUROSEMIDE 40 MG TABLET. PO SCH (08:45)
[2018-10-15] MEDS: SENNOSIDES 8.6 MG TABLET PO SCH (08:45)
[2018-10-15] MEDS: PREGABALIN 50 MG CAPSULE PO SCH ×3 (08:45→20:08)
[2018-10-15] MEDS: OMEGA-3 FATTY ACIDS/FISH OIL 1,000 MG CAPSULE. PO SCH (08:45)
[2018-10-15] MEDS: MAGNESIUM OXIDE 400 MG TABLET PO SCH ×2 (08:45→20:08)
[2018-10-15] MEDS: ASPIRIN ENTERIC COATED 81 MG TABLET.DR. PO SCH (08:45)
[2018-10-15] MEDS: NYSTATIN TOPICAL POWDER 15GM BOTTLE. TP SCH ×3 (08:46→20:07)
[2018-10-15] MEDS: BENZONATATE 100 MG CAPSULE. PO SCH ×3 (08:46→20:08)
[2018-10-15] MEDS: CYANOCOBALAMIN (VITAMIN B-12) 1,000 MCG TABLET. PO SCH (08:46)
[2018-10-15] MEDS: MULTIVITAMIN with MINERAL TABLET. PO SCH (08:46)
--- NOTE | 2018-10-15 10:54 | PDOC ---
Subjective: Subjective: Doing okay - doesn't say much today. Objective: Objective: Had Dobhoff placed yesterday - tolerating feeds per RN - PO meds remain on hold. Says hospitalist suggested NG tube in place of Dobhoff. Plans for family meeting on . stool charted 10/14. Vital Signs: Vital Signs Date Time Temp Pulse Resp B/P (MAP) Pulse Ox O2 Delivery O2 Flow Rate FiO2 10/15/18 09:36 147/119 (128) 10/15/18 08:00 Nasal Cannula 2.0 10/15/18 07:09 96 10/15/18 07:00 97.3 102 18 97.3 Labs: Laboratory Tests Test 10/15/18 02:50 White Blood Count 6.1 x10^3/uL Red Blood Count 3.65 x10^6/uL Hemoglobin 10.4 g/dL Hematocrit 31.8 % Mean Corpuscular Volume 87 fL Mean Corpuscular Hemoglobin 28 pg Mean Corpuscular Hemoglobin Concent 33 g/dL Red Cell Distribution Width 15.6 % Platelet Count 207 x10^3/uL Neutrophils (%) (Auto) 70 % Lymphocytes (%) (Auto) 18 % Monocytes (%) (Auto) 12 % Eosinophils (%) (Auto) 1 % Basophils (%) (Auto) 0 % Neutrophils # (Auto) 4.3 x10^3uL Lymphocytes # (Auto) 1.1 x10^3/uL Monocytes # (Auto) 0.7 x10^3/uL Eosinophils # (Auto) 0.0 x10^3/uL Basophils # (Auto) 0.0 x10^3/uL Sodium Level 146 mmol/L Potassium Level 4.2 mmol/L Chloride Level 109 mmol/L Carbon Dioxide Level 24 mmol/L Anion Gap 13 Blood Urea Nitrogen 30 mg/dL Creatinine 0.8 mg/dL Estimated GFR (Cockcroft-Gault) 68.7 BUN/Creatinine Ratio 38 Glucose Level 119 mg/dL Calcium Level 9.0 mg/dL Total Bilirubin 0.5 mg/dL Aspartate Amino Transf (AST/SGOT) 28 U/L Alanine Aminotransferase (ALT/SGPT) 44 U/L Alkaline Phosphatase 130 U/L Total Protein 6.5 g/dL Albumin 2.8 g/dL Albumin/Globulin Ratio 0.8 Imaging: KUB 4/1 IMPRESSION: 1. Enteric feeding catheter within the proximal stomach. 2. Prominent air-filled bowel throughout the abdomen. No clear transition point is seen. There is contrast within the colon. 3. Suspected small left pleural effusion with lower lobe atelectasis or infiltrate. Correlate with a dedicated chest radiograph. PE: GEN: NAD LUNGS: clear anteriorly, NC HEART: RRR - briefly tachycardic when I woke her ABD: soft, non-tender, occasional quiet BS NEURO/PSYCH: drowsy today, less animated compared to last week A/P: Hematemesis (resolved), dysphagia, [facility] -EGD last week: ulcerative esophagitis w/ active bleeding and clots, possible M -W tear s/p epi and cautery, hiatal hernia, clot in stomach -now w/ Dobhoff -on IV PPI -- Seems different today. Await PRESCRIPTIONIST evals, family meeting. Continue PPI and tube feeds. KUB noted - abdomen was on the quiet side today - monitor this and stooling. MARIANNE SANCHEZ Oct 15, 2018 10:54
--- NOTE | 2018-10-15 11:04 | NUR ---
SS following up with discharge planning. Pt accepted at [facility], ; fax [phone]. SS awaiting insurance determination from [facility] and will proceed accordingly.
--- NOTE | 2018-10-15 12:22 | PDOC ---
PULMONARY PROGRESS NOTES Subjective NO MORE BLEEDING/ no soa Vitals Vital Signs Date Time Temp Pulse Resp B/P (MAP) Pulse Ox O2 Delivery O2 Flow Rate FiO2 10/15/18 12:10 Nasal Cannula 2.0 10/15/18 11:14 97.8 104 18 157/76 (103) 97 97.8 ROS: No Nausea, No Chest Pain, No Abdominal Pain, No Increase Cough General: Alert, No acute distress Lungs: Clear Cardiovascular: S1, S2 Abdomen: Soft Neuro Exam: Alert Extremities: No Edema Skin: Warm Labs Laboratory Tests Test 10/14/18 05:00 10/15/18 02:50 White Blood Count 5.7 x10^3/uL (4.0-11.0) 6.1 x10^3/uL (4.0-11.0) Red Blood Count 3.54 x10^6/uL (3.50-5.40) 3.65 x10^6/uL (3.50-5.40) Hemoglobin 10.0 g/dL (12.0-15.5) 10.4 g/dL (12.0-15.5) Hematocrit 31.0 % (36.0-47.0) 31.8 % (36.0-47.0) Mean Corpuscular Volume 88 fL (79-100) 87 fL (79-100) Mean Corpuscular Hemoglobin 28 pg (25-35) 28 pg (25-35) Mean Corpuscular Hemoglobin Concent 32 g/dL (31-37) 33 g/dL (31-37) Red Cell Distribution Width 15.7 % (11.5-14.5) 15.6 % (11.5-14.5) Platelet Count 201 x10^3/uL (140-400) 207 x10^3/uL (140-400) Neutrophils (%) (Auto) 71 % (31-73) 70 % (31-73) Lymphocytes (%) (Auto) 17 % (24-48) 18 % (24-48) Monocytes (%) (Auto) 10 % (0-9) 12 % (0-9) Eosinophils (%) (Auto) 2 % (0-3) 1 % (0-3) Basophils (%) (Auto) 1 % (0-3) 0 % (0-3) Neutrophils # (Auto) 4.0 x10^3uL (1.8-7.7) 4.3 x10^3uL (1.8-7.7) Lymphocytes # (Auto) 0.9 x10^3/uL (1.0-4.8) 1.1 x10^3/uL (1.0-4.8) Monocytes # (Auto) 0.6 x10^3/uL (0.0-1.1) 0.7 x10^3/uL (0.0-1.1) Eosinophils # (Auto) 0.1 x10^3/uL (0.0-0.7) 0.0 x10^3/uL (0.0-0.7) Basophils # (Auto) 0.0 x10^3/uL (0.0-0.2) 0.0 x10^3/uL (0.0-0.2) Sodium Level 144 mmol/L (136-145) 146 mmol/L (136-145) Potassium Level 3.9 mmol/L (3.5-5.1) 4.2 mmol/L (3.5-5.1) Chloride Level 109 mmol/L (98-107) 109 mmol/L (98-107) Carbon Dioxide Level 26 mmol/L (21-32) 24 mmol/L (21-32) Anion Gap 9 (6-14) 13 (6-14) Blood Urea Nitrogen 30 mg/dL (7-20) 30 mg/dL (7-20) Creatinine 0.7 mg/dL (0.6-1.0) 0.8 mg/dL (0.6-1.0) Estimated GFR (Cockcroft-Gault) 80.1 68.7 Glucose Level 111 mg/dL (70-99) 119 mg/dL (70-99) Calcium Level 8.7 mg/dL (8.5-10.1) 9.0 mg/dL (8.5-10.1) Phosphorus Level 2.8 mg/dL (2.6-4.7) Albumin 2.5 g/dL (3.4-5.0) 2.8 g/dL (3.4-5.0) BUN/Creatinine Ratio 38 (6-20) Total Bilirubin 0.5 mg/dL (0.2-1.0) Aspartate Amino Transf (AST/SGOT) 28 U/L (15-37) Alanine Aminotransferase (ALT/SGPT) 44 U/L (14-59) Alkaline Phosphatase 130 U/L (46-116) Total Protein 6.5 g/dL (6.4-8.2) Albumin/Globulin Ratio 0.8 (1.0-1.7) Laboratory Tests Test 10/15/18 02:50 White Blood Count 6.1 x10^3/uL (4.0-11.0) Red Blood Count 3.65 x10^6/uL (3.50-5.40) Hemoglobin 10.4 g/dL (12.0-15.5) Hematocrit 31.8 % (36.0-47.0) Mean Corpuscular Volume 87 fL (79-100) Mean Corpuscular Hemoglobin 28 pg (25-35) Mean Corpuscular Hemoglobin Concent 33 g/dL (31-37) Red Cell Distribution Width 15.6 % (11.5-14.5) Platelet Count 207 x10^3/uL (140-400) Neutrophils (%) (Auto) 70 % (31-73) Lymphocytes (%) (Auto) 18 % (24-48) Monocytes (%) (Auto) 12 % (0-9) Eosinophils (%) (Auto) 1 % (0-3) Basophils (%) (Auto) 0 % (0-3) Neutrophils # (Auto) 4.3 x10^3uL (1.8-7.7) Lymphocytes # (Auto) 1.1 x10^3/uL (1.0-4.8) Monocytes # (Auto) 0.7 x10^3/uL (0.0-1.1) Eosinophils # (Auto) 0.0 x10^3/uL (0.0-0.7) Basophils # (Auto) 0.0 x10^3/uL (0.0-0.2) Sodium Level 146 mmol/L (136-145) Potassium Level 4.2 mmol/L (3.5-5.1) Chloride Level 109 mmol/L (98-107) Carbon Dioxide Level 24 mmol/L (21-32) Anion Gap 13 (6-14) Blood Urea Nitrogen 30 mg/dL (7-20) Creatinine 0.8 mg/dL (0.6-1.0) Estimated GFR (Cockcroft-Gault) 68.7 BUN/Creatinine Ratio 38 (6-20) Glucose Level 119 mg/dL (70-99) Calcium Level 9.0 mg/dL (8.5-10.1) Total Bilirubin 0.5 mg/dL (0.2-1.0) Aspartate Amino Transf (AST/SGOT) 28 U/L (15-37) Alanine Aminotransferase (ALT/SGPT) 44 U/L (14-59) Alkaline Phosphatase 130 U/L (46-116) Total Protein 6.5 g/dL (6.4-8.2) Albumin 2.8 g/dL (3.4-5.0) Albumin/Globulin Ratio 0.8 (1.0-1.7) Medications Active Scripts Medications Dose Route/Sig Max Daily Dose Days Date Category Thera-Tabs M Caplet (Multivits,Ca,Minerals/Iron/Fa) 1 Each Tablet 1 Each PO DAILY 10/07/18 Reported Senna (Sennosides) 8.6 Mg Tablet 8.6 Mg PO DAILY 10/07/18 Reported Ranitidine Hcl 150 Mg Tablet 150 Mg PO HS 10/07/18 Reported Lyrica (Pregabalin) 100 Mg Capsule 1 Cap PO TID 10/07/18 Reported Potassium Chloride 20 Meq Tablet.er 20 Meq PO DAILY 10/07/18 Reported Nystatin 15 Gm Powder 1 Gabriela TP TID 10/07/18 Reported Simethicone 80 Mg Tab.chew 80 Mg PO PRN Q6HRS PRN 10/07/18 Reported Mucinex (Guaifenesin) 600 Mg Tablet.er 1 Tab PO BID 10/07/18 Reported Mapap (Acetaminophen) 500 Mg Tablet 1,000 Mg PO PRN BID PRN 10/07/18 Reported Magnesium Oxide 400 Mg Tablet 400 Mg PO BID 10/07/18 Reported Loperamide (Loperamide Hcl) 2 Mg Capsule 2 Mg PO PRN Q1HR PRN 10/07/18 Reported Levothyroxine Sodium 50 Mcg Tablet 40 Mcg PO DAILYAC PRN 10/07/18 Reported Furosemide 40 Mg Tablet 1 Tab PO DAILY 10/07/18 Reported Fish Oil-Vit D3 Softgel (Omega3/Dha/Epa/Fish Oil/Vit D3) 1 Each Capsule 1 Each PO DAILY 10/07/18 Reported Docusate Sodium 100 Mg Capsule 100 Mg PO BID 10/07/18 Reported Vitamin B-12 (Cyanocobalamin (Vitamin B-12)) 1,000 Mcg Tablet 1 Tab PO DAILY 10/07/18 Reported Culturelle Probiotics Capsule (L. Rhamnosus GG/Inulin) 1 Each Capsule 1 Each PO BID 10/07/18 Reported Tums Ultra (Calcium Carbonate) 400 Mg Tab.chew 400 Mg PO PRN Q12HR PRN 10/07/18 Reported Dulcolax (Bisacodyl) 10 Mg Supp.rect 10 Mg RC PRN DAILY PRN 10/07/18 Reported Baclofen 10 Mg Tablet 10 Mg PO HS 10/07/18 Reported Atorvastatin Calcium 10 Mg Tablet 10 Mg PO HS 10/07/18 Reported Aspirin Ec (Aspirin) 81 Mg Tablet.dr 1 Tab PO DAILY 10/07/18 Reported Impression . IMPRESSION: 1. Progressive dyspnea secondary to secondary pulmonary hypertension with right HF, acute exacerbation of chronic obstructive pulmonary disease. 2. Acute exacerbation of chronic obstructive pulmonary disease. 3. Pulmonary hypertension. The patient recently evaluated at [facility], declined right heart catheterization. Recent echo with PA only 33 mmHg 4. Chest pain per Cardiology. 5. Chronic atrial fibrillation. 6. Scleroderma. 7. Right lower extremity cellulitis. 8. HEMATEMESIS BROCNH FINDINGS: 1. Normal vocal cords. 2. No endobronchial lesion. 3. No active bleeding. EGD Esophagus- shortened with diffuse ulceration in distal 1/3, with active bleeding and adherent clot ? MW tear as well- carmen removed, treated with 3 cc of epinephrine 1:10,000 and bipolar cautery- with control- 6 cm HH, stomach with clots - no active bleeding seen but exam limited due to clots- duodenum appeared normal Plan- NPO then CLD PPI BID carafate slurry QID repeat EGD in 1 week if stable or earlier if bleeding continues ECHO <Conclusion> Abnormal septal motion consistent with conduction abnormality. The Ejection Fraction is 50%. Trace aortic regurgitation. Trace to mild mitral regurgitation. Mild tricuspid regurgitation. The PA pressure was estimated at 33 mmHg. There is no evidence of significant pericardial effusion. Plan . NASAL CANULA RESP STATUS IS COMPENSATED NPO, DOBBHOFF FOR NUTRITION EGD last week: ulcerative esophagitis w/ active bleeding and clots, possible M- W tear s/p epi and cautery, hiatal hernia, clot in stomach FOLLOW GI INPUT D/W RT TORI GOMEZ MD Oct 15, 2018 12:22
--- NOTE | 2018-10-15 13:27 | PDOC ---
PROGRESS NOTES Chief Complaint Chief Complaint Assessment/Plan IMPRESSION 1. ACUTE COPD EXAC 2. Chest pain, atypical. 2. Dyspnea, //URI. 3. Chronic diastolic CHF Abnormal septal motion consistent with conduction abnormality. The Ejection Fraction is 50%. ECHO 10/07 4. Chronic AFIB; 5. Scleroderma 6. Raynaud's 7. RLE cellulitis, wound 8. left chest deep brain stimulator for essential tremors 9. GERD 10. Hypothyroid state on replacement 11. Right 2nd toe infection. 12. MARKED Hemoptysis 100cc this AM 10/08 RESOLVED 13 shortened with diffuse ulceration in distal 1/3, with active bleeding and adherent clot ? MW tear - carmen removed, treated with 3 cc of epinephrine 1:10, 000 and bipolar cautery- 14. Large hiatal hernia with retained fluid and debris in a distended thoracic esophagus. Postsurgical changes related to a previous esophageal resection could also give this appearance. 15. mild hypernatremia, monitor significant declines, severe prognosis very guarded, Family meeting . // PAT consulted PROCEDURE NOTE PROCEDURE 09/11 Procedure EGD with control of bleeding Esophagus- shortened with diffuse ulceration in distal 1/3, with active bleeding and adherent clot ? MW tear as well- carmen removed, treated with 3 cc of epinephrine 1:10,000 and bipolar cautery- with control- 6 cm HH, stomach with clots - no active bleeding seen but exam limited due to clots- duodenum appeared normal PLAN Tube Feedings. [facility] CT CHEST reviewed INR ok GI following PULM following Cardiology consult Echo RLE arterial duplex US Obtain med records from dvt prophylaxis iv zosyn History of Present Illness History of Present Illness 10/09 HEMOPTYSIS VS HEMATEMESIS REMAINS NPO/// BRONCH NO LESION SEEN, GI FOLLOWING 10/10 failed bedside swallow and is still NPO - PPN ordered 10/11 FAILED SWALLOW STUDY, WILL D/W GI planning dobhoff 10/14 Disordered swallowing mechanism with moderate residue and mild intermittent laryngeal penetration with minimal aspiration 10/14 Daughter desires DNR designation dobhoff placed Enteric feeding catheter within the proximal stomach. on kub 10/15 no complaints during my visit remains stable, guarded prognosis Vitals Vitals Vital Signs Date Time Temp Pulse Resp B/P (MAP) Pulse Ox O2 Delivery O2 Flow Rate FiO2 10/15/18 12:10 Nasal Cannula 2.0 10/15/18 11:14 97.8 104 18 157/76 (103) 97 97.8 Physical Exam General: Alert, Oriented X3, Cooperative, mild distress, Other (frail appearing ) Heart: Regular rate, Normal S1, Other (irregular rhythm with 2/6 systolic murmur) Lungs: Clear Abdomen: Normal bowel sounds, Soft, No tenderness Extremities: No clubbing, No cyanosis, No edema, Normal pulses, Other (strong dorsalis pedis pulse on the right with a Quant of flow of 1.08) Skin: No breakdown, No significant lesion, Other (1.3 cm ulceration to the dorsal aspect right second toe with no evidence of exposed tendon or bone at this time. The toe itself is modestly edematous with mild erythema) Labs LABS Laboratory Tests Test 10/15/18 02:50 White Blood Count 6.1 x10^3/uL (4.0-11.0) Red Blood Count 3.65 x10^6/uL (3.50-5.40) Hemoglobin 10.4 g/dL (12.0-15.5) Hematocrit 31.8 % (36.0-47.0) Mean Corpuscular Volume 87 fL (79-100) Mean Corpuscular Hemoglobin 28 pg (25-35) Mean Corpuscular Hemoglobin Concent 33 g/dL (31-37) Red Cell Distribution Width 15.6 % (11.5-14.5) Platelet Count 207 x10^3/uL (140-400) Neutrophils (%) (Auto) 70 % (31-73) Lymphocytes (%) (Auto) 18 % (24-48) Monocytes (%) (Auto) 12 % (0-9) Eosinophils (%) (Auto) 1 % (0-3) Basophils (%) (Auto) 0 % (0-3) Neutrophils # (Auto) 4.3 x10^3uL (1.8-7.7) Lymphocytes # (Auto) 1.1 x10^3/uL (1.0-4.8) Monocytes # (Auto) 0.7 x10^3/uL (0.0-1.1) Eosinophils # (Auto) 0.0 x10^3/uL (0.0-0.7) Basophils # (Auto) 0.0 x10^3/uL (0.0-0.2) Sodium Level 146 mmol/L (136-145) Potassium Level 4.2 mmol/L (3.5-5.1) Chloride Level 109 mmol/L (98-107) Carbon Dioxide Level 24 mmol/L (21-32) Anion Gap 13 (6-14) Blood Urea Nitrogen 30 mg/dL (7-20) Creatinine 0.8 mg/dL (0.6-1.0) Estimated GFR (Cockcroft-Gault) 68.7 BUN/Creatinine Ratio 38 (6-20) Glucose Level 119 mg/dL (70-99) Calcium Level 9.0 mg/dL (8.5-10.1) Total Bilirubin 0.5 mg/dL (0.2-1.0) Aspartate Amino Transf (AST/SGOT) 28 U/L (15-37) Alanine Aminotransferase (ALT/SGPT) 44 U/L (14-59) Alkaline Phosphatase 130 U/L (46-116) Total Protein 6.5 g/dL (6.4-8.2) Albumin 2.8 g/dL (3.4-5.0) Albumin/Globulin Ratio 0.8 (1.0-1.7) Assessment and Plan Assessmemt and Plan Problems Medical Problems: (1) Chest pain Status: Acute (2) Pneumonia Status: Acute Comment Review of Relevant I have reviewed the following items tara (where applicable) has been applied. Labs Laboratory Tests Test 10/14/18 05:00 10/15/18 02:50 White Blood Count 5.7 x10^3/uL (4.0-11.0) 6.1 x10^3/uL (4.0-11.0) Red Blood Count 3.54 x10^6/uL (3.50-5.40) 3.65 x10^6/uL (3.50-5.40) Hemoglobin 10.0 g/dL (12.0-15.5) 10.4 g/dL (12.0-15.5) Hematocrit 31.0 % (36.0-47.0) 31.8 % (36.0-47.0) Mean Corpuscular Volume 88 fL (79-100) 87 fL (79-100) Mean Corpuscular Hemoglobin 28 pg (25-35) 28 pg (25-35) Mean Corpuscular Hemoglobin Concent 32 g/dL (31-37) 33 g/dL (31-37) Red Cell Distribution Width 15.7 % (11.5-14.5) 15.6 % (11.5-14.5) Platelet Count 201 x10^3/uL (140-400) 207 x10^3/uL (140-400) Neutrophils (%) (Auto) 71 % (31-73) 70 % (31-73) Lymphocytes (%) (Auto) 17 % (24-48) 18 % (24-48) Monocytes (%) (Auto) 10 % (0-9) 12 % (0-9) Eosinophils (%) (Auto) 2 % (0-3) 1 % (0-3) Basophils (%) (Auto) 1 % (0-3) 0 % (0-3) Neutrophils # (Auto) 4.0 x10^3uL (1.8-7.7) 4.3 x10^3uL (1.8-7.7) Lymphocytes # (Auto) 0.9 x10^3/uL (1.0-4.8) 1.1 x10^3/uL (1.0-4.8) Monocytes # (Auto) 0.6 x10^3/uL (0.0-1.1) 0.7 x10^3/uL (0.0-1.1) Eosinophils # (Auto) 0.1 x10^3/uL (0.0-0.7) 0.0 x10^3/uL (0.0-0.7) Basophils # (Auto) 0.0 x10^3/uL (0.0-0.2) 0.0 x10^3/uL (0.0-0.2) Sodium Level 144 mmol/L (136-145) 146 mmol/L (136-145) Potassium Level 3.9 mmol/L (3.5-5.1) 4.2 mmol/L (3.5-5.1) Chloride Level 109 mmol/L (98-107) 109 mmol/L (98-107) Carbon Dioxide Level 26 mmol/L (21-32) 24 mmol/L (21-32) Anion Gap 9 (6-14) 13 (6-14) Blood Urea Nitrogen 30 mg/dL (7-20) 30 mg/dL (7-20) Creatinine 0.7 mg/dL (0.6-1.0) 0.8 mg/dL (0.6-1.0) Estimated GFR (Cockcroft-Gault) 80.1 68.7 Glucose Level 111 mg/dL (70-99) 119 mg/dL (70-99) Calcium Level 8.7 mg/dL (8.5-10.1) 9.0 mg/dL (8.5-10.1) Phosphorus Level 2.8 mg/dL (2.6-4.7) Albumin 2.5 g/dL (3.4-5.0) 2.8 g/dL (3.4-5.0) BUN/Creatinine Ratio 38 (6-20) Total Bilirubin 0.5 mg/dL (0.2-1.0) Aspartate Amino Transf (AST/SGOT) 28 U/L (15-37) Alanine Aminotransferase (ALT/SGPT) 44 U/L (14-59) Alkaline Phosphatase 130 U/L (46-116) Total Protein 6.5 g/dL (6.4-8.2) Albumin/Globulin Ratio 0.8 (1.0-1.7) Laboratory Tests Test 10/15/18 02:50 White Blood Count 6.1 x10^3/uL (4.0-11.0) Red Blood Count 3.65 x10^6/uL (3.50-5.40) Hemoglobin 10.4 g/dL (12.0-15.5) Hematocrit 31.8 % (36.0-47.0) Mean Corpuscular Volume 87 fL (79-100) Mean Corpuscular Hemoglobin 28 pg (25-35) Mean Corpuscular Hemoglobin Concent 33 g/dL (31-37) Red Cell Distribution Width 15.6 % (11.5-14.5) Platelet Count 207 x10^3/uL (140-400) Neutrophils (%) (Auto) 70 % (31-73) Lymphocytes (%) (Auto) 18 % (24-48) Monocytes (%) (Auto) 12 % (0-9) Eosinophils (%) (Auto) 1 % (0-3) Basophils (%) (Auto) 0 % (0-3) Neutrophils # (Auto) 4.3 x10^3uL (1.8-7.7) Lymphocytes # (Auto) 1.1 x10^3/uL (1.0-4.8) Monocytes # (Auto) 0.7 x10^3/uL (0.0-1.1) Eosinophils # (Auto) 0.0 x10^3/uL (0.0-0.7) Basophils # (Auto) 0.0 x10^3/uL (0.0-0.2) Sodium Level 146 mmol/L (136-145) Potassium Level 4.2 mmol/L (3.5-5.1) Chloride Level 109 mmol/L (98-107) Carbon Dioxide Level 24 mmol/L (21-32) Anion Gap 13 (6-14) Blood Urea Nitrogen 30 mg/dL (7-20) Creatinine 0.8 mg/dL (0.6-1.0) Estimated GFR (Cockcroft-Gault) 68.7 BUN/Creatinine Ratio 38 (6-20) Glucose Level 119 mg/dL (70-99) Calcium Level 9.0 mg/dL (8.5-10.1) Total Bilirubin 0.5 mg/dL (0.2-1.0) Aspartate Amino Transf (AST/SGOT) 28 U/L (15-37) Alanine Aminotransferase (ALT/SGPT) 44 U/L (14-59) Alkaline Phosphatase 130 U/L (46-116) Total Protein 6.5 g/dL (6.4-8.2) Albumin 2.8 g/dL (3.4-5.0) Albumin/Globulin Ratio 0.8 (1.0-1.7) Microbiology 10/06/18 Blood Culture - Final, Complete NO GROWTH AFTER 5 DAYS Medications Current Medications Piperacillin Sod/ Tazobactam Sod (Zosyn Per Pharmacy) 1 each PRN DAILY PRN MC SEE COMMENTS; Start 10/06/18 at 19:00; Stop 10/12/18 at 14:15; Status DC Piperacillin Sod/ Tazobactam Sod 3.375 gm/Sodium Chloride 50 ml @ 100 mls/hr 1X ONCE IV Last administered on 10/06/18at 19:09; Start 10/06/18 at 19:30; Stop 10/06/18 at 19:59; Status DC Ondansetron HCl (Zofran) 4 mg PRN Q8HRS PRN IV NAUSEA/VOMITING; Start 10/06/18 at 19:00; Stop 10/07/18 at 18:59; Status DC Acetaminophen (Tylenol) 650 mg PRN Q4HRS PRN PO FEVER Last administered on 10/06 20:29; Start 10/06/18 at 19:00; Stop 10/07/18 at 11:43; Status DC Albuterol/ Ipratropium (Duoneb) 3 ml RTQID NEB Last administered on 10/07/18 19:59; Start 10/06/18 at 20:00; Stop 10/07/18 at 19:59; Status DC Ondansetron HCl (Zofran) 4 mg 1X ONCE IV Last administered on 10/06/18 20:25 ; Start 10/06/18 at 20:30; Stop 10/06/18 at 20:34; Status DC Piperacillin Sod/ Tazobactam Sod 3.375 gm/Sodium Chloride 50 ml @ 100 mls/hr Q6HRS IV Last administered on 10/12/18 12:37; Start 10/07/18 at 00:00; Stop at 14:15; Status DC Aspirin (Ecotrin) 81 mg DAILY PO Last administered on 10/07/18 12:18; Start at 12:00 Atorvastatin Calcium (Lipitor) 10 mg HS PO Last administered on 10/07/18 22:13 ; Start 10/07/18 at 21:00 Baclofen (Lioresal) 10 mg HS PO Last administered on 10/07/18 22:12; Start at 21:00 Cyanocobalamin (Vitamin B-12) 1,000 mcg DAILY PO Last administered on 12:18; Start 10/07/18 at 12:00 Docusate Sodium (Colace) 100 mg BID PO Last administered on 10/07/18 22:13; Start 10/07/18 at 12:00 Furosemide (Lasix) 40 mg DAILY PO Last administered on 10/07/18 13:56; Start 10/07/18 at 12:00 Guaifenesin (Mucinex) 600 mg BID PO Last administered on 10/07/18 22:12; Start 10/07/18 at 12:00 Nystatin (Nystop) 1 gabriela TID TP Last administered on 10/15/18 08:46; Start 10/07 at 14:00 Simethicone (Gas-X) 80 mg PRN Q6HRS PRN PO flatulence ; Start 10/07/18 at 11:45 Acetaminophen (Tylenol) 1,000 mg PRN BID PRN PO MILD PAIN Last administered on 10/07/18at 16:47; Start 10/07/18 at 11:45 Bisacodyl (Dulcolax Supp) 10 mg PRN DAILY PRN [place] CONSTIPATION; Start 10/07/18 at 11:45 Calcium Carbonate/ Glycine (Tums) 500 mg PRN Q12HR PRN PO INDIGESTION Last administered on 10/08/18 02:32; Start 10/07/18 at 11:45 Lactobacillus Rhamnosus (Culturelle) 1 cap BID PO Last administered on 22:13; Start 10/07/18 at 12:00 Non-Formulary Medication (Levothyroxine Sodium ) 40 mcg DAILYAC PRN PO hypothyroid ; Start 10/07/18 at 11:45; Stop 10/07/18 at 12:11; Status DC Loperamide HCl (Imodium) 2 mg PRN Q1HR PRN PO DIARRHEA; Start 10/07/18 at 12:00 Magnesium Oxide (Magnesium Oxide) 400 mg BID PO Last administered on 10/07/18 22:13; Start 10/07/18 at 12:00 Multivitamins (Thera M Plus) 1 tab DAILY PO Last administered on 10/07/18 12: 18; Start 10/07/18 at 12:00 Fish Oil (Fish Oil) 1,000 mg DAILY PO Last administered on 10/07/18 12:18; Start 10/07/18 at 12:00 Potassium Chloride (Klor-Con) 20 meq [id number] PO Last administered on at 13:57; Start 10/07/18 at 12:00 Pregabalin (Lyrica) 100 mg TID PO Last administered on 10/07/18at 22:13; Start 10/07/18 at 14:00 Famotidine (Pepcid) 20 mg QHS PO Last administered on 10/07/18at 22:12; Start at 21:00; Stop 10/08/18 at 17:01; Status DC Sennosides (Senna) 8.6 mg DAILY PO Last administered on 10/07/18at 12:18; Start 10/07/18 at 12:00 Levothyroxine Sodium (Synthroid) 25 mcg [id number] PO Last administered on at 12:18; Start 10/07/18 at 12:30 Enoxaparin Sodium (Lovenox 40mg Syringe) 40 mg Q24H SQ Last administered on 10/14at 20:58; Start 10/07/18 at 21:00 Enoxaparin Sodium (Lovenox 40mg Syringe) 40 mg Q24H SQ ; Start 10/07/18 at 19:00 ; Stop 10/08/18 at 09:23; Status DC Pantoprazole Sodium (Protonix) 40 mg DAILYAC PO ; Start 10/08/18 at 07:30; Stop 10/08/18 at 16:07; Status DC Codeine Sulfate (Codeine) 30 mg PRN Q6HRS PRN PO COUGH, 2nd CHOICE Last administered on 10/08/18at 03:26; Start 10/08/18 at 03:15 Benzonatate (Tessalon Perle) 100 mg [id number] PO ; Start 10/08/18 at 09:00 Benzonatate (Tessalon Perle) 100 mg 1X ONCE PO Last administered on 10/08/18at 03:26; Start 10/08/18 at 03:15; Stop 10/08/18 at 03:16; Status DC Guaifenesin (Robitussin Dm) 10 ml PRN Q4HRS PRN PO COUGH, 1st CHOICE; Start at 07:30 Ondansetron HCl (Zofran) 4 mg PRN Q4HRS PRN IV NAUSEA/VOMITING Last administered on 10/08/18at 09:32; Start 10/08/18 at 07:30 Albuterol/ Ipratropium (Duoneb) 3 ml RTQID NEB Last administered on 10/15/18at 12 :09; Start 10/08/18 at 08:00 Sodium Chloride 1,000 ml @ 75 mls/hr [id number] IV Last administered on at 00:46; Start 10/08/18 at 10:30; Stop 10/13/18 at 16:06; Status DC Iohexol (Omnipaque 300 Mg/ml) 75 ml 1X ONCE IV Last administered on 10/08/18at 11:30; Start 10/08/18 at 11:30; Stop 10/08/18 at 11:31; Status DC Info (CONTRAST GIVEN -- Rx MONITORING) 1 each PRN DAILY PRN MC SEE COMMENTS; Start 10/08/18 at 11:30; Stop 10/10/18 at 11:29; Status DC Ringer's Solution 1,000 ml @ 0 mls/hr Q0M IV Last administered on 10/08/18at 13 :31; Start 10/08/18 at 13:30; Stop 10/08/18 at 16:55; Status DC Ringer's Solution 1,000 ml @ 50 mls/hr Q20H IV ; Start 10/08/18 at 14:00; Stop 10/08/18 at 18:00; Status DC Propofol 20 ml @ As Directed STK-MED ONCE IV ; Start 10/08/18 at 13:48; Stop at 13:49; Status DC Albuterol Sulfate (Ventolin Neb Soln) 2.5 mg PRN 1X PRN NEB SHORTNESS OF BREATH Last administered on 10/08/18at 14:22; Start 10/08/18 at 14:15; Stop 10/08 at 18:00; Status DC Lidocaine HCl (Lidocaine 2% Viscous) 100 ml PRN 1X PRN MM MOUTH PAIN Last administered on 10/08/18at 14:21; Start 10/08/18 at 14:15; Stop 10/08/18 at 18:00 ; Status DC Lidocaine HCl (Lidocaine 1% 20ml Vial) 20 ml PRN 1X PRN INJ SEE COMMENTS Last administered on 10/08/18at 14:22; Start 10/08/18 at 14:15; Stop 10/08/18 at 18:00 ; Status DC Epinephrine HCl (Adrenalin) 1 mg PRN 1X PRN INJ SEE COMMENTS; Start 10/08/18 at 14:15; Stop 10/08/18 at 18:00; Status DC Lidocaine HCl 50 ml PRN 1X PRN MM SEE COMMENTS Last administered on 10/08/18at 14:21; Start 10/08/18 at 14:15; Stop 10/08/18 at 18:00; Status DC Epinephrine HCl (Adrenalin) 1 mg STK-MED ONCE .ROUTE ; Start 10/08/18 at 14:13; Stop 10/08/18 at 14:14; Status DC Lidocaine HCl (Lidocaine 1% 20ml Vial) 20 ml STK-MED ONCE .ROUTE ; Start at 14:13; Stop 10/08/18 at 14:14; Status DC Lidocaine HCl (Lidocaine 2% Viscous) 100 ml STK-MED ONCE .ROUTE ; Start at 14:13; Stop 10/08/18 at 14:14; Status DC Lidocaine HCl 50 ml STK-MED ONCE .ROUTE ; Start 10/08/18 at 14:14; Stop at 14:15; Status DC Pantoprazole Sodium (PROTONIX VIAL for IV PUSH) 40 mg BIDAC IVP Last administered on 10/10/18at 07:28; Start 10/08/18 at 16:30; Stop 10/10/18 at 11:15 ; Status DC Ringer's Solution 1,000 ml @ 100 mls/hr Q10H IV Last administered on at 11:24; Start 10/09/18 at 11:30; Stop 10/10/18 at 07:46; Status DC Propofol 20 ml @ As Directed STK-MED ONCE IV ; Start 10/09/18 at 12:02; Stop at 12:03; Status DC Lidocaine HCl (Lidocaine Pf 2% Vial) 5 ml STK-MED ONCE .ROUTE ; Start 10/09/18 at 12:02; Stop 10/09/18 at 12:03; Status DC Epinephrine HCl (EPINEPHrine SYRINGE) 1 mg STK-MED ONCE .ROUTE ; Start 10/09/18 at 13:18; Stop 10/09/18 at 13:19; Status DC Fentanyl Citrate (Fentanyl 2ml Vial) 50 mcg PRN Q4HRS PRN IV PAIN SEVERE Last administered on 10/14/18at 09:26; Start 10/10/18 at 09:00 Fentanyl Citrate (Fentanyl 2ml Vial) 25 mcg PRN Q4HRS PRN IV PAIN MODERATE Last administered on 10/14/18at 00:51; Start 10/10/18 at 09:00 Lidocaine (Lidoderm) 1 patch DAILY TD Last administered on 10/15/18 08:44; Start 10/10/18 at 10:00 Miscellaneous (Lidoderm Patch Removal) 1 ea QHS MC Last administered on 20:58; Start 10/10/18 at 21:00 Sucralfate (Carafate) 1 gm QIDACHS PEG ; Start 10/10/18 at 11:30 Pantoprazole Sodium (Protonix) 40 mg BIDAC PO ; Start 10/10/18 at 16:30; Stop at 11:14; Status DC Amino Acids/ Glycerin/ Electrolytes 1,000 ml @ 100 mls/hr Q10H IV Last administered on 10/14/18 05:20; Start 10/10/18 at 14:45; Stop 10/14/18 at 15:42; Status DC Barium Sulfate (Varibar Thin Liquid Apple) 148 gm 1X ONCE PO Last administered on 10/11/18 11:10; Start 10/11/18 at 10:15; Stop 10/11/18 at 10:16 ; Status DC Pantoprazole Sodium (PROTONIX VIAL for IV PUSH) 40 mg BIDAC IVP Last administered on 10/15/18 08:43; Start 10/11/18 at 16:30 Albuterol/ Ipratropium (Duoneb) 3 ml 1X ONCE NEB Last administered on 01:00; Start 10/12/18 at 01:00; Stop 10/12/18 at 01:01; Status DC Labetalol HCl (Normodyne Iv Push) 20 mg PRN Q2HR PRN IVP SBP>160, 2ND CHOICE Last administered on 10/15/18 03:18; Start 10/12/18 at 03:45 Hydralazine HCl (Apresoline Inj) 10 mg PRN Q4HRS PRN IVP SBP>160, 1ST CHOICE Last administered on 10/13/18 11:26; Start 10/12/18 at 04:45 Albuterol/ Ipratropium (Duoneb) 3 ml 1X ONCE NEB Last administered on 05:52; Start 10/12/18 at 06:00; Stop 10/12/18 at 06:01; Status DC Hydralazine HCl (Apresoline Inj) 10 mg PRN Q4HRS PRN IVP ELEVATED BP, SEE COMMENTS; Start 10/12/18 at 15:30; Status Cancel Albuterol Sulfate (Ventolin Neb Soln) 2.5 mg PRN Q2HR PRN NEB SHORTNESS OF BREATH; Start 10/12/18 at 18:45 Metoprolol Tartrate (Lopressor Vial) 5 mg PRN Q6HRS PRN IVP HYPERTENSION, SEE COMMENTS Last administered on 10/14/18at 15:28; Start 10/14/18 at 14:45 Active Scripts Active Reported Thera-Tabs M Caplet (Multivits,Ca,Minerals/Iron/Fa) 1 Each Tablet 1 Each PO DAILY Senna (Sennosides) 8.6 Mg Tablet 8.6 Mg PO DAILY Ranitidine Hcl 150 Mg Tablet 150 Mg PO HS Lyrica (Pregabalin) 100 Mg Capsule 1 Cap PO TID Potassium Chloride 20 Meq Tablet.er 20 Meq PO DAILY Nystatin 15 Gm Powder 1 Gabriela TP TID Simethicone 80 Mg Tab.chew 80 Mg PO PRN Q6HRS PRN Mucinex (Guaifenesin) 600 Mg Tablet.er 1 Tab PO BID Mapap (Acetaminophen) 500 Mg Tablet 1,000 Mg PO PRN BID PRN Magnesium Oxide 400 Mg Tablet 400 Mg PO BID Loperamide (Loperamide Hcl) 2 Mg Capsule 2 Mg PO PRN Q1HR PRN Levothyroxine Sodium 50 Mcg Tablet 40 Mcg PO DAILYAC PRN Furosemide 40 Mg Tablet 1 Tab PO DAILY Fish Oil-Vit D3 Softgel (Omega3/Dha/Epa/Fish Oil/Vit D3) 1 Each Capsule 1 Each PO DAILY Docusate Sodium 100 Mg Capsule 100 Mg PO BID Vitamin B-12 (Cyanocobalamin (Vitamin B-12)) 1,000 Mcg Tablet 1 Tab PO DAILY Culturelle Probiotics Capsule (L. Rhamnosus GG/Inulin) 1 Each Capsule 1 Each PO BID Tums Ultra (Calcium Carbonate) 400 Mg Tab.chew 400 Mg PO PRN Q12HR PRN Dulcolax (Bisacodyl) 10 Mg Supp.rect 10 Mg RC PRN DAILY PRN Baclofen 10 Mg Tablet 10 Mg PO HS Atorvastatin Calcium 10 Mg Tablet 10 Mg PO HS Aspirin Ec (Aspirin) 81 Mg Tablet.dr [place] Tab PO DAILY Vitals/I & O Vital Sign - Last 24 Hours 10/14/18 10/14/18 10/14/18 10/14/18 14:46 15:28 16:09 18:07 Temp 98.6 98.6 Pulse 107 107 110 Resp 20 B/P (MAP) 159/92 (114) 159/92 173/110 Pulse Ox 96 95 O2 Delivery Nasal Cannula Nasal Cannula O2 Flow Rate 2.0 2.0 10/14/18 10/14/18 10/14/18 10/14/18 19:04 19:26 19:33 22:32 Temp 98.3 97.8 98.3 97.8 Pulse 99 79 Resp 20 17 B/P (MAP) 153/94 (113) 150/70 (96) Pulse Ox 96 96 98 O2 Delivery Nasal Cannula Nasal Cannula Non-Rebreather Nasal Cannula O2 Flow Rate 2.0 2.0 2.0 2.0 10/15/18 10/15/18 10/15/18 10/15/18 02:22 03:18 03:38 07:00 Temp 98.5 97.3 98.5 97.3 Pulse 108 108 95 102 Resp 17 18 B/P (MAP) 155/96 (115) 155/96 160/72 (101) 161/77 (105) Pulse Ox 99 96 O2 Delivery Nasal Cannula Nasal Cannula O2 Flow Rate 2.0 2.0 10/15/18 10/15/18 10/15/18 10/15/18 07:09 08:00 09:36 11:14 Temp 97.8 97.8 Pulse 104 Resp 18 B/P (MAP) 147/119 (128) 157/76 (103) Pulse Ox 96 97 O2 Delivery Nasal Cannula Nasal Cannula Nasal Cannula O2 Flow Rate 2.0 2.0 2.0 10/15/18 12:10 O2 Delivery Nasal Cannula O2 Flow Rate 2.0 Intake and Output 10/14/18 10/14/18 10/15/18 15:00 23:00 07:00 Intake Total 0 ml 1100 ml 520 ml Balance 0 ml 1100 ml 520 ml Nutrition Consultation Dietary Evaluation: Recommendations by RD: Increase Calorie Intake, Protein supplementation Comments: REC TF: Jevity 1.5@20 ml/hr, increase 10 ml q8 hrs as tolerated to goal rate 50 ml/hr w/150 ml water flushes q4 hrs or flushes per MD. REC Vit C (500 mg BID) and MVI q day if able via dobhoff - wound healing Expected Outcomes/Goals: diet advancement - not met, new goal established New goal 10/14: TF initiation/infusion/tolerance Malnutrition Findings: Body Fat Depletion (Non Severe: Mild Depletion Weight Status: Appropriate HEIDI [place] MD Oct 15, 2018 13:27
[2018-10-15] MEDS: METOPROLOL TARTRATE 5 MG/5 ML VIAL. IVP PRN ×2 (14:12→23:32)
--- NOTE | 2018-10-15 17:00 | NUR ---
Patient unable to get comfortable after repositioning several times. States she feels like she's in a "hole" and has back pain. Fentanyl given for pain. Patient resting comfortably after.
[2018-10-15] MEDS: fentaNYL PF VIAL 100 MCG/2 ML VIAL IV PRN ×2 (17:15→22:38)
--- NOTE | 2018-10-15 17:34 | NUR ---
Patient frequently makes gagging noises then starts coughing. At one point she had a large yellow thick sputum that was expectorated. She has also been suctioned PRN.
[2018-10-15] MEDS: ENOXAPARIN 40 MG/0.4 ML SYRINGE. SQ SCH (20:07)
[2018-10-15] MEDS: PATCH REMOVAL. MC SCH (20:07)
[2018-10-15] MEDS: BACLOFEN 10 MG TABLET. PO SCH (20:08)
[2018-10-15] MEDS: ATORVASTATIN CALCIUM 10 MG TABLET. PO SCH (20:08)
[2018-10-16] VITALS (7 sets, daily range): BP systolic 135–156; BP diastolic 71–98
[2018-10-16] MEDS: LEVOTHYROXINE 25 MCG TABLET. PO SCH (05:16)
[2018-10-16] MEDS: SUCRALFATE 1 GM/10 ML ORAL.SUSP. PEG SCH ×4 (07:30→19:37)
[2018-10-16] MEDS: POTASSIUM CHLORIDE 20 MEQ TABLET.ER. PO SCH (08:00)
[2018-10-16] MEDS: IPRATRPIUM/ALBUTEROL 0.5/2.5MG 3 ML NEBU. NEB SCH ×4 (08:32→20:29)
[2018-10-16] MEDS: PANTOPRAZOLE IV PUSH 40 MG VIAL. IVP SCH ×2 (08:41→18:24)
[2018-10-16] MEDS: LIDOCAINE (700MG/PATCH) PATCH. TD SCH (08:41)
[2018-10-16] MEDS: NYSTATIN TOPICAL POWDER 15GM BOTTLE. TP SCH ×3 (08:41→21:23)
[2018-10-16] MEDS: DOCUSATE SODIUM 100 MG CAPSULE. PO SCH ×2 (08:42→19:38)
[2018-10-16] MEDS: ASPIRIN ENTERIC COATED 81 MG TABLET.DR. PO SCH (08:42)
[2018-10-16] MEDS: FUROSEMIDE 40 MG TABLET. PO SCH (08:42)
[2018-10-16] MEDS: LACTOBACILLUS RHAMNOSUS GG 1 CAPSULE. PO SCH ×2 (08:42→19:38)
[2018-10-16] MEDS: OMEGA-3 FATTY ACIDS/FISH OIL 1,000 MG CAPSULE. PO SCH (08:42)
[2018-10-16] MEDS: PREGABALIN 50 MG CAPSULE PO SCH ×3 (08:42→19:39)
[2018-10-16] MEDS: MAGNESIUM OXIDE 400 MG TABLET PO SCH ×2 (08:43→19:39)
[2018-10-16] MEDS: MULTIVITAMIN with MINERAL TABLET. PO SCH (08:45)
[2018-10-16] MEDS: BENZONATATE 100 MG CAPSULE. PO SCH ×3 (08:45→19:40)
[2018-10-16] MEDS: CYANOCOBALAMIN (VITAMIN B-12) 1,000 MCG TABLET. PO SCH (08:45)
[2018-10-16] MEDS: SENNOSIDES 8.6 MG TABLET PO SCH (08:45)
[2018-10-16] MEDS: METOPROLOL TARTRATE 5 MG/5 ML VIAL. IVP PRN (09:41)
--- NOTE | 2018-10-16 09:52 | PDOC2 ---
PALLIATIVE CARE Palliative Care Note Palliative Care Patient alert. Voiced her desire to try to get better. Patient had been living in [place] environment. [facility] feeding in place. Unable to give medication through [facility]. Daughter is OOT on business. Returning to night. Meeting tomorrow. Waiting on Insurance authorization for [facility]. 1429: Spoke with Shilpa on phone. Informed her of her mother's wishes--try to get stronger. Informed of [facility] --waiting for insurance authorization. Meeting changed to 1130. Other family members will be attending. 1530 Authorization for [facility] denied by insurance. ROSA TURCIOS Oct 16, 2018 09:52
--- NOTE | 2018-10-16 11:07 | PDOC ---
PULMONARY PROGRESS NOTES Subjective weak/ no soa Vitals Vital Signs Date Time Temp Pulse Resp B/P (MAP) Pulse Ox O2 Delivery O2 Flow Rate FiO2 10/16/18 10:46 98.7 98 20 152/84 (106) 94 Nasal Cannula 2.0 98.7 ROS: No Chest Pain General: Alert, No acute distress Lungs: Clear Cardiovascular: S1, S2 Abdomen: Soft Neuro Exam: Alert Extremities: No Edema Skin: Warm Labs Laboratory Tests Test 10/15/18 02:50 White Blood Count 6.1 x10^3/uL (4.0-11.0) Red Blood Count 3.65 x10^6/uL (3.50-5.40) Hemoglobin 10.4 g/dL (12.0-15.5) Hematocrit 31.8 % (36.0-47.0) Mean Corpuscular Volume 87 fL (79-100) Mean Corpuscular Hemoglobin 28 pg (25-35) Mean Corpuscular Hemoglobin Concent 33 g/dL (31-37) Red Cell Distribution Width 15.6 % (11.5-14.5) Platelet Count 207 x10^3/uL (140-400) Neutrophils (%) (Auto) 70 % (31-73) Lymphocytes (%) (Auto) 18 % (24-48) Monocytes (%) (Auto) 12 % (0-9) Eosinophils (%) (Auto) 1 % (0-3) Basophils (%) (Auto) 0 % (0-3) Neutrophils # (Auto) 4.3 x10^3uL (1.8-7.7) Lymphocytes # (Auto) 1.1 x10^3/uL (1.0-4.8) Monocytes # (Auto) 0.7 x10^3/uL (0.0-1.1) Eosinophils # (Auto) 0.0 x10^3/uL (0.0-0.7) Basophils # (Auto) 0.0 x10^3/uL (0.0-0.2) Sodium Level 146 mmol/L (136-145) Potassium Level 4.2 mmol/L (3.5-5.1) Chloride Level 109 mmol/L (98-107) Carbon Dioxide Level 24 mmol/L (21-32) Anion Gap 13 (6-14) Blood Urea Nitrogen 30 mg/dL (7-20) Creatinine 0.8 mg/dL (0.6-1.0) Estimated GFR (Cockcroft-Gault) 68.7 BUN/Creatinine Ratio 38 (6-20) Glucose Level 119 mg/dL (70-99) Calcium Level 9.0 mg/dL (8.5-10.1) Total Bilirubin 0.5 mg/dL (0.2-1.0) Aspartate Amino Transf (AST/SGOT) 28 U/L (15-37) Alanine Aminotransferase (ALT/SGPT) 44 U/L (14-59) Alkaline Phosphatase 130 U/L (46-116) Total Protein 6.5 g/dL (6.4-8.2) Albumin 2.8 g/dL (3.4-5.0) Albumin/Globulin Ratio 0.8 (1.0-1.7) Medications Active Scripts Medications Dose Route/Sig Max Daily Dose Days Date Category Thera-Tabs M Caplet (Multivits,Ca,Minerals/Iron/Fa) 1 Each Tablet 1 Each PO DAILY 10/07/18 Reported Senna (Sennosides) 8.6 Mg Tablet 8.6 Mg PO DAILY 10/07/18 Reported Ranitidine Hcl 150 Mg Tablet 150 Mg PO HS 10/07/18 Reported Lyrica (Pregabalin) 100 Mg Capsule 1 Cap PO TID 10/07/18 Reported Potassium Chloride 20 Meq Tablet.er 20 Meq PO DAILY 10/07/18 Reported Nystatin 15 Gm Powder 1 Gabriela TP TID 10/07/18 Reported Simethicone 80 Mg Tab.chew 80 Mg PO PRN Q6HRS PRN 10/07/18 Reported Mucinex (Guaifenesin) 600 Mg Tablet.er 1 Tab PO BID 10/07/18 Reported Mapap (Acetaminophen) 500 Mg Tablet 1,000 Mg PO PRN BID PRN 10/07/18 Reported Magnesium Oxide 400 Mg Tablet 400 Mg PO BID 10/07/18 Reported Loperamide (Loperamide Hcl) 2 Mg Capsule 2 Mg PO PRN Q1HR PRN 10/07/18 Reported Levothyroxine Sodium 50 Mcg Tablet 40 Mcg PO DAILYAC PRN 10/07/18 Reported Furosemide 40 Mg Tablet 1 Tab PO DAILY 10/07/18 Reported Fish Oil-Vit D3 Softgel (Omega3/Dha/Epa/Fish Oil/Vit D3) 1 Each Capsule 1 Each PO DAILY 10/07/18 Reported Docusate Sodium 100 Mg Capsule 100 Mg PO BID 10/07/18 Reported Vitamin B-12 (Cyanocobalamin (Vitamin B-12)) 1,000 Mcg Tablet 1 Tab PO DAILY 10/07/18 Reported Culturelle Probiotics Capsule (L. Rhamnosus GG/Inulin) 1 Each Capsule 1 Each PO BID 10/07/18 Reported Tums Ultra (Calcium Carbonate) 400 Mg Tab.chew 400 Mg PO PRN Q12HR PRN 10/07/18 Reported Dulcolax (Bisacodyl) 10 Mg Supp.rect 10 Mg RC PRN DAILY PRN 10/07/18 Reported Baclofen 10 Mg Tablet 10 Mg PO HS 10/07/18 Reported Atorvastatin Calcium 10 Mg Tablet 10 Mg PO HS 10/07/18 Reported Aspirin Ec (Aspirin) 81 Mg Tablet.dr 1 Tab PO DAILY 10/07/18 Reported Impression . 1. Progressive dyspnea secondary to multi-factorial etiology including exacerbation of chronic obstructive pulmonary disease.? right HF/ Weakness 2. Acute exacerbation of chronic obstructive pulmonary disease. 3. Pulmonary hypertension. The patient recently evaluated at [facility], declined right heart catheterization. Recent echo with PA only 33 mmHg 4. Chest pain per Cardiology. 5. Chronic atrial fibrillation. 6. Scleroderma. 7. Right lower extremity cellulitis. 8. HEMATEMESIS, resolved 9. DYSPHAGIA BROCNH FINDINGS: 1. Normal vocal cords. 2. No endobronchial lesion. 3. No active bleeding. EGD Esophagus- shortened with diffuse ulceration in distal 1/3, with active bleeding and adherent clot ? MW tear as well- carmen removed, treated with 3 cc of epinephrine 1:10,000 and bipolar cautery- with control- 6 cm HH, stomach with clots - no active bleeding seen but exam limited due to clots- duodenum appeared normal Plan- NPO then CLD PPI BID carafate slurry QID repeat EGD in 1 week if stable or earlier if bleeding continues ECHO <Conclusion> Abnormal septal motion consistent with conduction abnormality. The Ejection Fraction is 50%. Trace aortic regurgitation. Trace to mild mitral regurgitation. Mild tricuspid regurgitation. The PA pressure was estimated at 33 mmHg. There is no evidence of significant pericardial effusion. Plan . NASAL CANULA RESP STATUS IS COMPENSATED NPO, DOBBHOFF FOR NUTRITION EGD last week: ulcerative esophagitis w/ active bleeding and clots, possible M- W tear s/p epi and cautery, hiatal hernia, clot in stomach FOLLOW GI INPUT PALLIATIVE MEETING IN AM D/W TORI JONES MD Oct 16, 2018 11:07
--- NOTE | 2018-10-16 11:55 | PDOC ---
Subjective: Subjective: Feels better today. Denies nausea and pain. Hasn't stooled. Might have vomited? Objective: Objective: Per RN - coughs up sputum, no vomiting. Family meeting tomorrow - will discuss possible PEG placement. Vital Signs: Vital Signs Date Time Temp Pulse Resp B/P (MAP) Pulse Ox O2 Delivery O2 Flow Rate FiO2 10/16/18 10:46 98.7 98 20 152/84 (106) 94 Nasal Cannula 2.0 98.7 PE: GEN: NAD HEENT: Dobhoff HEART: tachycardic ABD: BS+ - quiet but heard more easily than yesterday, non-tender NEURO/PSYCH: more awake today but does drift back to sleep quickly A/P: Dysphagia, [facility] -EGD 10/09: ulcerative esophagitis w/ active bleeding and clots, possible M-W tear s/p epi and cautery, hiatal hernia, clot in stomach -on IV PPI, Dobhoff feeds -- Continue same per GI for now, await family meeting. Recheck KUB if indicated. MARIANNE SANCHEZ Oct 16, 2018 11:55
[2018-10-16] MEDS: fentaNYL PF VIAL 100 MCG/2 ML VIAL IV PRN (13:03)
--- NOTE | 2018-10-16 14:07 | NUR ---
SS following up with discharge planning. SS contacted [facility] for update. Still awaiting insurance determination from [employer] at this time for LTAC. Palliative Care contacted SS and notified that pt's family wants full aggressive care at this time. SS will await insurance determination from [employer] and will proceed accordingly.
--- NOTE | 2018-10-16 14:37 | NUR ---
SS following up with discharge planning. [facility] denied LTAC for pt. [facility] reported that case management has until 10/18/2018 at 1300 to call [phone], to schedule a peer to peer with physician to discuss case with [employer]. Case management notified. Per notes GI will discuss peg tube placement with family. Pt currently remains on dobhoff.
--- NOTE | 2018-10-16 19:04 | PDOC ---
PROGRESS NOTES Chief Complaint Chief Complaint Assessment/Plan IMPRESSION 1. ACUTE COPD EXAC improved 2. Chest pain, atypical. non cardiac in nature most likely due to underlyng gi process 2. Dyspnea, //URI. 3. Chronic diastolic CHF Abnormal septal motion consistent with conduction abnormality. The Ejection Fraction is 50%. ECHO 10/07 4. Chronic AFIB; 5. Scleroderma 6. Raynaud's 7. RLE cellulitis, wound 8. left chest deep brain stimulator for essential tremors 9. GERD 10. Hypothyroid state on replacement 11. Right 2nd toe infection. 12. MARKED Hemoptysis 100cc this AM 10/08 RESOLVED 13 shortened with diffuse ulceration in distal 1/3, with active bleeding and adherent clot ? MW tear - carmen removed, treated with 3 cc of epinephrine 1:10, 000 and bipolar cautery- 14. Large hiatal hernia with retained fluid and debris in a distended thoracic esophagus. Postsurgical changes related to a previous esophageal resection could also give this appearance. 15. mild hypernatremia, monitor significant decline, very debilitated, prognosis very guarded, Family meeting . //PAT consulted, patient does not want palliative care she wants to try to regain her functional status. PEG tube will be needed in order to transition to LTAC discussed case over the phone with LTAC physcian. PROCEDURE NOTE PROCEDURE 09/11 Procedure EGD with control of bleeding Esophagus- shortened with diffuse ulceration in distal 1/3, with active bleeding and adherent clot ? MW tear as well- carmen removed, treated with 3 cc of epinephrine 1:10,000 and bipolar cautery- with control- 6 cm HH, stomach with clots - no active bleeding seen but exam limited due to clots- duodenum appeared normal PLAN Tube Feedings. Dobbhoff CT CHEST reviewed INR ok GI following PULM following Cardiology consult dvt prophylaxis continue with wound care History of Present Illness History of Present Illness 10/09 HEMOPTYSIS VS HEMATEMESIS REMAINS NPO/// BRONCH NO LESION SEEN, GI FOLLOWING 10/10 failed bedside swallow and is still NPO - PPN ordered 10/11 FAILED SWALLOW STUDY, WILL D/W GI planning dobhoff 10/14 Disordered swallowing mechanism with moderate residue and mild intermittent laryngeal penetration with minimal aspiration 10/14 Daughter desires DNR designation dobhoff placed Enteric feeding catheter within the proximal stomach. on kub 10/15 no complaints during my visit remains stable, guarded prognosis 10/16 no new complaints remains bedridden, compaoinign of back pain, no alarming signs voiced, no cauda equina syndrome symptoms. Vitals Vitals Vital Signs Date Time Temp Pulse Resp B/P (MAP) Pulse Ox O2 Delivery O2 Flow Rate FiO2 10/16/18 16:18 Nasal Cannula 2.0 10/16/18 14:49 98.8 91 20 144/71 (95) 98 98.8 Physical Exam General: Alert, Oriented X3, Cooperative, mild distress, Other (frail appearing ) Heart: Regular rate, Normal S1, Other (irregular rhythm with 2/6 systolic murmur) Lungs: Clear Abdomen: Normal bowel sounds, Soft, No tenderness Extremities: No clubbing, No cyanosis, No edema, Normal pulses, Other (strong dorsalis pedis pulse on the right with a Quant of flow of 1.08) Skin: No breakdown, No significant lesion, Other (1.3 cm ulceration to the dorsal aspect right second toe with no evidence of exposed tendon or bone at this time. The toe itself is modestly edematous with mild erythema) Assessment and Plan Assessmemt and Plan Problems Medical Problems: (1) Chest pain Status: Acute (2) Pneumonia Status: Acute Comment Review of Relevant I have reviewed the following items tara (where applicable) has been applied. Labs Laboratory Tests Test 10/15/18 02:50 White Blood Count 6.1 x10^3/uL (4.0-11.0) Red Blood Count 3.65 x10^6/uL (3.50-5.40) Hemoglobin 10.4 g/dL (12.0-15.5) Hematocrit 31.8 % (36.0-47.0) Mean Corpuscular Volume 87 fL (79-100) Mean Corpuscular Hemoglobin 28 pg (25-35) Mean Corpuscular Hemoglobin Concent 33 g/dL (31-37) Red Cell Distribution Width 15.6 % (11.5-14.5) Platelet Count 207 x10^3/uL (140-400) Neutrophils (%) (Auto) 70 % (31-73) Lymphocytes (%) (Auto) 18 % (24-48) Monocytes (%) (Auto) 12 % (0-9) Eosinophils (%) (Auto) 1 % (0-3) Basophils (%) (Auto) 0 % (0-3) Neutrophils # (Auto) 4.3 x10^3uL (1.8-7.7) Lymphocytes # (Auto) 1.1 x10^3/uL (1.0-4.8) Monocytes # (Auto) 0.7 x10^3/uL (0.0-1.1) Eosinophils # (Auto) 0.0 x10^3/uL (0.0-0.7) Basophils # (Auto) 0.0 x10^3/uL (0.0-0.2) Sodium Level 146 mmol/L (136-145) Potassium Level 4.2 mmol/L (3.5-5.1) Chloride Level 109 mmol/L (98-107) Carbon Dioxide Level 24 mmol/L (21-32) Anion Gap 13 (6-14) Blood Urea Nitrogen 30 mg/dL (7-20) Creatinine 0.8 mg/dL (0.6-1.0) Estimated GFR (Cockcroft-Gault) 68.7 BUN/Creatinine Ratio 38 (6-20) Glucose Level 119 mg/dL (70-99) Calcium Level 9.0 mg/dL (8.5-10.1) Total Bilirubin 0.5 mg/dL (0.2-1.0) Aspartate Amino Transf (AST/SGOT) 28 U/L (15-37) Alanine Aminotransferase (ALT/SGPT) 44 U/L (14-59) Alkaline Phosphatase 130 U/L (46-116) Total Protein 6.5 g/dL (6.4-8.2) Albumin 2.8 g/dL (3.4-5.0) Albumin/Globulin Ratio 0.8 (1.0-1.7) Microbiology 10/06/18 Blood Culture - Final, Complete NO GROWTH AFTER 5 DAYS Medications Current Medications Piperacillin Sod/ Tazobactam Sod (Zosyn Per Pharmacy) 1 each PRN DAILY PRN MC SEE COMMENTS; Start 10/06/18 at 19:00; Stop 10/12/18 at 14:15; Status DC Piperacillin Sod/ Tazobactam Sod 3.375 gm/Sodium Chloride 50 ml @ 100 mls/hr 1X ONCE IV Last administered on 10/06/18at 19:09; Start 10/06/18 at 19:30; Stop 10/06/18 at 19:59; Status DC Ondansetron HCl (Zofran) 4 mg PRN Q8HRS PRN IV NAUSEA/VOMITING; Start 10/06/18 at 19:00; Stop 10/07/18 at 18:59; Status DC Acetaminophen (Tylenol) 650 mg PRN Q4HRS PRN PO FEVER Last administered on 10/06 20:29; Start 10/06/18 at 19:00; Stop 10/07/18 at 11:43; Status DC Albuterol/ Ipratropium (Duoneb) 3 ml RTQID NEB Last administered on 10/07/18 19:59; Start 10/06/18 at 20:00; Stop 10/07/18 at 19:59; Status DC Ondansetron HCl (Zofran) 4 mg 1X ONCE IV Last administered on 10/06/18 20:25 ; Start 10/06/18 at 20:30; Stop 10/06/18 at 20:34; Status DC Piperacillin Sod/ Tazobactam Sod 3.375 gm/Sodium Chloride 50 ml @ 100 mls/hr Q6HRS IV Last administered on 10/12/18 12:37; Start 10/07/18 at 00:00; Stop at 14:15; Status DC Aspirin (Ecotrin) 81 mg DAILY PO Last administered on 10/07/18 12:18; Start at 12:00 Atorvastatin Calcium (Lipitor) 10 mg HS PO Last administered on 10/07/18 22:13 ; Start 10/07/18 at 21:00 Baclofen (Lioresal) 10 mg HS PO Last administered on 10/07/18 22:12; Start at 21:00 Cyanocobalamin (Vitamin B-12) 1,000 mcg DAILY PO Last administered on 12:18; Start 10/07/18 at 12:00 Docusate Sodium (Colace) 100 mg BID PO Last administered on 10/07/18 22:13; Start 10/07/18 at 12:00 Furosemide (Lasix) 40 mg DAILY PO Last administered on 10/07/18at 13:56; Start 10/07/18 at 12:00 Guaifenesin (Mucinex) 600 mg BID PO Last administered on 10/07/18 22:12; Start 10/07/18 at 12:00 Nystatin (Nystop) 1 gabriela TID TP Last administered on 10/16/18 08:41; Start 10/07 at 14:00 Simethicone (Gas-X) 80 mg PRN Q6HRS PRN PO flatulence ; Start 10/07/18 at 11:45 Acetaminophen (Tylenol) 1,000 mg PRN BID PRN PO MILD PAIN Last administered on 10/07/18 16:47; Start 10/07/18 at 11:45 Bisacodyl (Dulcolax Supp) 10 mg PRN DAILY PRN [place] CONSTIPATION; Start 10/07/18 at 11:45 Calcium Carbonate/ Glycine (Tums) 500 mg PRN Q12HR PRN PO INDIGESTION Last administered on 10/08/18 02:32; Start 10/07/18 at 11:45 Lactobacillus Rhamnosus (Culturelle) 1 cap BID PO Last administered on 22:13; Start 10/07/18 at 12:00 Non-Formulary Medication (Levothyroxine Sodium ) 40 mcg DAILYAC PRN PO hypothyroid ; Start 10/07/18 at 11:45; Stop 10/07/18 at 12:11; Status DC Loperamide HCl (Imodium) 2 mg PRN Q1HR PRN PO DIARRHEA; Start 10/07/18 at 12:00 Magnesium Oxide (Magnesium Oxide) 400 mg BID PO Last administered on 10/07/18 22:13; Start 10/07/18 at 12:00 Multivitamins (Thera M Plus) 1 tab DAILY PO Last administered on 10/07/18 12: 18; Start 10/07/18 at 12:00 Fish Oil (Fish Oil) 1,000 mg DAILY PO Last administered on 10/07/18 12:18; Start 10/07/18 at 12:00 Potassium Chloride (Klor-Con) 20 meq [id number] PO Last administered on 13:57; Start 10/07/18 at 12:00 Pregabalin (Lyrica) 100 mg TID PO Last administered on 10/07/18 22:13; Start 10/07/18 at 14:00 Famotidine (Pepcid) 20 mg QHS PO Last administered on 10/07/18at 22:12; Start at 21:00; Stop 10/08/18 at 17:01; Status DC Sennosides (Senna) 8.6 mg DAILY PO Last administered on 10/07/18at 12:18; Start 10/07/18 at 12:00 Levothyroxine Sodium (Synthroid) 25 mcg [id number] PO Last administered on at 12:18; Start 10/07/18 at 12:30 Enoxaparin Sodium (Lovenox 40mg Syringe) 40 mg Q24H SQ Last administered on 10/15 20:07; Start 10/07/18 at 21:00 Enoxaparin Sodium (Lovenox 40mg Syringe) 40 mg Q24H SQ ; Start 10/07/18 at 19:00 ; Stop 10/08/18 at 09:23; Status DC Pantoprazole Sodium (Protonix) 40 mg DAILYAC PO ; Start 10/08/18 at 07:30; Stop 10/08/18 at 16:07; Status DC Codeine Sulfate (Codeine) 30 mg PRN Q6HRS PRN PO COUGH, 2nd CHOICE Last administered on 10/08/18at 03:26; Start 10/08/18 at 03:15 Benzonatate (Tessalon Perle) 100 mg [id number] PO ; Start 10/08/18 at 09:00 Benzonatate (Tessalon Perle) 100 mg 1X ONCE PO Last administered on 10/08/18at 03:26; Start 10/08/18 at 03:15; Stop 10/08/18 at 03:16; Status DC Guaifenesin (Robitussin Dm) 10 ml PRN Q4HRS PRN PO COUGH, 1st CHOICE; Start at 07:30 Ondansetron HCl (Zofran) 4 mg PRN Q4HRS PRN IV NAUSEA/VOMITING Last administered on 10/08/18at 09:32; Start 10/08/18 at 07:30 Albuterol/ Ipratropium (Duoneb) 3 ml RTQID NEB Last administered on 10/16/18at 16 :12; Start 10/08/18 at 08:00 Sodium Chloride 1,000 ml @ 75 mls/hr [id number] IV Last administered on at 00:46; Start 10/08/18 at 10:30; Stop 10/13/18 at 16:06; Status DC Iohexol (Omnipaque 300 Mg/ml) 75 ml 1X ONCE IV Last administered on 10/08/18at 11:30; Start 10/08/18 at 11:30; Stop 10/08/18 at 11:31; Status DC Info (CONTRAST GIVEN -- Rx MONITORING) 1 each PRN DAILY PRN MC SEE COMMENTS; Start 10/08/18 at 11:30; Stop 10/10/18 at 11:29; Status DC Ringer's Solution 1,000 ml @ 0 mls/hr Q0M IV Last administered on 10/08/18at 13 :31; Start 10/08/18 at 13:30; Stop 10/08/18 at 16:55; Status DC Ringer's Solution 1,000 ml @ 50 mls/hr Q20H IV ; Start 10/08/18 at 14:00; Stop 10/08/18 at 18:00; Status DC Propofol 20 ml @ As Directed STK-MED ONCE IV ; Start 10/08/18 at 13:48; Stop at 13:49; Status DC Albuterol Sulfate (Ventolin Neb Soln) 2.5 mg PRN 1X PRN NEB SHORTNESS OF BREATH Last administered on 10/08/18at 14:22; Start 10/08/18 at 14:15; Stop 10/08 at 18:00; Status DC Lidocaine HCl (Lidocaine 2% Viscous) 100 ml PRN 1X PRN MM MOUTH PAIN Last administered on 10/08/18at 14:21; Start 10/08/18 at 14:15; Stop 10/08/18 at 18:00 ; Status DC Lidocaine HCl (Lidocaine 1% 20ml Vial) 20 ml PRN 1X PRN INJ SEE COMMENTS Last administered on 10/08/18at 14:22; Start 10/08/18 at 14:15; Stop 10/08/18 at 18:00 ; Status DC Epinephrine HCl (Adrenalin) 1 mg PRN 1X PRN INJ SEE COMMENTS; Start 10/08/18 at 14:15; Stop 10/08/18 at 18:00; Status DC Lidocaine HCl 50 ml PRN 1X PRN MM SEE COMMENTS Last administered on 10/08/18at 14:21; Start 10/08/18 at 14:15; Stop 10/08/18 at 18:00; Status DC Epinephrine HCl (Adrenalin) 1 mg STK-MED ONCE .ROUTE ; Start 10/08/18 at 14:13; Stop 10/08/18 at 14:14; Status DC Lidocaine HCl (Lidocaine 1% 20ml Vial) 20 ml STK-MED ONCE .ROUTE ; Start at 14:13; Stop 10/08/18 at 14:14; Status DC Lidocaine HCl (Lidocaine 2% Viscous) 100 ml STK-MED ONCE .ROUTE ; Start at 14:13; Stop 10/08/18 at 14:14; Status DC Lidocaine HCl 50 ml STK-MED ONCE .ROUTE ; Start 10/08/18 at 14:14; Stop at 14:15; Status DC Pantoprazole Sodium (PROTONIX VIAL for IV PUSH) 40 mg BIDAC IVP Last administered on 10/10/18at 07:28; Start 10/08/18 at 16:30; Stop 10/10/18 at 11:15 ; Status DC Ringer's Solution 1,000 ml @ 100 mls/hr Q10H IV Last administered on at 11:24; Start 10/09/18 at 11:30; Stop 10/10/18 at 07:46; Status DC Propofol 20 ml @ As Directed STK-MED ONCE IV ; Start 10/09/18 at 12:02; Stop at 12:03; Status DC Lidocaine HCl (Lidocaine Pf 2% Vial) 5 ml STK-MED ONCE .ROUTE ; Start 10/09/18 at 12:02; Stop 10/09/18 at 12:03; Status DC Epinephrine HCl (EPINEPHrine SYRINGE) 1 mg STK-MED ONCE .ROUTE ; Start 10/09/18 at 13:18; Stop 10/09/18 at 13:19; Status DC Fentanyl Citrate (Fentanyl 2ml Vial) 50 mcg PRN Q4HRS PRN IV PAIN SEVERE Last administered on 10/15/18at 22:38; Start 10/10/18 at 09:00 Fentanyl Citrate (Fentanyl 2ml Vial) 25 mcg PRN Q4HRS PRN IV PAIN MODERATE Last administered on 10/16/18 13:03; Start 10/10/18 at 09:00 Lidocaine (Lidoderm) 1 patch DAILY TD Last administered on 10/16/18 08:41; Start 10/10/18 at 10:00 Miscellaneous (Lidoderm Patch Removal) 1 ea QHS MC Last administered on 20:07; Start 10/10/18 at 21:00 Sucralfate (Carafate) 1 gm QIDACHS PEG ; Start 10/10/18 at 11:30 Pantoprazole Sodium (Protonix) 40 mg BIDAC PO ; Start 10/10/18 at 16:30; Stop at 11:14; Status DC Amino Acids/ Glycerin/ Electrolytes 1,000 ml @ 100 mls/hr Q10H IV Last administered on 10/14/18 05:20; Start 10/10/18 at 14:45; Stop 10/14/18 at 15:42; Status DC Barium Sulfate (Varibar Thin Liquid Apple) 148 gm 1X ONCE PO Last administered on 10/11/18 11:10; Start 10/11/18 at 10:15; Stop 10/11/18 at 10:16 ; Status DC Pantoprazole Sodium (PROTONIX VIAL for IV PUSH) 40 mg BIDAC IVP Last administered on 10/16/18 18:24; Start 10/11/18 at 16:30 Albuterol/ Ipratropium (Duoneb) 3 ml 1X ONCE NEB Last administered on 01:00; Start 10/12/18 at 01:00; Stop 10/12/18 at 01:01; Status DC Labetalol HCl (Normodyne Iv Push) 20 mg PRN Q2HR PRN IVP SBP>160, 2ND CHOICE Last administered on 10/15/18 03:18; Start 10/12/18 at 03:45 Hydralazine HCl (Apresoline Inj) 10 mg PRN Q4HRS PRN IVP SBP>160, 1ST CHOICE Last administered on 10/13/18 11:26; Start 10/12/18 at 04:45 Albuterol/ Ipratropium (Duoneb) 3 ml 1X ONCE NEB Last administered on 3/30/ 19at 05:52; Start 10/12/18 at 06:00; Stop 10/12/18 at 06:01; Status DC Hydralazine HCl (Apresoline Inj) 10 mg PRN Q4HRS PRN IVP ELEVATED BP, SEE COMMENTS; Start 10/12/18 at 15:30; Status Cancel Albuterol Sulfate (Ventolin Neb Soln) 2.5 mg PRN Q2HR PRN NEB SHORTNESS OF BREATH; Start 10/12/18 at 18:45 Metoprolol Tartrate (Lopressor Vial) 5 mg PRN Q6HRS PRN IVP HTN, SEE COMMENTS 3rd Choice Last administered on 10/16/18at 09:41; Start 10/14/18 at 14:45 Active Scripts Active Reported Thera-Tabs M Caplet (Multivits,Ca,Minerals/Iron/Fa) 1 Each Tablet 1 Each PO DAILY Senna (Sennosides) 8.6 Mg Tablet 8.6 Mg PO DAILY Ranitidine Hcl 150 Mg Tablet 150 Mg PO HS Lyrica (Pregabalin) 100 Mg Capsule 1 Cap PO TID Potassium Chloride 20 Meq Tablet.er 20 Meq PO DAILY Nystatin 15 Gm Powder 1 Gabriela TP TID Simethicone 80 Mg Tab.chew 80 Mg PO PRN Q6HRS PRN Mucinex (Guaifenesin) 600 Mg Tablet.er 1 Tab PO BID Mapap (Acetaminophen) 500 Mg Tablet 1,000 Mg PO PRN BID PRN Magnesium Oxide 400 Mg Tablet 400 Mg PO BID Loperamide (Loperamide Hcl) 2 Mg Capsule 2 Mg PO PRN Q1HR PRN Levothyroxine Sodium 50 Mcg Tablet 40 Mcg PO DAILYAC PRN Furosemide 40 Mg Tablet 1 Tab PO DAILY Fish Oil-Vit D3 Softgel (Omega3/Dha/Epa/Fish Oil/Vit D3) 1 Each Capsule 1 Each PO DAILY Docusate Sodium 100 Mg Capsule 100 Mg PO BID Vitamin B-12 (Cyanocobalamin (Vitamin B-12)) 1,000 Mcg Tablet 1 Tab PO DAILY Culturelle Probiotics Capsule (L. Rhamnosus GG/Inulin) 1 Each Capsule 1 Each PO BID Tums Ultra (Calcium Carbonate) 400 Mg Tab.chew 400 Mg PO PRN Q12HR PRN Dulcolax (Bisacodyl) 10 Mg Supp.rect 10 Mg RC PRN DAILY PRN Baclofen 10 Mg Tablet 10 Mg PO HS Atorvastatin Calcium 10 Mg Tablet 10 Mg PO HS Aspirin Ec (Aspirin) 81 Mg Tablet.dr 1 Tab PO DAILY Vitals/I & O Vital Sign - Last 24 Hours 10/15/18 10/15/18 10/15/18 10/15/18 19:21 19:47 20:03 22:32 Temp 98.1 97.7 98.1 97.7 Pulse 91 92 Resp 20 20 B/P (MAP) 138/72 (94) 146/76 (99) Pulse Ox 98 95 O2 Delivery Nasal Cannula Nasal Cannula Nasal Cannula Nasal Cannula O2 Flow Rate 2.0 2.0 2.0 2.0 10/15/18 10/15/18 10/15/18 10/16/18 22:38 23:08 23:32 03:43 Temp 98.1 98.1 Pulse 127 79 Resp 20 20 20 B/P (MAP) 138/72 135/77 (96) Pulse Ox 98 98 98 O2 Delivery Nasal Cannula Nasal Cannula Nasal Cannula O2 Flow Rate 2.0 2.0 2.0 10/16/18 10/16/18 10/16/18 10/16/18 07:00 08:00 08:38 09:06 Temp 98.1 98.1 Pulse 104 115 Resp 20 B/P (MAP) 147/78 (101) 156/98 (117) Pulse Ox 96 O2 Delivery Nasal Cannula Nasal Cannula Nasal Cannula O2 Flow Rate 2.0 2.0 2.0 10/16/18 10/16/18 10/16/18 10/16/18 09:41 10:46 12:34 13:03 Temp 98.7 98.7 Pulse 155 98 Resp 20 B/P (MAP) 156/98 152/84 (106) Pulse Ox 94 O2 Delivery Nasal Cannula Nasal Cannula O2 Flow Rate 2.0 2.0 10/16/18 10/16/18 10/16/18 13:33 14:49 16:18 Temp 98.8 98.8 Pulse 91 Resp 20 20 B/P (MAP) 144/71 (95) Pulse Ox 98 O2 Delivery Nasal Cannula Nasal Cannula O2 Flow Rate 2.0 2.0 Intake and Output 10/15/18 10/15/18 10/16/18 15:00 23:00 07:00 Intake Total 0 ml Balance 0 ml Nutrition Consultation Dietary Evaluation: Recommendations by RD: Increase Calorie Intake, Protein supplementation Comments: REC TF: Jevity 1.5@20 ml/hr, increase 10 ml q8 hrs as tolerated to goal rate 50 ml/hr w/150 ml water flushes q4 hrs or flushes per MD. REC Vit C (500 mg BID) and MVI q day if able via dobhoff - wound healing Expected Outcomes/Goals: diet advancement - not met, new goal established New goal 10/14: TF initiation/infusion/tolerance Malnutrition Findings: Body Fat Depletion (Non Severe: Mild Depletion Weight Status: Appropriate HEIDI [place] MD Oct 16, 2018 19:04
[2018-10-16] MEDS: ATORVASTATIN CALCIUM 10 MG TABLET. PO SCH (19:39)
[2018-10-16] MEDS: BACLOFEN 10 MG TABLET. PO SCH (19:39)
[2018-10-16] MEDS: PATCH REMOVAL. MC SCH (21:00)
[2018-10-16] MEDS: ENOXAPARIN 40 MG/0.4 ML SYRINGE. SQ SCH (21:23)
[2018-10-17] MEDS: METOPROLOL TARTRATE 5 MG/5 ML VIAL. IVP PRN ×2 (00:51→21:04)
[2018-10-17] MEDS: fentaNYL PF VIAL 100 MCG/2 ML VIAL IV PRN ×3 (00:53→20:21)
[2018-10-17 03:32] VITALS: BP 140/84
[2018-10-17] MEDS: LEVOTHYROXINE 25 MCG TABLET. PO SCH (04:17)
[2018-10-17 07:00] VITALS: BP 159/80
[2018-10-17] MEDS: SUCRALFATE 1 GM/10 ML ORAL.SUSP. PEG SCH ×4 (07:30→19:15)
[2018-10-17] MEDS: POTASSIUM CHLORIDE 20 MEQ TABLET.ER. PO SCH (08:00)
[2018-10-17] MEDS: DOCUSATE SODIUM 100 MG CAPSULE. PO SCH ×2 (08:31→19:15)
[2018-10-17] MEDS: LACTOBACILLUS RHAMNOSUS GG 1 CAPSULE. PO SCH ×2 (08:31→19:15)
[2018-10-17] MEDS: OMEGA-3 FATTY ACIDS/FISH OIL 1,000 MG CAPSULE. PO SCH (08:32)
[2018-10-17] MEDS: BENZONATATE 100 MG CAPSULE. PO SCH ×3 (08:32→19:16)
[2018-10-17] MEDS: MAGNESIUM OXIDE 400 MG TABLET PO SCH ×2 (08:32→19:16)
[2018-10-17] MEDS: CYANOCOBALAMIN (VITAMIN B-12) 1,000 MCG TABLET. PO SCH (08:32)
[2018-10-17] MEDS: MULTIVITAMIN with MINERAL TABLET. PO SCH (08:32)
[2018-10-17] MEDS: ASPIRIN ENTERIC COATED 81 MG TABLET.DR. PO SCH (08:32)
[2018-10-17] MEDS: PREGABALIN 50 MG CAPSULE PO SCH ×3 (08:32→19:16)
[2018-10-17] MEDS: SENNOSIDES 8.6 MG TABLET PO SCH (08:32)
[2018-10-17] MEDS: FUROSEMIDE 40 MG TABLET. PO SCH (08:32)
[2018-10-17] MEDS: NYSTATIN TOPICAL POWDER 15GM BOTTLE. TP SCH ×3 (09:00→20:19)
[2018-10-17] MEDS: IPRATRPIUM/ALBUTEROL 0.5/2.5MG 3 ML NEBU. NEB SCH ×4 (09:45→20:11)
--- NOTE | 2018-10-17 10:08 | PDOC ---
Subjective: Subjective: Denies pain. Objective: Objective: Reviewed chart and d/w Pat/PC, SW/Kathia, and hospitalist/Dr. Mohr - declined at LTAC, needs PEG instead of Dobhoff, family meeting today - per previous discussion seems like family and pt desire full aggressive care. Vital Signs: Vital Signs Date Time Temp Pulse Resp B/P (MAP) Pulse Ox O2 Delivery O2 Flow Rate FiO2 10/17/18 09:47 99 Nasal Cannula 2.0 10/17/18 07:00 98.0 89 20 159/80 (106) 98.0 PE: GEN: NAD LUNGS: NC HEART: RRR ABD: a bit firmer today, quiet BS, doesn't seem tender NEURO/PSYCH: drowsy A/P: Dysphagia, [place] -EGD 10/09: ulcerative esophagitis w/ active bleeding and clots, possible M-W tear s/p epi and cautery, hiatal hernia, clot in stomach -on IV PPI, Dobhoff feeds -no further hematemesis, Hgb stable w/ some elevation in BUN -- Awaiting family meeting though seems PEG is desired - will review timing for re- eval w/ EGD and possible PEG placement w/ Dr. Lopez (covering for Dr. Jean). Recheck labs including INR, check acute abd series. MARIANNE SANCHEZ Oct 17, 2018 10:08
[2018-10-17] MEDS: PANTOPRAZOLE IV PUSH 40 MG VIAL. IVP SCH ×2 (10:48→18:39)
[2018-10-17] MEDS: LIDOCAINE (700MG/PATCH) PATCH. TD SCH (10:49)
[2018-10-17 11:00] VITALS: BP 144/87
[2018-10-17 11:13] LABS: PROTHROMBIN TIME PATIENT 14.5 SEC (11.7-14.0)
--- NOTE | 2018-10-17 11:33 | PDOC2 ---
PALLIATIVE CARE Palliative Care Note Palliative Care Patient sitting up in chair. Alert and oriented. Met with daughters Katt, Julieta, and Fausto. Reviewed current medical condition and discussed goals of care. Family is aware of her medical condition and is able to accurately verbalize this as well as patient goals. Prior to admission patient was ambulating with walker--after fracture of her wrist patient was then using W/C to assist with mobility. Patient and family would like to continue with current aggressive care to see if she can get stronger understanding that she likely will not get back to AL environment. Both patient and family are realistic in their expectations. Confirmed Code Status: DNR/DNI. Outside the Hospital DNR/DNI form signed. Discussed EGD later this week and need for PEG tube for added nutrition. Family and patient in agreement. Plan; DNR/DNI confirmed. Continue current treatment plan. Select for continued aggressive care. EGD with possible PEG per GI (discussed with Debby LAUGHLIN) ROSA TURCIOS Oct 17, 2018 11:33
--- NOTE | 2018-10-17 12:10 | PDOC ---
PULMONARY PROGRESS NOTES Subjective weak/ no soa Vitals Vital Signs Date Time Temp Pulse Resp B/P (MAP) Pulse Ox O2 Delivery O2 Flow Rate FiO2 10/17/18 11:00 98.2 59 18 144/87 (106) 95 Nasal Cannula 2.0 98.2 ROS: No Chest Pain General: No acute distress, Lethargic Lungs: Clear Cardiovascular: S1, S2 Abdomen: Soft Neuro Exam: Alert Extremities: No Edema Skin: Warm Labs Laboratory Tests Test 10/17/18 10:50 Prothrombin Time 14.5 SEC (11.7-14.0) Prothromb Time International Ratio 1.2 (0.8-1.1) Laboratory Tests Test 10/17/18 10:50 Prothrombin Time 14.5 SEC (11.7-14.0) Prothromb Time International Ratio 1.2 (0.8-1.1) Medications Active Scripts Medications Dose Route/Sig Max Daily Dose Days Date Category Thera-Tabs M Caplet (Multivits,Ca,Minerals/Iron/Fa) 1 Each Tablet 1 Each PO DAILY 10/07/18 Reported Senna (Sennosides) 8.6 Mg Tablet 8.6 Mg PO DAILY 10/07/18 Reported Ranitidine Hcl 150 Mg Tablet 150 Mg PO HS 10/07/18 Reported Lyrica (Pregabalin) 100 Mg Capsule 1 Cap PO TID 10/07/18 Reported Potassium Chloride 20 Meq Tablet.er 20 Meq PO DAILY 10/07/18 Reported Nystatin 15 Gm Powder 1 Gabriela TP TID 10/07/18 Reported Simethicone 80 Mg Tab.chew 80 Mg PO PRN Q6HRS PRN 10/07/18 Reported Mucinex (Guaifenesin) 600 Mg Tablet.er 1 Tab PO BID 10/07/18 Reported Mapap (Acetaminophen) 500 Mg Tablet 1,000 Mg PO PRN BID PRN 10/07/18 Reported Magnesium Oxide 400 Mg Tablet 400 Mg PO BID 10/07/18 Reported Loperamide (Loperamide Hcl) 2 Mg Capsule 2 Mg PO PRN Q1HR PRN 10/07/18 Reported Levothyroxine Sodium 50 Mcg Tablet 40 Mcg PO DAILYAC PRN 10/07/18 Reported Furosemide 40 Mg Tablet 1 Tab PO DAILY 10/07/18 Reported Fish Oil-Vit D3 Softgel (Omega3/Dha/Epa/Fish Oil/Vit D3) 1 Each Capsule 1 Each PO DAILY 10/07/18 Reported Docusate Sodium 100 Mg Capsule 100 Mg PO BID 10/07/18 Reported Vitamin B-12 (Cyanocobalamin (Vitamin B-12)) 1,000 Mcg Tablet 1 Tab PO DAILY 10/07/18 Reported Culturelle Probiotics Capsule (L. Rhamnosus GG/Inulin) 1 Each Capsule 1 Each PO BID 10/07/18 Reported Tums Ultra (Calcium Carbonate) 400 Mg Tab.chew 400 Mg PO PRN Q12HR PRN 10/07/18 Reported Dulcolax (Bisacodyl) 10 Mg Supp.rect 10 Mg RC PRN DAILY PRN 10/07/18 Reported Baclofen 10 Mg Tablet 10 Mg PO HS 10/07/18 Reported Atorvastatin Calcium 10 Mg Tablet 10 Mg PO HS 10/07/18 Reported Aspirin Ec (Aspirin) 81 Mg Tablet.dr 1 Tab PO DAILY 10/07/18 Reported Impression . 1. Dyspnea secondary to multi-factorial etiology including exacerbation of chronic obstructive pulmonary disease.? right HF/ Weakness 2. Acute exacerbation of chronic obstructive pulmonary disease. 3. Pulmonary hypertension. The patient recently evaluated at [facility], declined right heart catheterization. Recent echo with PA only 33 mmHg. Does not need any work up 4. Chest pain per Cardiology. 5. Chronic atrial fibrillation. 6. Scleroderma. 7. Right lower extremity cellulitis. 8. HEMATEMESIS, resolved 9. DYSPHAGIA BROCNH FINDINGS: 1. Normal vocal cords. 2. No endobronchial lesion. 3. No active bleeding. EGD Esophagus- shortened with diffuse ulceration in distal 1/3, with active bleeding and adherent clot ? MW tear as well- carmen removed, treated with 3 cc of epinephrine 1:10,000 and bipolar cautery- with control- 6 cm HH, stomach with clots - no active bleeding seen but exam limited due to clots- duodenum appeared normal Plan- NPO then CLD PPI BID carafate slurry QID repeat EGD in 1 week if stable or earlier if bleeding continues ECHO <Conclusion> Abnormal septal motion consistent with conduction abnormality. The Ejection Fraction is 50%. Trace aortic regurgitation. Trace to mild mitral regurgitation. Mild tricuspid regurgitation. The PA pressure was estimated at 33 mmHg. There is no evidence of significant pericardial effusion. Plan . NASAL CANULA RESP STATUS IS COMPENSATED NPO, DOBBHOFF FOR NUTRITION EGD last week: ulcerative esophagitis w/ active bleeding and clots, possible M- W tear s/p epi and cautery, hiatal hernia, clot in stomach FOLLOW GI INPUT PALLIATIVE MEETING TODAY D/W RN NOT MUCH TO OFFER TORI GOMEZ MD Oct 17, 2018 12:10
--- NOTE | 2018-10-17 13:41 | NUR ---
SS following up with discharge planning. [facility] completing a written appeal to [employer] in hopes of having LTAC denial overturned. Pt's family wanting full aggressive care at this time. Pt's family agreeable to PEG tube placement. If pt is denied for LTAC pt will be able to go to fpc unit once PEG placement is completed. Pt is from [facility] and would be able to go to the fpc unit at [facility]. SS will await secondary appeal for LTAC and peg placement and will proceed accordingly with discharge planning. Addendum: 10/17/18 at 1346 by VALENTINA RAHMAN SS Correction to previous note: Pt is from [facility] and pt's family requested fpc unit at [facility] if [employer] does not approve LTAC.
--- NOTE | 2018-10-17 14:18 | PDOC ---
PROGRESS NOTES Chief Complaint Chief Complaint Assessment/Plan IMPRESSION 1. ACUTE COPD EXAC improved 2. Chest pain, atypical. non cardiac in nature most likely due to underlyng gi process 2. Dyspnea secondary to URI. slowly improving. 3. Chronic diastolic CHF Abnormal septal motion consistent with conduction abnormality. The Ejection Fraction is 50%. ECHO 10/07 4. Chronic AFIB; 5. Scleroderma 6. Raynaud's 7. RLE cellulitis, wound 8. left chest deep brain stimulator for essential tremors 9. GERD 10. Hypothyroid state on replacement 11. Right 2nd toe infection. 12. mild hypernatremia, monitor significant decline, very debilitated, prognosis very guarded, Family meeting . //PAT consulted, patient does not want palliative care she wants to try to regain her functional status. PEG tube will be needed in order to transition to LTAC PROCEDURE NOTE PROCEDURE 09/11 Procedure EGD with control of bleeding Esophagus- shortened with diffuse ulceration in distal 1/3, with active bleeding and adherent clot ? MW tear as well- carmen removed, treated with 3 cc of epinephrine 1:10,000 and bipolar cautery- with control- 6 cm HH, stomach with clots - no active bleeding seen but exam limited due to clots- duodenum appeared normal PLAN Tube Feedings. Dobbhoff CT CHEST reviewed INR ok GI following PULM following Cardiology consult dvt prophylaxis continue with wound care History of Present Illness History of Present Illness 10/09 HEMOPTYSIS VS HEMATEMESIS REMAINS NPO/// BRONCH NO LESION SEEN, GI FOLLOWING 10/10 failed bedside swallow and is still NPO - PPN ordered 10/11 FAILED SWALLOW STUDY, WILL D/W GI planning dobhoff 10/14 Disordered swallowing mechanism with moderate residue and mild intermittent laryngeal penetration with minimal aspiration 10/14 Daughter desires DNR designation dobhoff placed Enteric feeding catheter within the proximal stomach. on kub 10/15 no complaints during my visit remains stable, guarded prognosis 10/16 no new complaints remains bedridden, compaoinign of back pain, no alarming signs voiced, no cauda equina syndrome symptoms. Vitals Vitals Vital Signs Date Time Temp Pulse Resp B/P (MAP) Pulse Ox O2 Delivery O2 Flow Rate FiO2 10/17/18 11:00 98.2 59 18 144/87 (106) 95 Nasal Cannula 2.0 98.2 Physical Exam General: Alert, Oriented X3, Cooperative, mild distress, Other (frail appearing ) Heart: Regular rate, Normal S1, Other (irregular rhythm with 2/6 systolic murmur) Lungs: Clear Abdomen: Normal bowel sounds, Soft, No tenderness Extremities: No clubbing, No cyanosis, No edema, Normal pulses, Other (strong dorsalis pedis pulse on the right with a Quant of flow of 1.08) Skin: No breakdown, No significant lesion, Other (1.3 cm ulceration to the dorsal aspect right second toe with no evidence of exposed tendon or bone at this time. The toe itself is modestly edematous with mild erythema) Labs LABS Laboratory Tests Test 10/17/18 10:50 Prothrombin Time 14.5 SEC (11.7-14.0) Prothromb Time International Ratio 1.2 (0.8-1.1) Assessment and Plan Assessmemt and Plan Problems Medical Problems: (1) Chest pain Status: Acute (2) Pneumonia Status: Acute Comment Review of Relevant I have reviewed the following items tara (where applicable) has been applied. Labs Laboratory Tests Test 10/17/18 10:50 Prothrombin Time 14.5 SEC (11.7-14.0) Prothromb Time International Ratio 1.2 (0.8-1.1) Laboratory Tests Test 10/17/18 10:50 Prothrombin Time 14.5 SEC (11.7-14.0) Prothromb Time International Ratio 1.2 (0.8-1.1) Microbiology 10/06/18 Blood Culture - Final, Complete NO GROWTH AFTER 5 DAYS Medications Current Medications Piperacillin Sod/ Tazobactam Sod (Zosyn Per Pharmacy) 1 each PRN DAILY PRN MC SEE COMMENTS; Start 10/06/18 at 19:00; Stop 10/12/18 at 14:15; Status DC Piperacillin Sod/ Tazobactam Sod 3.375 gm/Sodium Chloride 50 ml @ 100 mls/hr 1X ONCE IV Last administered on 10/06/18at 19:09; Start 10/06/18 at 19:30; Stop 10/06/18 at 19:59; Status DC Ondansetron HCl (Zofran) 4 mg PRN Q8HRS PRN IV NAUSEA/VOMITING; Start 10/06/18 at 19:00; Stop 10/07/18 at 18:59; Status DC Acetaminophen (Tylenol) 650 mg PRN Q4HRS PRN PO FEVER Last administered on 10/06 20:29; Start 10/06/18 at 19:00; Stop 10/07/18 at 11:43; Status DC Albuterol/ Ipratropium (Duoneb) 3 ml RTQID NEB Last administered on 10/07/18 19:59; Start 10/06/18 at 20:00; Stop 10/07/18 at 19:59; Status DC Ondansetron HCl (Zofran) 4 mg 1X ONCE IV Last administered on 10/06/18 20:25 ; Start 10/06/18 at 20:30; Stop 10/06/18 at 20:34; Status DC Piperacillin Sod/ Tazobactam Sod 3.375 gm/Sodium Chloride 50 ml @ 100 mls/hr Q6HRS IV Last administered on 10/12/18 12:37; Start 10/07/18 at 00:00; Stop at 14:15; Status DC Aspirin (Ecotrin) 81 mg DAILY PO Last administered on 10/07/18 12:18; Start at 12:00 Atorvastatin Calcium (Lipitor) 10 mg HS PO Last administered on 10/07/18 22:13 ; Start 10/07/18 at 21:00 Baclofen (Lioresal) 10 mg HS PO Last administered on 10/07/18 22:12; Start at 21:00 Cyanocobalamin (Vitamin B-12) 1,000 mcg DAILY PO Last administered on 12:18; Start 10/07/18 at 12:00 Docusate Sodium (Colace) 100 mg BID PO Last administered on 10/07/18 22:13; Start 10/07/18 at 12:00 Furosemide (Lasix) 40 mg DAILY PO Last administered on 10/07/18 13:56; Start 10/07/18 at 12:00 Guaifenesin (Mucinex) 600 mg BID PO Last administered on 10/07/18 22:12; Start 10/07/18 at 12:00 Nystatin (Nystop) 1 gabriela TID TP Last administered on 10/17/18 09:00; Start 10/07 at 14:00 Simethicone (Gas-X) 80 mg PRN Q6HRS PRN PO flatulence ; Start 10/07/18 at 11:45 Acetaminophen (Tylenol) 1,000 mg PRN BID PRN PO MILD PAIN Last administered on 10/07/18at 16:47; Start 10/07/18 at 11:45 Bisacodyl (Dulcolax Supp) 10 mg PRN DAILY PRN [place] CONSTIPATION; Start 10/07/18 at 11:45 Calcium Carbonate/ Glycine (Tums) 500 mg PRN Q12HR PRN PO INDIGESTION Last administered on 10/08/18 02:32; Start 10/07/18 at 11:45 Lactobacillus Rhamnosus (Culturelle) 1 cap BID PO Last administered on 22:13; Start 10/07/18 at 12:00 Non-Formulary Medication (Levothyroxine Sodium ) 40 mcg DAILYAC PRN PO hypothyroid ; Start 10/07/18 at 11:45; Stop 10/07/18 at 12:11; Status DC Loperamide HCl (Imodium) 2 mg PRN Q1HR PRN PO DIARRHEA; Start 10/07/18 at 12:00 Magnesium Oxide (Magnesium Oxide) 400 mg BID PO Last administered on 10/07/18 22:13; Start 10/07/18 at 12:00 Multivitamins (Thera M Plus) 1 tab DAILY PO Last administered on 10/07/18 12: 18; Start 10/07/18 at 12:00 Fish Oil (Fish Oil) 1,000 mg DAILY PO Last administered on 10/07/18 12:18; Start 10/07/18 at 12:00 Potassium Chloride (Klor-Con) 20 meq [id number] PO Last administered on 13:57; Start 10/07/18 at 12:00 Pregabalin (Lyrica) 100 mg TID PO Last administered on 10/07/18 22:13; Start 10/07/18 at 14:00 Famotidine (Pepcid) 20 mg QHS PO Last administered on 10/07/18 22:12; Start at 21:00; Stop 10/08/18 at 17:01; Status DC Sennosides (Senna) 8.6 mg DAILY PO Last administered on 10/07/18 12:18; Start 10/07/18 at 12:00 Levothyroxine Sodium (Synthroid) 25 mcg [id number] PO Last administered on 12:18; Start 10/07/18 at 12:30 Enoxaparin Sodium (Lovenox 40mg Syringe) 40 mg Q24H SQ Last administered on 10/16 21:23; Start 10/07/18 at 21:00 Enoxaparin Sodium (Lovenox 40mg Syringe) 40 mg Q24H SQ ; Start 10/07/18 at 19:00 ; Stop 10/08/18 at 09:23; Status DC Pantoprazole Sodium (Protonix) 40 mg DAILYAC PO ; Start 10/08/18 at 07:30; Stop 10/08/18 at 16:07; Status DC Codeine Sulfate (Codeine) 30 mg PRN Q6HRS PRN PO COUGH, 2nd CHOICE Last administered on 10/08/18 03:26; Start 10/08/18 at 03:15 Benzonatate (Tessalon Perle) 100 mg [id number] PO ; Start 10/08/18 at 09:00 Benzonatate (Tessalon Perle) 100 mg 1X ONCE PO Last administered on 10/08/18 03:26; Start 10/08/18 at 03:15; Stop 10/08/18 at 03:16; Status DC Guaifenesin (Robitussin Dm) 10 ml PRN Q4HRS PRN PO COUGH, 1st CHOICE; Start at 07:30 Ondansetron HCl (Zofran) 4 mg PRN Q4HRS PRN IV NAUSEA/VOMITING Last administered on 10/08/18 09:32; Start 10/08/18 at 07:30 Albuterol/ Ipratropium (Duoneb) 3 ml RTQID NEB Last administered on 10/17/18 09 :45; Start 10/08/18 at 08:00 Sodium Chloride 1,000 ml @ 75 mls/hr [id number] IV Last administered on 00:46; Start 10/08/18 at 10:30; Stop 10/13/18 at 16:06; Status DC Iohexol (Omnipaque 300 Mg/ml) 75 ml 1X ONCE IV Last administered on 10/08/18at 11:30; Start 10/08/18 at 11:30; Stop 10/08/18 at 11:31; Status DC Info (CONTRAST GIVEN -- Rx MONITORING) 1 each PRN DAILY PRN MC SEE COMMENTS; Start 10/08/18 at 11:30; Stop 10/10/18 at 11:29; Status DC Ringer's Solution 1,000 ml @ 0 mls/hr Q0M IV Last administered on 10/08/18at 13 :31; Start 10/08/18 at 13:30; Stop 10/08/18 at 16:55; Status DC Ringer's Solution 1,000 ml @ 50 mls/hr Q20H IV ; Start 10/08/18 at 14:00; Stop 10/08/18 at 18:00; Status DC Propofol 20 ml @ As Directed STK-MED ONCE IV ; Start 10/08/18 at 13:48; Stop at 13:49; Status DC Albuterol Sulfate (Ventolin Neb Soln) 2.5 mg PRN 1X PRN NEB SHORTNESS OF BREATH Last administered on 10/08/18at 14:22; Start 10/08/18 at 14:15; Stop 10/08 at 18:00; Status DC Lidocaine HCl (Lidocaine 2% Viscous) 100 ml PRN 1X PRN MM MOUTH PAIN Last administered on 10/08/18at 14:21; Start 10/08/18 at 14:15; Stop 10/08/18 at 18:00 ; Status DC Lidocaine HCl (Lidocaine 1% 20ml Vial) 20 ml PRN 1X PRN INJ SEE COMMENTS Last administered on 10/08/18at 14:22; Start 10/08/18 at 14:15; Stop 10/08/18 at 18:00 ; Status DC Epinephrine HCl (Adrenalin) 1 mg PRN 1X PRN INJ SEE COMMENTS; Start 10/08/18 at 14:15; Stop 10/08/18 at 18:00; Status DC Lidocaine HCl 50 ml PRN 1X PRN MM SEE COMMENTS Last administered on 10/08/18at 14:21; Start 10/08/18 at 14:15; Stop 10/08/18 at 18:00; Status DC Epinephrine HCl (Adrenalin) 1 mg STK-MED ONCE .ROUTE ; Start 10/08/18 at 14:13; Stop 10/08/18 at 14:14; Status DC Lidocaine HCl (Lidocaine 1% 20ml Vial) 20 ml STK-MED ONCE .ROUTE ; Start at 14:13; Stop 10/08/18 at 14:14; Status DC Lidocaine HCl (Lidocaine 2% Viscous) 100 ml STK-MED ONCE .ROUTE ; Start at 14:13; Stop 10/08/18 at 14:14; Status DC Lidocaine HCl 50 ml STK-MED ONCE .ROUTE ; Start 10/08/18 at 14:14; Stop at 14:15; Status DC Pantoprazole Sodium (PROTONIX VIAL for IV PUSH) 40 mg BIDAC IVP Last administered on 10/10/18at 07:28; Start 10/08/18 at 16:30; Stop 10/10/18 at 11:15 ; Status DC Ringer's Solution 1,000 ml @ 100 mls/hr Q10H IV Last administered on at 11:24; Start 10/09/18 at 11:30; Stop 10/10/18 at 07:46; Status DC Propofol 20 ml @ As Directed STK-MED ONCE IV ; Start 10/09/18 at 12:02; Stop at 12:03; Status DC Lidocaine HCl (Lidocaine Pf 2% Vial) 5 ml STK-MED ONCE .ROUTE ; Start 10/09/18 at 12:02; Stop 10/09/18 at 12:03; Status DC Epinephrine HCl (EPINEPHrine SYRINGE) 1 mg STK-MED ONCE .ROUTE ; Start 10/09/18 at 13:18; Stop 10/09/18 at 13:19; Status DC Fentanyl Citrate (Fentanyl 2ml Vial) 50 mcg PRN Q4HRS PRN IV PAIN SEVERE Last administered on 10/17/18 00:53; Start 10/10/18 at 09:00 Fentanyl Citrate (Fentanyl 2ml Vial) 25 mcg PRN Q4HRS PRN IV PAIN MODERATE Last administered on 10/16/18 13:03; Start 10/10/18 at 09:00 Lidocaine (Lidoderm) 1 patch DAILY TD Last administered on 10/17/18at 10:49; Start 10/10/18 at 10:00 Miscellaneous (Lidoderm Patch Removal) 1 ea QHS MC Last administered on at 20:07; Start 10/10/18 at 21:00 Sucralfate (Carafate) 1 gm QIDACHS PEG ; Start 10/10/18 at 11:30 Pantoprazole Sodium (Protonix) 40 mg BIDAC PO ; Start 10/10/18 at 16:30; Stop at 11:14; Status DC Amino Acids/ Glycerin/ Electrolytes 1,000 ml @ 100 mls/hr Q10H IV Last administered on 10/14/18at 05:20; Start 10/10/18 at 14:45; Stop 10/14/18 at 15:42; Status DC Barium Sulfate (Varibar Thin Liquid Apple) 148 gm 1X ONCE PO Last administered on 10/11/18at 11:10; Start 10/11/18 at 10:15; Stop 10/11/18 at 10:16 ; Status DC Pantoprazole Sodium (PROTONIX VIAL for IV PUSH) 40 mg BIDAC IVP Last administered on 10/17/18at 10:48; Start 10/11/18 at 16:30 Albuterol/ Ipratropium (Duoneb) 3 ml 1X ONCE NEB Last administered on at 01:00; Start 10/12/18 at 01:00; Stop 10/12/18 at 01:01; Status DC Labetalol HCl (Normodyne Iv Push) 20 mg PRN Q2HR PRN IVP SBP>160, 2ND CHOICE Last administered on 10/15/18at 03:18; Start 10/12/18 at 03:45 Hydralazine HCl (Apresoline Inj) 10 mg PRN Q4HRS PRN IVP SBP>160, 1ST CHOICE Last administered on 10/13/18at 11:26; Start 10/12/18 at 04:45 Albuterol/ Ipratropium (Duoneb) 3 ml 1X ONCE NEB Last administered on at 05:52; Start 10/12/18 at 06:00; Stop 10/12/18 at 06:01; Status DC Hydralazine HCl (Apresoline Inj) 10 mg PRN Q4HRS PRN IVP ELEVATED BP, SEE COMMENTS; Start 10/12/18 at 15:30; Status Cancel Albuterol Sulfate (Ventolin Neb Soln) 2.5 mg PRN Q2HR PRN NEB SHORTNESS OF BREATH; Start 10/12/18 at 18:45 Metoprolol Tartrate (Lopressor Vial) 5 mg PRN Q6HRS PRN IVP HTN, SEE COMMENTS 3rd Choice Last administered on 10/17/18at 00:51; Start 10/14/18 at 14:45 Ringer's Solution 1,000 ml @ 50 mls/hr Q20H IV ; Start 10/18/18 at 07:00; Stop 10/18/18 at 18:59 Active Scripts Active Reported Thera-Tabs M Caplet (Multivits,Ca,Minerals/Iron/Fa) 1 Each Tablet 1 Each PO DAILY Senna (Sennosides) 8.6 Mg Tablet 8.6 Mg PO DAILY Ranitidine Hcl 150 Mg Tablet 150 Mg PO HS Lyrica (Pregabalin) 100 Mg Capsule 1 Cap PO TID Potassium Chloride 20 Meq Tablet.er 20 Meq PO DAILY Nystatin 15 Gm Powder 1 Gabriela TP TID Simethicone 80 Mg Tab.chew 80 Mg PO PRN Q6HRS PRN Mucinex (Guaifenesin) 600 Mg Tablet.er 1 Tab PO BID Mapap (Acetaminophen) 500 Mg Tablet 1,000 Mg PO PRN BID PRN Magnesium Oxide 400 Mg Tablet 400 Mg PO BID Loperamide (Loperamide Hcl) 2 Mg Capsule 2 Mg PO PRN Q1HR PRN Levothyroxine Sodium 50 Mcg Tablet 40 Mcg PO DAILYAC PRN Furosemide 40 Mg Tablet 1 Tab PO DAILY Fish Oil-Vit D3 Softgel (Omega3/Dha/Epa/Fish Oil/Vit D3) 1 Each Capsule 1 Each PO DAILY Docusate Sodium 100 Mg Capsule 100 Mg PO BID Vitamin B-12 (Cyanocobalamin (Vitamin B-12)) 1,000 Mcg Tablet 1 Tab PO DAILY Culturelle Probiotics Capsule (L. Rhamnosus GG/Inulin) 1 Each Capsule 1 Each PO BID Tums Ultra (Calcium Carbonate) 400 Mg Tab.chew 400 Mg PO PRN Q12HR PRN Dulcolax (Bisacodyl) 10 Mg Supp.rect 10 Mg RC PRN DAILY PRN Baclofen 10 Mg Tablet 10 Mg PO HS Atorvastatin Calcium 10 Mg Tablet 10 Mg PO HS Aspirin Ec (Aspirin) 81 Mg Tablet.dr 1 Tab PO DAILY Vitals/I & O Vital Sign - Last 24 Hours 10/16/18 10/16/18 10/16/18 10/16/18 14:49 16:18 19:12 20:09 Temp 98.8 97.4 98.8 97.4 Pulse 91 98 Resp 20 20 B/P (MAP) 144/71 (95) 149/75 (99) Pulse Ox 98 98 O2 Delivery Nasal Cannula Nasal Cannula Nasal Cannula Nasal Cannula O2 Flow Rate 2.0 2.0 2.0 2.0 10/16/18 10/16/18 10/17/18 10/17/18 20:29 23:03 00:51 00:53 Temp 97.7 97.7 Pulse 128 128 Resp 24 18 B/P (MAP) 146/90 (108) 146/90 Pulse Ox 93 93 O2 Delivery Nasal Cannula Nasal Cannula Nasal Cannula O2 Flow Rate 2.0 2.0 2.0 10/17/18 10/17/18 10/17/18 10/17/18 01:23 03:32 07:00 08:00 Temp 98.6 98.0 98.6 98.0 Pulse 98 89 Resp 18 16 20 B/P (MAP) 140/84 (102) 159/80 (106) Pulse Ox 98 98 95 O2 Delivery Nasal Cannula Nasal Cannula Nasal Cannula Nasal Cannula O2 Flow Rate 2.0 2.0 2.0 2.0 10/17/18 10/17/18 09:47 11:00 Temp 98.2 98.2 Pulse 59 Resp 18 B/P (MAP) 144/87 (106) Pulse Ox 99 95 O2 Delivery Nasal Cannula Nasal Cannula O2 Flow Rate 2.0 2.0 Intake and Output 10/16/18 10/16/18 10/17/18 15:00 23:00 07:00 Intake Total 0 ml 775 ml 250 ml Output Total 3 ml Balance 0 ml 775 ml 247 ml Nutrition Consultation Dietary Evaluation: Recommendations by RD: Increase Calorie Intake, Protein supplementation Comments: Continue w/TF per current order: Jevity 1.5@goal rate 50 ml/hr w/150 ml water flushes q4 hrs or flushes per MD REC Vit C (500 mg BID) and MVI q day if able via dobhoff - wound healing Expected Outcomes/Goals: New goal 10/14: TF initiation/infusion/tolerance - met, new goal established New goal 10/17: TF infusion to meet >75% est needs Malnutrition Findings: Body Fat Depletion (Non Severe: Mild Depletion Weight Status: Appropriate HEIDI [place] MD Oct 17, 2018 14:18
[2018-10-17 15:00] VITALS: BP 162/78
--- NOTE | 2018-10-17 15:44 | RAD ---
EXAM: Abdomen acute complete. HISTORY: Decreased bowel sounds. COMPARISON: 10/14/2018. FINDINGS: A frontal view the chest and frontal upright and supine views of the abdomen are obtained. There is a suspected trace left pleural effusion with left lower lobe atelectasis or infiltrate. There is a stable prominent cardiac silhouette. There is no pneumothorax. There is a generator overlying the left chest wall, likely due to a vagal nerve stimulator. There is a nasogastric tube within the proximal stomach. There is a suspected patulous esophagus with moderate hiatal hernia. There are distended air filled loops of bowel throughout the abdomen. There is contrast within the colon which extends to the rectal vault. There is distal colonic diverticulosis. There are prominent air-filled small bowel within the midabdomen. No transition point is seen. There is no free air. IMPRESSION: 1. Suspected small left pleural effusion with lower lobe atelectasis or infiltrate. 2. Cardiomegaly. 3. Nasogastric tube within the proximal stomach. There is a suspected patulous esophagus is moderate hiatal hernia. 4. Colonic diverticulosis. 5. Prominent air-filled bowel throughout the abdomen. No clear transition point to suggest obstruction. The possibly of ileus is not excluded. Electronically signed by: Yesi Adkins MD (10/17/2018 3:41 PM) [facility]
--- NOTE | 2018-10-17 17:46 | NUR ---
Patient felt an urge to stool and sat on the bedpan without success. Patient passed a lot of gas while turning off bedpan.
[2018-10-17] MEDS: BACLOFEN 10 MG TABLET. PO SCH (19:15)
[2018-10-17] MEDS: ATORVASTATIN CALCIUM 10 MG TABLET. PO SCH (19:16)
[2018-10-17 19:51] VITALS: BP 147/76
[2018-10-17] MEDS: ENOXAPARIN 40 MG/0.4 ML SYRINGE. SQ SCH (20:19)
[2018-10-17] MEDS: PATCH REMOVAL. MC SCH (20:19)
[2018-10-17 22:44] VITALS: BP 141/69
[2018-10-18 03:57] VITALS: BP 146/88
[2018-10-18] MEDS: LEVOTHYROXINE 25 MCG TABLET. PO SCH (06:00)
[2018-10-18] MEDS ORDERED: IV RINGERS,LACTATED 1000ML 1,000 ML IV SCH ×2 (07:00→07:55)
[2018-10-18] MEDS: SUCRALFATE 1 GM/10 ML ORAL.SUSP. PEG SCH ×3 (07:30→16:47)
[2018-10-18 07:32] VITALS: BP 147/77
[2018-10-18] MEDS: IPRATRPIUM/ALBUTEROL 0.5/2.5MG 3 ML NEBU. NEB SCH ×4 (07:55→20:12)
[2018-10-18] MEDS ORDERED: MIDAZOLAM HCL/PF 2 MG/2 ML VIAL. IV PRN (08:00)
[2018-10-18] MEDS ORDERED: LIDOCAINE 1% PF 2 ML VIAL. ID PRN (08:00)
[2018-10-18] MEDS ORDERED: fentaNYL PF VIAL 100 MCG/2 ML VIAL IV PRN ×2 (08:00)
[2018-10-18] MEDS: PANTOPRAZOLE IV PUSH 40 MG VIAL. IVP SCH (08:31)
--- NOTE | 2018-10-18 09:25 | PDOC ---
PULMONARY PROGRESS NOTES Subjective weak/ no soa Vitals Vital Signs Date Time Temp Pulse Resp B/P (MAP) Pulse Ox O2 Delivery O2 Flow Rate FiO2 10/18/18 08:00 Nasal Cannula 2.0 10/18/18 07:55 98 10/18/18 07:32 99.2 122 18 147/77 (100) 99.2 ROS: No Chest Pain General: No acute distress, Lethargic Lungs: Clear Cardiovascular: S1, S2 Abdomen: Soft Neuro Exam: Alert Extremities: No Edema Skin: Warm Labs Laboratory Tests Test 10/17/18 10:50 Prothrombin Time 14.5 SEC (11.7-14.0) Prothromb Time International Ratio 1.2 (0.8-1.1) Laboratory Tests Test 10/17/18 10:50 Prothrombin Time 14.5 SEC (11.7-14.0) Prothromb Time International Ratio 1.2 (0.8-1.1) Medications Active Scripts Medications Dose Route/Sig Max Daily Dose Days Date Category Thera-Tabs M Caplet (Multivits,Ca,Minerals/Iron/Fa) 1 Each Tablet 1 Each PO DAILY 10/07/18 Reported Senna (Sennosides) 8.6 Mg Tablet 8.6 Mg PO DAILY 10/07/18 Reported Ranitidine Hcl 150 Mg Tablet 150 Mg PO HS 10/07/18 Reported Lyrica (Pregabalin) 100 Mg Capsule 1 Cap PO TID 10/07/18 Reported Potassium Chloride 20 Meq Tablet.er 20 Meq PO DAILY 10/07/18 Reported Nystatin 15 Gm Powder 1 Gabriela TP TID 10/07/18 Reported Simethicone 80 Mg Tab.chew 80 Mg PO PRN Q6HRS PRN 10/07/18 Reported Mucinex (Guaifenesin) 600 Mg Tablet.er 1 Tab PO BID 10/07/18 Reported Mapap (Acetaminophen) 500 Mg Tablet 1,000 Mg PO PRN BID PRN 10/07/18 Reported Magnesium Oxide 400 Mg Tablet 400 Mg PO BID 10/07/18 Reported Loperamide (Loperamide Hcl) 2 Mg Capsule 2 Mg PO PRN Q1HR PRN 10/07/18 Reported Levothyroxine Sodium 50 Mcg Tablet 40 Mcg PO DAILYAC PRN 10/07/18 Reported Furosemide 40 Mg Tablet 1 Tab PO DAILY 10/07/18 Reported Fish Oil-Vit D3 Softgel (Omega3/Dha/Epa/Fish Oil/Vit D3) 1 Each Capsule 1 Each PO DAILY 10/07/18 Reported Docusate Sodium 100 Mg Capsule 100 Mg PO BID 10/07/18 Reported Vitamin B-12 (Cyanocobalamin (Vitamin B-12)) 1,000 Mcg Tablet 1 Tab PO DAILY 10/07/18 Reported Culturelle Probiotics Capsule (L. Rhamnosus GG/Inulin) 1 Each Capsule 1 Each PO BID 10/07/18 Reported Tums Ultra (Calcium Carbonate) 400 Mg Tab.chew 400 Mg PO PRN Q12HR PRN 10/07/18 Reported Dulcolax (Bisacodyl) 10 Mg Supp.rect 10 Mg RC PRN DAILY PRN 10/07/18 Reported Baclofen 10 Mg Tablet 10 Mg PO HS 10/07/18 Reported Atorvastatin Calcium 10 Mg Tablet 10 Mg PO HS 10/07/18 Reported Aspirin Ec (Aspirin) 81 Mg Tablet.dr 1 Tab PO DAILY 10/07/18 Reported Impression . 1. Dyspnea POA ,secondary to multi-factorial etiology including exacerbation of chronic obstructive pulmonary disease.? right HF/ Weakness/ stable 2. Acute exacerbation of chronic obstructive pulmonary disease. 3. Recent echo with PA only 33 mmHg. Does not need any work up 4. Chest pain per Cardiology. 5. Chronic atrial fibrillation. 6. Scleroderma. 7. Right lower extremity cellulitis. 8. HEMATEMESIS, resolved 9. DYSPHAGIA BROCNH FINDINGS: 1. Normal vocal cords. 2. No endobronchial lesion. 3. No active bleeding. EGD Esophagus- shortened with diffuse ulceration in distal 1/3, with active bleeding and adherent clot ? MW tear as well- carmen removed, treated with 3 cc of epinephrine 1:10,000 and bipolar cautery- with control- 6 cm HH, stomach with clots - no active bleeding seen but exam limited due to clots- duodenum appeared normal Plan- NPO then CLD PPI BID carafate slurry QID repeat EGD in 1 week if stable or earlier if bleeding continues ECHO <Conclusion> Abnormal septal motion consistent with conduction abnormality. The Ejection Fraction is 50%. Trace aortic regurgitation. Trace to mild mitral regurgitation. Mild tricuspid regurgitation. The PA pressure was estimated at 33 mmHg. There is no evidence of significant pericardial effusion. Plan . NASAL CANULA RESP STATUS IS COMPENSATED NPO, DOBBHOFF FOR NUTRITION EGD last week: ulcerative esophagitis w/ active bleeding and clots, possible M- W tear s/p epi and cautery, hiatal hernia, clot in stomach FOLLOW GI INPUT PALLIATIVE MEETING DONE PEG TODAY D/W RN NOT MUCH TO OFFER TORI GOMEZ MD Oct 18, 2018 09:25
[2018-10-18 10:38] VITALS: BP 148/91
[2018-10-18] MEDS ORDERED: PROPOFOL 20 ML IV ONE (11:00)
[2018-10-18] MEDS ORDERED: LIDOCAINE 2% PF 5 ML VIAL. ONE (11:00)
--- NOTE | 2018-10-18 11:33 | PDOC4 ---
Operative Note Operative Note EGD with PEG Meds propofol per anesthesia Pre-op dx oropharyngeal dysphagia Post-op dx esophagitis s/p prior bleed S/p 20 FR Bard PEG tube placement Plan abdominal binder at all times Resume medications and feedings per G tube later today at 1800 hours ADAMARIS RAMACHANDARN MD Oct 18, 2018 11:33
--- NOTE | 2018-10-18 11:41 | NUR ---
Nan in recovery called report, pt HR labile, 70's to 100's, BP 137/73, RR20, given 50mcg propofol. Gtube placed, abdominal binder to be placed now, leave in place. Pt will transfer back to unit.
--- NOTE | 2018-10-18 11:51 | PDOC ---
PROGRESS NOTES Chief Complaint Chief Complaint Assessment/Plan IMPRESSION 1. ACUTE COPD EXAC improved 2. Chest pain, atypical. non cardiac in nature most likely due to underlyng gi process 2. Dyspnea secondary to URI. slowly improving. 3. Chronic diastolic CHF Abnormal septal motion consistent with conduction abnormality. The Ejection Fraction is 50%. ECHO 10/07 4. Chronic AFIB; 5. Scleroderma 6. Raynaud's 7. RLE cellulitis, wound 8. left chest deep brain stimulator for essential tremors 9. GERD 10. Hypothyroid state on replacement 11. Right 2nd toe infection. 12. mild hypernatremia, monitor significant decline, very debilitated, prognosis very guarded, Family meeting . //PAT consulted, patient does not want palliative care she wants to try to regain her functional status. PEG tube will be needed in order to transition to LTAC PROCEDURE NOTE PROCEDURE 09/11 Procedure EGD with control of bleeding Esophagus- shortened with diffuse ulceration in distal 13, with active bleeding and adherent clot ? MW tear as well- carmen removed, treated with 3 cc of epinephrine 1:10,000 and bipolar cautery- with control- 6 cm HH, stomach with clots - no active bleeding seen but exam limited due to clots- duodenum appeared normal PLAN Tube Feedings. Dobbhoff CT CHEST reviewed INR ok GI following PULM following Cardiology consult dvt prophylaxis continue with wound care History of Present Illness History of Present Illness 10/09 HEMOPTYSIS VS HEMATEMESIS REMAINS NPO/// BRONCH NO LESION SEEN, GI FOLLOWING 10/10 failed bedside swallow and is still NPO - PPN ordered 10/11 FAILED SWALLOW STUDY, WILL D/W GI planning dobhoff 10/14 Disordered swallowing mechanism with moderate residue and mild intermittent laryngeal penetration with minimal aspiration 10/14 Daughter desires DNR designation dobhoff placed Enteric feeding catheter within the proximal stomach. on kub 10/15 no complaints during my visit remains stable, guarded prognosis 10/16 no new complaints remains bedridden, compaoinign of back pain, no alarming signs voiced, no cauda equina syndrome symptoms. 10/17 patient will need to have a epg tube placement for nutrition discussed with daughter at bedside. 10/18 patient seen at endoscopy prior to procedure, will follow after PEG tube has been placed. Vitals Vitals Vital Signs Date Time Temp Pulse Resp B/P (MAP) Pulse Ox O2 Delivery O2 Flow Rate FiO2 10/18/18 11:30 98 77 16 140/68 100 Simple Mask 8 98.0 Physical Exam General: Alert, Oriented X3, Cooperative, mild distress, Other (frail appearing ) Heart: Regular rate, Normal S1, Other (irregular rhythm with 2/6 systolic murmur) Lungs: Clear Abdomen: Normal bowel sounds, Soft, No tenderness Extremities: No clubbing, No cyanosis, No edema, Normal pulses, Other (strong dorsalis pedis pulse on the right with a Quant of flow of 1.08) Skin: No breakdown, No significant lesion, Other (1.3 cm ulceration to the dorsal aspect right second toe with no evidence of exposed tendon or bone at this time. The toe itself is modestly edematous with mild erythema) Assessment and Plan Assessmemt and Plan Problems Medical Problems: (1) Chest pain Status: Acute (2) Pneumonia Status: Acute Comment Review of Relevant I have reviewed the following items tara (where applicable) has been applied. Labs Laboratory Tests Test 10/17/18 10:50 Prothrombin Time 14.5 SEC (11.7-14.0) Prothromb Time International Ratio 1.2 (0.8-1.1) Microbiology 10/06/18 Blood Culture - Final, Complete NO GROWTH AFTER 5 DAYS Medications Current Medications Piperacillin Sod/ Tazobactam Sod (Zosyn Per Pharmacy) 1 each PRN DAILY PRN MC SEE COMMENTS; Start 10/06/18 at 19:00; Stop 10/12/18 at 14:15; Status DC Piperacillin Sod/ Tazobactam Sod 3.375 gm/Sodium Chloride 50 ml @ 100 mls/hr 1X ONCE IV Last administered on 10/06/18at 19:09; Start 10/06/18 at 19:30; Stop 10/06/18 at 19:59; Status DC Ondansetron HCl (Zofran) 4 mg PRN Q8HRS PRN IV NAUSEA/VOMITING; Start 10/06/18 at 19:00; Stop 10/07/18 at 18:59; Status DC Acetaminophen (Tylenol) 650 mg PRN Q4HRS PRN PO FEVER Last administered on 10/06at 20:29; Start 10/06/18 at 19:00; Stop 10/07/18 at 11:43; Status DC Albuterol/ Ipratropium (Duoneb) 3 ml RTQID NEB Last administered on 10/07/18 19:59; Start 10/06/18 at 20:00; Stop 10/07/18 at 19:59; Status DC Ondansetron HCl (Zofran) 4 mg 1X ONCE IV Last administered on 10/06/18 20:25 ; Start 10/06/18 at 20:30; Stop 10/06/18 at 20:34; Status DC Piperacillin Sod/ Tazobactam Sod 3.375 gm/Sodium Chloride 50 ml @ 100 mls/hr Q6HRS IV Last administered on 10/12/18 12:37; Start 10/07/18 at 00:00; Stop at 14:15; Status DC Aspirin (Ecotrin) 81 mg DAILY PO Last administered on 10/07/18 12:18; Start at 12:00 Atorvastatin Calcium (Lipitor) 10 mg HS PO Last administered on 10/07/18 22:13 ; Start 10/07/18 at 21:00 Baclofen (Lioresal) 10 mg HS PO Last administered on 10/07/18 22:12; Start at 21:00 Cyanocobalamin (Vitamin B-12) 1,000 mcg DAILY PO Last administered on 12:18; Start 10/07/18 at 12:00 Docusate Sodium (Colace) 100 mg BID PO Last administered on 10/07/18 22:13; Start 10/07/18 at 12:00 Furosemide (Lasix) 40 mg DAILY PO Last administered on 10/07/18 13:56; Start 10/07/18 at 12:00 Guaifenesin (Mucinex) 600 mg BID PO Last administered on 10/07/18 22:12; Start 10/07/18 at 12:00 Nystatin (Nystop) 1 gabriela TID TP Last administered on 10/17/18 20:19; Start 10/07 at 14:00 Simethicone (Gas-X) 80 mg PRN Q6HRS PRN PO flatulence ; Start 10/07/18 at 11:45 Acetaminophen (Tylenol) 1,000 mg PRN BID PRN PO MILD PAIN Last administered on 10/07/18 16:47; Start 10/07/18 at 11:45 Bisacodyl (Dulcolax Supp) 10 mg PRN DAILY PRN MD CONSTIPATION; Start 10/07/18 at 11:45 Calcium Carbonate/ Glycine (Tums) 500 mg PRN Q12HR PRN PO INDIGESTION Last administered on 10/08/18 02:32; Start 10/07/18 at 11:45 Lactobacillus Rhamnosus (Culturelle) 1 cap BID PO Last administered on 22:13; Start 10/07/18 at 12:00 Non-Formulary Medication (Levothyroxine Sodium ) 40 mcg DAILYAC PRN PO hypothyroid ; Start 10/07/18 at 11:45; Stop 10/07/18 at 12:11; Status DC Loperamide HCl (Imodium) 2 mg PRN Q1HR PRN PO DIARRHEA; Start 10/07/18 at 12:00 Magnesium Oxide (Magnesium Oxide) 400 mg BID PO Last administered on 10/07/18 22:13; Start 10/07/18 at 12:00 Multivitamins (Thera M Plus) 1 tab DAILY PO Last administered on 10/07/18 12: 18; Start 10/07/18 at 12:00 Fish Oil (Fish Oil) 1,000 mg DAILY PO Last administered on 10/07/18 12:18; Start 10/07/18 at 12:00 Potassium Chloride (Klor-Con) 20 meq [id number] PO Last administered on at 13:57; Start 10/07/18 at 12:00 Pregabalin (Lyrica) 100 mg TID PO Last administered on 10/07/18 22:13; Start 10/07/18 at 14:00 Famotidine (Pepcid) 20 mg QHS PO Last administered on 10/07/18 22:12; Start at 21:00; Stop 10/08/18 at 17:01; Status DC Sennosides (Senna) 8.6 mg DAILY PO Last administered on 10/07/18 12:18; Start 10/07/18 at 12:00 Levothyroxine Sodium (Synthroid) 25 mcg [id number] PO Last administered on 12:18; Start 10/07/18 at 12:30 Enoxaparin Sodium (Lovenox 40mg Syringe) 40 mg Q24H SQ Last administered on 10/17at 20:19; Start 10/07/18 at 21:00 Enoxaparin Sodium (Lovenox 40mg Syringe) 40 mg Q24H SQ ; Start 10/07/18 at 19:00 ; Stop 10/08/18 at 09:23; Status DC Pantoprazole Sodium (Protonix) 40 mg DAILYAC PO ; Start 10/08/18 at 07:30; Stop 10/08/18 at 16:07; Status DC Codeine Sulfate (Codeine) 30 mg PRN Q6HRS PRN PO COUGH, 2nd CHOICE Last administered on 10/08/18at 03:26; Start 10/08/18 at 03:15 Benzonatate (Tessalon Perle) 100 mg [id number] PO ; Start 10/08/18 at 09:00 Benzonatate (Tessalon Perle) 100 mg 1X ONCE PO Last administered on 10/08/18at 03:26; Start 10/08/18 at 03:15; Stop 10/08/18 at 03:16; Status DC Guaifenesin (Robitussin Dm) 10 ml PRN Q4HRS PRN PO COUGH, 1st CHOICE; Start at 07:30 Ondansetron HCl (Zofran) 4 mg PRN Q4HRS PRN IV NAUSEA/VOMITING Last administered on 10/08/18at 09:32; Start 10/08/18 at 07:30 Albuterol/ Ipratropium (Duoneb) 3 ml RTQID NEB Last administered on 10/18/18at 07 :55; Start 10/08/18 at 08:00 Sodium Chloride 1,000 ml @ 75 mls/hr [id number] IV Last administered on at 00:46; Start 10/08/18 at 10:30; Stop 10/13/18 at 16:06; Status DC Iohexol (Omnipaque 300 Mg/ml) 75 ml 1X ONCE IV Last administered on 10/08/18at 11:30; Start 10/08/18 at 11:30; Stop 10/08/18 at 11:31; Status DC Info (CONTRAST GIVEN -- Rx MONITORING) 1 each PRN DAILY PRN MC SEE COMMENTS; Start 10/08/18 at 11:30; Stop 10/10/18 at 11:29; Status DC Ringer's Solution 1,000 ml @ 0 mls/hr Q0M IV Last administered on 10/08/18at 13 :31; Start 10/08/18 at 13:30; Stop 10/08/18 at 16:55; Status DC Ringer's Solution 1,000 ml @ 50 mls/hr Q20H IV ; Start 10/08/18 at 14:00; Stop 10/08/18 at 18:00; Status DC Propofol 20 ml @ As Directed STK-MED ONCE IV ; Start 10/08/18 at 13:48; Stop at 13:49; Status DC Albuterol Sulfate (Ventolin Neb Soln) 2.5 mg PRN 1X PRN NEB SHORTNESS OF BREATH Last administered on 10/08/18at 14:22; Start 10/08/18 at 14:15; Stop 10/08 at 18:00; Status DC Lidocaine HCl (Lidocaine 2% Viscous) 100 ml PRN 1X PRN MM MOUTH PAIN Last administered on 10/08/18at 14:21; Start 10/08/18 at 14:15; Stop 10/08/18 at 18:00 ; Status DC Lidocaine HCl (Lidocaine 1% 20ml Vial) 20 ml PRN 1X PRN INJ SEE COMMENTS Last administered on 10/08/18at 14:22; Start 10/08/18 at 14:15; Stop 10/08/18 at 18:00 ; Status DC Epinephrine HCl (Adrenalin) 1 mg PRN 1X PRN INJ SEE COMMENTS; Start 10/08/18 at 14:15; Stop 10/08/18 at 18:00; Status DC Lidocaine HCl 50 ml PRN 1X PRN MM SEE COMMENTS Last administered on 10/08/18at 14:21; Start 10/08/18 at 14:15; Stop 10/08/18 at 18:00; Status DC Epinephrine HCl (Adrenalin) 1 mg STK-MED ONCE .ROUTE ; Start 10/08/18 at 14:13; Stop 10/08/18 at 14:14; Status DC Lidocaine HCl (Lidocaine 1% 20ml Vial) 20 ml STK-MED ONCE .ROUTE ; Start at 14:13; Stop 10/08/18 at 14:14; Status DC Lidocaine HCl (Lidocaine 2% Viscous) 100 ml STK-MED ONCE .ROUTE ; Start at 14:13; Stop 10/08/18 at 14:14; Status DC Lidocaine HCl 50 ml STK-MED ONCE .ROUTE ; Start 10/08/18 at 14:14; Stop at 14:15; Status DC Pantoprazole Sodium (PROTONIX VIAL for IV PUSH) 40 mg BIDAC IVP Last administered on 10/10/18at 07:28; Start 10/08/18 at 16:30; Stop 10/10/18 at 11:15 ; Status DC Ringer's Solution 1,000 ml @ 100 mls/hr Q10H IV Last administered on at 11:24; Start 10/09/18 at 11:30; Stop 10/10/18 at 07:46; Status DC Propofol 20 ml @ As Directed STK-MED ONCE IV ; Start 10/09/18 at 12:02; Stop at 12:03; Status DC Lidocaine HCl (Lidocaine Pf 2% Vial) 5 ml STK-MED ONCE .ROUTE ; Start 10/09/18 at 12:02; Stop 10/09/18 at 12:03; Status DC Epinephrine HCl (EPINEPHrine SYRINGE) 1 mg STK-MED ONCE .ROUTE ; Start 10/09/18 at 13:18; Stop 10/09/18 at 13:19; Status DC Fentanyl Citrate (Fentanyl 2ml Vial) 50 mcg PRN Q4HRS PRN IV PAIN SEVERE Last administered on 10/17/18 20:21; Start 10/10/18 at 09:00 Fentanyl Citrate (Fentanyl 2ml Vial) 25 mcg PRN Q4HRS PRN IV PAIN MODERATE Last administered on 10/16/18 13:03; Start 10/10/18 at 09:00 Lidocaine (Lidoderm) 1 patch DAILY TD Last administered on 10/17/18 10:49; Start 10/10/18 at 10:00 Miscellaneous (Lidoderm Patch Removal) 1 ea QHS MC Last administered on 20:19; Start 10/10/18 at 21:00 Sucralfate (Carafate) 1 gm QIDACHS PEG ; Start 10/10/18 at 11:30 Pantoprazole Sodium (Protonix) 40 mg BIDAC PO ; Start 10/10/18 at 16:30; Stop at 11:14; Status DC Amino Acids/ Glycerin/ Electrolytes 1,000 ml @ 100 mls/hr Q10H IV Last administered on 10/14/18at 05:20; Start 10/10/18 at 14:45; Stop 10/14/18 at 15:42; Status DC Barium Sulfate (Varibar Thin Liquid Apple) 148 gm 1X ONCE PO Last administered on 10/11/18at 11:10; Start 10/11/18 at 10:15; Stop 10/11/18 at 10:16 ; Status DC Pantoprazole Sodium (PROTONIX VIAL for IV PUSH) 40 mg BIDAC IVP Last administered on 10/18/18at 08:31; Start 10/11/18 at 16:30 Albuterol/ Ipratropium (Duoneb) 3 ml 1X ONCE NEB Last administered on at 01:00; Start 10/12/18 at 01:00; Stop 10/12/18 at 01:01; Status DC Labetalol HCl (Normodyne Iv Push) 20 mg PRN Q2HR PRN IVP SBP>160, 2ND CHOICE Last administered on 10/15/18at 03:18; Start 10/12/18 at 03:45 Hydralazine HCl (Apresoline Inj) 10 mg PRN Q4HRS PRN IVP SBP>160, 1ST CHOICE Last administered on 10/13/18at 11:26; Start 10/12/18 at 04:45 Albuterol/ Ipratropium (Duoneb) 3 ml 1X ONCE NEB Last administered on at 05:52; Start 10/12/18 at 06:00; Stop 10/12/18 at 06:01; Status DC Hydralazine HCl (Apresoline Inj) 10 mg PRN Q4HRS PRN IVP ELEVATED BP, SEE COMMENTS; Start 10/12/18 at 15:30; Status Cancel Albuterol Sulfate (Ventolin Neb Soln) 2.5 mg PRN Q2HR PRN NEB SHORTNESS OF BREATH; Start 10/12/18 at 18:45 Metoprolol Tartrate (Lopressor Vial) 5 mg PRN Q6HRS PRN IVP HTN, SEE COMMENTS 3rd Choice Last administered on 10/17/18at 21:04; Start 10/14/18 at 14:45 Ringer's Solution 1,000 ml @ 50 mls/hr Q20H IV Last administered on 10/18/18at 10:47; Start 10/18/18 at 07:00; Stop 10/18/18 at 18:59 Cefazolin Sodium 50 ml @ 100 mls/hr 1X PREOP PRN IV PER PROTOCOL Last administered on 10/18/18at 11:10; Start 10/18/18 at 10:00; Stop 10/18/18 at 18:00 Midazolam HCl (Versed) 2 mg PRN 1X PRN IV PRIOR TO PROCEDURE; Start 10/18/18 at 08:00; Stop 10/18/18 at 18:00 Fentanyl Citrate (Fentanyl 2ml Vial) 25 mcg PRN Q5MIN PRN IV X 2 DOSES FOR PAIN ; Start 10/18/18 at 08:00; Stop 10/18/18 at 18:00 Fentanyl Citrate (Fentanyl 2ml Vial) 50 mcg PRN Q5MIN PRN IV X 2 DOSES FOR PAIN ; Start 10/18/18 at 08:00; Stop 10/18/18 at 18:00 Ringer's Solution 1,000 ml @ 125 mls/hr Q8H IV Last administered on 10/18/18at 10:48; Start 10/18/18 at 07:55; Stop 10/18/18 at 19:54 Lidocaine HCl (Xylocaine-Mpf 1% 2ml Vial) 2 ml 1X PRN PRN ID IV START; Start at 08:00; Stop 10/18/18 at 18:00 Propofol 20 ml @ As Directed STK-MED ONCE IV ; Start 10/18/18 at 11:00; Stop 10/18 at 11:01; Status DC Lidocaine HCl (Lidocaine Pf 2% Vial) 5 ml STK-MED ONCE .ROUTE ; Start 10/18/18 at 11:00; Stop 10/18/18 at 11:01; Status DC Active Scripts Active Reported Thera-Tabs M Caplet (Multivits,Ca,Minerals/Iron/Fa) 1 Each Tablet 1 Each PO DAILY Senna (Sennosides) 8.6 Mg Tablet 8.6 Mg PO DAILY Ranitidine Hcl 150 Mg Tablet 150 Mg PO HS Lyrica (Pregabalin) 100 Mg Capsule 1 Cap PO TID Potassium Chloride 20 Meq Tablet.er 20 Meq PO DAILY Nystatin 15 Gm Powder 1 Gabriela TP TID Simethicone 80 Mg Tab.chew 80 Mg PO PRN Q6HRS PRN Mucinex (Guaifenesin) 600 Mg Tablet.er 1 Tab PO BID Mapap (Acetaminophen) 500 Mg Tablet 1,000 Mg PO PRN BID PRN Magnesium Oxide 400 Mg Tablet 400 Mg PO BID Loperamide (Loperamide Hcl) 2 Mg Capsule 2 Mg PO PRN Q1HR PRN Levothyroxine Sodium 50 Mcg Tablet 40 Mcg PO DAILYAC PRN Furosemide 40 Mg Tablet 1 Tab PO DAILY Fish Oil-Vit D3 Softgel (Omega3/Dha/Epa/Fish Oil/Vit D3) 1 Each Capsule 1 Each PO DAILY Docusate Sodium 100 Mg Capsule 100 Mg PO BID Vitamin B-12 (Cyanocobalamin (Vitamin B-12)) 1,000 Mcg Tablet 1 Tab PO DAILY Culturelle Probiotics Capsule (L. Rhamnosus GG/Inulin) 1 Each Capsule 1 Each PO BID Tums Ultra (Calcium Carbonate) 400 Mg Tab.chew 400 Mg PO PRN Q12HR PRN Dulcolax (Bisacodyl) 10 Mg Supp.rect 10 Mg RC PRN DAILY PRN Baclofen 10 Mg Tablet 10 Mg PO HS Atorvastatin Calcium 10 Mg Tablet 10 Mg PO HS Aspirin Ec (Aspirin) 81 Mg Tablet. 1 Tab PO DAILY Vitals/I & O Vital Sign - Last 24 Hours 10/17/18 10/17/18 10/17/18 10/17/18 15:00 16:10 16:19 19:51 Temp 97.7 98.2 97.7 98.2 Pulse 105 112 Resp 22 20 22 B/P (MAP) 162/78 (106) 147/76 (99) Pulse Ox 92 98 O2 Delivery Nasal Cannula Nasal Cannula Nasal Cannula O2 Flow Rate 2.0 2.0 2.0 10/17/18 10/17/18 10/17/18 10/17/18 20:12 20:21 20:31 20:51 Resp 18 18 Pulse Ox 98 98 98 O2 Delivery Nasal Cannula Nasal Cannula Nasal Cannula Nasal Cannula O2 Flow Rate 2.0 2.0 2.0 2.0 10/17/18 10/17/18 10/18/18 10/18/18 21:04 22:44 03:57 07:32 Temp 97.0 98.2 99.2 97.0 98.2 99.2 Pulse 130 113 105 122 Resp 18 18 18 B/P (MAP) 147/76 141/69 (93) 146/88 (107) 147/77 (100) Pulse Ox 97 97 96 O2 Delivery Nasal Cannula Nasal Cannula Nasal Cannula O2 Flow Rate 2.0 2.0 2.0 10/18/18 10/18/18 10/18/18 10/18/18 07:55 08:00 10:38 10:41 Temp 98.0 98.0 Pulse 126 Resp 18 B/P (MAP) 148/91 (110) Pulse Ox 98 96 O2 Delivery Nasal Cannula Nasal Cannula Nasal Cannula Nasal Cannula O2 Flow Rate 2.0 2.0 2.0 2.0 10/18/18 10/18/18 10:41 11:30 Temp 97.5 98 97.5 98.0 Pulse 106 77 Resp 18 16 B/P (MAP) 140/68 Pulse Ox 100 100 O2 Delivery Simple Mask O2 Flow Rate 8 Intake and Output 10/17/18 10/17/18 10/18/18 15:00 23:00 07:00 Intake Total 925 ml 0 ml Output Total 3 ml Balance 922 ml 0 ml Nutrition Consultation Dietary Evaluation: Recommendations by RD: Increase Calorie Intake, Protein supplementation Comments: Continue w/TF per current order: Jevity 1.5@goal rate 50 ml/hr w/150 ml water flushes q4 hrs or flushes per REC Vit C (500 mg BID) and MVI q day if able via dobhoff - wound healing Expected Outcomes/Goals: New goal 10/14: TF initiation/infusion/tolerance - met, new goal established New goal 10/17: TF infusion to meet >75% est needs Malnutrition Findings: Body Fat Depletion (Non Severe: Mild Depletion Weight Status: Appropriate HEIDI [place] MD Oct 18, 2018 11:50
[2018-10-18 12:47] LABS: HEMATOCRIT 31.4 % (36.0-47.0); RED BLOOD COUNT 3.55 x10^6/uL (3.50-5.40); RED CELL DISTRIBUTION WIDTH 16.5 % (11.5-14.5); WHITE BLOOD COUNT 4.8 x10^3/uL (4.0-11.0)
[2018-10-18] MEDS: NYSTATIN TOPICAL POWDER 15GM BOTTLE. TP SCH ×2 (12:56→20:21)
[2018-10-18] MEDS: BENZONATATE 100 MG CAPSULE. PO SCH ×2 (12:57→20:08)
[2018-10-18] MEDS: MAGNESIUM OXIDE 400 MG TABLET PO SCH ×2 (12:57→20:07)
[2018-10-18] MEDS: PREGABALIN 50 MG CAPSULE PO SCH ×3 (12:57→20:07)
[2018-10-18] MEDS: FUROSEMIDE 40 MG TABLET. PO SCH (12:57)
[2018-10-18] MEDS: LACTOBACILLUS RHAMNOSUS GG 1 CAPSULE. PO SCH ×2 (12:57→20:06)
[2018-10-18] MEDS: SENNOSIDES 8.6 MG TABLET PO SCH (12:57)
[2018-10-18] MEDS: OMEGA-3 FATTY ACIDS/FISH OIL 1,000 MG CAPSULE. PO SCH (12:57)
[2018-10-18] MEDS: DOCUSATE SODIUM 100 MG CAPSULE. PO SCH ×2 (12:58→20:06)
[2018-10-18] MEDS: ASPIRIN ENTERIC COATED 81 MG TABLET.DR. PO SCH (12:58)
[2018-10-18] MEDS: CYANOCOBALAMIN (VITAMIN B-12) 1,000 MCG TABLET. PO SCH (12:58)
[2018-10-18] MEDS: MULTIVITAMIN with MINERAL TABLET. PO SCH (12:58)
[2018-10-18] MEDS: POTASSIUM CHLORIDE 20 MEQ TABLET.ER. PO SCH (12:58)
[2018-10-18 13:14] LABS: ALBUMIN 2.7 g/dL (3.4-5.0); ALBUMIN/GLOBULIN RATIO 0.8 (1.0-1.7); CALCIUM 8.8 mg/dL (8.5-10.1); CREATININE 0.7 mg/dL (0.6-1.0); GFR 80.1; POTASSIUM 4.3 mmol/L (3.5-5.1); TOTAL BILIRUBIN 0.4 mg/dL (0.2-1.0); TOTAL PROTEIN 6.3 g/dL (6.4-8.2)
--- NOTE | 2018-10-18 14:25 | NUR ---
Pt reported feeling "unable to breathe" after having just been suctioned to clear secretions. Izabel RT responded and provided breathing treatment. While providing oral care and assessing pt's SOA with sats of 94-99% on 2L, it was noted that pt had dried, thick sheets of what appear to be old secretions coating the back of her throat, inside of cheeks, and tongue. Oral care provided to date has included application of wet swabs and mouth gel, which pt tolerated. At this time, pt's oral cavity was cleared manually, with visualization and finger-sweep removal, as well as use of dry and damp mouth swabs. Process lasted approximately 20minutes, and pt reported upon completion a cessation of the sensation that she couldn't breathe because something was in her throat. Oral cavity coated with mouth gel, to be repeated hourly and PRN to allow further loosening of dried secretions still noted in upper R cheek and surface of tongue. Pt agrees with this plan, and will call for PRN.
[2018-10-18 14:32] VITALS: BP 136/78
[2018-10-18] MEDS: LIDOCAINE (700MG/PATCH) PATCH. TD SCH ×2 (15:20→20:08)
[2018-10-18] MEDS: LANSOPRAZOLE 30 MG TAB.RAP.DR FT SCH (16:48)
--- NOTE | 2018-10-18 18:30 | NUR ---
Pt's daughter, Shilpa (DPOA), was present at bedside most of shift today. Asked that pt be told she needed to go home if she awakens and asks for her daughter. Wants staff to know that she and her sister are moving pt's belongings out of [facility], pending DC to skilled facility(?). She and her sister will be "in and out" tomorrow, will try to come see pt as able.
[2018-10-18 19:31] VITALS: BP 134/67
[2018-10-18] MEDS: PATCH REMOVAL. MC SCH (20:06)
[2018-10-18] MEDS: ATORVASTATIN CALCIUM 10 MG TABLET. PO SCH (20:07)
[2018-10-18] MEDS: BACLOFEN 10 MG TABLET. PO SCH (20:07)
[2018-10-18] MEDS: ENOXAPARIN 40 MG/0.4 ML SYRINGE. SQ SCH (20:19)
[2018-10-18 22:45] VITALS: BP 123/70
[2018-10-19 03:12] VITALS: BP 134/74
[2018-10-19] MEDS: METOPROLOL TARTRATE 5 MG/5 ML VIAL. IVP PRN (04:02)
[2018-10-19] MEDS: LEVOTHYROXINE 25 MCG TABLET. PO SCH (04:03)
--- NOTE | 2018-10-19 07:13 | PDOC ---
PULMONARY PROGRESS NOTES Subjective has cough, no pain, on 02 Vitals Vital Signs Date Time Temp Pulse Resp B/P (MAP) Pulse Ox O2 Delivery O2 Flow Rate FiO2 10/19/18 04:02 153 134/74 10/19/18 03:12 97.6 18 97 Nasal Cannula 2.0 97.6 ROS: No Chest Pain General: No acute distress, Lethargic HEENT: Other (nc at perrl) Lungs: Crackles Cardiovascular: S1, S2 Abdomen: Soft, Non-tender Neuro Exam: Alert Extremities: No Edema Skin: Warm Labs Laboratory Tests Test 10/17/18 10:50 10/18/18 12:26 Prothrombin Time 14.5 SEC (11.7-14.0) Prothromb Time International Ratio 1.2 (0.8-1.1) White Blood Count 4.8 x10^3/uL (4.0-11.0) Red Blood Count 3.55 x10^6/uL (3.50-5.40) Hemoglobin 10.0 g/dL (12.0-15.5) Hematocrit 31.4 % (36.0-47.0) Mean Corpuscular Volume 88 fL (79-100) Mean Corpuscular Hemoglobin 28 pg (25-35) Mean Corpuscular Hemoglobin Concent 32 g/dL (31-37) Red Cell Distribution Width 16.5 % (11.5-14.5) Platelet Count 201 x10^3/uL (140-400) Sodium Level 150 mmol/L (136-145) Potassium Level 4.3 mmol/L (3.5-5.1) Chloride Level 114 mmol/L (98-107) Carbon Dioxide Level 29 mmol/L (21-32) Anion Gap 7 (6-14) Blood Urea Nitrogen 27 mg/dL (7-20) Creatinine 0.7 mg/dL (0.6-1.0) Estimated GFR (Cockcroft-Gault) 80.1 BUN/Creatinine Ratio 39 (6-20) Glucose Level 130 mg/dL (70-99) Calcium Level 8.8 mg/dL (8.5-10.1) Total Bilirubin 0.4 mg/dL (0.2-1.0) Aspartate Amino Transf (AST/SGOT) 37 U/L (15-37) Alanine Aminotransferase (ALT/SGPT) 57 U/L (14-59) Alkaline Phosphatase 137 U/L (46-116) Total Protein 6.3 g/dL (6.4-8.2) Albumin 2.7 g/dL (3.4-5.0) Albumin/Globulin Ratio 0.8 (1.0-1.7) Laboratory Tests Test 10/18/18 12:26 White Blood Count 4.8 x10^3/uL (4.0-11.0) Red Blood Count 3.55 x10^6/uL (3.50-5.40) Hemoglobin 10.0 g/dL (12.0-15.5) Hematocrit 31.4 % (36.0-47.0) Mean Corpuscular Volume 88 fL (79-100) Mean Corpuscular Hemoglobin 28 pg (25-35) Mean Corpuscular Hemoglobin Concent 32 g/dL (31-37) Red Cell Distribution Width 16.5 % (11.5-14.5) Platelet Count 201 x10^3/uL (140-400) Sodium Level 150 mmol/L (136-145) Potassium Level 4.3 mmol/L (3.5-5.1) Chloride Level 114 mmol/L (98-107) Carbon Dioxide Level 29 mmol/L (21-32) Anion Gap 7 (6-14) Blood Urea Nitrogen 27 mg/dL (7-20) Creatinine 0.7 mg/dL (0.6-1.0) Estimated GFR (Cockcroft-Gault) 80.1 BUN/Creatinine Ratio 39 (6-20) Glucose Level 130 mg/dL (70-99) Calcium Level 8.8 mg/dL (8.5-10.1) Total Bilirubin 0.4 mg/dL (0.2-1.0) Aspartate Amino Transf (AST/SGOT) 37 U/L (15-37) Alanine Aminotransferase (ALT/SGPT) 57 U/L (14-59) Alkaline Phosphatase 137 U/L (46-116) Total Protein 6.3 g/dL (6.4-8.2) Albumin 2.7 g/dL (3.4-5.0) Albumin/Globulin Ratio 0.8 (1.0-1.7) Medications Active Scripts Medications Dose Route/Sig Max Daily Dose Days Date Category Thera-Tabs M Caplet (Multivits,Ca,Minerals/Iron/Fa) 1 Each Tablet 1 Each PO DAILY 10/07/18 Reported Senna (Sennosides) 8.6 Mg Tablet 8.6 Mg PO DAILY 10/07/18 Reported Ranitidine Hcl 150 Mg Tablet 150 Mg PO HS 10/07/18 Reported Lyrica (Pregabalin) 100 Mg Capsule 1 Cap PO TID 10/07/18 Reported Potassium Chloride 20 Meq Tablet.er 20 Meq PO DAILY 10/07/18 Reported Nystatin 15 Gm Powder 1 Gabriela TP TID 10/07/18 Reported Simethicone 80 Mg Tab.chew 80 Mg PO PRN Q6HRS PRN 10/07/18 Reported Mucinex (Guaifenesin) 600 Mg Tablet.er 1 Tab PO BID 10/07/18 Reported Mapap (Acetaminophen) 500 Mg Tablet 1,000 Mg PO PRN BID PRN 10/07/18 Reported Magnesium Oxide 400 Mg Tablet 400 Mg PO BID 10/07/18 Reported Loperamide (Loperamide Hcl) 2 Mg Capsule 2 Mg PO PRN Q1HR PRN 10/07/18 Reported Levothyroxine Sodium 50 Mcg Tablet 40 Mcg PO DAILYAC PRN 10/07/18 Reported Furosemide 40 Mg Tablet 1 Tab PO DAILY 10/07/18 Reported Fish Oil-Vit D3 Softgel (Omega3/Dha/Epa/Fish Oil/Vit D3) 1 Each Capsule 1 Each PO DAILY 10/07/18 Reported Docusate Sodium 100 Mg Capsule 100 Mg PO BID 10/07/18 Reported Vitamin B-12 (Cyanocobalamin (Vitamin B-12)) 1,000 Mcg Tablet 1 Tab PO DAILY 10/07/18 Reported Culturelle Probiotics Capsule (L. Rhamnosus GG/Inulin) 1 Each Capsule 1 Each PO BID 10/07/18 Reported Tums Ultra (Calcium Carbonate) 400 Mg Tab.chew 400 Mg PO PRN Q12HR PRN 10/07/18 Reported Dulcolax (Bisacodyl) 10 Mg Supp.rect 10 Mg RC PRN DAILY PRN 10/07/18 Reported Baclofen 10 Mg Tablet 10 Mg PO HS 10/07/18 Reported Atorvastatin Calcium 10 Mg Tablet 10 Mg PO HS 10/07/18 Reported Aspirin Ec (Aspirin) 81 Mg Tablet.dr 1 Tab PO DAILY 10/07/18 Reported Impression . 1. Dyspnea POA ,secondary to multi-factorial etiology including exacerbation of chronic obstructive pulmonary disease.? right HF/ Weakness/ stable 2. Acute exacerbation of chronic obstructive pulmonary disease. 3. Recent echo with PA only 33 mmHg. Does not need any work up 4. Chest pain resolved. 5. Chronic atrial fibrillation. 6. Scleroderma. 7. Right lower extremity cellulitis. 8. HEMATEMESIS, resolved 9. DYSPHAGIA BROCN FINDINGS: 1. Normal vocal cords. 2. No endobronchial lesion. 3. No active bleeding. EGD Esophagus- shortened with diffuse ulceration in distal 1/3, with active bleeding and adherent clot ? MW tear as well- carmen removed, treated with 3 cc of epinephrine 1:10,000 and bipolar cautery- with control- 6 cm HH, stomach with clots - no active bleeding seen but exam limited due to clots- duodenum appeared normal Plan- NPO then CLD PPI BID carafate slurry QID repeat EGD in 1 week if stable or earlier if bleeding continues ECHO <Conclusion> Abnormal septal motion consistent with conduction abnormality. The Ejection Fraction is 50%. Trace aortic regurgitation. Trace to mild mitral regurgitation. Mild tricuspid regurgitation. The PA pressure was estimated at 33 mmHg. There is no evidence of significant pericardial effusion. Plan . NASAL CANULA, 02 titration BD elevate hob RESP STATUS IS COMPENSATED EGD last week: ulcerative esophagitis w/ active bleeding and clots, possible M- W tear s/p epi and cautery, hiatal hernia, clot in stomach FOLLOW GI INPUT PALLIATIVE MEETING DONE s/p PEG 4/5 D/W RN/pt JOHANA GRIFFITHS MD Oct 19, 2018 07:13
[2018-10-19 07:20] VITALS: BP 135/79
[2018-10-19] MEDS: IPRATRPIUM/ALBUTEROL 0.5/2.5MG 3 ML NEBU. NEB SCH ×4 (07:46→20:07)
[2018-10-19] MEDS: OMEGA-3 FATTY ACIDS/FISH OIL 1,000 MG CAPSULE. PO SCH (09:00)
[2018-10-19] MEDS: BENZONATATE 100 MG CAPSULE. PO SCH (09:00)
[2018-10-19] MEDS: DOCUSATE SODIUM 100 MG CAPSULE. PO SCH (09:00)
[2018-10-19] MEDS: MULTIVITAMIN with MINERAL TABLET. PO SCH (09:21)
[2018-10-19] MEDS: POTASSIUM CHLORIDE 20 MEQ/15 ML ORAL LIQUID. PEG SCH (09:21)
[2018-10-19] MEDS: CYANOCOBALAMIN (VITAMIN B-12) 1,000 MCG TABLET. PO SCH (09:21)
[2018-10-19] MEDS: SENNOSIDES 8.6 MG TABLET PO SCH (09:21)
[2018-10-19] MEDS: LACTOBACILLUS RHAMNOSUS GG 1 CAPSULE. PO SCH ×2 (09:21→22:28)
[2018-10-19] MEDS: PREGABALIN 50 MG CAPSULE PO SCH ×3 (09:21→22:28)
[2018-10-19] MEDS: LANSOPRAZOLE 30 MG TAB.RAP.DR FT SCH ×2 (09:21→17:50)
[2018-10-19] MEDS: FUROSEMIDE 40 MG TABLET. PO SCH (09:21)
[2018-10-19] MEDS: MAGNESIUM OXIDE 400 MG TABLET PO SCH ×2 (09:21→22:28)
[2018-10-19] MEDS: ASPIRIN CHEWABLE 81 MG TABLET. PO SCH (09:21)
[2018-10-19] MEDS: SUCRALFATE 1 GM/10 ML ORAL.SUSP. PEG SCH ×3 (09:23→17:50)
[2018-10-19] MEDS: NYSTATIN TOPICAL POWDER 15GM BOTTLE. TP SCH ×3 (09:34→22:41)
--- NOTE | 2018-10-19 11:09 | PDOC ---
PROGRESS NOTES Chief Complaint Chief Complaint Assessment/Plan 1. ACUTE COPD EXAC improved 2. Chest pain, atypical. non cardiac in nature most likely due to underlyng gi process 2. Dyspnea secondary to URI. slowly improving. 3. Chronic diastolic CHF Abnormal septal motion consistent with conduction abnormality. The Ejection Fraction is 50%. ECHO 10/07 4. Chronic AFIB; 5. Scleroderma 6. Raynaud's 7. RLE cellulitis, wound 8. left chest deep brain stimulator for essential tremors 9. GERD 10. Hypothyroid state on replacement 11. Right 2nd toe infection. 12. mild hypernatremia, monitor 13. Dysphagia status post PEG tube placement. Plan: supportive measures may start feeding tubes once financial reporting consultant approves significant decline, very debilitated, prognosis very guarded, Family meeting . //PAT consulted, patient does not want palliative care she wants to try to regain her functional status. PROCEDURE NOTE PROCEDURE 09/11 Procedure EGD with control of bleeding Esophagus- shortened with diffuse ulceration in distal 1/3, with active bleeding and adherent clot ? MW tear as well- carmen removed, treated with 3 cc of epinephrine 1:10,000 and bipolar cautery- with control- 6 cm HH, stomach with clots - no active bleeding seen but exam limited due to clots- duodenum appeared normal History of Present Illness History of Present Illness 10/09 HEMOPTYSIS VS HEMATEMESIS REMAINS NPO/// BRONCH NO LESION SEEN, GI FOLLOWING 10/10 failed bedside swallow and is still NPO - PPN ordered 10/11 FAILED SWALLOW STUDY, WILL D/W GI planning dobhoff 10/14 Disordered swallowing mechanism with moderate residue and mild intermittent laryngeal penetration with minimal aspiration 10/14 Daughter desires DNR designation dobhoff placed Enteric feeding catheter within the proximal stomach. on kub 10/15 no complaints during my visit remains stable, guarded prognosis 10/16 no new complaints remains bedridden, compaoinign of back pain, no alarming signs voiced, no cauda equina syndrome symptoms. 10/17 patient will need to have a epg tube placement for nutrition discussed with daughter at bedside. 10/18 patient seen at endoscopy prior to procedure, will follow after PEG tube has been placed. Vitals Vitals Vital Signs Date Time Temp Pulse Resp B/P (MAP) Pulse Ox O2 Delivery O2 Flow Rate FiO2 10/19/18 08:00 Nasal Cannula 2.0 10/19/18 07:46 97 10/19/18 07:20 97.4 102 18 135/79 (97) 97.4 Physical Exam General: Alert, Oriented X3, Cooperative, mild distress, Other (frail appearing ) Heart: Regular rate, Normal S1, Other (irregular rhythm with 2/6 systolic murmur) Lungs: Clear Abdomen: Normal bowel sounds, Soft, No tenderness Extremities: No clubbing, No cyanosis, No edema, Normal pulses, Other (strong dorsalis pedis pulse on the right with a Quant of flow of 1.08) Skin: No breakdown, No significant lesion, Other (1.3 cm ulceration to the dorsal aspect right second toe with no evidence of exposed tendon or bone at this time. The toe itself is modestly edematous with mild erythema) Labs LABS Laboratory Tests Test 10/18/18 12:26 White Blood Count 4.8 x10^3/uL (4.0-11.0) Red Blood Count 3.55 x10^6/uL (3.50-5.40) Hemoglobin 10.0 g/dL (12.0-15.5) Hematocrit 31.4 % (36.0-47.0) Mean Corpuscular Volume 88 fL (79-100) Mean Corpuscular Hemoglobin 28 pg (25-35) Mean Corpuscular Hemoglobin Concent 32 g/dL (31-37) Red Cell Distribution Width 16.5 % (11.5-14.5) Platelet Count 201 x10^3/uL (140-400) Sodium Level 150 mmol/L (136-145) Potassium Level 4.3 mmol/L (3.5-5.1) Chloride Level 114 mmol/L (98-107) Carbon Dioxide Level 29 mmol/L (21-32) Anion Gap 7 (6-14) Blood Urea Nitrogen 27 mg/dL (7-20) Creatinine 0.7 mg/dL (0.6-1.0) Estimated GFR (Cockcroft-Gault) 80.1 BUN/Creatinine Ratio 39 (6-20) Glucose Level 130 mg/dL (70-99) Calcium Level 8.8 mg/dL (8.5-10.1) Total Bilirubin 0.4 mg/dL (0.2-1.0) Aspartate Amino Transf (AST/SGOT) 37 U/L (15-37) Alanine Aminotransferase (ALT/SGPT) 57 U/L (14-59) Alkaline Phosphatase 137 U/L (46-116) Total Protein 6.3 g/dL (6.4-8.2) Albumin 2.7 g/dL (3.4-5.0) Albumin/Globulin Ratio 0.8 (1.0-1.7) Assessment and Plan Assessmemt and Plan Problems Medical Problems: (1) Chest pain Status: Acute (2) Pneumonia Status: Acute Comment Review of Relevant I have reviewed the following items tara (where applicable) has been applied. Labs Laboratory Tests Test 10/18/18 12:26 White Blood Count 4.8 x10^3/uL (4.0-11.0) Red Blood Count 3.55 x10^6/uL (3.50-5.40) Hemoglobin 10.0 g/dL (12.0-15.5) Hematocrit 31.4 % (36.0-47.0) Mean Corpuscular Volume 88 fL (79-100) Mean Corpuscular Hemoglobin 28 pg (25-35) Mean Corpuscular Hemoglobin Concent 32 g/dL (31-37) Red Cell Distribution Width 16.5 % (11.5-14.5) Platelet Count 201 x10^3/uL (140-400) Sodium Level 150 mmol/L (136-145) Potassium Level 4.3 mmol/L (3.5-5.1) Chloride Level 114 mmol/L (98-107) Carbon Dioxide Level 29 mmol/L (21-32) Anion Gap 7 (6-14) Blood Urea Nitrogen 27 mg/dL (7-20) Creatinine 0.7 mg/dL (0.6-1.0) Estimated GFR (Cockcroft-Gault) 80.1 BUN/Creatinine Ratio 39 (6-20) Glucose Level 130 mg/dL (70-99) Calcium Level 8.8 mg/dL (8.5-10.1) Total Bilirubin 0.4 mg/dL (0.2-1.0) Aspartate Amino Transf (AST/SGOT) 37 U/L (15-37) Alanine Aminotransferase (ALT/SGPT) 57 U/L (14-59) Alkaline Phosphatase 137 U/L (46-116) Total Protein 6.3 g/dL (6.4-8.2) Albumin 2.7 g/dL (3.4-5.0) Albumin/Globulin Ratio 0.8 (1.0-1.7) Laboratory Tests Test 10/18/18 12:26 White Blood Count 4.8 x10^3/uL (4.0-11.0) Red Blood Count 3.55 x10^6/uL (3.50-5.40) Hemoglobin 10.0 g/dL (12.0-15.5) Hematocrit 31.4 % (36.0-47.0) Mean Corpuscular Volume 88 fL (79-100) Mean Corpuscular Hemoglobin 28 pg (25-35) Mean Corpuscular Hemoglobin Concent 32 g/dL (31-37) Red Cell Distribution Width 16.5 % (11.5-14.5) Platelet Count 201 x10^3/uL (140-400) Sodium Level 150 mmol/L (136-145) Potassium Level 4.3 mmol/L (3.5-5.1) Chloride Level 114 mmol/L (98-107) Carbon Dioxide Level 29 mmol/L (21-32) Anion Gap 7 (6-14) Blood Urea Nitrogen 27 mg/dL (7-20) Creatinine 0.7 mg/dL (0.6-1.0) Estimated GFR (Cockcroft-Gault) 80.1 BUN/Creatinine Ratio 39 (6-20) Glucose Level 130 mg/dL (70-99) Calcium Level 8.8 mg/dL (8.5-10.1) Total Bilirubin 0.4 mg/dL (0.2-1.0) Aspartate Amino Transf (AST/SGOT) 37 U/L (15-37) Alanine Aminotransferase (ALT/SGPT) 57 U/L (14-59) Alkaline Phosphatase 137 U/L (46-116) Total Protein 6.3 g/dL (6.4-8.2) Albumin 2.7 g/dL (3.4-5.0) Albumin/Globulin Ratio 0.8 (1.0-1.7) Microbiology 10/06/18 Blood Culture - Final, Complete NO GROWTH AFTER 5 DAYS Medications Current Medications Piperacillin Sod/ Tazobactam Sod (Zosyn Per Pharmacy) 1 each PRN DAILY PRN MC SEE COMMENTS; Start 10/06/18 at 19:00; Stop 10/12/18 at 14:15; Status DC Piperacillin Sod/ Tazobactam Sod 3.375 gm/Sodium Chloride 50 ml @ 100 mls/hr 1X ONCE IV Last administered on 10/06/18 19:09; Start 10/06/18 at 19:30; Stop 10/06/18 at 19:59; Status DC Ondansetron HCl (Zofran) 4 mg PRN Q8HRS PRN IV NAUSEA/VOMITING; Start 10/06/18 at 19:00; Stop 10/07/18 at 18:59; Status DC Acetaminophen (Tylenol) 650 mg PRN Q4HRS PRN PO FEVER Last administered on 10/06 20:29; Start 10/06/18 at 19:00; Stop 10/07/18 at 11:43; Status DC Albuterol/ Ipratropium (Duoneb) 3 ml RTQID NEB Last administered on 10/07/18 19:59; Start 10/06/18 at 20:00; Stop 10/07/18 at 19:59; Status DC Ondansetron HCl (Zofran) 4 mg 1X ONCE IV Last administered on 10/06/18 20:25 ; Start 10/06/18 at 20:30; Stop 10/06/18 at 20:34; Status DC Piperacillin Sod/ Tazobactam Sod 3.375 gm/Sodium Chloride 50 ml @ 100 mls/hr Q6HRS IV Last administered on 10/12/18 12:37; Start 10/07/18 at 00:00; Stop at 14:15; Status DC Aspirin (Ecotrin) 81 mg DAILY PO Last administered on 10/18/18 12:58; Start at 12:00; Stop 10/19/18 at 08:01; Status DC Atorvastatin Calcium (Lipitor) 10 mg HS PO Last administered on 10/18/18 20:07 ; Start 10/07/18 at 21:00 Baclofen (Lioresal) 10 mg HS PO Last administered on 10/18/18 20:07; Start at 21:00 Cyanocobalamin (Vitamin B-12) 1,000 mcg DAILY PO Last administered on 10/19/18 09:21; Start 10/07/18 at 12:00 Docusate Sodium (Colace) 100 mg BID PO Last administered on 10/18/18 20:06; Start 10/07/18 at 12:00; Stop 10/19/18 at 10:32; Status DC Furosemide (Lasix) 40 mg DAILY PO Last administered on 10/19/18 09:21; Start at 12:00 Guaifenesin (Mucinex) 600 mg BID PO Last administered on 10/18/18 20:08; Start 10/07/18 at 12:00; Stop 10/19/18 at 10:32; Status DC Nystatin (Nystop) 1 gabriela TID TP Last administered on 10/19/18 09:34; Start 10/07 at 14:00 Simethicone (Gas-X) 80 mg PRN Q6HRS PRN PO flatulence ; Start 10/07/18 at 11:45 Acetaminophen (Tylenol) 1,000 mg PRN BID PRN PO MILD PAIN Last administered on 10/07/18at 16:47; Start 10/07/18 at 11:45 Bisacodyl (Dulcolax Supp) 10 mg PRN DAILY PRN [place] CONSTIPATION; Start 10/07/18 at 11:45 Calcium Carbonate/ Glycine (Tums) 500 mg PRN Q12HR PRN PO INDIGESTION Last administered on 10/08/18 02:32; Start 10/07/18 at 11:45 Lactobacillus Rhamnosus (Culturelle) 1 cap BID PO Last administered on 09:21; Start 10/07/18 at 12:00 Non-Formulary Medication (Levothyroxine Sodium ) 40 mcg DAILYAC PRN PO hypothyroid ; Start 10/07/18 at 11:45; Stop 10/07/18 at 12:11; Status DC Loperamide HCl (Imodium) 2 mg PRN Q1HR PRN PO DIARRHEA; Start 10/07/18 at 12:00 Magnesium Oxide (Magnesium Oxide) 400 mg BID PO Last administered on 10/19/18 09:21; Start 10/07/18 at 12:00 Multivitamins (Thera M Plus) 1 tab DAILY PO Last administered on 10/19/18 09:21 ; Start 10/07/18 at 12:00 Fish Oil (Fish Oil) 1,000 mg DAILY PO Last administered on 10/18/18 12:57; Start 10/07/18 at 12:00; Stop 10/19/18 at 10:32; Status DC Potassium Chloride (Klor-Con) 20 meq [id number] PO Last administered on 12:58; Start 10/07/18 at 12:00; Stop 10/19/18 at 08:00; Status DC Pregabalin (Lyrica) 100 mg TID PO Last administered on 10/19/18 09:21; Start at 14:00 Famotidine (Pepcid) 20 mg QHS PO Last administered on 10/07/18at 22:12; Start at 21:00; Stop 10/08/18 at 17:01; Status DC Sennosides (Senna) 8.6 mg DAILY PO Last administered on 10/19/18 09:21; Start 10/07/18 at 12:00 Levothyroxine Sodium (Synthroid) 25 mcg DAILY06 PO Last administered on at 04:03; Start 10/07/18 at 12:30 Enoxaparin Sodium (Lovenox 40mg Syringe) 40 mg Q24H SQ Last administered on 10/18 20:19; Start 10/07/18 at 21:00 Enoxaparin Sodium (Lovenox 40mg Syringe) 40 mg Q24H SQ ; Start 10/07/18 at 19:00 ; Stop 10/08/18 at 09:23; Status DC Pantoprazole Sodium (Protonix) 40 mg DAILYAC PO ; Start 10/08/18 at 07:30; Stop 10/08/18 at 16:07; Status DC Codeine Sulfate (Codeine) 30 mg PRN Q6HRS PRN PO COUGH, 2nd CHOICE Last administered on 10/08/18at 03:26; Start 10/08/18 at 03:15 Benzonatate (Tessalon Perle) 100 mg [id number] PO Last administered on 10/18/18 20: 08; Start 10/08/18 at 09:00; Stop 10/19/18 at 10:32; Status DC Benzonatate (Tessalon Perle) 100 mg 1X ONCE PO Last administered on 10/08/18at 03:26; Start 10/08/18 at 03:15; Stop 10/08/18 at 03:16; Status DC Guaifenesin (Robitussin Dm) 10 ml PRN Q4HRS PRN PO COUGH, 1st CHOICE; Start at 07:30 Ondansetron HCl (Zofran) 4 mg PRN Q4HRS PRN IV NAUSEA/VOMITING Last administered on 10/08/18at 09:32; Start 10/08/18 at 07:30 Albuterol/ Ipratropium (Duoneb) 3 ml RTQID NEB Last administered on 10/19/18at 07 :46; Start 10/08/18 at 08:00 Sodium Chloride 1,000 ml @ 75 mls/hr [id number] IV Last administered on at 00:46; Start 10/08/18 at 10:30; Stop 10/13/18 at 16:06; Status DC Iohexol (Omnipaque 300 Mg/ml) 75 ml 1X ONCE IV Last administered on 10/08/18at 11:30; Start 10/08/18 at 11:30; Stop 10/08/18 at 11:31; Status DC Info (CONTRAST GIVEN -- Rx MONITORING) 1 each PRN DAILY PRN MC SEE COMMENTS; Start 10/08/18 at 11:30; Stop 10/10/18 at 11:29; Status DC Ringer's Solution 1,000 ml @ 0 mls/hr Q0M IV Last administered on 10/08/18at 13 :31; Start 10/08/18 at 13:30; Stop 10/08/18 at 16:55; Status DC Ringer's Solution 1,000 ml @ 50 mls/hr Q20H IV ; Start 10/08/18 at 14:00; Stop 10/08/18 at 18:00; Status DC Propofol 20 ml @ As Directed STK-MED ONCE IV ; Start 10/08/18 at 13:48; Stop at 13:49; Status DC Albuterol Sulfate (Ventolin Neb Soln) 2.5 mg PRN 1X PRN NEB SHORTNESS OF BREATH Last administered on 10/08/18at 14:22; Start 10/08/18 at 14:15; Stop 10/08 at 18:00; Status DC Lidocaine HCl (Lidocaine 2% Viscous) 100 ml PRN 1X PRN MM MOUTH PAIN Last administered on 10/08/18at 14:21; Start 10/08/18 at 14:15; Stop 10/08/18 at 18:00 ; Status DC Lidocaine HCl (Lidocaine 1% 20ml Vial) 20 ml PRN 1X PRN INJ SEE COMMENTS Last administered on 10/08/18at 14:22; Start 10/08/18 at 14:15; Stop 10/08/18 at 18:00 ; Status DC Epinephrine HCl (Adrenalin) 1 mg PRN 1X PRN INJ SEE COMMENTS; Start 10/08/18 at 14:15; Stop 10/08/18 at 18:00; Status DC Lidocaine HCl 50 ml PRN 1X PRN MM SEE COMMENTS Last administered on 10/08/18at 14:21; Start 10/08/18 at 14:15; Stop 10/08/18 at 18:00; Status DC Epinephrine HCl (Adrenalin) 1 mg STK-MED ONCE .ROUTE ; Start 10/08/18 at 14:13; Stop 10/08/18 at 14:14; Status DC Lidocaine HCl (Lidocaine 1% 20ml Vial) 20 ml STK-MED ONCE .ROUTE ; Start at 14:13; Stop 10/08/18 at 14:14; Status DC Lidocaine HCl (Lidocaine 2% Viscous) 100 ml STK-MED ONCE .ROUTE ; Start at 14:13; Stop 10/08/18 at 14:14; Status DC Lidocaine HCl 50 ml STK-MED ONCE .ROUTE ; Start 10/08/18 at 14:14; Stop at 14:15; Status DC Pantoprazole Sodium (PROTONIX VIAL for IV PUSH) 40 mg BIDAC IVP Last administered on 10/10/18at 07:28; Start 10/08/18 at 16:30; Stop 10/10/18 at 11:15 ; Status DC Ringer's Solution 1,000 ml @ 100 mls/hr Q10H IV Last administered on at 11:24; Start 10/09/18 at 11:30; Stop 10/10/18 at 07:46; Status DC Propofol 20 ml @ As Directed STK-MED ONCE IV ; Start 10/09/18 at 12:02; Stop at 12:03; Status DC Lidocaine HCl (Lidocaine Pf 2% Vial) 5 ml STK-MED ONCE .ROUTE ; Start 10/09/18 at 12:02; Stop 10/09/18 at 12:03; Status DC Epinephrine HCl (EPINEPHrine SYRINGE) 1 mg STK-MED ONCE .ROUTE ; Start 10/09/18 at 13:18; Stop 10/09/18 at 13:19; Status DC Fentanyl Citrate (Fentanyl 2ml Vial) 50 mcg PRN Q4HRS PRN IV PAIN SEVERE Last administered on 10/17/18 20:21; Start 10/10/18 at 09:00 Fentanyl Citrate (Fentanyl 2ml Vial) 25 mcg PRN Q4HRS PRN IV PAIN MODERATE Last administered on 10/16/18 13:03; Start 10/10/18 at 09:00 Lidocaine (Lidoderm) 1 patch DAILY TD Last administered on 10/18/18 15:20; Start 10/10/18 at 10:00 Miscellaneous (Lidoderm Patch Removal) 1 ea QHS MC Last administered on 20:06; Start 10/10/18 at 21:00 Sucralfate (Carafate) 1 gm QIDACHS PEG Last administered on 10/18/18 12:57; Start 10/10/18 at 11:30; Stop 10/18/18 at 13:01; Status DC Pantoprazole Sodium (Protonix) 40 mg BIDAC PO ; Start 10/10/18 at 16:30; Stop at 11:14; Status DC Amino Acids/ Glycerin/ Electrolytes 1,000 ml @ 100 mls/hr Q10H IV Last administered on 10/14/18 05:20; Start 10/10/18 at 14:45; Stop 10/14/18 at 15:42; Status DC Barium Sulfate (Varibar Thin Liquid Apple) 148 gm 1X ONCE PO Last administered on 10/11/18at 11:10; Start 10/11/18 at 10:15; Stop 10/11/18 at 10:16 ; Status DC Pantoprazole Sodium (PROTONIX VIAL for IV PUSH) 40 mg BIDAC IVP Last administered on 10/18/18at 08:31; Start 10/11/18 at 16:30; Stop 10/18/18 at 13:01; Status DC Albuterol/ Ipratropium (Duoneb) 3 ml 1X ONCE NEB Last administered on at 01:00; Start 10/12/18 at 01:00; Stop 10/12/18 at 01:01; Status DC Labetalol HCl (Normodyne Iv Push) 20 mg PRN Q2HR PRN IVP SBP>160, 2ND CHOICE Last administered on 10/15/18at 03:18; Start 10/12/18 at 03:45 Hydralazine HCl (Apresoline Inj) 10 mg PRN Q4HRS PRN IVP SBP>160, 1ST CHOICE Last administered on 10/13/18at 11:26; Start 10/12/18 at 04:45 Albuterol/ Ipratropium (Duoneb) 3 ml 1X ONCE NEB Last administered on at 05:52; Start 10/12/18 at 06:00; Stop 10/12/18 at 06:01; Status DC Hydralazine HCl (Apresoline Inj) 10 mg PRN Q4HRS PRN IVP ELEVATED BP, SEE COMMENTS; Start 10/12/18 at 15:30; Status Cancel Albuterol Sulfate (Ventolin Neb Soln) 2.5 mg PRN Q2HR PRN NEB SHORTNESS OF BREATH; Start 10/12/18 at 18:45 Metoprolol Tartrate (Lopressor Vial) 5 mg PRN Q6HRS PRN IVP HTN, SEE COMMENTS 3rd Choice Last administered on 10/19/18at 04:02; Start 10/14/18 at 14:45 Ringer's Solution 1,000 ml @ 50 mls/hr Q20H IV Last administered on 10/18/18at 10:47; Start 10/18/18 at 07:00; Stop 10/18/18 at 15:31; Status DC Cefazolin Sodium 50 ml @ 100 mls/hr 1X PREOP PRN IV PER PROTOCOL Last administered on 10/18/18at 11:10; Start 10/18/18 at 10:00; Stop 10/18/18 at 18:00; Status DC Midazolam HCl (Versed) 2 mg PRN 1X PRN IV PRIOR TO PROCEDURE; Start 10/18/18 at 08:00; Stop 10/18/18 at 18:00; Status DC Fentanyl Citrate (Fentanyl 2ml Vial) 25 mcg PRN Q5MIN PRN IV X 2 DOSES FOR PAIN ; Start 10/18/18 at 08:00; Stop 10/18/18 at 18:00; Status DC Fentanyl Citrate (Fentanyl 2ml Vial) 50 mcg PRN Q5MIN PRN IV X 2 DOSES FOR PAIN ; Start 10/18/18 at 08:00; Stop 10/18/18 at 18:00; Status DC Ringer's Solution 1,000 ml @ 125 mls/hr Q8H IV Last administered on 10/18/18at 10:48; Start 10/18/18 at 07:55; Stop 10/18/18 at 15:31; Status DC Lidocaine HCl (Xylocaine-Mpf 1% 2ml Vial) 2 ml 1X PRN PRN ID IV START; Start at 08:00; Stop 10/18/18 at 18:00; Status DC Propofol 20 ml @ As Directed STK-MED ONCE IV ; Start 10/18/18 at 11:00; Stop 10/18 at 11:01; Status DC Lidocaine HCl (Lidocaine Pf 2% Vial) 5 ml STK-MED ONCE .ROUTE ; Start 10/18/18 at 11:00; Stop 10/18/18 at 11:01; Status DC Sucralfate (Carafate) 1 gm TIDAC PEG Last administered on 10/19/18at 09:23; Start 10/18/18 at 16:30 Lansoprazole (Prevacid) 30 mg BIDBFRMEAL FT Last administered on 10/19/18at 09:21 ; Start 10/18/18 at 16:30 Potassium Chloride (KCl Oral Soln) 20 meq DAILY PEG Last administered on at 09:21; Start 10/19/18 at 09:00 Aspirin (Children'S Aspirin) 81 mg DAILYWBKFT PO Last administered on 10/19/18at 09:21; Start 10/19/18 at 08:00 Active Scripts Active Reported Thera-Tabs M Caplet (Multivits,Ca,Minerals/Iron/Fa) 1 Each Tablet 1 Each PO DAILY Senna (Sennosides) 8.6 Mg Tablet 8.6 Mg PO DAILY Ranitidine Hcl 150 Mg Tablet 150 Mg PO HS Lyrica (Pregabalin) 100 Mg Capsule 1 Cap PO TID Potassium Chloride 20 Meq Tablet.er 20 Meq PO DAILY Nystatin 15 Gm Powder 1 Gabriela TP TID Simethicone 80 Mg Tab.chew 80 Mg PO PRN Q6HRS PRN Mucinex (Guaifenesin) 600 Mg Tablet.er 1 Tab PO BID Mapap (Acetaminophen) 500 Mg Tablet 1,000 Mg PO PRN BID PRN Magnesium Oxide 400 Mg Tablet 400 Mg PO BID Loperamide (Loperamide Hcl) 2 Mg Capsule 2 Mg PO PRN Q1HR PRN Levothyroxine Sodium 50 Mcg Tablet 40 Mcg PO DAILYAC PRN Furosemide 40 Mg Tablet 1 Tab PO DAILY Fish Oil-Vit D3 Softgel (Omega3/Dha/Epa/Fish Oil/Vit D3) 1 Each Capsule 1 Each PO DAILY Docusate Sodium 100 Mg Capsule 100 Mg PO BID Vitamin B-12 (Cyanocobalamin (Vitamin B-12)) 1,000 Mcg Tablet 1 Tab PO DAILY Culturelle Probiotics Capsule (L. Rhamnosus GG/Inulin) 1 Each Capsule 1 Each PO BID Tums Ultra (Calcium Carbonate) 400 Mg Tab.chew 400 Mg PO PRN Q12HR PRN Dulcolax (Bisacodyl) 10 Mg Supp.rect 10 Mg RC PRN DAILY PRN Baclofen 10 Mg Tablet 10 Mg PO HS Atorvastatin Calcium 10 Mg Tablet 10 Mg PO HS Aspirin Ec (Aspirin) 81 Mg Tablet. 1 Tab PO DAILY Vitals/I & O Vital Sign - Last 24 Hours 10/18/18 10/18/18 10/18/18 10/18/18 11:30 11:45 12:00 14:29 Temp 98 98.0 98.0 98.0 Pulse 77 104 100 Resp 16 18 20 B/P (MAP) 140/68 141/76 139/70 Pulse Ox 100 98 98 97 O2 Delivery Simple Mask Nasal Cannula Nasal Cannula Nasal Cannula O2 Flow Rate 8 2 2 2.0 10/18/18 10/18/18 10/18/18 10/18/18 14:32 19:31 20:00 20:11 Temp 97.7 98.1 97.7 98.1 Pulse 77 95 Resp 20 18 B/P (MAP) 136/78 (97) 134/67 (89) Pulse Ox 96 99 97 O2 Delivery Nasal Cannula Nasal Cannula Nasal Cannula Nasal Cannula O2 Flow Rate 3.0 2.0 2.0 2.0 10/18/18 10/19/18 10/19/18 10/19/18 22:45 03:12 04:02 07:20 Temp 97.7 97.6 97.4 97.7 97.6 97.4 Pulse 99 100 153 102 Resp 20 18 18 B/P (MAP) 123/70 (87) 134/74 (94) 134/74 135/79 (97) Pulse Ox 99 97 94 O2 Delivery Nasal Cannula Nasal Cannula Nasal Cannula O2 Flow Rate 2.0 2.0 2.0 10/19/18 10/19/18 07:46 08:00 Pulse Ox 97 O2 Delivery Nasal Cannula Nasal Cannula O2 Flow Rate 2.0 2.0 Intake and Output 10/18/18 10/18/18 10/19/18 14:59 22:59 06:59 Intake Total 50 ml 150 ml 570 ml Output Total 600 ml 600 ml Balance 50 ml -450 ml -30 ml Nutrition Consultation Dietary Evaluation: Recommendations by RD: Increase Calorie Intake, Protein supplementation Comments: Continue w/TF per current order: Jevity 1.5@goal rate 50 ml/hr w/150 ml water flushes q4 hrs or flushes per REC Vit C (500 mg BID) and MVI q day if able via dobhoff - wound healing Expected Outcomes/Goals: New goal 10/14: TF initiation/infusion/tolerance - met, new goal established New goal 10/17: TF infusion to meet >75% est needs Malnutrition Findings: Body Fat Depletion (Non Severe: Mild Depletion Weight Status: Appropriate HEIDI [place] MD Oct 19, 2018 11:09
[2018-10-19 11:29] VITALS: BP 146/77
[2018-10-19 14:52] VITALS: BP 132/70
--- NOTE | 2018-10-19 15:16 | PDOC ---
Subjective: Subjective: No acute events over night. Objective: Vital Signs: Current Medications Medications (Trade) Dose Ordered Sig/Rowan Route PRN Reason Start Time Stop Time Status Last Admin Dose Admin Piperacillin Sod/ Tazobactam Sod (Zosyn Per Pharmacy) 1 each PRN DAILY PRN MC SEE COMMENTS 10/06/18 19:00 10/12/18 14:15 DC Piperacillin Sod/ Tazobactam Sod 3.375 gm/Sodium Chloride 50 ml @ 100 mls/hr 1X ONCE IV 10/06/18 19:30 10/06/18 19:59 DC 10/06/18 19:09 Ondansetron HCl (Zofran) 4 mg PRN Q8HRS PRN IV NAUSEA/VOMITING 10/06/18 19:00 10/07/18 18:59 DC Acetaminophen (Tylenol) 650 mg PRN Q4HRS PRN PO FEVER 10/06/18 19:00 10/07/18 11:43 DC 10/06/18 20:29 Albuterol/ Ipratropium (Duoneb) 3 ml RTQID NEB 10/06/18 20:00 10/07/18 19:59 DC 10/07/18 19:59 Ondansetron HCl (Zofran) 4 mg 1X ONCE IV 10/06/18 20:30 10/06/18 20:34 DC 10/06/18 20:25 Piperacillin Sod/ Tazobactam Sod 3.375 gm/Sodium Chloride 50 ml @ 100 mls/hr Q6HRS IV 10/07/18 00:00 10/12/18 14:15 DC 10/12/18 12:37 Aspirin (Ecotrin) 81 mg DAILY PO 10/07/18 12:00 10/19/18 08:01 DC 10/18/18 12:58 Atorvastatin Calcium (Lipitor) 10 mg HS PO 10/07/18 21:00 10/18/18 20:07 Baclofen (Lioresal) 10 mg HS PO 10/07/18 21:00 10/18/18 20:07 Cyanocobalamin (Vitamin B-12) 1,000 mcg DAILY PO 10/07/18 12:00 10/19/18 09:21 Docusate Sodium (Colace) 100 mg BID PO 10/07/18 12:00 10/19/18 10:32 DC 10/18/18 20:06 Furosemide (Lasix) 40 mg DAILY PO 10/07/18 12:00 10/19/18 09:21 Guaifenesin (Mucinex) 600 mg BID PO 10/07/18 12:00 10/19/18 10:32 DC 10/18/18 20:08 Nystatin (Nystop) 1 stephanie TID TP 10/07/18 14:00 10/19/18 15:06 Simethicone (Gas-X) 80 mg PRN Q6HRS PRN PO flatulence 10/07/18 11:45 Acetaminophen (Tylenol) 1,000 mg PRN BID PRN PO MILD PAIN 10/07/18 11:45 10/07/18 16:47 Bisacodyl (Dulcolax Supp) 10 mg PRN DAILY PRN NE CONSTIPATION 10/07/18 11:45 Calcium Carbonate/ Glycine (Tums) 500 mg PRN Q12HR PRN PO INDIGESTION 10/07/18 11:45 10/08/18 02:32 Lactobacillus Rhamnosus (Culturelle) 1 cap BID PO 10/07/18 12:00 10/19/18 09:21 Non-Formulary Medication (Levothyroxine Sodium ) 40 mcg DAILYAC PRN PO hypothyroid 10/07/18 11:45 10/07/18 12:11 DC Loperamide HCl (Imodium) 2 mg PRN Q1HR PRN PO DIARRHEA 10/07/18 12:00 Magnesium Oxide (Magnesium Oxide) 400 mg BID PO 10/07/18 12:00 10/19/18 09:21 Multivitamins (Thera M Plus) 1 tab DAILY PO 10/07/18 12:00 10/19/18 09:21 Fish Oil (Fish Oil) 1,000 mg DAILY PO 10/07/18 12:00 10/19/18 10:32 DC 10/18/18 12:57 Potassium Chloride (Klor-Con) 20 meq DAILYWBKFT PO 10/07/18 12:00 10/19/18 08:00 DC 10/18/18 12:58 Pregabalin (Lyrica) 100 mg TID PO 10/07/18 14:00 10/19/18 15:06 Famotidine (Pepcid) 20 mg QHS PO 10/07/18 21:00 10/08/18 17:01 DC 10/07/18 22:12 Sennosides (Senna) 8.6 mg DAILY PO 10/07/18 12:00 10/19/18 09:21 Levothyroxine Sodium (Synthroid) 25 mcg DAILY06 PO 10/07/18 12:30 10/19/18 04:03 Enoxaparin Sodium (Lovenox 40mg Syringe) 40 mg Q24H SQ 10/07/18 21:00 10/18/18 20:19 Enoxaparin Sodium (Lovenox 40mg Syringe) 40 mg Q24H SQ 10/07/18 19:00 10/08/18 09:23 DC Pantoprazole Sodium (Protonix) 40 mg DAILYAC PO 10/08/18 07:30 10/08/18 16:07 DC Codeine Sulfate (Codeine) 30 mg PRN Q6HRS PRN PO COUGH, 2nd CHOICE 10/08/18 03:15 10/08/18 03:26 Benzonatate (Tessalon Perle) 100 mg [id number] PO 10/08/18 09:00 10/19/18 10:32 DC 10/18/18 20:08 Benzonatate (Tessalon Perle) 100 mg 1X ONCE PO 10/08/18 03:15 10/08/18 03:16 DC 10/08/18 03:26 Guaifenesin (Robitussin Dm) 10 ml PRN Q4HRS PRN PO COUGH, 1st CHOICE 10/08/18 07:30 Ondansetron HCl (Zofran) 4 mg PRN Q4HRS PRN IV NAUSEA/VOMITING 10/08/18 07:30 10/08/18 09:32 Albuterol/ Ipratropium (Duoneb) 3 ml RTQID NEB 10/08/18 08:00 10/19/18 12:04 Sodium Chloride 1,000 ml @ 75 mls/hr [id number] IV 10/08/18 10:30 10/13/18 16:06 DC 10/10/18 00:46 Iohexol (Omnipaque 300 Mg/ml) 75 ml 1X ONCE IV 10/08/18 11:30 10/08/18 11:31 DC 10/08/18 11:30 Info (CONTRAST GIVEN -- Rx MONITORING) 1 each PRN DAILY PRN MC SEE COMMENTS 10/08/18 11:30 10/10/18 11:29 DC Ringer's Solution 1,000 ml @ 0 mls/hr Q0M IV 10/08/18 13:30 10/08/18 16:55 DC 10/08/18 13:31 Ringer's Solution 1,000 ml @ 50 mls/hr Q20H IV 10/08/18 14:00 10/08/18 18:00 DC Propofol 20 ml @ As Directed STK-MED ONCE IV 10/08/18 13:48 10/08/18 13:49 DC Albuterol Sulfate (Ventolin Neb Soln) 2.5 mg PRN 1X PRN NEB SHORTNESS OF BREATH 10/08/18 14:15 10/08/18 18:00 DC 10/08/18 14:22 Lidocaine HCl (Lidocaine 2% Viscous) 100 ml PRN 1X PRN MM MOUTH PAIN 10/08/18 14:15 10/08/18 18:00 DC 10/08/18 14:21 Lidocaine HCl (Lidocaine 1% 20ml Vial) 20 ml PRN 1X PRN INJ SEE COMMENTS 10/08/18 14:15 10/08/18 18:00 DC 10/08/18 14:22 Epinephrine HCl (Adrenalin) 1 mg PRN 1X PRN INJ SEE COMMENTS 10/08/18 14:15 10/08/18 18:00 DC Lidocaine HCl 50 ml PRN 1X PRN MM SEE COMMENTS 10/08/18 14:15 10/08/18 18:00 DC 10/08/18 14:21 Epinephrine HCl (Adrenalin) 1 mg STK-MED ONCE .ROUTE 10/08/18 14:13 10/08/18 14:14 DC Lidocaine HCl (Lidocaine 1% 20ml Vial) 20 ml STK-MED ONCE .ROUTE 10/08/18 14:13 10/08/18 14:14 DC Lidocaine HCl (Lidocaine 2% Viscous) 100 ml STK-MED ONCE .ROUTE 10/08/18 14:13 10/08/18 14:14 DC Lidocaine HCl 50 ml STK-MED ONCE .ROUTE 10/08/18 14:14 10/08/18 14:15 DC Pantoprazole Sodium (PROTONIX VIAL for IV PUSH) 40 mg BIDAC IVP 10/08/18 16:30 10/10/18 11:15 DC 10/10/18 07:28 Ringer's Solution 1,000 ml @ 100 mls/hr Q10H IV 10/09/18 11:30 10/10/18 07:46 DC 10/09/18 11:24 Propofol 20 ml @ As Directed STK-MED ONCE IV 10/09/18 12:02 10/09/18 12:03 DC Lidocaine HCl (Lidocaine Pf 2% Vial) 5 ml STK-MED ONCE .ROUTE 10/09/18 12:02 10/09/18 12:03 DC Epinephrine HCl (EPINEPHrine SYRINGE) 1 mg STK-MED ONCE .ROUTE 10/09/18 13:18 10/09/18 13:19 DC Fentanyl Citrate (Fentanyl 2ml Vial) 50 mcg PRN Q4HRS PRN IV PAIN SEVERE 10/10/18 09:00 10/17/18 20:21 Fentanyl Citrate (Fentanyl 2ml Vial) 25 mcg PRN Q4HRS PRN IV PAIN MODERATE 10/10/18 09:00 10/16/18 13:03 Lidocaine (Lidoderm) 1 patch DAILY TD 10/10/18 10:00 10/18/18 15:20 Miscellaneous (Lidoderm Patch Removal) 1 ea QHS MC 10/10/18 21:00 10/18/18 20:06 Sucralfate (Carafate) 1 gm QIDACHS PEG 10/10/18 11:30 10/18/18 13:01 DC 10/18/18 12:57 Pantoprazole Sodium (Protonix) 40 mg BIDAC PO 10/10/18 16:30 10/11/18 11:14 DC Amino Acids/ Glycerin/ Electrolytes 1,000 ml @ 100 mls/hr Q10H IV 10/10/18 14:45 10/14/18 15:42 DC 10/14/18 05:20 Barium Sulfate (Varibar Thin Liquid Apple) 148 gm 1X ONCE PO 10/11/18 10:15 10/11/18 10:16 DC 10/11/18 11:10 Pantoprazole Sodium (PROTONIX VIAL for IV PUSH) 40 mg BIDAC IVP 10/11/18 16:30 10/18/18 13:01 DC 10/18/18 08:31 Albuterol/ Ipratropium (Duoneb) 3 ml 1X ONCE NEB 10/12/18 01:00 10/12/18 01:01 DC 10/12/18 01:00 Labetalol HCl (Normodyne Iv Push) 20 mg PRN Q2HR PRN IVP SBP>160, 2ND CHOICE 10/12/18 03:45 10/15/18 03:18 Hydralazine HCl (Apresoline Inj) 10 mg PRN Q4HRS PRN IVP SBP>160, 1ST CHOICE 10/12/18 04:45 10/13/18 11:26 Albuterol/ Ipratropium (Duoneb) 3 ml 1X ONCE NEB 10/12/18 06:00 10/12/18 06:01 DC 10/12/18 05:52 Hydralazine HCl (Apresoline Inj) 10 mg PRN Q4HRS PRN IVP ELEVATED BP, SEE COMMENTS 10/12/18 15:30 Cancel Albuterol Sulfate (Ventolin Neb Soln) 2.5 mg PRN Q2HR PRN NEB SHORTNESS OF BREATH 10/12/18 18:45 Metoprolol Tartrate (Lopressor Vial) 5 mg PRN Q6HRS PRN IVP HTN, SEE COMMENTS 3rd Choice 10/14/18 14:45 10/19/18 04:02 Ringer's Solution 1,000 ml @ 50 mls/hr Q20H IV 10/18/18 07:00 10/18/18 15:31 DC 10/18/18 10:47 Cefazolin Sodium 50 ml @ 100 mls/hr 1X PREOP PRN IV PER PROTOCOL 10/18/18 10:00 10/18/18 18:00 DC 10/18/18 11:10 Midazolam HCl (Versed) 2 mg PRN 1X PRN IV PRIOR TO PROCEDURE 10/18/18 08:00 10/18/18 18:00 DC Fentanyl Citrate (Fentanyl 2ml Vial) 25 mcg PRN Q5MIN PRN IV X 2 DOSES FOR PAIN 10/18/18 08:00 10/18/18 18:00 DC Fentanyl Citrate (Fentanyl 2ml Vial) 50 mcg PRN Q5MIN PRN IV X 2 DOSES FOR PAIN 10/18/18 08:00 10/18/18 18:00 DC Ringer's Solution 1,000 ml @ 125 mls/hr Q8H IV 10/18/18 07:55 10/18/18 15:31 DC 10/18/18 10:48 Lidocaine HCl (Xylocaine-Mpf 1% 2ml Vial) 2 ml 1X PRN PRN ID IV START 10/18/18 08:00 10/18/18 18:00 DC Propofol 20 ml @ As Directed STK-MED ONCE IV 10/18/18 11:00 10/18/18 11:01 DC Lidocaine HCl (Lidocaine Pf 2% Vial) 5 ml STK-MED ONCE .ROUTE 10/18/18 11:00 10/18/18 11:01 DC Sucralfate (Carafate) 1 gm TIDAC PEG 10/18/18 16:30 10/19/18 09:23 Lansoprazole (Prevacid) 30 mg BIDBFRMEAL FT 10/18/18 16:30 10/19/18 09:21 Potassium Chloride (KCl Oral Soln) 20 meq DAILY PEG 10/19/18 09:00 10/19/18 09:21 Aspirin (Children'S Aspirin) 81 mg DAILYWBKFT PO 10/19/18 08:00 10/19/18 09:21 Vital Signs Date Time Temp Pulse Resp B/P (MAP) Pulse Ox O2 Delivery O2 Flow Rate FiO2 10/19/18 14:52 97.8 103 18 132/70 (90) 97 Nasal Cannula 2.0 97.8 PE: GEN: NAD HEENT: Atraumatic, PERRLA LUNGS: CTAB HEART: RRR, no murmurs ABD: PEG tube in place. Soft abdomen with no area of guarding or rebound tenderness. EXTREMITY: No edema SKIN: No rashes, no jaundice NEURO/PSYCH: A & O 3 A/P: 82 years old female patient with multiple comorbidities including hyperlipidemia , hypothyroidism,scleroderma,chronic obstructive pulmonary disease. Patient currently admitted after she presented with worsening sob that was presumed to be multifactor including acute exacerbation of COPD. Patient underwent EGD by that was notable for active bleeding in the distal third of esophagus with diffuse ulceration that was treated epi and bipolar cautery. Patient also underwent PEG tube placement on 10/18 for reported oropharyngeal dysphagia. Labs notable for normocytic anemia with hgb 10.0. Recommendations: - Continue with supportive care as per primary team. - Monitor CBC. - Continue with PPI and Carafate. - GI available for any Q's. TEDDY HARDYU G MD Oct 19, 2018 15:16
[2018-10-19] MEDS: guaiFENesin DM 200MG/20MG 10 ML SYRUP PO PRN (17:50)
[2018-10-19 19:35] VITALS: BP 135/72
[2018-10-19] MEDS: PATCH REMOVAL. MC SCH (21:00)
[2018-10-19] MEDS: BACLOFEN 10 MG TABLET. PO SCH (21:00)
[2018-10-19] MEDS: ATORVASTATIN CALCIUM 10 MG TABLET. PO SCH (22:28)
[2018-10-19] MEDS: ENOXAPARIN 40 MG/0.4 ML SYRINGE. SQ SCH (22:41)
[2018-10-19 23:00] VITALS: BP 147/67
[2018-10-20 03:41] VITALS: BP 129/60
[2018-10-20] MEDS: LANSOPRAZOLE 30 MG TAB.RAP.DR FT SCH ×2 (06:10→17:28)
[2018-10-20] MEDS: LEVOTHYROXINE 25 MCG TABLET. PO SCH (06:11)
[2018-10-20] MEDS: SUCRALFATE 1 GM/10 ML ORAL.SUSP. PEG SCH ×3 (06:11→17:26)
[2018-10-20 07:00] VITALS: BP 124/69
[2018-10-20] MEDS: IPRATRPIUM/ALBUTEROL 0.5/2.5MG 3 ML NEBU. NEB SCH ×4 (08:16→19:29)
[2018-10-20] MEDS: guaiFENesin DM 200MG/20MG 10 ML SYRUP PO PRN ×3 (09:28→21:35)
[2018-10-20] MEDS: LIDOCAINE (700MG/PATCH) PATCH. TD SCH (09:28)
[2018-10-20] MEDS: MAGNESIUM OXIDE 400 MG TABLET PO SCH ×2 (09:29→21:36)
[2018-10-20] MEDS: PREGABALIN 50 MG CAPSULE PO SCH ×3 (09:29→21:36)
[2018-10-20] MEDS: CYANOCOBALAMIN (VITAMIN B-12) 1,000 MCG TABLET. PO SCH (09:29)
[2018-10-20] MEDS: MULTIVITAMIN with MINERAL TABLET. PO SCH (09:29)
[2018-10-20] MEDS: POTASSIUM CHLORIDE 20 MEQ/15 ML ORAL LIQUID. PEG SCH (09:29)
[2018-10-20] MEDS: LACTOBACILLUS RHAMNOSUS GG 1 CAPSULE. PO SCH ×2 (09:29→21:36)
[2018-10-20] MEDS: ASPIRIN CHEWABLE 81 MG TABLET. PO SCH (09:29)
[2018-10-20] MEDS: FUROSEMIDE 40 MG TABLET. PO SCH (09:29)
[2018-10-20] MEDS: SENNOSIDES 8.6 MG TABLET PO SCH (09:29)
[2018-10-20] MEDS: NYSTATIN TOPICAL POWDER 15GM BOTTLE. TP SCH ×3 (09:30→21:37)
[2018-10-20 11:00] VITALS: BP 157/80
--- NOTE | 2018-10-20 12:01 | PDOC ---
PROGRESS NOTES Chief Complaint Chief Complaint Assessment/Plan 1. ACUTE COPD EXAC improved 2. Chest pain, atypical. non cardiac in nature most likely due to underlyng gi process 2. Dyspnea secondary to URI. slowly improving. 3. Chronic diastolic CHF Abnormal septal motion consistent with conduction abnormality. The Ejection Fraction is 50%. ECHO 10/07 4. Chronic AFIB; 5. Scleroderma 6. Raynaud's 7. RLE cellulitis, wound 8. left chest deep brain stimulator for essential tremors 9. GERD 10. Hypothyroid state on replacement 11. Right 2nd toe infection. 12. mild hypernatremia, monitor 13. Dysphagia status post PEG tube placement. Plan: supportive measures may start feeding tubes once lactation consultant approves significant decline, very debilitated, prognosis very guarded, Family meeting . //PAT consulted, patient does not want palliative care she wants to try to regain her functional status. PROCEDURE NOTE PROCEDURE 09/11 Procedure EGD with control of bleeding Esophagus- shortened with diffuse ulceration in distal 13, with active bleeding and adherent clot ? MW tear as well- carmen removed, treated with 3 cc of epinephrine 1:10,000 and bipolar cautery- with control- 6 cm HH, stomach with clots - no active bleeding seen but exam limited due to clots- duodenum appeared normal History of Present Illness History of Present Illness 10/09 HEMOPTYSIS VS HEMATEMESIS REMAINS NPO/// BRONCH NO LESION SEEN, GI FOLLOWING 10/10 failed bedside swallow and is still NPO - PPN ordered 10/11 FAILED SWALLOW STUDY, WILL D/W GI planning dobhoff 10/14 Disordered swallowing mechanism with moderate residue and mild intermittent laryngeal penetration with minimal aspiration 10/14 Daughter desires DNR designation dobhoff placed Enteric feeding catheter within the proximal stomach. on kub 10/15 no complaints during my visit remains stable, guarded prognosis 10/16 no new complaints remains bedridden, compaoinign of back pain, no alarming signs voiced, no cauda equina syndrome symptoms. 10/17 patient will need to have a epg tube placement for nutrition discussed with daughter at bedside. 10/18 patient seen at endoscopy prior to procedure, will follow after PEG tube has been placed. 10/19 no acute events patient yeager start tube feeds 10/20 patient tolerating her tube feeds well, no fever chills or complaints during my visit. Vitals Vitals Vital Signs Date Time Temp Pulse Resp B/P (MAP) Pulse Ox O2 Delivery O2 Flow Rate FiO2 10/20/18 11:00 98.2 112 16 157/80 (105) 99 Room Air 98.2 10/20/18 08:14 2.0 Physical Exam General: Alert, Oriented X3, Cooperative, mild distress, Other (frail appearing ) Heart: Regular rate, Normal S1, Other (irregular rhythm with 2/6 systolic murmur) Lungs: Crackles Abdomen: Normal bowel sounds, Soft, No tenderness Extremities: No clubbing, No cyanosis, No edema, Normal pulses, Other (strong dorsalis pedis pulse on the right with a Quant of flow of 1.08) Skin: No breakdown, No significant lesion, Other (1.3 cm ulceration to the dorsal aspect right second toe with no evidence of exposed tendon or bone at this time. The toe itself is modestly edematous with mild erythema) Review of Systems Review of Systems 12 point review of system is negative Assessment and Plan Assessmemt and Plan Problems Medical Problems: (1) Chest pain Status: Acute (2) Pneumonia Status: Acute Comment Review of Relevant I have reviewed the following items tara (where applicable) has been applied. Labs Laboratory Tests Test 10/18/18 12:26 White Blood Count 4.8 x10^3/uL (4.0-11.0) Red Blood Count 3.55 x10^6/uL (3.50-5.40) Hemoglobin 10.0 g/dL (12.0-15.5) Hematocrit 31.4 % (36.0-47.0) Mean Corpuscular Volume 88 fL (79-100) Mean Corpuscular Hemoglobin 28 pg (25-35) Mean Corpuscular Hemoglobin Concent 32 g/dL (31-37) Red Cell Distribution Width 16.5 % (11.5-14.5) Platelet Count 201 x10^3/uL (140-400) Sodium Level 150 mmol/L (136-145) Potassium Level 4.3 mmol/L (3.5-5.1) Chloride Level 114 mmol/L (98-107) Carbon Dioxide Level 29 mmol/L (21-32) Anion Gap 7 (6-14) Blood Urea Nitrogen 27 mg/dL (7-20) Creatinine 0.7 mg/dL (0.6-1.0) Estimated GFR (Cockcroft-Gault) 80.1 BUN/Creatinine Ratio 39 (6-20) Glucose Level 130 mg/dL (70-99) Calcium Level 8.8 mg/dL (8.5-10.1) Total Bilirubin 0.4 mg/dL (0.2-1.0) Aspartate Amino Transf (AST/SGOT) 37 U/L (15-37) Alanine Aminotransferase (ALT/SGPT) 57 U/L (14-59) Alkaline Phosphatase 137 U/L (46-116) Total Protein 6.3 g/dL (6.4-8.2) Albumin 2.7 g/dL (3.4-5.0) Albumin/Globulin Ratio 0.8 (1.0-1.7) Microbiology 10/06/18 Blood Culture - Final, Complete NO GROWTH AFTER 5 DAYS Medications Current Medications Piperacillin Sod/ Tazobactam Sod (Zosyn Per Pharmacy) 1 each PRN DAILY PRN MC SEE COMMENTS; Start 10/06/18 at 19:00; Stop 10/12/18 at 14:15; Status DC Piperacillin Sod/ Tazobactam Sod 3.375 gm/Sodium Chloride 50 ml @ 100 mls/hr 1X ONCE IV Last administered on 10/06/18at 19:09; Start 10/06/18 at 19:30; Stop 10/06/18 at 19:59; Status DC Ondansetron HCl (Zofran) 4 mg PRN Q8HRS PRN IV NAUSEA/VOMITING; Start 10/06/18 at 19:00; Stop 10/07/18 at 18:59; Status DC Acetaminophen (Tylenol) 650 mg PRN Q4HRS PRN PO FEVER Last administered on 10/06at 20:29; Start 10/06/18 at 19:00; Stop 10/07/18 at 11:43; Status DC Albuterol/ Ipratropium (Duoneb) 3 ml RTQID NEB Last administered on 10/07/18at 19:59; Start 10/06/18 at 20:00; Stop 10/07/18 at 19:59; Status DC Ondansetron HCl (Zofran) 4 mg 1X ONCE IV Last administered on 10/06/18at 20:25 ; Start 10/06/18 at 20:30; Stop 10/06/18 at 20:34; Status DC Piperacillin Sod/ Tazobactam Sod 3.375 gm/Sodium Chloride 50 ml @ 100 mls/hr Q6HRS IV Last administered on 10/12/18 12:37; Start 10/07/18 at 00:00; Stop at 14:15; Status DC Aspirin (Ecotrin) 81 mg DAILY PO Last administered on 10/18/18 12:58; Start at 12:00; Stop 10/19/18 at 08:01; Status DC Atorvastatin Calcium (Lipitor) 10 mg HS PO Last administered on 10/19/18 22:28 ; Start 10/07/18 at 21:00 Baclofen (Lioresal) 10 mg HS PO Last administered on 10/18/18 20:07; Start at 21:00 Cyanocobalamin (Vitamin B-12) 1,000 mcg DAILY PO Last administered on 10/20/18 09:29; Start 10/07/18 at 12:00 Docusate Sodium (Colace) 100 mg BID PO Last administered on 10/18/18 20:06; Start 10/07/18 at 12:00; Stop 10/19/18 at 10:32; Status DC Furosemide (Lasix) 40 mg DAILY PO Last administered on 10/20/18 09:29; Start at 12:00 Guaifenesin (Mucinex) 600 mg BID PO Last administered on 10/18/18 20:08; Start 10/07/18 at 12:00; Stop 10/19/18 at 10:32; Status DC Nystatin (Nystop) 1 gabriela TID TP Last administered on 10/20/18 09:30; Start 10/07 at 14:00 Simethicone (Gas-X) 80 mg PRN Q6HRS PRN PO flatulence ; Start 10/07/18 at 11:45 Acetaminophen (Tylenol) 1,000 mg PRN BID PRN PO MILD PAIN Last administered on 10/07/18 16:47; Start 10/07/18 at 11:45 Bisacodyl (Dulcolax Supp) 10 mg PRN DAILY PRN NV CONSTIPATION Last administered on 10/20/18 09:30; Start 10/07/18 at 11:45 Calcium Carbonate/ Glycine (Tums) 500 mg PRN Q12HR PRN PO INDIGESTION Last administered on 10/08/18 02:32; Start 10/07/18 at 11:45 Lactobacillus Rhamnosus (Culturelle) 1 cap BID PO Last administered on 09:29; Start 10/07/18 at 12:00 Non-Formulary Medication (Levothyroxine Sodium ) 40 mcg DAILYAC PRN PO hypothyroid ; Start 10/07/18 at 11:45; Stop 10/07/18 at 12:11; Status DC Loperamide HCl (Imodium) 2 mg PRN Q1HR PRN PO DIARRHEA; Start 10/07/18 at 12:00 Magnesium Oxide (Magnesium Oxide) 400 mg BID PO Last administered on 10/20/18 09:29; Start 10/07/18 at 12:00 Multivitamins (Thera M Plus) 1 tab DAILY PO Last administered on 10/20/18 09:29 ; Start 10/07/18 at 12:00 Fish Oil (Fish Oil) 1,000 mg DAILY PO Last administered on 10/18/18 12:57; Start 10/07/18 at 12:00; Stop 10/19/18 at 10:32; Status DC Potassium Chloride (Klor-Con) 20 meq DAILYWBKFT PO Last administered on 12:58; Start 10/07/18 at 12:00; Stop 10/19/18 at 08:00; Status DC Pregabalin (Lyrica) 100 mg TID PO Last administered on 10/20/18 09:29; Start at 14:00 Famotidine (Pepcid) 20 mg QHS PO Last administered on 10/07/18 22:12; Start at 21:00; Stop 10/08/18 at 17:01; Status DC Sennosides (Senna) 8.6 mg DAILY PO Last administered on 10/20/18 09:29; Start 10/07/18 at 12:00 Levothyroxine Sodium (Synthroid) 25 mcg DAILY06 PO Last administered on 06:11; Start 10/07/18 at 12:30 Enoxaparin Sodium (Lovenox 40mg Syringe) 40 mg Q24H SQ Last administered on 10/19 22:41; Start 10/07/18 at 21:00 Enoxaparin Sodium (Lovenox 40mg Syringe) 40 mg Q24H SQ ; Start 10/07/18 at 19:00 ; Stop 10/08/18 at 09:23; Status DC Pantoprazole Sodium (Protonix) 40 mg DAILYAC PO ; Start 10/08/18 at 07:30; Stop 10/08/18 at 16:07; Status DC Codeine Sulfate (Codeine) 30 mg PRN Q6HRS PRN PO COUGH, 2nd CHOICE Last administered on 10/08/18 03:26; Start 10/08/18 at 03:15 Benzonatate (Tessalon Perle) 100 mg [id number] PO Last administered on 10/18/18 20: 08; Start 10/08/18 at 09:00; Stop 10/19/18 at 10:32; Status DC Benzonatate (Tessalon Perle) 100 mg 1X ONCE PO Last administered on 10/08/18 03:26; Start 10/08/18 at 03:15; Stop 10/08/18 at 03:16; Status DC Guaifenesin (Robitussin Dm) 10 ml PRN Q4HRS PRN PO COUGH, 1st CHOICE Last administered on 10/20/18 09:28; Start 10/08/18 at 07:30 Ondansetron HCl (Zofran) 4 mg PRN Q4HRS PRN IV NAUSEA/VOMITING Last administered on 10/08/18 09:32; Start 10/08/18 at 07:30 Albuterol/ Ipratropium (Duoneb) 3 ml RTQID NEB Last administered on 10/20/18 08 :16; Start 10/08/18 at 08:00 Sodium Chloride 1,000 ml @ 75 mls/hr [id number] IV Last administered on 00:46; Start 10/08/18 at 10:30; Stop 10/13/18 at 16:06; Status DC Iohexol (Omnipaque 300 Mg/ml) 75 ml 1X ONCE IV Last administered on 10/08/18at 11:30; Start 10/08/18 at 11:30; Stop 10/08/18 at 11:31; Status DC Info (CONTRAST GIVEN -- Rx MONITORING) 1 each PRN DAILY PRN MC SEE COMMENTS; Start 10/08/18 at 11:30; Stop 10/10/18 at 11:29; Status DC Ringer's Solution 1,000 ml @ 0 mls/hr Q0M IV Last administered on 10/08/18at 13 :31; Start 10/08/18 at 13:30; Stop 10/08/18 at 16:55; Status DC Ringer's Solution 1,000 ml @ 50 mls/hr Q20H IV ; Start 10/08/18 at 14:00; Stop 10/08/18 at 18:00; Status DC Propofol 20 ml @ As Directed STK-MED ONCE IV ; Start 10/08/18 at 13:48; Stop at 13:49; Status DC Albuterol Sulfate (Ventolin Neb Soln) 2.5 mg PRN 1X PRN NEB SHORTNESS OF BREATH Last administered on 10/08/18at 14:22; Start 10/08/18 at 14:15; Stop 10/08 at 18:00; Status DC Lidocaine HCl (Lidocaine 2% Viscous) 100 ml PRN 1X PRN MM MOUTH PAIN Last administered on 10/08/18at 14:21; Start 10/08/18 at 14:15; Stop 10/08/18 at 18:00 ; Status DC Lidocaine HCl (Lidocaine 1% 20ml Vial) 20 ml PRN 1X PRN INJ SEE COMMENTS Last administered on 10/08/18at 14:22; Start 10/08/18 at 14:15; Stop 10/08/18 at 18:00 ; Status DC Epinephrine HCl (Adrenalin) 1 mg PRN 1X PRN INJ SEE COMMENTS; Start 10/08/18 at 14:15; Stop 10/08/18 at 18:00; Status DC Lidocaine HCl 50 ml PRN 1X PRN MM SEE COMMENTS Last administered on 10/08/18at 14:21; Start 10/08/18 at 14:15; Stop 10/08/18 at 18:00; Status DC Epinephrine HCl (Adrenalin) 1 mg STK-MED ONCE .ROUTE ; Start 10/08/18 at 14:13; Stop 10/08/18 at 14:14; Status DC Lidocaine HCl (Lidocaine 1% 20ml Vial) 20 ml STK-MED ONCE .ROUTE ; Start at 14:13; Stop 10/08/18 at 14:14; Status DC Lidocaine HCl (Lidocaine 2% Viscous) 100 ml STK-MED ONCE .ROUTE ; Start at 14:13; Stop 10/08/18 at 14:14; Status DC Lidocaine HCl 50 ml STK-MED ONCE .ROUTE ; Start 10/08/18 at 14:14; Stop at 14:15; Status DC Pantoprazole Sodium (PROTONIX VIAL for IV PUSH) 40 mg BIDAC IVP Last administered on 10/10/18at 07:28; Start 10/08/18 at 16:30; Stop 10/10/18 at 11:15 ; Status DC Ringer's Solution 1,000 ml @ 100 mls/hr Q10H IV Last administered on at 11:24; Start 10/09/18 at 11:30; Stop 10/10/18 at 07:46; Status DC Propofol 20 ml @ As Directed STK-MED ONCE IV ; Start 10/09/18 at 12:02; Stop at 12:03; Status DC Lidocaine HCl (Lidocaine Pf 2% Vial) 5 ml STK-MED ONCE .ROUTE ; Start 10/09/18 at 12:02; Stop 10/09/18 at 12:03; Status DC Epinephrine HCl (EPINEPHrine SYRINGE) 1 mg STK-MED ONCE .ROUTE ; Start 10/09/18 at 13:18; Stop 10/09/18 at 13:19; Status DC Fentanyl Citrate (Fentanyl 2ml Vial) 50 mcg PRN Q4HRS PRN IV PAIN SEVERE Last administered on 10/17/18 20:21; Start 10/10/18 at 09:00 Fentanyl Citrate (Fentanyl 2ml Vial) 25 mcg PRN Q4HRS PRN IV PAIN MODERATE Last administered on 10/16/18 13:03; Start 10/10/18 at 09:00 Lidocaine (Lidoderm) 1 patch DAILY TD Last administered on 10/20/18 09:28; Start 10/10/18 at 10:00 Miscellaneous (Lidoderm Patch Removal) 1 ea QHS MC Last administered on at 21:00; Start 10/10/18 at 21:00 Sucralfate (Carafate) 1 gm QIDACHS PEG Last administered on 10/18/18 12:57; Start 10/10/18 at 11:30; Stop 10/18/18 at 13:01; Status DC Pantoprazole Sodium (Protonix) 40 mg BIDAC PO ; Start 10/10/18 at 16:30; Stop at 11:14; Status DC Amino Acids/ Glycerin/ Electrolytes 1,000 ml @ 100 mls/hr Q10H IV Last administered on 10/14/18at 05:20; Start 10/10/18 at 14:45; Stop 10/14/18 at 15:42; Status DC Barium Sulfate (Varibar Thin Liquid Apple) 148 gm 1X ONCE PO Last administered on 10/11/18at 11:10; Start 10/11/18 at 10:15; Stop 10/11/18 at 10:16 ; Status DC Pantoprazole Sodium (PROTONIX VIAL for IV PUSH) 40 mg BIDAC IVP Last administered on 10/18/18 08:31; Start 10/11/18 at 16:30; Stop 10/18/18 at 13:01; Status DC Albuterol/ Ipratropium (Duoneb) 3 ml 1X ONCE NEB Last administered on at 01:00; Start 10/12/18 at 01:00; Stop 10/12/18 at 01:01; Status DC Labetalol HCl (Normodyne Iv Push) 20 mg PRN Q2HR PRN IVP SBP>160, 2ND CHOICE Last administered on 10/15/18at 03:18; Start 10/12/18 at 03:45 Hydralazine HCl (Apresoline Inj) 10 mg PRN Q4HRS PRN IVP SBP>160, 1ST CHOICE Last administered on 10/13/18at 11:26; Start 10/12/18 at 04:45 Albuterol/ Ipratropium (Duoneb) 3 ml 1X ONCE NEB Last administered on at 05:52; Start 10/12/18 at 06:00; Stop 10/12/18 at 06:01; Status DC Hydralazine HCl (Apresoline Inj) 10 mg PRN Q4HRS PRN IVP ELEVATED BP, SEE COMMENTS; Start 10/12/18 at 15:30; Status Cancel Albuterol Sulfate (Ventolin Neb Soln) 2.5 mg PRN Q2HR PRN NEB SHORTNESS OF BREATH; Start 10/12/18 at 18:45 Metoprolol Tartrate (Lopressor Vial) 5 mg PRN Q6HRS PRN IVP HTN, SEE COMMENTS 3rd Choice Last administered on 10/19/18at 04:02; Start 10/14/18 at 14:45 Ringer's Solution 1,000 ml @ 50 mls/hr Q20H IV Last administered on 10/18/18at 10:47; Start 10/18/18 at 07:00; Stop 10/18/18 at 15:31; Status DC Cefazolin Sodium 50 ml @ 100 mls/hr 1X PREOP PRN IV PER PROTOCOL Last administered on 10/18/18at 11:10; Start 10/18/18 at 10:00; Stop 10/18/18 at 18:00; Status DC Midazolam HCl (Versed) 2 mg PRN 1X PRN IV PRIOR TO PROCEDURE; Start 10/18/18 at 08:00; Stop 10/18/18 at 18:00; Status DC Fentanyl Citrate (Fentanyl 2ml Vial) 25 mcg PRN Q5MIN PRN IV X 2 DOSES FOR PAIN ; Start 10/18/18 at 08:00; Stop 10/18/18 at 18:00; Status DC Fentanyl Citrate (Fentanyl 2ml Vial) 50 mcg PRN Q5MIN PRN IV X 2 DOSES FOR PAIN ; Start 10/18/18 at 08:00; Stop 10/18/18 at 18:00; Status DC Ringer's Solution 1,000 ml @ 125 mls/hr Q8H IV Last administered on 10/18/18at 10:48; Start 10/18/18 at 07:55; Stop 10/18/18 at 15:31; Status DC Lidocaine HCl (Xylocaine-Mpf 1% 2ml Vial) 2 ml 1X PRN PRN ID IV START; Start at 08:00; Stop 10/18/18 at 18:00; Status DC Propofol 20 ml @ As Directed STK-MED ONCE IV ; Start 10/18/18 at 11:00; Stop 10/18 at 11:01; Status DC Lidocaine HCl (Lidocaine Pf 2% Vial) 5 ml STK-MED ONCE .ROUTE ; Start 10/18/18 at 11:00; Stop 10/18/18 at 11:01; Status DC Sucralfate (Carafate) 1 gm TIDAC PEG Last administered on 10/20/18at 06:11; Start 10/18/18 at 16:30 Lansoprazole (Prevacid) 30 mg BIDBFRMEAL FT Last administered on 10/20/18at 06:10 ; Start 10/18/18 at 16:30 Potassium Chloride (KCl Oral Soln) 20 meq DAILY PEG Last administered on 09:29; Start 10/19/18 at 09:00 Aspirin (Children'S Aspirin) 81 mg DAILYWBKFT PO Last administered on 10/20/18 09:29; Start 10/19/18 at 08:00 Active Scripts Active Reported Thera-Tabs M Caplet (Multivits,Ca,Minerals/Iron/Fa) 1 Each Tablet 1 Each PO DAILY Senna (Sennosides) 8.6 Mg Tablet 8.6 Mg PO DAILY Ranitidine Hcl 150 Mg Tablet 150 Mg PO HS Lyrica (Pregabalin) 100 Mg Capsule 1 Cap PO TID Potassium Chloride 20 Meq Tablet.er 20 Meq PO DAILY Nystatin 15 Gm Powder 1 Gabriela TP TID Simethicone 80 Mg Tab.chew 80 Mg PO PRN Q6HRS PRN Mucinex (Guaifenesin) 600 Mg Tablet.er 1 Tab PO BID Mapap (Acetaminophen) 500 Mg Tablet 1,000 Mg PO PRN BID PRN Magnesium Oxide 400 Mg Tablet 400 Mg PO BID Loperamide (Loperamide Hcl) 2 Mg Capsule 2 Mg PO PRN Q1HR PRN Levothyroxine Sodium 50 Mcg Tablet 40 Mcg PO DAILYAC PRN Furosemide 40 Mg Tablet 1 Tab PO DAILY Fish Oil-Vit D3 Softgel (Omega3/Dha/Epa/Fish Oil/Vit D3) 1 Each Capsule 1 Each PO DAILY Docusate Sodium 100 Mg Capsule 100 Mg PO BID Vitamin B-12 (Cyanocobalamin (Vitamin B-12)) 1,000 Mcg Tablet 1 Tab PO DAILY Culturelle Probiotics Capsule (L. Rhamnosus GG/Inulin) 1 Each Capsule 1 Each PO BID Tums Ultra (Calcium Carbonate) 400 Mg Tab.chew 400 Mg PO PRN Q12HR PRN Dulcolax (Bisacodyl) 10 Mg Supp.rect 10 Mg RC PRN DAILY PRN Baclofen 10 Mg Tablet 10 Mg PO HS Atorvastatin Calcium 10 Mg Tablet 10 Mg PO HS Aspirin Ec (Aspirin) 81 Mg Tablet. 1 Tab PO DAILY Vitals/I & O Vital Sign - Last 24 Hours 10/19/18 10/19/18 10/19/18 10/19/18 12:04 14:52 15:46 19:35 Temp 97.8 98.3 97.8 98.3 Pulse 103 115 Resp 18 20 B/P (MAP) 132/70 (90) 135/72 (93) Pulse Ox 96 97 98 99 O2 Delivery Nasal Cannula Nasal Cannula Nasal Cannula Nasal Cannula O2 Flow Rate 2.0 2.0 2.0 2.0 10/19/18 10/19/18 10/19/18 10/20/18 20:00 20:11 23:00 03:41 Temp 98.3 98.1 98.3 98.1 Pulse 118 108 Resp 21 20 B/P (MAP) 147/67 (93) 129/60 (83) Pulse Ox 98 97 96 O2 Delivery Nasal Cannula Nasal Cannula Nasal Cannula Nasal Cannula O2 Flow Rate 2.0 2.0 2.0 2.0 10/20/18 10/20/18 10/20/18 10/20/18 07:00 08:00 08:14 11:00 Temp 98.0 98.2 98.0 98.2 Pulse 112 112 Resp 16 16 B/P (MAP) 124/69 (87) 157/80 (105) Pulse Ox 87 98 99 O2 Delivery Room Air Nasal Cannula Nasal Cannula Room Air O2 Flow Rate 2.0 2.0 Intake and Output 10/19/18 10/19/18 10/20/18 15:00 23:00 07:00 Intake Total 450 ml 1600 ml 1130 ml Output Total 600 ml 700 ml Balance -150 ml 900 ml 1130 ml Nutrition Consultation Dietary Evaluation: Recommendations by RD: Increase Calorie Intake, Protein supplementation Comments: Continue w/TF per current order: Jevity 1.5@goal rate 50 ml/hr w/150 ml water flushes q4 hrs or flushes per REC Vit C (500 mg BID) and MVI q day if able via dobhoff - wound healing Expected Outcomes/Goals: New goal 10/14: TF initiation/infusion/tolerance - met, new goal established New goal 10/17: TF infusion to meet >75% est needs Malnutrition Findings: Body Fat Depletion (Non Severe: Mild Depletion Weight Status: Appropriate HEIDI [place] MD Oct 20, 2018 12:01
[2018-10-20] MEDS: METOPROLOL TARTRATE 5 MG/5 ML VIAL. IVP PRN ×2 (12:06→22:12)
[2018-10-20] MEDS ORDERED: MAGNESIUM CITRATE 296 ML SOLUTION. PO PRN (12:15)
[2018-10-20] MEDS ORDERED: MAGNESIUM CITRATE 296 ML SOLUTION. PO ONE (13:00)
[2018-10-20 14:41] VITALS: BP 138/77
[2018-10-20] MEDS ORDERED: METOPROLOL TARTRATE 5 MG/5 ML VIAL. IVP PRN (17:00)
--- NOTE | 2018-10-20 17:35 | PDOC ---
Subjective: Subjective: No acute events overnight. Objective: Vital Signs: Vital Signs Date Time Temp Pulse Resp B/P (MAP) Pulse Ox O2 Delivery O2 Flow Rate FiO2 10/20/18 15:44 98 Nasal Cannula 2.0 10/20/18 14:41 98.0 112 16 138/77 (97) 98.0 PE: GEN: NAD HEENT: Atraumatic, PERRLA LUNGS: CTAB HEART: RRR, no murmurs ABD: Moderately distended. No tenderness or guarding. PEG tube in place. EXTREMITY: No edema SKIN: No rashes, no jaundice NEURO/PSYCH: A & O 3 A/P: 82 years old female patient with multiple comorbidities including hyperlipidemia , hypothyroidism,scleroderma,chronic obstructive pulmonary disease. Patient currently admitted after she presented with worsening sob that was presumed to be multifactor including acute exacerbation of COPD. Patient underwent EGD by that was notable for active bleeding in the distal third of esophagus with diffuse ulceration that was treated epi and bipolar cautery. Patient also underwent PEG tube placement on 10/18 for reported oropharyngeal dysphagia. Patient examined at bed side. She has not had BM lately. She is weak and has dry mouth. Abdomen is moderately distended but no area of tenderness. Recommendations: - Continue with supportive care as per primary team. - Please obtain CBC and BMP today. - Obtain KUB with constipation and abdominal distension. - Continue with PPI and Carafate. - GI available for any Q's. ROBIN HARDY MD Oct 20, 2018 17:35
[2018-10-20 18:17] LABS: BASO % 1 % (0-3); EOS # 0.1 x10^3/uL (0.0-0.7); EOS % 2 % (0-3); HEMATOCRIT 36.8 % (36.0-47.0); HEMOGLOBIN 11.7 g/dL (12.0-15.5); LYMPH # 0.5 x10^3/uL (1.0-4.8); LYMPH % 8 % (24-48); MEAN CORPUSCULAR HEMOGLOBIN 28 pg (25-35); MEAN CORPUSCULAR HGB CONC 32 g/dL (31-37); MEAN CORPUSCULAR VOLUME 88 fL (79-100); MONO # 0.5 x10^3/uL (0.0-1.1); MONO % 8 % (0-9); NEUT # 5.5 x10^3uL (1.8-7.7); NEUT % 82 % (31-73); PLATELET COUNT 257 x10^3/uL (140-400); RED BLOOD COUNT 4.18 x10^6/uL (3.50-5.40); WHITE BLOOD COUNT 6.8 x10^3/uL (4.0-11.0)
[2018-10-20 18:18] LABS: CALCIUM 8.6 mg/dL (8.5-10.1); CREATININE 0.8 mg/dL (0.6-1.0); GFR 68.7
[2018-10-20 19:40] VITALS: BP 142/71
[2018-10-20] MEDS: PATCH REMOVAL. MC SCH (21:00)
[2018-10-20] MEDS: BACLOFEN 10 MG TABLET. PO SCH (21:35)
[2018-10-20] MEDS: ATORVASTATIN CALCIUM 10 MG TABLET. PO SCH (21:36)
[2018-10-20] MEDS: ENOXAPARIN 40 MG/0.4 ML SYRINGE. SQ SCH (21:37)
[2018-10-20 23:00] VITALS: BP 132/58
--- NOTE | 2018-10-20 23:30 | NUR ---
turned pt, did oral care, and released abd binder and assessed skin. skin is intact. abd is bloated and tender. swabed around peg site, gauze on top of peg tube site per DR request. which was passed on in report by Michelle METCALF. replaced abd binder. lcrn
[2018-10-21] MEDS: fentaNYL PF VIAL 100 MCG/2 ML VIAL IV PRN ×2 (02:41→08:57)
[2018-10-21 03:15] VITALS: BP 102/57
[2018-10-21] MEDS: LEVOTHYROXINE 25 MCG TABLET. PO SCH (06:01)
[2018-10-21 06:39] LABS: BASO % 1 % (0-3); EOS # 0.1 x10^3/uL (0.0-0.7); EOS % 2 % (0-3); HEMATOCRIT 32.7 % (36.0-47.0); HEMOGLOBIN 10.6 g/dL (12.0-15.5); LYMPH # 1.4 x10^3/uL (1.0-4.8); LYMPH % 18 % (24-48); MEAN CORPUSCULAR HEMOGLOBIN 28 pg (25-35); MEAN CORPUSCULAR HGB CONC 32 g/dL (31-37); MEAN CORPUSCULAR VOLUME 87 fL (79-100); MONO # 0.9 x10^3/uL (0.0-1.1); MONO % 11 % (0-9); NEUT # 5.2 x10^3uL (1.8-7.7); NEUT % 69 % (31-73); PLATELET COUNT 231 x10^3/uL (140-400); RED BLOOD COUNT 3.77 x10^6/uL (3.50-5.40); WHITE BLOOD COUNT 7.6 x10^3/uL (4.0-11.0)
[2018-10-21 06:58] LABS: CALCIUM 8.5 mg/dL (8.5-10.1); CREATININE 0.8 mg/dL (0.6-1.0); GFR 68.7
[2018-10-21] MEDS: IPRATRPIUM/ALBUTEROL 0.5/2.5MG 3 ML NEBU. NEB SCH ×2 (07:13→11:11)
[2018-10-21 07:15] VITALS: BP 126/53
--- NOTE | 2018-10-21 08:16 | PDOC ---
GI PROGRESS NOTES Date Date/Time DATE: 10/21/18 TIME: 08:11 Subjective Subjective resting- PEG tube feedings at 60 cc patient and chart relates she finally had some bowel movements yesterday Objective Vitals Vital Signs Date Time Temp Pulse Resp B/P (MAP) Pulse Ox O2 Delivery O2 Flow Rate FiO2 10/21/18 07:15 98.0 96 20 126/53 (77) 99 Nasal Cannula 2.0 98.0 10/21/18 07:14 98 Nasal Cannula 2.0 10/21/18 03:15 98.7 102 20 102/57 (72) 99 Nasal Cannula 2.0 98.7 10/20/18 23:00 99.6 103 21 132/58 (82) 97 Nasal Cannula 2.0 99.6 10/20/18 22:12 124 142/71 10/20/18 20:00 Nasal Cannula 2.0 10/20/18 19:40 97.9 103 19 142/71 (94) 97 Nasal Cannula 2.0 97.9 10/20/18 19:31 98 Nasal Cannula 2.0 10/20/18 17:27 119 149/84 10/20/18 15:44 98 Nasal Cannula 2.0 10/20/18 14:41 98.0 112 16 138/77 (97) 98 Room Air 98.0 10/20/18 12:06 112 157/80 10/20/18 12:04 98 Nasal Cannula 2.0 10/20/18 11:00 98.2 112 16 157/80 (105) 99 Room Air 98.2 10/20/18 08:14 98 Nasal Cannula 2.0 Labs Labs Laboratory Tests Test 10/20/18 18:05 10/21/18 05:50 White Blood Count 6.8 x10^3/uL (4.0-11.0) 7.6 x10^3/uL (4.0-11.0) Red Blood Count 4.18 x10^6/uL (3.50-5.40) 3.77 x10^6/uL (3.50-5.40) Hemoglobin 11.7 g/dL (12.0-15.5) 10.6 g/dL (12.0-15.5) Hematocrit 36.8 % (36.0-47.0) 32.7 % (36.0-47.0) Mean Corpuscular Volume 88 fL (79-100) 87 fL (79-100) Mean Corpuscular Hemoglobin 28 pg (25-35) 28 pg (25-35) Mean Corpuscular Hemoglobin Concent 32 g/dL (31-37) 32 g/dL (31-37) Red Cell Distribution Width 17.0 % (11.5-14.5) 16.0 % (11.5-14.5) Platelet Count 257 x10^3/uL (140-400) 231 x10^3/uL (140-400) Neutrophils (%) (Auto) 82 % (31-73) 69 % (31-73) Lymphocytes (%) (Auto) 8 % (24-48) 18 % (24-48) Monocytes (%) (Auto) 8 % (0-9) 11 % (0-9) Eosinophils (%) (Auto) 2 % (0-3) 2 % (0-3) Basophils (%) (Auto) 1 % (0-3) 1 % (0-3) Neutrophils # (Auto) 5.5 x10^3uL (1.8-7.7) 5.2 x10^3uL (1.8-7.7) Lymphocytes # (Auto) 0.5 x10^3/uL (1.0-4.8) 1.4 x10^3/uL (1.0-4.8) Monocytes # (Auto) 0.5 x10^3/uL (0.0-1.1) 0.9 x10^3/uL (0.0-1.1) Eosinophils # (Auto) 0.1 x10^3/uL (0.0-0.7) 0.1 x10^3/uL (0.0-0.7) Basophils # (Auto) 0.0 x10^3/uL (0.0-0.2) 0.0 x10^3/uL (0.0-0.2) Sodium Level 141 mmol/L (136-145) 141 mmol/L (136-145) Potassium Level 4.0 mmol/L (3.5-5.1) 4.0 mmol/L (3.5-5.1) Chloride Level 103 mmol/L (98-107) 102 mmol/L (98-107) Carbon Dioxide Level 32 mmol/L (21-32) 33 mmol/L (21-32) Anion Gap 6 (6-14) 6 (6-14) Blood Urea Nitrogen 25 mg/dL (7-20) 32 mg/dL (7-20) Creatinine 0.8 mg/dL (0.6-1.0) 0.8 mg/dL (0.6-1.0) Estimated GFR (Cockcroft-Gault) 68.7 68.7 Glucose Level 126 mg/dL (70-99) 142 mg/dL (70-99) Calcium Level 8.6 mg/dL (8.5-10.1) 8.5 mg/dL (8.5-10.1) Physical Exam Physical Exam chest - clear Cor- RRR Abd- soft non tender- good bowel sounds- binder in place- PEG site appears without discharge or erythema Assessment Assessment iman-pharyngeal Dyphagia- s/p PEG tube on Sunday- tolerating it well- site appears normal- at 60 cc rate Ileus with abd KUB- no BM for many days BUT reports bowel movements overnight- and chart relates 5 BM- exam appears improved as well- continue prn meds and monitoring now that she is on enteral nutrition OFELIA KELLEY MD Oct 21, 2018 08:16
[2018-10-21] MEDS: MAGNESIUM OXIDE 400 MG TABLET PO SCH (08:22)
[2018-10-21] MEDS: FUROSEMIDE 40 MG TABLET. PO SCH (08:22)
[2018-10-21] MEDS: MULTIVITAMIN with MINERAL TABLET. PO SCH (08:22)
[2018-10-21] MEDS: LIDOCAINE (700MG/PATCH) PATCH. TD SCH (08:22)
[2018-10-21] MEDS: LANSOPRAZOLE 30 MG TAB.RAP.DR FT SCH (08:23)
[2018-10-21] MEDS: LACTOBACILLUS RHAMNOSUS GG 1 CAPSULE. PO SCH (08:23)
[2018-10-21] MEDS: PREGABALIN 50 MG CAPSULE PO SCH (08:23)
[2018-10-21] MEDS: CYANOCOBALAMIN (VITAMIN B-12) 1,000 MCG TABLET. PO SCH (08:23)
[2018-10-21] MEDS: SUCRALFATE 1 GM/10 ML ORAL.SUSP. PEG SCH ×2 (08:23→13:33)
[2018-10-21] MEDS: ASPIRIN CHEWABLE 81 MG TABLET. PO SCH (08:23)
[2018-10-21] MEDS: NYSTATIN TOPICAL POWDER 15GM BOTTLE. TP SCH (08:24)
[2018-10-21] MEDS: SENNOSIDES 8.6 MG TABLET PO SCH (08:24)
[2018-10-21] MEDS: POTASSIUM CHLORIDE 20 MEQ/15 ML ORAL LIQUID. PEG SCH (08:24)
--- NOTE | 2018-10-21 08:38 | RAD ---
Portable AP supine view of the abdomen Clinical indications: Abdominal distention. Post PEG tube placement. FINDINGS: PEG tube is present within the upper abdomen. Residual contrast is seen within the distal colon and rectosigmoid region. Sigmoid diverticulosis is seen. No dilatation of large or small bowel is seen. Therefore no obstructive bowel pattern is evident. IMPRESSION: No obstructive bowel pattern. Electronically signed by: Donny Trejo MD (10/21/2018 8:36 AM) [facility]
--- NOTE | 2018-10-21 10:49 | NUR ---
SS following up with discharge planning. SS phoned and faxed clinical updates to [facility]. [phone]; fax [phone]. SS received phone contacted from [facility] stating that [employer] has overturned there decision for LTAC and has given authorization for admission to [facility]. [facility] reported that they would notify SS when a bed was available. Pt's RN and pt's daughter notified.
[2018-10-21 10:59] VITALS: BP 129/58
--- NOTE | 2018-10-21 12:18 | NUR ---
SS following up with discharge planning. [facility] notified SS that bed was available for pt. SS phoned and faxed discharge orders to [facility], ; fax [phone]. Pt will discharge today and go to [facility] at 1400 via [facility] ambulance. Pt, pt's daughter, and pt's RN notified.
--- NOTE | 2018-10-21 12:53 | PDOC ---
PULMONARY PROGRESS NOTES Subjective has cough, no pain, on 02 Vitals Vital Signs Date Time Temp Pulse Resp B/P (MAP) Pulse Ox O2 Delivery O2 Flow Rate FiO2 10/21/18 11:13 98 Nasal Cannula 2.0 10/21/18 10:59 97.4 93 20 129/58 (81) 97.4 ROS: No Chest Pain General: No acute distress, Lethargic HEENT: Other (nc at perrl) Lungs: Crackles Cardiovascular: S1, S2 Abdomen: Soft, Non-tender Neuro Exam: Alert Extremities: No Edema Skin: Warm Labs Laboratory Tests Test 10/20/18 18:05 10/21/18 05:50 White Blood Count 6.8 x10^3/uL (4.0-11.0) 7.6 x10^3/uL (4.0-11.0) Red Blood Count 4.18 x10^6/uL (3.50-5.40) 3.77 x10^6/uL (3.50-5.40) Hemoglobin 11.7 g/dL (12.0-15.5) 10.6 g/dL (12.0-15.5) Hematocrit 36.8 % (36.0-47.0) 32.7 % (36.0-47.0) Mean Corpuscular Volume 88 fL (79-100) 87 fL (79-100) Mean Corpuscular Hemoglobin 28 pg (25-35) 28 pg (25-35) Mean Corpuscular Hemoglobin Concent 32 g/dL (31-37) 32 g/dL (31-37) Red Cell Distribution Width 17.0 % (11.5-14.5) 16.0 % (11.5-14.5) Platelet Count 257 x10^3/uL (140-400) 231 x10^3/uL (140-400) Neutrophils (%) (Auto) 82 % (31-73) 69 % (31-73) Lymphocytes (%) (Auto) 8 % (24-48) 18 % (24-48) Monocytes (%) (Auto) 8 % (0-9) 11 % (0-9) Eosinophils (%) (Auto) 2 % (0-3) 2 % (0-3) Basophils (%) (Auto) 1 % (0-3) 1 % (0-3) Neutrophils # (Auto) 5.5 x10^3uL (1.8-7.7) 5.2 x10^3uL (1.8-7.7) Lymphocytes # (Auto) 0.5 x10^3/uL (1.0-4.8) 1.4 x10^3/uL (1.0-4.8) Monocytes # (Auto) 0.5 x10^3/uL (0.0-1.1) 0.9 x10^3/uL (0.0-1.1) Eosinophils # (Auto) 0.1 x10^3/uL (0.0-0.7) 0.1 x10^3/uL (0.0-0.7) Basophils # (Auto) 0.0 x10^3/uL (0.0-0.2) 0.0 x10^3/uL (0.0-0.2) Sodium Level 141 mmol/L (136-145) 141 mmol/L (136-145) Potassium Level 4.0 mmol/L (3.5-5.1) 4.0 mmol/L (3.5-5.1) Chloride Level 103 mmol/L (98-107) 102 mmol/L (98-107) Carbon Dioxide Level 32 mmol/L (21-32) 33 mmol/L (21-32) Anion Gap 6 (6-14) 6 (6-14) Blood Urea Nitrogen 25 mg/dL (7-20) 32 mg/dL (7-20) Creatinine 0.8 mg/dL (0.6-1.0) 0.8 mg/dL (0.6-1.0) Estimated GFR (Cockcroft-Gault) 68.7 68.7 Glucose Level 126 mg/dL (70-99) 142 mg/dL (70-99) Calcium Level 8.6 mg/dL (8.5-10.1) 8.5 mg/dL (8.5-10.1) Laboratory Tests Test 10/20/18 18:05 10/21/18 05:50 White Blood Count 6.8 x10^3/uL (4.0-11.0) 7.6 x10^3/uL (4.0-11.0) Red Blood Count 4.18 x10^6/uL (3.50-5.40) 3.77 x10^6/uL (3.50-5.40) Hemoglobin 11.7 g/dL (12.0-15.5) 10.6 g/dL (12.0-15.5) Hematocrit 36.8 % (36.0-47.0) 32.7 % (36.0-47.0) Mean Corpuscular Volume 88 fL (79-100) 87 fL (79-100) Mean Corpuscular Hemoglobin 28 pg (25-35) 28 pg (25-35) Mean Corpuscular Hemoglobin Concent 32 g/dL (31-37) 32 g/dL (31-37) Red Cell Distribution Width 17.0 % (11.5-14.5) 16.0 % (11.5-14.5) Platelet Count 257 x10^3/uL (140-400) 231 x10^3/uL (140-400) Neutrophils (%) (Auto) 82 % (31-73) 69 % (31-73) Lymphocytes (%) (Auto) 8 % (24-48) 18 % (24-48) Monocytes (%) (Auto) 8 % (0-9) 11 % (0-9) Eosinophils (%) (Auto) 2 % (0-3) 2 % (0-3) Basophils (%) (Auto) 1 % (0-3) 1 % (0-3) Neutrophils # (Auto) 5.5 x10^3uL (1.8-7.7) 5.2 x10^3uL (1.8-7.7) Lymphocytes # (Auto) 0.5 x10^3/uL (1.0-4.8) 1.4 x10^3/uL (1.0-4.8) Monocytes # (Auto) 0.5 x10^3/uL (0.0-1.1) 0.9 x10^3/uL (0.0-1.1) Eosinophils # (Auto) 0.1 x10^3/uL (0.0-0.7) 0.1 x10^3/uL (0.0-0.7) Basophils # (Auto) 0.0 x10^3/uL (0.0-0.2) 0.0 x10^3/uL (0.0-0.2) Sodium Level 141 mmol/L (136-145) 141 mmol/L (136-145) Potassium Level 4.0 mmol/L (3.5-5.1) 4.0 mmol/L (3.5-5.1) Chloride Level 103 mmol/L (98-107) 102 mmol/L (98-107) Carbon Dioxide Level 32 mmol/L (21-32) 33 mmol/L (21-32) Anion Gap 6 (6-14) 6 (6-14) Blood Urea Nitrogen 25 mg/dL (7-20) 32 mg/dL (7-20) Creatinine 0.8 mg/dL (0.6-1.0) 0.8 mg/dL (0.6-1.0) Estimated GFR (Cockcroft-Gault) 68.7 68.7 Glucose Level 126 mg/dL (70-99) 142 mg/dL (70-99) Calcium Level 8.6 mg/dL (8.5-10.1) 8.5 mg/dL (8.5-10.1) Medications Active Scripts Medications Dose Route/Sig Max Daily Dose Days Date Category Thera-Tabs M Caplet (Multivits,Ca,Minerals/Iron/Fa) 1 Each Tablet 1 Each PO DAILY 10/07/18 Reported Senna (Sennosides) 8.6 Mg Tablet 8.6 Mg PO DAILY 10/07/18 Reported Ranitidine Hcl 150 Mg Tablet 150 Mg PO HS 10/07/18 Reported Lyrica (Pregabalin) 100 Mg Capsule 1 Cap PO TID 10/07/18 Reported Potassium Chloride 20 Meq Tablet.er 20 Meq PO DAILY 10/07/18 Reported Nystatin 15 Gm Powder 1 Gabriela TP TID 10/07/18 Reported Simethicone 80 Mg Tab.chew 80 Mg PO PRN Q6HRS PRN 10/07/18 Reported Mucinex (Guaifenesin) 600 Mg Tablet.er 1 Tab PO BID 10/07/18 Reported Mapap (Acetaminophen) 500 Mg Tablet 1,000 Mg PO PRN BID PRN 10/07/18 Reported Magnesium Oxide 400 Mg Tablet 400 Mg PO BID 10/07/18 Reported Loperamide (Loperamide Hcl) 2 Mg Capsule 2 Mg PO PRN Q1HR PRN 10/07/18 Reported Levothyroxine Sodium 50 Mcg Tablet 40 Mcg PO DAILYAC PRN 10/07/18 Reported Furosemide 40 Mg Tablet 1 Tab PO DAILY 10/07/18 Reported Fish Oil-Vit D3 Softgel (Omega3/Dha/Epa/Fish Oil/Vit D3) 1 Each Capsule 1 Each PO DAILY 10/07/18 Reported Docusate Sodium 100 Mg Capsule 100 Mg PO BID 10/07/18 Reported Vitamin B-12 (Cyanocobalamin (Vitamin B-12)) 1,000 Mcg Tablet 1 Tab PO DAILY 10/07/18 Reported Culturelle Probiotics Capsule (L. Rhamnosus GG/Inulin) 1 Each Capsule 1 Each PO BID 10/07/18 Reported Tums Ultra (Calcium Carbonate) 400 Mg Tab.chew 400 Mg PO PRN Q12HR PRN 10/07/18 Reported Dulcolax (Bisacodyl) 10 Mg Supp.rect 10 Mg RC PRN DAILY PRN 10/07/18 Reported Baclofen 10 Mg Tablet 10 Mg PO HS 10/07/18 Reported Atorvastatin Calcium 10 Mg Tablet 10 Mg PO HS 10/07/18 Reported Aspirin Ec (Aspirin) 81 Mg Tablet.dr 1 Tab PO DAILY 10/07/18 Reported Impression . 1. Dyspnea POA ,secondary to multi-factorial etiology including exacerbation of chronic obstructive pulmonary disease.? right HF/ Weakness/ stable 2. Acute exacerbation of chronic obstructive pulmonary disease. 3. Recent echo with PA only 33 mmHg. Does not need any work up 4. Chest pain resolved. 5. Chronic atrial fibrillation. 6. Scleroderma. 7. Right lower extremity cellulitis. 8. HEMATEMESIS, resolved 9. DYSPHAGIA BROCNH FINDINGS: 1. Normal vocal cords. 2. No endobronchial lesion. 3. No active bleeding. EGD Esophagus- shortened with diffuse ulceration in distal 1/3, with active bleeding and adherent clot ? MW tear as well- carmen removed, treated with 3 cc of epinephrine 1:10,000 and bipolar cautery- with control- 6 cm HH, stomach with clots - no active bleeding seen but exam limited due to clots- duodenum appeared normal Plan- NPO then CLD PPI BID carafate slurry QID repeat EGD in 1 week if stable or earlier if bleeding continues ECHO <Conclusion> Abnormal septal motion consistent with conduction abnormality. The Ejection Fraction is 50%. Trace aortic regurgitation. Trace to mild mitral regurgitation. Mild tricuspid regurgitation. The PA pressure was estimated at 33 mmHg. There is no evidence of significant pericardial effusion. Plan . NASAL CANULA, 02 titration BD elevate hob RESP STATUS IS COMPENSATED EGD last week: ulcerative esophagitis w/ active bleeding and clots, possible M- W tear s/p epi and cautery, hiatal hernia, clot in stomach FOLLOW GI INPUT s/p PEG 4/5 D/W RN/pt transfer to [facility] TORI GOMEZ MD Oct 21, 2018 12:53
--- NOTE | 2018-10-21 14:30 | NUR ---
5Discharge Note: [facility] Discharge instructions and discharge home medications reviewed with TEA Beal and a copy sent with pt. All questions have been answered and understanding verbalized. IV lines dressing intact no drainage. Patient discharged to [facility] with EMS via [facility].
--- NOTE | 2018-10-21 15:30 | PDOC3 ---
Discharge Summary Visit Information Date of Admission: Oct 07, 2018 Date of Discharge: Oct 21, 2018 Admitting Diagnosis Comment: 1. ACUTE COPD EXAC 2. Chest pain, atypical. 2. Dyspnea, //URI. 3. Chronic diastolic CHF Abnormal septal motion consistent with conduction abnormality. The Ejection Fraction is 50%. ECHO 10/07 4. Chronic AFIB; 5. Scleroderma 6. Raynaud's 7. RLE cellulitis, wound 8. left chest deep brain stimulator for essential tremors 9. GERD 10. Hypothyroid state on replacement 11. Right 2nd toe infection. Final Diagnosis 1. ACUTE COPD EXAC improved 2. Chest pain, atypical. non cardiac in nature most likely due to underlyng gi process 2. Dyspnea secondary to URI. slowly improving. 3. Chronic diastolic CHF Abnormal septal motion consistent with conduction abnormality. The Ejection Fraction is 50%. ECHO 10/07 4. Chronic AFIB; 5. Scleroderma 6. Raynaud's 7. RLE cellulitis, wound 8. left chest deep brain stimulator for essential tremors 9. GERD 10. Hypothyroid state on replacement 11. Right 2nd toe infection. 12. hypernatremia resolved 13. Dysphagia status post PEG tube placement. 10/18/18 Brief Hospital Course Allergies Allergies Coded Allergies Type Severity Reaction Last Updated Verified Sulfa (Sulfonamide Antibiotics) Allergy Intermediate 10/18/18 Yes carbamazepine Allergy Intermediate itchy 10/18/18 Yes prochlorperazine Allergy Intermediate 10/18/18 Yes tramadol Allergy Intermediate Rash 10/18/18 Yes Vital Signs Vital Signs Date Time Temp Pulse Resp B/P (MAP) Pulse Ox O2 Delivery O2 Flow Rate FiO2 10/21/18 11:13 98 Nasal Cannula 2.0 10/21/18 10:59 97.4 93 20 129/58 (81) 97.4 Physical Exam General: Alert, Oriented X3, Cooperative, mild distress, Other (frail appearing ) Heart: Regular rate, Normal S1, Other (irregular rhythm with 2/6 systolic murmur) Lungs: Crackles Abdomen: Normal bowel sounds, Soft, No tenderness Extremities: No clubbing, No cyanosis, No edema, Normal pulses, Other (strong dorsalis pedis pulse on the right with a Quant of flow of 1.08) Skin: No breakdown, No significant lesion, Other (1.3 cm ulceration to the dorsal aspect right second toe with no evidence of exposed tendon or bone at this time. The toe itself is modestly edematous with mild erythema) Lab Results Laboratory Tests Test 10/20/18 18:05 10/21/18 05:50 White Blood Count 6.8 x10^3/uL (4.0-11.0) 7.6 x10^3/uL (4.0-11.0) Red Blood Count 4.18 x10^6/uL (3.50-5.40) 3.77 x10^6/uL (3.50-5.40) Hemoglobin 11.7 g/dL (12.0-15.5) 10.6 g/dL (12.0-15.5) Hematocrit 36.8 % (36.0-47.0) 32.7 % (36.0-47.0) Mean Corpuscular Volume 88 fL (79-100) 87 fL (79-100) Mean Corpuscular Hemoglobin 28 pg (25-35) 28 pg (25-35) Mean Corpuscular Hemoglobin Concent 32 g/dL (31-37) 32 g/dL (31-37) Red Cell Distribution Width 17.0 % (11.5-14.5) 16.0 % (11.5-14.5) Platelet Count 257 x10^3/uL (140-400) 231 x10^3/uL (140-400) Neutrophils (%) (Auto) 82 % (31-73) 69 % (31-73) Lymphocytes (%) (Auto) 8 % (24-48) 18 % (24-48) Monocytes (%) (Auto) 8 % (0-9) 11 % (0-9) Eosinophils (%) (Auto) 2 % (0-3) 2 % (0-3) Basophils (%) (Auto) 1 % (0-3) 1 % (0-3) Neutrophils # (Auto) 5.5 x10^3uL (1.8-7.7) 5.2 x10^3uL (1.8-7.7) Lymphocytes # (Auto) 0.5 x10^3/uL (1.0-4.8) 1.4 x10^3/uL (1.0-4.8) Monocytes # (Auto) 0.5 x10^3/uL (0.0-1.1) 0.9 x10^3/uL (0.0-1.1) Eosinophils # (Auto) 0.1 x10^3/uL (0.0-0.7) 0.1 x10^3/uL (0.0-0.7) Basophils # (Auto) 0.0 x10^3/uL (0.0-0.2) 0.0 x10^3/uL (0.0-0.2) Sodium Level 141 mmol/L (136-145) 141 mmol/L (136-145) Potassium Level 4.0 mmol/L (3.5-5.1) 4.0 mmol/L (3.5-5.1) Chloride Level 103 mmol/L (98-107) 102 mmol/L (98-107) Carbon Dioxide Level 32 mmol/L (21-32) 33 mmol/L (21-32) Anion Gap 6 (6-14) 6 (6-14) Blood Urea Nitrogen 25 mg/dL (7-20) 32 mg/dL (7-20) Creatinine 0.8 mg/dL (0.6-1.0) 0.8 mg/dL (0.6-1.0) Estimated GFR (Cockcroft-Gault) 68.7 68.7 Glucose Level 126 mg/dL (70-99) 142 mg/dL (70-99) Calcium Level 8.6 mg/dL (8.5-10.1) 8.5 mg/dL (8.5-10.1) Laboratory Tests Test 10/20/18 18:05 10/21/18 05:50 White Blood Count 6.8 x10^3/uL (4.0-11.0) 7.6 x10^3/uL (4.0-11.0) Red Blood Count 4.18 x10^6/uL (3.50-5.40) 3.77 x10^6/uL (3.50-5.40) Hemoglobin 11.7 g/dL (12.0-15.5) 10.6 g/dL (12.0-15.5) Hematocrit 36.8 % (36.0-47.0) 32.7 % (36.0-47.0) Mean Corpuscular Volume 88 fL (79-100) 87 fL (79-100) Mean Corpuscular Hemoglobin 28 pg (25-35) 28 pg (25-35) Mean Corpuscular Hemoglobin Concent 32 g/dL (31-37) 32 g/dL (31-37) Red Cell Distribution Width 17.0 % (11.5-14.5) 16.0 % (11.5-14.5) Platelet Count 257 x10^3/uL (140-400) 231 x10^3/uL (140-400) Neutrophils (%) (Auto) 82 % (31-73) 69 % (31-73) Lymphocytes (%) (Auto) 8 % (24-48) 18 % (24-48) Monocytes (%) (Auto) 8 % (0-9) 11 % (0-9) Eosinophils (%) (Auto) 2 % (0-3) 2 % (0-3) Basophils (%) (Auto) 1 % (0-3) 1 % (0-3) Neutrophils # (Auto) 5.5 x10^3uL (1.8-7.7) 5.2 x10^3uL (1.8-7.7) Lymphocytes # (Auto) 0.5 x10^3/uL (1.0-4.8) 1.4 x10^3/uL (1.0-4.8) Monocytes # (Auto) 0.5 x10^3/uL (0.0-1.1) 0.9 x10^3/uL (0.0-1.1) Eosinophils # (Auto) 0.1 x10^3/uL (0.0-0.7) 0.1 x10^3/uL (0.0-0.7) Basophils # (Auto) 0.0 x10^3/uL (0.0-0.2) 0.0 x10^3/uL (0.0-0.2) Sodium Level 141 mmol/L (136-145) 141 mmol/L (136-145) Potassium Level 4.0 mmol/L (3.5-5.1) 4.0 mmol/L (3.5-5.1) Chloride Level 103 mmol/L (98-107) 102 mmol/L (98-107) Carbon Dioxide Level 32 mmol/L (21-32) 33 mmol/L (21-32) Anion Gap 6 (6-14) 6 (6-14) Blood Urea Nitrogen 25 mg/dL (7-20) 32 mg/dL (7-20) Creatinine 0.8 mg/dL (0.6-1.0) 0.8 mg/dL (0.6-1.0) Estimated GFR (Cockcroft-Gault) 68.7 68.7 Glucose Level 126 mg/dL (70-99) 142 mg/dL (70-99) Calcium Level 8.6 mg/dL (8.5-10.1) 8.5 mg/dL (8.5-10.1) Brief Hospital Course Ms. Garcia is a 82 old female who presented with copd exacerbation and chest pain, this was most liekly due to gi etiology given the chain of events as follow: PROCEDURE NOTE PROCEDURE 09/11 Procedure EGD with control of bleeding Esophagus- shortened with diffuse ulceration in distal 1/3, with active bleeding and adherent clot ? MW tear as well- carmen removed, treated with 3 cc of epinephrine 1:10,000 and bipolar cautery- with control- 6 cm HH, stomach with clots - no active bleeding seen but exam limited due to clots- duodenum appeared normal History of Present Illness History of Present Illness 10/09 HEMOPTYSIS VS HEMATEMESIS REMAINS NPO/// BRONCH NO LESION SEEN, GI FOLLOWING 10/10 failed bedside swallow and is still NPO - PPN ordered 10/11 FAILED SWALLOW STUDY, WILL D/W GI planning dobhoff 10/14 Disordered swallowing mechanism with moderate residue and mild intermittent laryngeal penetration with minimal aspiration 10/14 Daughter desires DNR designation dobhoff placed Enteric feeding catheter within the proximal stomach. on kub 10/15 no complaints during my visit remains stable, guarded prognosis 10/16 no new complaints remains bedridden, compaoinign of back pain, no alarming signs voiced, no cauda equina syndrome symptoms. 10/17 patient will need to have a epg tube placement for nutrition discussed with daughter at bedside. 10/18 patient seen at endoscopy prior to procedure, will follow after PEG tube has been placed. 10/19 no acute events patient yeager start tube feeds 10/20 patient tolerating her tube feeds well, no fever chills or complaints during my visit. She will be [facility]ing to [facility] with [facility] program She would like to regain independence again. Prognosis is guarded Greater than 35 minutes were spent in the discharge process of the patient in counseling coordination of care and arrangements for a safe transfer Discharge Information Condition at Discharge: Improved Follow Up: Weeks Disposition/Orders: D/C to Another Facility Scheduled Aspirin (Aspirin Ec) 81 Mg Tablet.dr, 1 TAB PO DAILY for afib, #30 Ref 3 ( Reported) Entered as Reported by: Derrell Clancy on 10/07/18210 Last Taken: UNKNOWN on Unknown Date & Time Last Action: Continued on 10/07 by NNAMDI MCKEON Atorvastatin Calcium (Atorvastatin Calcium) 10 Mg Tablet, 10 MG PO HS for FOR CHOLESTEROL, #30 Ref 0 (Reported) Entered as Reported by: Derrell Clancy on 10/07/18210 Last Taken: UNKNOWN on Unknown Date & Time Last Action: Continued on 10/07 by NNAMDI MCKEON Baclofen (Baclofen) 10 Mg Tablet, 10 MG PO HS for MUSCLE RELAXER, #30 Ref 0 ( Reported) Entered as Reported by: Derrell Clancy on 10/07/18210 Last Taken: UNKNOWN on Unknown Date & Time Last Action: Continued on 10/07 by NNAMDI MCKEON Cyanocobalamin (Vitamin B-12) (Vitamin B-12) 1,000 Mcg Tablet, 1 TAB PO DAILY for low vitamin 12, #30 Ref 2 (Reported) Entered as Reported by: Derrell Clancy on 10/07/18210 Last Taken: UNKNOWN on Unknown Date & Time Last Action: Continued on 10/07 by NNAMDI MCKEON Docusate Sodium (Docusate Sodium) 100 Mg Capsule, 100 MG PO BID for constipation , (Reported) Entered as Reported by: Derrell Clancy on 10/07/18210 Last Taken: UNKNOWN on Unknown Date & Time Last Action: Continued on 10/07 by NNAMDI MCKEON Furosemide (Furosemide) 40 Mg Tablet, 1 TAB PO DAILY for chf, #30 Ref 5 ( Reported) Entered as Reported by: Derrell Clancy on 10/07/18210 Last Taken: UNKNOWN on Unknown Date & Time Last Action: Continued on 10/07 by NNAMDI MCKEON Guaifenesin (Mucinex) 600 Mg Tablet.er, 1 TAB PO BID for cough, #14 (Reported) Entered as Reported by: Derrell Clancy on 10/07/18211 Last Taken: UNKNOWN on Unknown Date & Time Last Action: Continued on 10/07 by NNAMDI MCKEON L. Rhamnosus GG/Inulin (Culturelle Probiotics Capsule) 1 Each Capsule, 1 EACH PO BID for GI, (Reported) Entered as Reported by: Derrell Clancy on 10/07/18210 Last Taken: UNKNOWN on Unknown Date & Time Last Action: Converted on 10/07 by NNAMDI MCKEON Magnesium Oxide (Magnesium Oxide) 400 Mg Tablet, 400 MG PO BID for low mag, ( Reported) Entered as Reported by: Derrell Clancy on 10/07/18211 Last Taken: UNKNOWN on Unknown Date & Time Last Action: Converted on 10/07 by NNAMDI MCKEON Multivits,Ca,Minerals/Iron/Fa (Thera-Tabs M Caplet) 1 Each Tablet, 1 EACH PO DAILY for supplement, (Reported) Entered as Reported by: Derrell Clancy on 10/07/18211 Last Taken: UNKNOWN on Unknown Date & Time Last Action: Converted on 10/07 by NNAMDI MCKEON Nystatin (Nystatin) 15 Gm Powder, 1 CARLY TP TID for skin breakdown , #1 (Reported ) Entered as Reported by: Derrell Clancy on 10/07/18211 Last Taken: UNKNOWN on Unknown Date & Time Last Action: Continued on 10/07 by NNAMDI MCKEON Omega3/Dha/Epa/Fish Oil/Vit D3 (Fish Oil-Vit D3 Softgel) 1 Each Capsule, 1 EACH PO DAILY for supplements , (Reported) Entered as Reported by: Derrell Clancy on 10/07/18210 Last Taken: UNKNOWN on Unknown Date & Time Last Action: Converted on 10/07 by NNAMDI MCKEON Potassium Chloride (Potassium Chloride) 20 Meq Tablet.er, 20 MEQ PO DAILY for chf, (Reported) Entered as Reported by: Derrell Clancy on 10/07/18211 Last Taken: UNKNOWN on Unknown Date & Time Last Action: Converted on 10/07 by NNAMDI MCKEON Pregabalin (Lyrica) 100 Mg Capsule, 1 CAP PO TID for pain, #90 Ref 2 (Reported) Entered as Reported by: Derrell Clancy on 10/07/18211 Last Taken: UNKNOWN on Unknown Date & Time Last Action: Converted on 10/07 by NNAMDI MCKEON Ranitidine Hcl (Ranitidine Hcl) 150 Mg Tablet, 150 MG PO HS for allergies, ( Reported) Entered as Reported by: Derrell Clancy on 10/07/18211 Last Taken: UNKNOWN on Unknown Date & Time Last Action: Converted on 10/07 by NNAMDI MCKEON Sennosides (Senna) 8.6 Mg Tablet, 8.6 MG PO DAILY for constipation, #2 (Reported ) Entered as Reported by: Derrell Clancy on 10/07/18211 Last Taken: UNKNOWN on Unknown Date & Time Last Action: Converted on 10/07 by NNAMDI MCKEON Scheduled PRN Acetaminophen (Mapap) 500 Mg Tablet, 1,000 MG PO PRN BID PRN for PAIN, (Reported ) Entered as Reported by: Derrell Clancy on 10/07/18211 Last Taken: UNKNOWN on Unknown Date & Time Last Action: Converted on 10/07 by NNAMDI MCKEON Bisacodyl (Dulcolax) 10 Mg Supp.rect, 10 MG RC PRN DAILY PRN for CONSTIPATION, Ref 0 (Reported) Entered as Reported by: Derrell Clancy on 10/07/18210 Last Taken: UNKNOWN on Unknown Date & Time Last Action: Converted on 10/07 by NNAMDI MCKEON Calcium Carbonate (Tums Ultra) 400 Mg Tab.chew, 400 MG PO PRN Q12HR PRN for HEARTBURN / GAS, (Reported) Entered as Reported by: Derrell Clancy on 10/07/18210 Last Taken: UNKNOWN on Unknown Date & Time Last Action: Converted on 10/07 by NNAMDI MCKEON Levothyroxine Sodium (Levothyroxine Sodium) 50 Mcg Tablet, 40 MCG PO DAILYAC PRN for hypothyroid , #30 Ref 0 (Reported) Entered as Reported by: Derrell Clancy on 10/07/18210 Last Taken: UNKNOWN on Unknown Date & Time Last Action: Converted on 10/07 by NNAMDI MCKEON Loperamide Hcl (Loperamide) 2 Mg Capsule, 2 MG PO PRN Q1HR PRN for DIARRHEA, ( Reported) Entered as Reported by: Derrell Clancy on 10/07/18211 Last Taken: UNKNOWN on Unknown Date & Time Last Action: Converted on 10/07 by NNAMDI MCKEON Simethicone (Simethicone) 80 Mg Tab.chew, 80 MG PO PRN Q6HRS PRN for flatulence , (Reported) Entered as Reported by: Derrell Clancy on 10/07/18211 Last Taken: UNKNOWN on Unknown Date & Time Last Action: Continued on 10/07 by HEIDI GARCIA MD Oct 21, 2018 15:30
== END 2018-10-21 14:00 | DRG 871 ==
LOC: ER 16:02 → 2 SOUTH 18:35
PROVIDERS: ADMIT Family Medicine; ATTEND Family Medicine
PROC: 0BJ08ZZ Inspection of Tracheobronchial Tree, Via Natural or Artificial Opening Endoscopic (ICD-10-PCS; principal; 2018-10-08 14:00)
PROC: 0W3P8ZZ Control Bleeding in Gastrointestinal Tract, Via Natural or Artificial Opening Endoscopic (ICD-10-PCS; 2018-10-09)
PROC: 0DC58ZZ Extirpation of Matter from Esophagus, Via Natural or Artificial Opening Endoscopic (ICD-10-PCS; 2018-10-09)
PROC: 0DH63UZ Insertion of Feeding Device into Stomach, Percutaneous Approach (ICD-10-PCS; 2018-10-18)
DX: A41.9 Sepsis, unspecified organism (principal); K22.11 Ulcer of esophagus with bleeding; J18.9 Pneumonia, unspecified organism; J44.0 Chronic obstructive pulmonary disease with (acute) lower respiratory infection; L03.115 Cellulitis of right lower limb; J44.1 Chronic obstructive pulmonary disease with (acute) exacerbation; I50.32 Chronic diastolic (congestive) heart failure; E87.0 Hyperosmolality and hypernatremia; K56.7 Ileus, unspecified; R04.2 Hemoptysis; I48.2 Chronic atrial fibrillation; M34.9 Systemic sclerosis, unspecified; G20 Parkinson's disease; I27.29 Other secondary pulmonary hypertension; L89.892 Pressure ulcer of other site, stage 2; Z66 Do not resuscitate; M19.90 Unspecified osteoarthritis, unspecified site; I73.00 Raynaud's syndrome without gangrene; G25.0 Essential tremor; E03.9 Hypothyroidism, unspecified; F17.201 Nicotine dependence, unspecified, in remission; K44.9 Diaphragmatic hernia without obstruction or gangrene; M20.41 Other hammer toe(s) (acquired), right foot; Z51.5 Encounter for palliative care; R13.12 Dysphagia, oropharyngeal phase; D50.9 Iron deficiency anemia, unspecified; E78.5 Hyperlipidemia, unspecified; M20.10 Hallux valgus (acquired), unspecified foot; Z88.6 Allergy status to analgesic agent; Z88.2 Allergy status to sulfonamides; Z88.8 Allergy status to other drugs, medicaments and biological substances; Z90.710 Acquired absence of both cervix and uterus; Z90.49 Acquired absence of other specified parts of digestive tract; Z82.49 Family history of ischemic heart disease and other diseases of the circulatory system; Z87.440 Personal history of urinary (tract) infections; Z99.3 Dependence on wheelchair; Z87.19 Personal history of other diseases of the digestive system
CPT/HCPCS: 31622; 36415; 43246; 43255; 71045; 71260; 73630; 74018; 74022; 74230; 80048; 80053; 80061; 80069; 82607; 82962; 83540; 83550; 83605; 83735; 83880; 84443; 84484; 85025; 85027; 85610; 87040; 87641; 93005; 93306; 93926; 94640; 94760; C9113; J0171; J0360; J0690; J1650; J2001; J2405; J2543; J2704; J3010; J3490; J7030; J7120; J7613; J7620; Q9967; 92526; 92610; 92611; 97110; 97530; 97535; 99285-25